=== PATIENT | male | born 1945 | race African-American/Black ===

== ENCOUNTER 2017-07-21 11:51 | Emergency (ER) | payer MEDICARE, OTHER ==
--- NOTE | 2017-07-21 12:41 | ER Document Report ---
ED General - General Chief Complaint: Dizziness Stated Complaint: DIZZINESS Time Seen by Provider: 07/21/17 12:01 Mode of Arrival: Medic Information source: Patient TRAVEL OUTSIDE OF THE [place] IN LAST 30 DAYS: No - HPI Notes: 82-year-old male with a history of nonischemic dilated cardiomyopathy, bilateral MCA and posterior CVA, history of AICD/ pacemaker implantation presents today via EMS with complaints of feeling lightheaded, states episode started approximately 2 hours ago, resolved resolved and he called EMS. Patient was with his friends yesterday on a bus, states that he had a seizure, EMS came. Did not go to the hospital. Patient was seen by his primary care provider Dr. Nunez, who follows him closely, after he had this event yesterday. Patient states that his daughter was very concerned about him and advised him to go to the emergency room. She states she has a long-standing history of facial droop from his CVA patient has not taken any yakk-pfc-[id number] medications. Denies any pain. Denies any trauma denies fevers, chills, chest pain,palpitations, shortness of breath, dyspnea, nausea, vomiting, diarrhea, abdominal pain, hematuria,blurred vision, double vision, loss of vision, speech changes, LH, dizziness, syncope, headaches, wheezing, ST, URI, neck pain, weakness, bowel or bladder dysfunction, saddle anesthesia, numbness or tingling in bilateral upper or lower extremities equally, muscle paralysis, weakness in bilateral upper or lower extremities equally or rash. - Related Data Allergies/Adverse Reactions: No Known Allergies Allergy (Verified 03/01/17 11:29) Past Medical History - General Information source: Patient - Social History Smoking Status: Unknown if Ever Smoked Family History: Reviewed & Not Pertinent Patient has suicidal ideation: No Patient has homicidal ideation: No - Past Medical History Cardiac Medical History: Reports: Hx Heart Attack, Hx Hypertension Pulmonary Medical History: Denies: Hx Asthma, Hx Tuberculosis Neurological Medical History: Reports: Hx Cerebrovascular Accident - LT ARM, Hx Seizures - LAST X5 YRS AGO Endocrine Medical History: Reports: Hx Diabetes Mellitus Type 2 Renal/ Medical History: Denies: Hx Peritoneal Dialysis GI Medical History: Denies: Hx Hepatitis, Hx Hiatal Hernia, Hx Ulcer Psychiatric Medical History: Denies: Hx Depression Infectious Medical History: Denies: Hx Hepatitis Past Surgical History: Reports: Hx Abdominal Surgery - hernia repair, Hx Cardiac Surgery - pacemaker, Hx Pacemaker. Denies: Hx Open Heart Surgery - Immunizations Hx Diphtheria, Pertussis, Tetanus Vaccination: Yes Hx Pneumococcal Vaccination: 05/02/11 Review of Systems - Review of Systems Notes: REVIEW OF SYSTEMS: CONSTITUTIONAL : Denies fever, chills, or sweats. Denies recent illness. EENT: Denies eye, ear, throat, or mouth pain or symptoms. Denies nasal or sinus congestion or discharge. Denies throat, tongue, or mouth swelling or difficulty swallowing. CARDIOVASCULAR: Denies chest pain. Denies palpitations or racing or irregular heart beat. Denies ankle edema. RESPIRATORY: Denies cough, cold, or chest congestion. Denies shortness of breath, difficulty breathing, or wheezing. GASTROINTESTINAL: Denies abdominal pain or distention. Denies nausea, vomiting , or diarrhea. Denies blood in vomitus, stools, or per rectum. Denies black, tarry stools. Denies constipation. GENITOURINARY: Denies difficulty urinating, painful urination, burning, frequency, blood in urine, or discharge. MUSCULOSKELETAL: Denies back or neck pain or stiffness. Denies joint pain or swelling. SKIN: Denies rash, lesions or sores. HEMATOLOGIC : Denies easy bruising or bleeding. LYMPHATIC: Denies swollen, enlarged glands. NEUROLOGICAL: Denies confusion or altered mental status. Denies passing out or loss of consciousness. Reports dizziness or lightheadedness. Denies headache. Denies weakness or paralysis or loss of use of either side. Denies problems with gait or speech. Denies sensory loss, numbness, or tingling. Denies seizures. PSYCHIATRIC: Denies anxiety or stress. Denies depression, suicidal ideation, or homicidal ideation. ALL OTHER SYSTEMS REVIEWED AND NEGATIVE. Dictation was performed using [employer] voice recognition software PHYSICAL EXAMINATION: GENERAL: Chronically ill, well-nourished and in no acute distress. HEAD: Atraumatic, normocephalic. EYES: Pupils equal round and reactive to light, extraocular movements intact, sclera anicteric, conjunctiva are normal. ENT: Nares patent, oropharynx clear without exudates. Moist mucous membranes. Noted left-sided facial droop NECK: Normal range of motion, supple without lymphadenopathy LUNGS: Breath sounds clear to auscultation bilaterally and equal. No wheezes rales or rhonchi. HEART: Regular rate and rhythm without murmurs ABDOMEN: Soft, nontender, nondistended abdomen. No guarding, no rebound. No masses appreciated. Musculoskeletal: Normal range of motion, no pitting or edema. No cyanosis. NEUROLOGICAL: Cranial nerves grossly intact. Normal speech, normal gait. Normal sensory, motor exams PSYCH: Normal mood, normal affect. SKIN: Warm, Dry, normal turgor, no rashes or lesions noted. Physical Exam - Vital signs Vitals: Resp BP Pulse Ox 14 161/83 H 96 07/21/17 11:59 07/21/17 11:59 07/21/17 11:59 Course - Re-evaluation Re-evalutation: 07/21/17 14:32 Pleasant chronically ill 72-year-old male presents today for lightheadedness and dizziness, patient told us after initial examination that he also does have chronic renal disease well he says he has seizures, states he is only had one seizure prior. States that lightheadedness and dizziness resolved when EMS had arrived. Patient is afebrile, in no distress. CBC negative for any leukocytosis, anemia. CMP does show his chronic renal failure, with a baseline troponin that is elevated but that has been his normal. Potassium is 2.5, advised patient to increase oral potassium intake with bananas. Remains asymptomatic without any chest pain, shortness of breath, lightheadedness, dizziness, blurred vision, double vision, abdominal pain, back pain, nausea vomiting diarrhea consulted with his primary care provider, at 1435 regarding patient's status. Per the [place] syncoperule, the result shows that he is a low risk for a negative outcome for , myocardial infarction, arrhythmia, pulmonary embolism, stroke, subarachnoid hemorrhage, significant hemorrhage, or any other condition causing her return to the ED visit with a hospitalization for related event. Dr. Avila primary states that patient was seen in the office yesterday, for the exact same symptoms. States that he is noncompliant with his Rita Fossantin. Patient is very well- known to primary care provider. States that he chronically has elevated troponin due to his chronic renal disease. Discussed that this patient does not require admission and can be discharged home. Discussed the findings with patient, all questions and concerns answered by this provider. Patient verbalized understanding of this plan of care and agree with plan of care. After performing a Medical Screening Examination, I estimate there is LOW risk for RUPTURED ESOPHAGUS, PNEUMOTHORAX, PULMONARY EMBOLISM, ACUTE CORONARY SYNDROME, OR THORACIC AORTIC DISSECTION, thus I consider the discharge disposition reasonable. I have reevaluated this patient multiple times and no significant life threatening changes are noted. The patient and I have discussed the diagnosis and risks, and we agree with discharging home with close follow-up. We also discussed returning to the Emergency Department immediately if new or worsening symptoms occur. We have discussed the symptoms which are most concerning (e.g., bloody sputum, worsening pain or shortness of breath) that necessitate immediate return. After performing a Medical Screening Examination, I estimate there is LOW risk for INTRACRANIAL HEMORRHAGE, ISCHEMIC CVA, MALIGNANT DYSRHYTHMIA, ACUTE CORONARY SYNDROME, MENINGITIS, PULMONARY EMBOLISM, or SEPSIS thus I consider the discharge disposition reasonable. I have reevaluated this patient multiple times and no significant life threatening changes are noted. The patient and I have discussed the diagnosis and risks, and we agree with discharging home with close follow-up with the understanding that symptoms and presentations can change. We also discussed returning to the Emergency Department immediately if new or worsening symptoms occur. We have discussed the symptoms which are most concerning (e.g., changing or worsening pain, weakness, vomiting, fever) that necessitate immediate return. - Vital Signs Vital signs: Temp Pulse Resp BP Pulse Ox 97.7 F 14 161/83 H 96 07/21/17 12:07 07/21/17 12:00 07/21/17 11:59 07/21/17 12:00 - Laboratory Result Diagrams: 07/21/17 12:10 07/21/17 12:10 Laboratory results interpreted by me: 07/21/17 07/21/17 07/21/17 12:10 12:10 12:10 RBC 3.99 L Hgb 12.8 L Sodium 147.0 H Potassium 3.5 L Carbon Dioxide 31 H BUN 48 H Creatinine 2.50 H Est GFR ( Amer) 31 L Est GFR (Non-Af Amer) 25 L Glucose 267 H POC Glucose Magnesium 2.4 H Direct Bilirubin 0.5 H Creatine Kinase 241 H NT-Pro-B Natriuret Pep 3500 H TSH Urine Glucose (UA) 07/21/17 07/21/17 07/21/17 12:10 12:58 13:30 RBC Hgb Sodium Potassium Carbon Dioxide BUN Creatinine Est GFR ( Amer) Est GFR (Non-Af Amer) Glucose POC Glucose 297 H Magnesium Direct Bilirubin Creatine Kinase NT-Pro-B Natriuret Pep TSH 7.59 H Urine Glucose (UA) 50 H Discharge - Discharge Clinical Impression: Dizziness, Chronic renal disease, Cardiomyopathy Condition: Good Instructions: Dizziness ([facility]) Additional Instructions: Dizziness Under normal circumstances, your sense of balance is controlled by a number of signals that your brain receives from several locations: Eyes. No matter what your position, visual signals help you determine where your body is in space and how it's moving. Sensory nerves. These are in your skin, muscles and joints. Sensory nerves send messages to your brain about body movements and positions. Inner ear. The organ of balance in your inner ear is the vestibular labyrinth. It includes loop-shaped structures (semicircular canals) that contain fluid and fine, hair-like sensors that monitor the rotation of your head. Near the semicircular canals are the utricle and saccule, which contain tiny particles called otoconia ([id number]-IIV-[id number]-uh). These particles are attached to sensors that help detect gravity and iruw-dhi-rcayj motion. Good balance depends on at least two of these three sensory systems working well. For instance, closing your eyes while washing your hair in the shower doesn't mean you'll lose your balance. Signals from your inner ear and sensory nerves help keep you upright. However, if your central nervous system can't process signals from all of these locations, if the messages are contradictory, or if the sensory systems aren't functioning properly, you may experience loss of balance. Dizziness may have a number of potential causes. These may include: Vertigo Vertigo - the false sense of motion or spinning - is the most common symptom of dizziness. Sitting up or moving around may make it worse. Sometimes vertigo is severe enough to cause nausea and vomiting. Vertigo usually results from a problem with the nerves and the structures of the balance mechanism in your inner ear (vestibular system), which sense movement and changes in your head position. Abnormal rhythmic eye movements ( nystagmus) almost always accompany vertigo. Causes of vertigo may include: Benign paroxysmal positional vertigo (BPPV). BPPV involves intense, brief episodes of vertigo associated with a change in the position of your head, often when you turn over in bed or sit up in the morning. It occurs when normal calcium carbonate crystals (otoconia) break loose and fall into the wrong part of the canals in your inner ear. When these particles shift, they stimulate sensors in your ear, producing an episode of vertigo. Doctors don't know what causes BPPV, but it may be a natural result of aging. Trauma to your head also may lead to BPPV. Inflammation in the inner ear. Signs and symptoms of inflammation of the inner ear (acute vestibular neuronitis or labyrinthitis) include sudden, intense vertigo that may persist for several days, with nausea and vomiting. It can be incapacitating, requiring bed rest to minimize the signs and symptoms. Fortunately, vestibular neuronitis generally subsides and clears up on its own. Recovery time may be shorter with vestibular rehabilitation exercises. Although the cause of this condition is unknown, it may be a viral infection. Meniere's disease. This disease involves the excessive buildup of fluid in your inner ear. It may affect adults at any age and is characterized by sudden episodes of vertigo lasting 30 minutes to an hour or longer. Other signs and symptoms include the feeling of fullness in your ear, buzzing or ringing in your ear (tinnitus), and fluctuating hearing loss. The cause of Meniere's disease is unknown. Vestibular migraine. People who experience a vestibular migraine are very sensitive to motion. Dizziness and vertigo caused by a vestibular migraine may be triggered by turning your head quickly, being in a crowded or confusing place , driving or riding in a vehicle, or even watching movement on TV. A vestibular migraine may cause feelings of imbalance or unsteadiness, hearing loss, "muffled " hearing, or ringing in your ears (tinnitus). For most people with a vestibular migraine, vertigo doesn't necessarily happen at the same time as the headache. Instead, typical migraine triggers may lead to vertigo without an actual migraine. Attacks of migrainous vertigo can last from a few minutes to several days. Acoustic neuroma. An acoustic neuroma (schwannoma) is a noncancerous (benign ) growth on the acoustic nerve, which connects the inner ear to your brain. Signs and symptoms of an acoustic neuroma may include dizziness, loss of balance , hearing loss and tinnitus. Rapid changes in motion. Riding on roller coasters or in boats, cars or even airplanes may on occasion make you dizzy. Other causes. Rarely, vertigo can be a symptom of a more serious neurological problem such as a stroke, brain hemorrhage or multiple sclerosis. Feeling of faintness (presyncope) "Presyncope" is the medical term for feeling faint and lightheaded without losing consciousness. Sometimes nausea, pale skin and a sense of dizziness accompany a feeling of faintness. Causes of presyncope include: Drop in blood pressure (orthostatic hypotension). A dramatic drop in your systolic blood pressure - the higher number in your blood pressure reading - may result in lightheadedness or a feeling of faintness. It can occur after sitting up or standing too quickly. Inadequate output of blood from the heart. Conditions such as partially blocked arteries (atherosclerosis), disease of the heart muscle (cardiomyopathy) , abnormal heart rhythm (arrhythmia) or a decrease in blood volume may cause inadequate blood flow from your heart. Loss of balance (disequilibrium) Disequilibrium is the loss of balance or the feeling of unsteadiness when you walk. Causes may include: Inner ear (vestibular) problems. Abnormalities with your inner ear can cause you to feel like you are floating, have a heavy head or are unsteady in the dark. Sensory disorders. Failing vision and nerve damage in your legs (peripheral neuropathy) are common in older adultsand may result in difficulty maintaining your balance. Joint and muscle problems. Muscle weakness and osteoarthritis - the type of arthritis that involves wear and tear of your joints - can contribute to loss of balance when it involves your weight-bearing joints. Medications. Loss of balance can be a side effect of certain medications, such as anti-seizure drugs, sedatives and tranquilizers. Lightheadedness and other kinds of 'dizziness' Feeling lightheaded is the feeling of being "spaced out" or having the sensation of spinning inside your head. It can also give you the sensation that if your lightheadedness worsens, you might lose consciousness. Causes may include: Inner ear disorders. These abnormalities of your inner ear can lead to illusions of motion and make you feel like you're floating. Anxiety disorders. Certain anxiety disorders, such as panic attacks and a fear of leaving home or being in large, open spaces (agoraphobia), may cause lightheadedness. Hyperventilation. Abnormally rapid breathing that often accompanies anxiety disorders may make you feel lightheaded. Follow-up with your primary care provider within 1 day. If any symptoms become worse return to the emergency room. Take all your medications as directed. Return immediately for any new or worsening symptoms. Follow up with primary care provider, call tomorrow to make followup appointment. Referrals: MIMI AVILA MD [Primary Care Provider] - Follow up tomorrow
--- NOTE | 2017-07-21 13:08 | RADIOLOGY REPORT (SQ) ---
EXAM DESCRIPTION: CT HEAD WITHOUT COMPLETED DATE/TIME: 07/21/2017 12:48 pm REASON FOR STUDY: syncopal event. LH COMPARISON: CT brain 07/05/2014, 10/15/2008 TECHNIQUE: Axial images acquired through the brain without intravenous contrast. Images reviewed wi th bone, brain and subdural windows. Images stored on PACS. All CT scanners at this facility use dose modulation, iterative reconstruction, and/or weight based d osing when appropriate to reduce radiation dose to as low as reasonably achievable (ALARA). [facility]: Dose Right [facility]: CareDose [facility]: Dose Right [facility]: Teradose 4D [facility]: [employer] RADIATION DOSE: CT Rad equipment meets quality standard of care and radiation dose reduction techniq ues were employed. CTDIvol: 64.6 mGy. DLP: 1163 mGy-cm. mGy. LIMITATIONS: None. FINDINGS: VENTRICLES: Normal size and contour. CEREBRUM: No CT evidence of acute large territory ischemic change, acute intracranial hemorrhage, mas s effect, or midline shift. Old infarcts are present in the right frontal MCA distribution, left fron blanco convexity, and bilateral occipital cortex. Benign bilateral basal ganglia calcifications. CEREBELLUM: No masses. No hemorrhage. No alteration of density. No evidence for acute infarction. EXTRAAXIAL SPACES: No fluid collections. No masses. ORBITS AND GLOBE: No intra- or extraconal masses. Normal contour of globe without masses. CALVARIUM: No fracture. PARANASAL SINUSES: No fluid or mucosal thickening. SOFT TISSUES: No mass or hematoma. OTHER: No other significant finding. IMPRESSION: Old bilateral middle cerebral artery and posterior cerebral artery infarcts. No acute findings EVIDENCE OF ACUTE STROKE: No COMMENT: Quality ID # [id number]: Final reports with documentation of one or more dose reduction techniques (e.g., Automated exposure control, adjustment of the mA and/or kV according to patient size, use of iterative reconstruction technique) TECHNICAL DOCUMENTATION: JOB ID: [id number] [employer]- All Rights Reserved Reading location - IP/workstation name: [email or web address]
[2017-07-21 13:10] LABS: ALANINE AMINOTRANSFERASE 34 U/L (21-72); ALBUMIN 4.3 g/dL (3.5-5.0); ALKALINE PHOSPHATASE 117 U/L (38-126); ANION GAP 13 (5-19); ASPARTATE AMINO TRANSFERASE 49 U/L (17-59); BILIRUBIN,DIRECT 0.5 mg/dL (0.0-0.4); BILIRUBIN,TOTAL 0.5 mg/dL (0.2-1.3); BLOOD UREA NITROGEN 48 mg/dL (7-20); CARBON DIOXIDE 31 mmol/L (22-30); CHLORIDE 103 mmol/L (98-107); CREATINE KINASE 241 U/L (55-170); GLUCOSE 267 mg/dL (75-110); POTASSIUM 3.5 mmol/L (3.6-5.0); TOTAL PROTEIN 7.9 g/dL (6.3-8.2)
[2017-07-21 13:11] LABS: ABSOLUTE EOSINOPHILS # (AUTO) 0.2 10^3/uL (0.0-0.6); ABSOLUTE LYMPHOCYTES (AUTO) 1.3 10^3/uL (0.5-4.7); ABSOLUTE MONOCYTES (AUTO) 0.5 10^3/uL (0.1-1.4); ABSOLUTE NEUT (AUTO) 4.3 10^3/uL (1.7-8.2); BASOPHILS % (AUTO) 0.7 % (0-2); EOSINOPHILS % (AUTO) 3.4 % (0-6); HEMATOCRIT 38.4 % (37.9-51.0); HEMOGLOBIN 12.8 g/dL (13.5-17.0); LYMPHOCYTES % (AUTO) 20.6 % (13-45); MEAN CORPUSCULAR HEMOGLOBIN 32.2 pg (27.0-33.4); MEAN CORPUSCULAR HGB CONC 33.5 g/dL (32.0-36.0); MEAN CORPUSCULAR VOLUME 96 fl (80-97); MONOCYTES % (AUTO) 7.3 % (3-13); PLATELET COUNT 240 10^3/uL (150-450); RED BLOOD COUNT 3.99 10^6/uL (4.35-5.55); RED CELL DISTRIBUTION WIDTH 13.1 % (11.5-14.0); TOTAL CELLS COUNTED % (AUTO) 100 %; WHITE BLOOD COUNT 6.3 10^3/uL (4.0-10.5)
--- NOTE | 2017-07-21 13:13 | RADIOLOGY REPORT (SQ) ---
EXAM DESCRIPTION: CHEST SINGLE VIEW COMPLETED DATE/TIME: 07/21/2017 1:02 pm REASON FOR STUDY: syncope, LH COMPARISON: Two-view chest 04/03/2013, 05/04/2009 EXAM PARAMETERS: NUMBER OF VIEWS: One view. TECHNIQUE: Single frontal radiographic view of the chest acquired. RADIATION DOSE: NA LIMITATIONS: None. FINDINGS: LUNGS AND PLEURA: No opacities, masses or pneumothorax. No pleural effusion. MEDIASTINUM AND HILAR STRUCTURES: No masses. Contour normal. HEART AND VASCULAR STRUCTURES: Stable moderate to marked cardiomegaly BONES: No acute findings. HARDWARE: Unchanged left-sided pacemaker OTHER: No other significant finding. IMPRESSION: Stable moderate to marked cardiomegaly TECHNICAL DOCUMENTATION: JOB ID: [id number] [employer] All Rights Reserved Reading location - IP/workstation name: [email or web address]
[2017-07-21 13:21] LABS: TROPONIN I 0.073 ng/mL
[2017-07-21] MEDS ORDERED: NORMAL SALINE 1000 ML 1,000 ML IV ONE (13:23)
[2017-07-21 14:02] LABS: APPEARANCE,URINE CLEAR; BILIRUBIN,URINE NEGATIVE (NEGATIVE); COLOR,URINE YELLOW; GLUCOSE, URINE 50 mg/dL (NEGATIVE); KETONES,URINE NEGATIVE (NEGATIVE); LEUKOCYTE ESTERASE,URINE NEGATIVE (NEGATIVE); NITRITE,URINE NEGATIVE (NEGATIVE); PROTEIN,URINE NEGATIVE (NEGATIVE); UROBILINOGEN,URINE NEGATIVE mg/dL (<2.0)
[2017-07-21 15:10] VITALS: BP 145/76
--- NOTE | 2017-07-21 22:09 | EKG REPORT ---
SEVERITY:- ABNORMAL ECG - SINUS RHYTHM RIGHT BUNDLE BRANCH BLOCK CONSIDER INFERIOR AR CONSIDER ANTEROSEPTAL AR : Confirmed by: Esteban Kaminski 21-Jul-2017 22:09:10
== END 2017-07-21 15:11 | disposition home or self-care (01) ==
LOC: ER 11:51
DX: R42 Dizziness and giddiness (principal); N28.89 Other specified disorders of kidney and ureter; I42.9 Cardiomyopathy, unspecified; I45.10 Unspecified right bundle-branch block; I10 Essential (primary) hypertension; E11.9 Type 2 diabetes mellitus without complications; Z86.73 Personal history of transient ischemic attack (TIA), and cerebral infarction without residual deficits; Z95.810 Presence of automatic (implantable) cardiac defibrillator; I25.2 Old myocardial infarction
CPT/HCPCS: 36415; 70450; 71045; 80053; 81001; 82550; 82962; 83735; 83880; 84443; 84484; 85025; 87086; 93005; 93010; 99285

== ENCOUNTER 2018-03-06 02:53 | Observation (INO) | payer MEDICARE, OTHER ==
[2018-03-06] MEDS ORDERED: ONDANSETRON HCL INJ/PF 4 MG/2 ML SDV IV ONE (03:17)
[2018-03-06] MEDS ORDERED: MECLIZINE HCL 25 MG TABLET PO ONE (03:32)
[2018-03-06] MEDS ORDERED: NORMAL SALINE 1000 ML 250 ML IV ONE (03:46)
[2018-03-06 03:59] LABS: ABSOLUTE BASOPHILS # (AUTO) 0.1 10^3/uL (0.0-0.2); ABSOLUTE EOSINOPHILS # (AUTO) 0.3 10^3/uL (0.0-0.6); ABSOLUTE LYMPHOCYTES (AUTO) 1.1 10^3/uL (0.5-4.7); ABSOLUTE MONOCYTES (AUTO) 0.5 10^3/uL (0.1-1.4); BASOPHILS % (AUTO) 0.7 % (0-2); EOSINOPHILS % (AUTO) 3.8 % (0-6); HEMATOCRIT 35.2 % (37.9-51.0); HEMOGLOBIN 12.5 g/dL (13.5-17.0); LYMPHOCYTES % (AUTO) 15.9 % (13-45); MEAN CORPUSCULAR HEMOGLOBIN 33.7 pg (27.0-33.4); MEAN CORPUSCULAR HGB CONC 35.4 g/dL (32.0-36.0); MEAN CORPUSCULAR VOLUME 95 fl (80-97); MONOCYTES % (AUTO) 6.8 % (3-13); PLATELET COUNT 218 10^3/uL (150-450); RED CELL DISTRIBUTION WIDTH 12.7 % (11.5-14.0); SEGMENTED NEUTROPHILS % (AUTO) 72.8 % (42-78); TOTAL CELLS COUNTED % (AUTO) 100 %; WHITE BLOOD COUNT 6.9 10^3/uL (4.0-10.5)
--- NOTE | 2018-03-06 04:03 | ER Document Report ---
ED NIH Stroke Scale - NIH Stroke Scale When completed:: Protocol *: 1. NIH scale should be completed with appropriate accompanying assessment tools. *: 2. The NIH should reflect what the patient is capable of doing and should not be coached by the clinician. 1a. Level of Consciousness: 0=Alert;keenly responsive -: 1=Drowsy -: 2=Obtunded -: 3=Coma/unresponsive or reflex to noxious stimuli. 1a. Responses: 0 1b. Orientation Questions: a. What month is it? -: b. How old are you? -: 0=Answers both questions correctly. -: 1=Answers one question correctly or patient is intubated or has orotracheal trauma. -: 2=Answers neither question correctly. 1b. Responses: 0 1c. Response to commands: a. Open and close eyes? -: b. Furnace Erector and release hand? -: Credit is given despite weakness. Demonstration of task is permitted. Substitute command if hands cannot be used. -: 0=Performs both tasks correctly -: 1=Performs one task correctly -: 2=Performs neither task correctly 1c. Responses: 0 2. Gaze: Establish eye contact and instruct patient to "Follow my finger" -: 0=Normal -: 1=Partial gaze palsy. Gaze is abnormal in one or both eyes, but where forced deviation or total gaze paresis is not present. -: 2=Forced deviation or total gaze paresis. 2. Responses: 0 3. Visual Álvarez: Sees fingers in all four quadrants. -: 0=No visual loss. -: 1=Partial hemianopsia. -: 2=Complete hemianopsia. -: 3=Bilateral hemianopsia (including Cortical blindness) 3. Responses: 0 4. Facial Movement: Instruct patient to: -: a. Show me your teeth -: b. Raise your eyebrows -: c. Close your eyes -: d. Smile -: 0=Normal symmetrical movement -: 1=Minor paralysis (flattened nasolabial fold, asymmetry on smiling). -: 2=Partial paralysis (total or near total paralysis of lower face). -: 3=Complete paralysis of upper and lower face 4. Responses: 0 5. Motor functions (left arm): Alternate sides and extend each arm with palms down (90 degrees if sitting or 45 degrees for supine). -: 0=No drift;limb holds for full 10 seconds. -: 1=Drift; limb holds but drifts down before full 10 seconds, but does not hit bed. -: 2=Some effort against gravity; limb cannot get to or maintain position. -: 3=No effort against gravity; limb falls. -: 4=No movement. -: UN=Amputation, joint fusion, explain in comments. 5. Responses (left arm): 0 5. Motor Functions (right arm): Alternate sides and extend each arm with palms down (90 degrees if sitting or 45 degrees for supine). -: 0=No drift;limb holds for full 10 seconds. -: 1=Drift; limb holds but drifts down before full 10 seconds, but does not hit bed. -: 2=Some effort against gravity; limb cannot get to or maintain position. -: 3=No effort against gravity; limb falls. -: 4=No movement. -: UN=Amputation, joint fusion, explain in comments. 5. Responses (right arm): 0 6. Motor Functions (left leg): With patient lying supine, alternate sides and extend each leg (30 degrees always while supine). -: 0=No drift, leg holds position for full 5 seconds -: 1=Drift; leg falls before full 5 seconds but does not hit bed. -: 2=Some effort against gravity, leg falls to bed but some effort against gravity. -: 3=No effort against gravity, leg falls to bed immediately. -: 4=No movement. -: UN=Amputation, joint fusion; explain in comments. 6. Responses (left leg): 0 6. Motor Functions (right leg): With patient lying supine, alternate sides and extend each leg (30 degrees always while supine). -: 0=No drift, leg holds position for full 5 seconds -: 1=Drift; leg falls before full 5 seconds but does not hit bed. -: 2=Some effort against gravity, leg falls to bed but some effort against gravity. -: 3=No effort against gravity, leg falls to bed immediately. -: 4=No movement. -: UN=Amputation, joint fusion; explain in comments. 6. Responses (right leg): 0 7. Limb Ataxia: With eyes open instruct patient to: -: a. "Touch your finger to your nose". -: b. "Touch your heel to your zamorano" -: 0=Absent -: 1=Present in one limb. -: 2=Present in two limbs. -: UN=Amputation or joint fusion; explain in comments. 7. Responses: 0 8. Sensory: Test sensation using pinprick or noxious stimuli. Test as many body parts as possible. -: 0=Normal;no sensory loss -: 1=Mile to moderate sensory loss (patient feels pin prick but is less sharp on affected side). -: 2=Severe or total sensory loss. 8. Responses: 0 9. Best Language: Instruct patient to: -: a. "Describe what you see in this picture." -: b. "Name the items in this picture." -: c. "Read these sentences." -: 0=No aphasia, normal -: 1=Mild to moderate aphasia. -: 2=Severe aphasia -: 3=Mute, global aphasia, no usable speech or auditory comprehension. 9. Responses: 0 10. Articulation, Dysarthia: Instruct patient to: -: "Read these words" or "Repeat these words" -: 0=Normal -: 1=Mild to moderate; patient may slur some words but can be understood without difficulty. -: 2=Severe; patients speech so slurred as to be unintelligible in the absence of dysphasia. -: UN=Intubated or other physical barrier, explain in comments. 10. Responses: 0 11. Extinction or inattention: 0=No abnormality -: 1= Visual, tactile, auditory, spatial, or personal inattention or extinction to bilateral simulation in one or the sensory modalities. -: 2=Profound kaycee-inattention or kaycee-inattention to more than one modality; does not recognize own hand. 11. Responses: 0 Total Score: 0 Notes: Pt initially dizzy w/ BP 203/112
[2018-03-06 04:07] LABS: ALANINE AMINOTRANSFERASE 19 U/L (21-72); ALBUMIN 4.4 g/dL (3.5-5.0); ALKALINE PHOSPHATASE 160 U/L (38-126); ANION GAP 17 (5-19); ASPARTATE AMINO TRANSFERASE 22 U/L (17-59); BILIRUBIN,DIRECT 0.2 mg/dL (0.0-0.4); BILIRUBIN,TOTAL 0.5 mg/dL (0.2-1.3); BLOOD UREA NITROGEN 56 mg/dL (7-20); CALCIUM 9.1 mg/dL (8.4-10.2); CARBON DIOXIDE 29 mmol/L (22-30); CHLORIDE 101 mmol/L (98-107); CREATINE KINASE 160 U/L (55-170); GLUCOSE 200 mg/dL (75-110); SODIUM 147.1 mmol/L (137-145); TOTAL PROTEIN 7.7 g/dL (6.3-8.2)
[2018-03-06] MEDS ORDERED: NORMAL SALINE 1000 ML 250 ML IV PRN ×2 (04:11→04:16)
--- NOTE | 2018-03-06 04:13 | RADIOLOGY REPORT (SQ) ---
EXAM DESCRIPTION: XR CHEST 1 VIEW COMPLETED DATE/TME: 03/06/2018 03:16 CLINICAL HISTORY: 72 years, Male, HTN dizziness COMPARISON: None. NUMBER OF VIEWS: 1 TECHNIQUE: Frontal view the chest LIMITATIONS: None. FINDINGS: Cardiomegaly. Left-sided pacing device. Elevation right hemidiaphragm. Lungs are clear. No pneumothorax IMPRESSION: Cardiomegaly. Lungs are clear 2010 [email or web address] [employer]- All Rights Reserved
[2018-03-06 04:19] LABS: CREATINE KINASE MB 1.7 ng/mL (<4.55)
[2018-03-06 04:21] LABS: TROPONIN I 0.104 ng/mL
--- NOTE | 2018-03-06 04:22 | ER Document Report ---
ED General <ARMIDA RODRIGUEZ - Last Filed: 03/06/18 05:08> - General TRAVEL OUTSIDE OF THE [place] IN LAST 30 DAYS: No <EZRALUCIOMICHAELMANUELITOKADIECARINE - Last Filed: 03/06/18 06:13> <RANJEET NAVA - Last Filed: 03/06/18 08:54> - General Chief Complaint: Nausea/Vomiting Stated Complaint: VOMITING Time Seen by Provider: 03/06/18 03:05 Notes: Patient is a 72-year-old male presenting to the emergency department complaining of lightheadedness and dizziness. Patient states he awoke this morning and had to use the restroom. Patient states he got up to use the restroom and felt lightheaded and dizzy and at that time vomited x1 patient's denying blood in his vomit. Patient also denying diarrhea, fever, URI symptoms. Patient's denying headache, shortness of breath, chest pain. Patient's primary care doctor is Dr. Avila who he recently saw on 2017. Patient states no recent change in any of his medications. Patient states he has been taking his medications as prescribed. Past medical history: Diabetes, hypertension, seizures, hyperlipidemia, CVA, CHF , chronic kidney failure Medications: Aspirin, clopidogrel, atorvastatin, potassium, metoprolol, Tradjenta, Levetiracetam, Metolazone, Doxazosin, Torsemide, phenytoin Allergies: None (INO BAKER) - Related Data Allergies/Adverse Reactions: No Known Allergies Allergy (Verified 03/06/18 04:28) Past Medical History - General Information source: Patient, Relative - Social History Smoking Status: Never Smoker Lives with: Family Family History: Reviewed & Not Pertinent - Past Medical History Cardiac Medical History: Reports: Hx Heart Attack, Hx Hypertension Pulmonary Medical History: Denies: Hx Asthma, Hx Tuberculosis Neurological Medical History: Reports: Hx Cerebrovascular Accident - LT ARM, Hx Seizures - LAST X5 YRS AGO Endocrine Medical History: Reports: Hx Diabetes Mellitus Type 2 Renal/ Medical History: Denies: Hx Peritoneal Dialysis GI Medical History: Denies: Hx Hepatitis, Hx Hiatal Hernia, Hx Ulcer Psychiatric Medical History: Denies: Hx Depression Infectious Medical History: Denies: Hx Hepatitis Past Surgical History: Reports: Hx Abdominal Surgery - hernia repair, Hx Cardiac Surgery - pacemaker, Hx Pacemaker. Denies: Hx Open Heart Surgery - Immunizations Hx Diphtheria, Pertussis, Tetanus Vaccination: Yes Hx Pneumococcal Vaccination: 05/02/11 <INO BAKER - Last Filed: 03/06/18 06:13> Review of Systems - Review of Systems Constitutional: See HPI EENT: See HPI Cardiovascular: See HPI Respiratory: See HPI Gastrointestinal: See HPI Genitourinary: No symptoms reported Male Genitourinary: No symptoms reported Musculoskeletal: No symptoms reported Skin: No symptoms reported Hematologic/Lymphatic: No symptoms reported Neurological/Psychological: No symptoms reported <INO BAKER - Last Filed: 03/06/18 06:13> Physical Exam <ARMIDA RODRIGUEZ - Last Filed: 03/06/18 05:08> <SHANIQUE BAKERKADIECARINE - Last Filed: 03/06/18 06:13> <RANJEET NAVA - Last Filed: 03/06/18 08:54> - Vital signs Vitals: Temp Pulse Resp BP Pulse Ox 97.8 F 97 22 H 203/112 H 95 03/06/18 03:00 03/06/18 03:00 03/06/18 03:00 03/06/18 03:00 03/06/18 03:00 - Notes Notes: GENERAL: Alert, interacts well. No acute distress. HEAD: Normocephalic, atraumatic. EYES: Pupils equal, round, and reactive to light. Extraocular movements intact. ENT: Oral mucosa moist, tongue midline. NECK: Full range of motion. Supple. Trachea midline. LUNGS: Clear to auscultation bilaterally, no wheezes, rales, or rhonchi. No respiratory distress. HEART: Regular rate and rhythm. No murmur ABDOMEN: Soft, non-tender. Non-distended. Bowel sounds present in all 4 quadrants. EXTREMITIES: Moves all 4 extremities spontaneously. No edema, normal radial and dorsalis pedis pulses bilaterally. No cyanosis. BACK: no cervical, thoracic, lumbar midline tenderness. No saddle anesthesia, normal distal neurovascular exam. NEUROLOGICAL: Alert and oriented x3. Normal speech. cranial nerves II through XII grossly intact. NIH scale 0. 5 out of 5 strength all extremities. PSYCH: Normal affect, normal mood. SKIN: Warm, dry, normal turgor. No rashes or lesions noted. (INO BAKER) Course - Laboratory Result Diagrams: 03/06/18 03:41 03/06/18 03:41 <ARMIDA RODRIGUEZ - Last Filed: 03/06/18 05:08> - Laboratory Result Diagrams: 03/06/18 03:41 03/06/18 03:41 <INO BAKER - Last Filed: 03/06/18 06:13> - Laboratory Result Diagrams: 03/06/18 03:41 03/06/18 03:41 - Diagnostic Test Radiology reviewed: Reports reviewed <RANJEET NAVA - Last Filed: 03/06/18 08:54> - Re-evaluation Re-evalutation: 03/06/18 05:08 Patient reevaluated. He is resting comfortably. He states that his dizziness has resolved. He denies any chest pain, shortness of breath. Last blood pressure reading 170/97. Patient was found to have an indeterminate troponin. Delta troponin is pending. Patient did receive aspirin, magnesium, potassium, sodium bicarb. (ARMIDA RODRIGUEZ) 03/06/18 06:13 Discussed possible transfer to [facility]. Patient states that is where his data processing consultant is but he is unsure of his data processing consultant name. Discussed repeat troponin at 645 with patient. Patient is very agreeable with treatment plan. Continues to deny chest pain, shortness of breath, dizziness, or nausea at this time. Patient states at times he still does feel lightheaded. (INO BAKER) 03/06/18 08:00 Patient continues to deny any complaints at this time, states he is feeling much better. Patient denies any chest pain symptoms. Patient continues hypertensive, patient's usual medications ordered at this time. 03/06/18 08:52 Consulted with patient's primary doctor Dr. Avila who agrees to accept patient for observation admission to [facility]. Does not suspect that patient is having a non-STEMI but rather has nonischemic cardiomyopathy with chronic elevated troponin. (RANJEET NAVA) - Vital Signs Vital signs: Temp Pulse Resp BP Pulse Ox 97.8 F 97 23 H 170/98 H 96 03/06/18 03:00 03/06/18 03:00 03/06/18 06:30 03/06/18 06:30 03/06/18 06:30 - Laboratory Laboratory results interpreted by me: 03/06/18 03/06/18 03:41 03:41 RBC 3.70 L Hgb 12.5 L Hct 35.2 L MCH 33.7 H Sodium 147.1 H Potassium 3.0 L* BUN 56 H Creatinine 2.22 H Est GFR ( Amer) 35 L Est GFR (Non-Af Amer) 29 L Glucose 200 H ALT 19 L Alkaline Phosphatase 160 H 03/06/18 08:53 Labs- Entire Visit 03/06/18 03/06/18 03/06/18 03:41 03:41 03:41 WBC 6.9 RBC 3.70 L Hgb 12.5 L Hct 35.2 L MCV 95 MCH 33.7 H MCHC 35.4 RDW 12.7 Plt Count 218 Seg Neutrophils % 72.8 Lymphocytes % 15.9 Monocytes % 6.8 Eosinophils % 3.8 Basophils % 0.7 Absolute Neutrophils 5.0 Absolute Lymphocytes 1.1 Absolute Monocytes 0.5 Absolute Eosinophils 0.3 Absolute Basophils 0.1 PT Cancelled INR Cancelled Sodium 147.1 H Potassium 3.0 L* Chloride 101 Carbon Dioxide 29 Anion Gap 17 BUN 56 H Creatinine 2.22 H Est GFR ( Amer) 35 L Est GFR (Non-Af Amer) 29 L Glucose 200 H Calcium 9.1 Magnesium Total Bilirubin 0.5 Direct Bilirubin 0.2 Neonat Total Bilirubin Not Reportable Neonat Direct Bilirubin Not Reportable Neonat Indirect Bili Not Reportable AST 22 ALT 19 L Alkaline Phosphatase 160 H Creatine Kinase 160 CK-MB (CK-2) Troponin I Total Protein 7.7 Albumin 4.4 03/06/18 03/06/18 03/06/18 03:41 03:41 04:11 WBC RBC Hgb Hct MCV MCH MCHC RDW Plt Count Seg Neutrophils % Lymphocytes % Monocytes % Eosinophils % Basophils % Absolute Neutrophils Absolute Lymphocytes Absolute Monocytes Absolute Eosinophils Absolute Basophils PT 15.1 INR 1.13 Sodium Potassium Chloride Carbon Dioxide Anion Gap BUN Creatinine Est GFR ( Amer) Est GFR (Non-Af Amer) Glucose Calcium Magnesium 2.0 Total Bilirubin Direct Bilirubin Neonat Total Bilirubin Neonat Direct Bilirubin Neonat Indirect Bili AST ALT Alkaline Phosphatase Creatine Kinase CK-MB (CK-2) 1.70 Troponin I 0.104 Total Protein Albumin 03/06/18 06:55 WBC RBC Hgb Hct MCV MCH MCHC RDW Plt Count Seg Neutrophils % Lymphocytes % Monocytes % Eosinophils % Basophils % Absolute Neutrophils Absolute Lymphocytes Absolute Monocytes Absolute Eosinophils Absolute Basophils PT INR Sodium Potassium Chloride Carbon Dioxide Anion Gap BUN Creatinine Est GFR ( Amer) Est GFR (Non-Af Amer) Glucose Calcium Magnesium Total Bilirubin Direct Bilirubin Neonat Total Bilirubin Neonat Direct Bilirubin Neonat Indirect Bili AST ALT Alkaline Phosphatase Creatine Kinase CK-MB (CK-2) Troponin I 0.094 Total Protein Albumin (RANJEET NAVA) Discharge <ARMIDA RODRIGUEZ - Last Filed: 03/06/18 05:08> <INO BAKER - Last Filed: 03/06/18 06:13> - Discharge Admitting Provider: Radha Unit Admitted: [facility] <RANJEET NAVA - Last Filed: 03/06/18 08:54> - Discharge Clinical Impression: Near syncope, Hypokalemia, Elevated troponin Cardiomyopathy Qualifiers: Cardiomyopathy type: unspecified Qualified Code(s): I42.9 - Cardiomyopathy, unspecified Condition: Stable Disposition: ADMITTED OBSERVATION Referrals: MIMI AVILA MD [Primary Care Provider] - Follow up as needed
[2018-03-06] MEDS ORDERED: ASPIRIN 325 MG TABLET PO ONE (04:23)
[2018-03-06] MEDS ORDERED: POTASSIUM CHLORIDE 10 MEQ CAPSULE.ER PO ONE (04:24)
[2018-03-06 04:26] LABS: INTERNATIONAL RATION (INR) 1.13; PROTHROMBIN TIME 15.1 SEC (11.4-15.4)
[2018-03-06] MEDS ORDERED: POTASSI CL 20 MEQ/50 ML RIDER 20 MEQ/50 ML RTUPB IV ONE (04:33)
[2018-03-06] MEDS ORDERED: SODIUM BICARBONATE 8.4% INJ 50 MEQ/50 ML DISP.SYRIN IV ONE ×2 (04:36→04:51)
[2018-03-06] MEDS: MAGNESIUM SULFATE/D5W 1 GM/100 ML RTUPB IV SCH ×2 (04:57→05:59)
--- NOTE | 2018-03-06 07:04 | EKG REPORT ---
SEVERITY:- ABNORMAL ECG - SINUS RHYTHM RIGHT BUNDLE BRANCH BLOCK OLD INFERIOR [place] : Confirmed by: Steve Brothers MD 06-Mar-2018 07:03:06
[2018-03-06] MEDS ORDERED: ISOSORB DINIT/HYDRALAZINE HCL 20-37.5 MG TABLET PO ONE (07:53)
[2018-03-06] MEDS ORDERED: TORSEMIDE 20 MG TABLET PO ONE (07:53)
[2018-03-06] MEDS ORDERED: DEXTROSE 40% GEL 15 GM TUBE PO PRN (11:53)
[2018-03-06] MEDS ORDERED: DEXTROSE 50%-WATER SYRINGE 12.5 GM/25 ML DOSE IV PRN (11:53)
[2018-03-06] MEDS ORDERED: GLUCAGON,HUMAN RECOMB 1 MG INJ IM PRN (11:53)
[2018-03-06] MEDS ORDERED: DEXTROSE 50%-WATER SYRINGE 25 GM/50 ML DOSE IV PRN (11:53)
[2018-03-06] MEDS ORDERED: DEXTROSE 40% GEL 15 GM TUBE X 2 PO PRN (11:53)
--- NOTE | 2018-03-06 13:21 | EKG REPORT ---
SEVERITY:- ABNORMAL ECG - SINUS RHYTHM ATRIAL PREMATURE COMPLEX RIGHT BUNDLE BRANCH BLOCK OLD INFERIOR [place] : Confirmed by: Steve Brothers MD 06-Mar-2018 13:20:23
--- NOTE | 2018-03-06 13:21 | EKG REPORT ---
SEVERITY:- ABNORMAL ECG - SINUS RHYTHM PROBABLE LEFT ATRIAL ABNORMALITY RIGHT BUNDLE BRANCH BLOCK OLD INFERIOR [place] : Confirmed by: Steve Brothers MD 06-Mar-2018 13:21:01
[2018-03-06 13:31] LABS: CREATINE KINASE MB 1.66 ng/mL (<4.55)
[2018-03-06 13:35] LABS: TROPONIN I 0.114 ng/mL
--- NOTE | 2018-03-06 13:41 | RADIOLOGY REPORT (SQ) ---
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 TECHNIQUE: Axial images acquired through the brain without intravenous contrast. Images reviewed wi th bone, brain and subdural windows. Additional sagittal and coronal reconstructions were generated. Images stored on PACS. All CT scanners at this facility use dose modulation, iterative reconstruction, and/or weight based d osing when appropriate to reduce radiation dose to as low as reasonably achievable (ALARA). [facility]: Dose Right [facility]: CareDose [facility]: Dose Right [facility]: Teradose 4D [facility]: enModus RADIATION DOSE: CT Rad equipment meets quality standard of care and radiation dose reduction techniq ues were employed. CTDIvol: 48.6 mGy. DLP: 1002 mGy-cm.mGy. LIMITATIONS: None. FINDINGS: VENTRICLES: Prominent. CEREBRUM: No masses. No hemorrhage. No midline shift. Areas of low density in the white matter mos t likely due to chronic micro-vascular ischemic change. Stable old bilateral infarcts with encephalo malacia, right greater than left. No evidence for acute infarction. CEREBELLUM: No masses. No hemorrhage. No alteration of density. No evidence for acute infarction. EXTRAAXIAL SPACES: Age-related involutional change. No fluid collections. No masses. ORBITS AND GLOBE: No intra- or extraconal masses. Normal contour of globe without masses. CALVARIUM: No fracture. PARANASAL SINUSES: No fluid. Chronic ethmoid sinus disease. SOFT TISSUES: No mass or hematoma. OTHER: No other significant finding. IMPRESSION: CHRONIC CHANGES OF ATROPHY AND MICROVASCULAR ISCHEMIA. STABLE OLD BILATERAL INFARCTS. NO ACUTE PROCESS. EVIDENCE OF ACUTE STROKE: NO. TECHNICAL DOCUMENTATION: JOB ID: [id number] Quality ID # [id number]: Final reports with documentation of one or more dose reduction techniques (e.g., Au tomated exposure control, adjustment of the mA and/or kV according to patient size, use of iterative reconstruction technique) 2010 [employer]- All Rights Reserved Reading location - IP/workstation name: [email or web address]
[2018-03-06] MEDS: POTASSIUM CHLORIDE 10 MEQ CAPSULE.ER PO SCH ×2 (13:59→21:13)
[2018-03-06] MEDS ORDERED: METOLAZONE 2.5 MG TABLET PO ONE (14:00)
[2018-03-06] MEDS: INSULIN LISPRO 100 UNIT/ML 3 ML VIAL SUBCUT PRN (17:30)
--- NOTE | 2018-03-06 19:40 | PDOC H&P ---
History of Present Illness Admission Date/PCP: 03/06/18 09:09 MIMI AVILA MD History of Present Illness: RICKY PETTY is a 72 year old male, Patient is well-known to me he has nonischemic dilated cardiomyopathy, type 2 diabetes mellitus, chronic kidney disease stage III.He was evaluated in the emergency room for vomiting, he said when he woke up this morning he had episode of vomiting with unsteady gait, he then told his roommate to call his daughter's, subsequently he was brought to the emergency room for evaluation. In the emergency room he was found to have hypokalemia the troponin was elevated, marginally, he has chronically elevated serum troponin due to is nonischemic dilated cardiomyopathy.I saw him on the floor, there was a concern for a stroke by the nurses CT head without contrast was obtained, it demonstrated no hemorrhage, no midline shift, areas of low density in the white matter most likely due to chronic microvascular ischemic change, stable old bilateral infarcts with encephalomalacia right more than left no evidence for acute infarction Past Medical History Cardiac Medical History: Reports: Myocardial Infarction, Hypertension, Other - Chronic nonischemic dilated cardiomyopathy Neurological Medical History: Reports: Seizures - LAST X5 YRS AGO Endocrine Medical History: Reports: Diabetes Mellitus Type 2 Hematology: Reports: Anemia - MEDICATION Past Surgical History Past Surgical History: Reports: Pacemaker Social History Lives with: Family Smoking Status: Never Smoker Frequency of Alcohol Use: None Hx Recreational Drug Use: No Drugs: None Hx Prescription Drug Abuse: No Family History Family History: Reviewed & Not Pertinent Parental Family History Reviewed: Yes Children Family History Reviewed: Yes Sibling(s) Family History Reviewed.: Yes Medication/Allergy Home Medications: Isosorb Dinit/Hydralazine HCl [Bidil 20-37.5 mg Tablet] 2 tab PO Q12 03/01/17 Phenytoin Sodium Extended [Dilantin 100 mg Capsule.er] 100 mg PO Q12 03/01/17 Torsemide [Demadex 20 mg Tablet] 60 mg PO [id number] 03/01/17 Aspirin [Aspirin EC] 81 mg PO DAILY 03/06/18 Levetiracetam [Keppra] 1,000 mg PO Q12 03/06/18 Linagliptin [Tradjenta] 5 mg PO DAILY 03/06/18 Metolazone [Zaroxolyn 2.5 Mg Tablet] 2.5 mg PO MOFR@1000 03/06/18 Potassium Chloride [Klor-Con M10] 10 meq PO TID 03/06/18 Allergies/Adverse Reactions: No Known Allergies Allergy (Verified 03/06/18 11:14) Review of Systems Constitutional: ABSENT: chills, fever(s), headache(s), weight gain, weight loss Eyes: ABSENT: visual disturbances Ears: ABSENT: hearing changes Cardiovascular: ABSENT: chest pain, dyspnea on exertion, edema, orthropnea, palpitations Respiratory: ABSENT: cough, hemoptysis Gastrointestinal: PRESENT: vomiting. ABSENT: abdominal pain, constipation, diarrhea, hematemesis, hematochezia, nausea Genitourinary: ABSENT: dysuria, hematuria Musculoskeletal: ABSENT: joint swelling Integumentary: ABSENT: rash, wounds Neurological: PRESENT: abnormal gait. ABSENT: abnormal speech, confusion, dizziness, focal weakness, syncope Psychiatric: ABSENT: anxiety, depression, homidical ideation, suicidal ideation Endocrine: ABSENT: cold intolerance, heat intolerance, menstrual abnormalities, polydipsia, polyuria Hematologic/Lymphatic: ABSENT: easy bleeding, easy bruising, lymphadenopathy Physical Exam Vital Signs: Temp Pulse Resp BP Pulse Ox 97.7 F 82 17 155/79 H 98 03/06/18 15:40 03/06/18 16:32 03/06/18 16:32 03/06/18 16:32 03/06/18 16:32 Intake & Output 03/05/18 03/06/18 03/07/18 06:59 06:59 06:59 Intake Total 474 Balance 474 Weight 79.2 kg General appearance: PRESENT: no acute distress, well-developed, well-nourished Head exam: PRESENT: atraumatic, normocephalic Eye exam: PRESENT: conjunctiva pink, EOMI, PERRLA Ear exam: PRESENT: normal external ear exam Mouth exam: PRESENT: moist, tongue midline Neck exam: PRESENT: full ROM Respiratory exam: PRESENT: clear to auscultation nicolle Cardiovascular exam: PRESENT: RRR, +S1, +S2 Pulses: PRESENT: normal dorsalis pedis pul, +2 pedal pulses bilateral Vascular exam: PRESENT: normal capillary refill GI/Abdominal exam: PRESENT: normal bowel sounds, soft Rectal exam: PRESENT: deferred Neurological exam: PRESENT: alert, awake, oriented to person, oriented to place , oriented to time, oriented to situation, CN II-XII grossly intact Psychiatric exam: PRESENT: appropriate affect, normal mood Skin exam: PRESENT: dry, intact, warm Results Laboratory Results: 03/06/18 03/06/18 12:35 12:35 Creatine Kinase 139 CK-MB (CK-2) 1.66 Troponin I 0.114 Impressions: Chest X-Ray 03/06/18 03:16 IMPRESSION: Cardiomegaly. Lungs are clear 2010 [employer] [facility] [employer] [facility]- All Rights Reserved Head CT 03/06/18 11:46 IMPRESSION: CHRONIC CHANGES OF ATROPHY AND MICROVASCULAR ISCHEMIA. STABLE OLD BILATERAL INFARCTS. NO ACUTE PROCESS. EVIDENCE OF ACUTE STROKE: NO. Assessment & Plan - Diagnosis (1) Dilated cardiomyopathy Is this a current diagnosis for this admission?: Yes (2) Vomiting Qualifiers: Vomiting type: unspecified Vomiting Intractability: unspecified Nausea presence: with nausea Qualified Code(s): R11.2 - Nausea with vomiting, unspecified Is this a current diagnosis for this admission?: Yes Plan: The etiology of the vomiting is not clear, (3) Elevated troponin Is this a current diagnosis for this admission?: Yes Plan: This does not represent acute coronary syndrome, he has chronically elevated troponin most likely is a leak from cardiomyopathy. He has no chest symptoms (4) Hypokalemia Is this a current diagnosis for this admission?: Yes Plan: Correct potassium (5) Encephalomalacia Is this a current diagnosis for this admission?: Yes
[2018-03-06 20:34] LABS: ALANINE AMINOTRANSFERASE 7 U/L (21-72); ALBUMIN 3.9 g/dL (3.5-5.0); ALKALINE PHOSPHATASE 140 U/L (38-126); ANION GAP 10 (5-19); ASPARTATE AMINO TRANSFERASE 24 U/L (17-59); BILIRUBIN,DIRECT 0.3 mg/dL (0.0-0.4); BILIRUBIN,TOTAL 0.5 mg/dL (0.2-1.3); BLOOD UREA NITROGEN 54 mg/dL (7-20); CALCIUM 9.1 mg/dL (8.4-10.2); CARBON DIOXIDE 34 mmol/L (22-30); CHLORIDE 103 mmol/L (98-107); CREATINE KINASE 141 U/L (55-170); GLUCOSE 138 mg/dL (75-110); POTASSIUM 3.3 mmol/L (3.6-5.0); SODIUM 147.2 mmol/L (137-145); TOTAL PROTEIN 7.2 g/dL (6.3-8.2)
[2018-03-06 21:04] LABS: TROPONIN I 0.123 ng/mL
[2018-03-06] MEDS: PHENYTOIN SODIUM EXTENDED 100 MG CAPSULE PO SCH (21:13)
[2018-03-06] MEDS: LEVETIRACETAM 500 MG TABLET PO SCH (21:13)
[2018-03-06] MEDS: ISOSORB DINIT/HYDRALAZINE HCL 20-37.5 MG TABLET PO SCH (21:13)
[2018-03-07] MEDS: POTASSIUM CHLORIDE 10 MEQ CAPSULE.ER PO SCH ×2 (05:13→13:39)
[2018-03-07 05:44] LABS: CREATINE KINASE MB 1.4 ng/mL (<4.55)
[2018-03-07 06:04] LABS: TROPONIN I 0.12 ng/mL
[2018-03-07] MEDS ORDERED: TORSEMIDE 20 MG TABLET PO SCH (08:00)
[2018-03-07] MEDS: INSULIN LISPRO 100 UNIT/ML 3 ML VIAL SUBCUT PRN ×2 (08:54→13:39)
--- NOTE | 2018-03-07 09:03 | Physician Advisory Note ---
Physician Advisor ProgressNote .: Pursuant to the plan for Josh Pacheco, I have reviewed the medical record for this patient. Physician Advisor Statement: Pt w/BPs 203/112, 195/102, 199/94, 184/110, & vomiting/dizziness in association with trop I's up in the 0.10-0.12 range (previous baseline 0.04s - 0.08s), given "now" ISDN/hydralazine & Demadex in ED. Subsequently noted to have slurring of speech & slight facial droop per nursing. With further consideration of case, do you believe pt may have had: 1. "hypertensive emergency, evidenced by vomiting, & dizziness, ... [+/- acute neurological deficits &/or unstable angina/chest pain equivalent]"? - vs. "hypertensive urgency" [not causing any s/s] &/or: 2. "acute cerebrovascular insufficiency, causing slurring/facial droop" [+/- the dizziness/vomiting ...] Status: appropriately Obs status to start. If new or ongoing clinical issue requires a 2nd MN of hospital level care & monitoring for this Medicare pt, please document reasons/concerns explicitly, & may become appropriate for Inpt status. Thanks! CK
[2018-03-07] MEDS ORDERED: SITAGLIPTIN PHOSPHATE 25 MG TABLET PO SCH (10:00)
[2018-03-07] MEDS ORDERED: ASPIRIN 81 MG TABLET, ENT COATED PO SCH (10:00)
[2018-03-07] MEDS ORDERED: (PENDING PHARMACY ID) (Linagliptin [Tradjenta] 5 MG) PO SCH (10:00)
[2018-03-07] MEDS: ISOSORB DINIT/HYDRALAZINE HCL 20-37.5 MG TABLET PO SCH (10:21)
[2018-03-07] MEDS: LEVETIRACETAM 500 MG TABLET PO SCH (10:21)
[2018-03-07] MEDS: PHENYTOIN SODIUM EXTENDED 100 MG CAPSULE PO SCH (10:22)
--- NOTE | 2018-03-07 17:22 | PDOC DISCHARGE SUMMARY ---
General - Admit/Disc Date/PCP Admission Date/Primary Care Provider: 03/06/18 09:09 MIMI AVILA MD Discharge Date: 03/07/18 - Discharge Diagnosis (1) Dilated cardiomyopathy Is this a current diagnosis for this admission?: Yes (2) Vomiting Is this a current diagnosis for this admission?: Yes (3) Elevated troponin Is this a current diagnosis for this admission?: Yes (4) Hypokalemia Is this a current diagnosis for this admission?: Yes (5) Encephalomalacia Is this a current diagnosis for this admission?: Yes - Additional Information Home Medications: Isosorb Dinit/Hydralazine HCl [Bidil 20-37.5 mg Tablet] 2 tab PO Q12 03/01/17 Phenytoin Sodium Extended [Dilantin 100 mg Capsule.er] 100 mg PO Q12 03/01/17 Torsemide [Demadex 20 mg Tablet] 60 mg PO [id number] 03/01/17 Aspirin [Aspirin EC] 81 mg PO DAILY 03/06/18 Levetiracetam [Keppra] 1,000 mg PO Q12 03/06/18 Linagliptin [Tradjenta] 5 mg PO DAILY 03/06/18 Metolazone [Zaroxolyn 2.5 mg Tablet] 2.5 mg PO MOFR@1000 03/06/18 Potassium Chloride [Klor-Con M10] 10 meq PO TID 03/06/18 History of Present Illness History of Present Illness: RICKY PETTY is a 72 year old male, Patient is well-known to me he has nonischemic dilated cardiomyopathy, type 2 diabetes mellitus, chronic kidney disease stage III.He was evaluated in the emergency room for vomiting, he said when he woke up this morning he had episode of vomiting with unsteady gait, he then told his roommate to call his daughter's, subsequently he was brought to the emergency room for evaluation. In the emergency room he was found to have hypokalemia the troponin was elevated, marginally, he has chronically elevated serum troponin due to is nonischemic dilated cardiomyopathy.I saw him on the floor, there was a concern for a stroke by the nurses CT head without contrast was obtained, it demonstrated no hemorrhage, no midline shift, areas of low density in the white matter most likely due to chronic microvascular ischemic change, stable old bilateral infarcts with encephalomalacia right more than left no evidence for acute infarction Hospital Course Hospital Course: Patient was admitted for observation, he was admitted for the management of vomiting, gait disturbance, there was concern for CVA, CT head was negative.He has elevated troponin, chronically elevated from the cardiomyopathy Physical Exam Vital Signs: Temp Pulse Resp BP Pulse Ox 98.2 F 98 16 123/80 96 03/07/18 12:26 03/07/18 14:00 03/07/18 12:26 03/07/18 12:26 03/07/18 12:26 Intake & Output 03/06/18 03/07/18 03/08/18 06:59 06:59 06:59 Intake Total 1074 1230 Output Total 350 Balance 724 1230 Weight 79.7 kg General appearance: PRESENT: no acute distress Eye exam: PRESENT: PERRLA Respiratory exam: PRESENT: clear to auscultation nicolle Cardiovascular exam: PRESENT: +S1, +S2 GI/Abdominal exam: PRESENT: soft Neurological exam: PRESENT: alert, CN II-XII grossly intact Results Laboratory Results: 03/06/18 20:03 03/06/18 20:03 Sodium 147.2 H Potassium 3.3 L Chloride 103 Carbon Dioxide 34 H Anion Gap 10 BUN 54 H Creatinine 2.07 H Est GFR ( Amer) 38 L Est GFR (Non-Af Amer) 32 L Glucose 138 H Calcium 9.1 Total Bilirubin 0.5 AST 24 ALT 7 L Alkaline Phosphatase 140 H Total Protein 7.2 Albumin 3.9 03/06/18 03/06/18 03/06/18 12:35 12:35 20:03 Creatine Kinase 139 141 CK-MB (CK-2) 1.66 Troponin I 0.114 03/06/18 03/07/18 03/07/18 20:03 04:05 04:05 Creatine Kinase 117 CK-MB (CK-2) 2.00 1.40 Troponin I 0.123 0.120 Impressions: Chest X-Ray 03/06/18 03:16 IMPRESSION: Cardiomegaly. Lungs are clear 2010 [employer]- All Rights Reserved Head CT 03/06/18 11:46 IMPRESSION: CHRONIC CHANGES OF ATROPHY AND MICROVASCULAR ISCHEMIA. STABLE OLD BILATERAL INFARCTS. NO ACUTE PROCESS. EVIDENCE OF ACUTE STROKE: NO. Qualifiers - * PATIENT BEING DISCHARGED WITH ANY OF THE FOLLOWING DIAGNOSIS: No
[2018-03-07 17:33] VITALS: BP 159/79
[2018-03-10] MEDS ORDERED: METOLAZONE 2.5 MG TABLET PO SCH (10:00)
== END 2018-03-07 18:00 | disposition home or self-care (01) ==
LOC: ER 02:53 → EH 09:09 → 3W 10:50
PROVIDERS: ADMIT Internal Medicine; ATTEND Internal Medicine
DX: I42.0 Dilated cardiomyopathy (principal); R11.2 Nausea with vomiting, unspecified; R79.89 Other specified abnormal findings of blood chemistry; E87.6 Hypokalemia; G93.89 Other specified disorders of brain; R26.81 Unsteadiness on feet; E11.22 Type 2 diabetes mellitus with diabetic chronic kidney disease; I13.0 Hypertensive heart and chronic kidney disease with heart failure and stage 1 through stage 4 chronic kidney disease, or unspecified chronic kidney disease; N18.3 Chronic kidney disease, stage 3 (moderate); I50.9 Heart failure, unspecified; I25.2 Old myocardial infarction; Z79.82 Long term (current) use of aspirin; Z79.899 Other long term (current) drug therapy; Z95.0 Presence of cardiac pacemaker; Z79.84 Long term (current) use of oral hypoglycemic drugs; Z86.73 Personal history of transient ischemic attack (TIA), and cerebral infarction without residual deficits; Z23 Encounter for immunization
CPT/HCPCS: 93005 ×2; 99285; 96361; 96375; 96365; 96366; 96367; 36415 ×2; 82553 ×2; 82962 ×2; 82550 ×2; 83735; 85025; 85610; 80053; 84484 ×2; 71045; 70450; 90686; 93010; G0378 ×2; A9270 ×17; J3475; J3490; J2405; J3480; J7030; J1815

== ENCOUNTER 2018-06-02 15:36 | Emergency (ER) | payer MEDICARE, OTHER ==
[2018-06-02] MEDS ORDERED: NORMAL SALINE 1000 ML 1,000 ML IV ONE (15:41)
[2018-06-02 16:15] LABS: ABSOLUTE LYMPHOCYTES (AUTO) 0.6 10^3/uL (0.5-4.7); ABSOLUTE MONOCYTES (AUTO) 0.6 10^3/uL (0.1-1.4); ABSOLUTE NEUT (AUTO) 9.7 10^3/uL (1.7-8.2); BASOPHILS % (AUTO) 0.4 % (0-2); EOSINOPHILS % (AUTO) 0.2 % (0-6); HEMATOCRIT 38.7 % (37.9-51.0); HEMOGLOBIN 12.7 g/dL (13.5-17.0); LYMPHOCYTES % (AUTO) 5.7 % (13-45); MEAN CORPUSCULAR HEMOGLOBIN 32.8 pg (27.0-33.4); MEAN CORPUSCULAR HGB CONC 32.9 g/dL (32.0-36.0); MEAN CORPUSCULAR VOLUME 100 fl (80-97); MONOCYTES % (AUTO) 5.5 % (3-13); PLATELET COUNT 208 10^3/uL (150-450); RED BLOOD COUNT 3.89 10^6/uL (4.35-5.55); RED CELL DISTRIBUTION WIDTH 12.2 % (11.5-14.0); SEGMENTED NEUTROPHILS % (AUTO) 88.2 % (42-78); TOTAL CELLS COUNTED % (AUTO) 100 %
--- NOTE | 2018-06-02 16:24 | ER Document Report ---
ED General - General Stated Complaint: HIGH BLOOD SUGAR Time Seen by Provider: 06/02/18 16:01 Primary Care Provider: MIMI AVILA MD [Primary Care Provider] - Follow up as needed Mode of Arrival: Medic Information source: Emergency Med Personnel, [facility] Records Cannot obtain history due to: Altered mental status Notes: 73-year-old male with hypertension, type 2 diabetes, coronary artery disease, dilated cardiomyopathy, previous CVA in March 2018 presents via EMS from home with altered mental status. There is no family at the bedside but EMS reported that the patient was found crawling around on the floor of his home. Roommate is outside of the room but cannot provide any history. EMS reported that the patient has been altered since Tuesday 6 days prior to arrival. TRAVEL OUTSIDE OF THE [place] IN LAST 30 DAYS: No - HPI Onset: Other - Related Data Allergies/Adverse Reactions: No Known Allergies Allergy (Verified 03/06/18 11:14) Past Medical History - General Information source: Emergency Med Personnel, [facility] Records - Social History Smoking Status: Unknown if Ever Smoked Frequency of alcohol use: None Drug Abuse: None Family History: Reviewed & Not Pertinent - Past Medical History Cardiac Medical History: Reports: Hx Heart Attack, Hx Hypertension Pulmonary Medical History: Denies: Hx Asthma, Hx Tuberculosis Neurological Medical History: Reports: Hx Cerebrovascular Accident - LT ARM, Hx Seizures - LAST X5 YRS AGO Endocrine Medical History: Reports: Hx Diabetes Mellitus Type 2 Renal/ Medical History: Denies: Hx Peritoneal Dialysis GI Medical History: Denies: Hx Hepatitis, Hx Hiatal Hernia, Hx Ulcer Psychiatric Medical History: Denies: Hx Depression Infectious Medical History: Denies: Hx Hepatitis Past Surgical History: Reports: Hx Abdominal Surgery - hernia repair, Hx Cardiac Surgery - pacemaker, Hx Pacemaker. Denies: Hx Open Heart Surgery - Immunizations Hx Diphtheria, Pertussis, Tetanus Vaccination: Yes Hx Pneumococcal Vaccination: 05/02/11 Review of Systems - Review of Systems -: Yes ROS unobtainable due to patient's medical condition Physical Exam - Vital signs Vitals: Resp 22 H 06/02/18 15:39 Interpretation: Hypertensive - Notes Notes: PHYSICAL EXAMINATION: GENERAL: Awake, does not follow commands, nonverbal HEAD: Atraumatic, normocephalic. EYES: Pupils equal round and reactive to light, extraocular movements intact, sclera anicteric, conjunctiva are normal. ENT: Nares patent, oropharynx clear without exudates. Dry mucous membranes. NECK: Normal range of motion, supple without lymphadenopathy LUNGS: Breath sounds clear to auscultation bilaterally and equal. No wheezes rales or rhonchi. HEART: Tachycardic, regular rhythm without murmurs ABDOMEN: Soft, nontender, nondistended abdomen. No guarding, no rebound. No masses appreciated. Musculoskeletal: Normal range of motion, no pitting or edema. No cyanosis. NEUROLOGICAL: Awake, alert, unable to answer questions, nonverbal. PSYCH: Mild agitation SKIN: Skin tenting Course - Re-evaluation Re-evalutation: Laboratory 06/02/18 06/02/18 06/02/18 15:58 15:58 15:58 WBC 11.0 H RBC 3.89 L Hgb 12.7 L Hct 38.7 MCV 100 H MCH 32.8 MCHC 32.9 RDW 12.2 Plt Count 208 Seg Neutrophils % 88.2 H Lymphocytes % 5.7 L Monocytes % 5.5 Eosinophils % 0.2 Basophils % 0.4 Absolute Neutrophils 9.7 H Absolute Lymphocytes 0.6 Absolute Monocytes 0.6 Absolute Eosinophils 0.0 Absolute Basophils 0.0 VBG pH VBG pCO2 VBG HCO3 VBG Base Excess Sodium 135.9 L Potassium 5.4 H Chloride 98 Carbon Dioxide 19 L Anion Gap 19 BUN 73 H Creatinine 4.05 H Est GFR ( Amer) 18 L Est GFR (Non-Af Amer) 15 L Glucose 994 H* Calcium 9.6 Total Bilirubin 1.0 Direct Bilirubin 0.6 H Neonat Total Bilirubin Not Reportable Neonat Direct Bilirubin Not Reportable Neonat Indirect Bili Not Reportable AST 26 ALT 15 L Alkaline Phosphatase 198 H Creatine Kinase 213 H CK-MB (CK-2) Troponin I Total Protein 7.5 Albumin 4.5 Salicylates < 1.0 L Acetaminophen < 10 L Serum Alcohol < 10 06/02/18 06/02/18 06/02/18 15:58 15:58 17:40 WBC RBC Hgb Hct MCV MCH MCHC RDW Plt Count Seg Neutrophils % Lymphocytes % Monocytes % Eosinophils % Basophils % Absolute Neutrophils Absolute Lymphocytes Absolute Monocytes Absolute Eosinophils Absolute Basophils VBG pH Cancelled 7.37 VBG pCO2 Cancelled 30.8 L VBG HCO3 Cancelled 17.4 L VBG Base Excess Cancelled -6.8 Sodium Potassium Chloride Carbon Dioxide Anion Gap BUN Creatinine Est GFR ( Amer) Est GFR (Non-Af Amer) Glucose Calcium Total Bilirubin Direct Bilirubin Neonat Total Bilirubin Neonat Direct Bilirubin Neonat Indirect Bili AST ALT Alkaline Phosphatase Creatine Kinase CK-MB (CK-2) 4.90 H Troponin I 0.188 Total Protein Albumin Salicylates Acetaminophen Serum Alcohol Head CT 06/02/18 16:17 IMPRESSION: Chronic microvascular ischemia. Chronic areas of infarction as described. No acute intracranial imaging findings. EVIDENCE OF ACUTE STROKE: NO. Temp Pulse Resp BP Pulse Ox 20 182/88 H 96 06/02/18 18:01 06/02/18 18:01 06/02/18 18:01 06/02/18 17:28 Spoke to the patient's daughter who reports that the patient is usually verbal. She reports that she she saw the patient last week and he was speaking but confused like someone with "dementia". Daughter states that she would prefer the patient be transferred to [facility] where his paralegal legal secretary Dr. Esqueda is. Patient has received 3L OF IV fluids, and 15 units of subcutaneous insulin. Insulin drip will be initiated. CBC is without significant leukocytosis or anemia. CMP consistent with hyperosmolar hyperglycemic state. Patient has a glucose of 900, normal anion gap. Patient has a normal pH. Urinalysis shows only trace ketones. CMP also shows worsening renal function with a creatinine of 4.05 which is an increase from 2.05 in March 2018. Patient does have an elevated troponin. Aggressive fluid rehydration and administered. Subcu and IV insulin given. Patient was reevaluated multiple times and although had an improvement of his glucose he did not have an improvement of his mental status during his ED course. 06/02/18 17:28 06/02/18 18:59 Patient's primary care physician is Dr. Avila. I did speak with Dr. Waldorp who is covering Dr. Avila and recommends transfer to a facility where dialysis can be performed if necessary. [facility] contacted per daughter's request. Patient has been accepted for transfer by Dr. Morales for Dr. Sesay. Daughter is now at the bedside and states that this is a complete change from the patient's baseline which is usually an AO x3. She reports that the patient is not an insulin-dependent diabetic. Roommate now reports that the patient was banging his head against the floor today. Patient has become agitated. Soft restraints placed. Repeat Accu-Chek pending. 06/02/18 20:21 Repeat glucose now 550. Patient has become increasingly more agitated so 1.0 mg of Ativan was administered. 06/02/18 21:04 Patient reevaluated upon transfer team arrival. He is now resting comfortably after receiving 1 mg of Ativan. Vital signs upon transfer showed improvement of the patient's tachycardia, hypertension. Daughter and roommate are at the bedside. 06/02/18 21:04 06/03/18 01:30 06/03/18 01:39 06/03/18 01:40 - Vital Signs Vital signs: Temp Pulse Resp BP Pulse Ox 98.9 F 89 20 156/105 H 97 06/02/18 20:57 06/02/18 19:39 06/02/18 20:57 06/02/18 21:01 06/02/18 20:59 - Laboratory Result Diagrams: 06/02/18 15:58 06/02/18 15:58 Laboratory results interpreted by me: 06/02/18 06/02/18 06/02/18 15:58 15:58 15:58 WBC 11.0 H RBC 3.89 L Hgb 12.7 L MCV 100 H Seg Neutrophils % 88.2 H Lymphocytes % 5.7 L Absolute Neutrophils 9.7 H VBG pCO2 VBG HCO3 Sodium 135.9 L Potassium 5.4 H Carbon Dioxide 19 L BUN 73 H Creatinine 4.05 H Est GFR ( Amer) 18 L Est GFR (Non-Af Amer) 15 L Glucose 994 H* POC Glucose Direct Bilirubin 0.6 H ALT 15 L Alkaline Phosphatase 198 H Creatine Kinase 213 H CK-MB (CK-2) Urine Glucose (UA) Urine Ketones Urine Blood Salicylates < 1.0 L Acetaminophen < 10 L 06/02/18 06/02/18 06/02/18 15:58 17:19 17:40 WBC RBC Hgb MCV Seg Neutrophils % Lymphocytes % Absolute Neutrophils VBG pCO2 30.8 L VBG HCO3 17.4 L Sodium Potassium Carbon Dioxide BUN Creatinine Est GFR ( Amer) Est GFR (Non-Af Amer) Glucose POC Glucose Direct Bilirubin ALT Alkaline Phosphatase Creatine Kinase CK-MB (CK-2) 4.90 H Urine Glucose (UA) >=500 H Urine Ketones TRACE H Urine Blood SMALL H Salicylates Acetaminophen 06/02/18 19:36 WBC RBC Hgb MCV Seg Neutrophils % Lymphocytes % Absolute Neutrophils VBG pCO2 VBG HCO3 Sodium Potassium Carbon Dioxide BUN Creatinine Est GFR ( Amer) Est GFR (Non-Af Amer) Glucose POC Glucose > 550 H* Direct Bilirubin ALT Alkaline Phosphatase Creatine Kinase CK-MB (CK-2) Urine Glucose (UA) Urine Ketones Urine Blood Salicylates Acetaminophen - Diagnostic Test Radiology reviewed: Image reviewed, Reports reviewed - EKG Interpretation by Me Rate: Tachycardia Critical Care Note - Critical Care Note Total time excluding time spent on procedures (mins): 60 - Minutes of critical care time spent in direct contact evaluating and reevaluating the patient, treating symptoms, reviewing labs and studies and speaking with family and consultants excluding any procedures Discharge - Discharge Clinical Impression: Elevated troponin, Hyperglycemia, Tachycardia, Dilated cardiomyopathy, Hyperglycemic hyperosmolar nonketotic coma Kidney failure Qualifiers: Renal failure chronicity: unspecified chronicity Qualified Code(s): N19 - Unspecified kidney failure Hypertension Qualifiers: Hypertension type: unspecified Qualified Code(s): I10 - Essential (primary) hypertension Condition: Critical Disposition: [facility] Referrals: MIMI AVILA MD [Primary Care Provider] - Follow up as needed
[2018-06-02 16:32] LABS: ALANINE AMINOTRANSFERASE 15 U/L (21-72); ALBUMIN 4.5 g/dL (3.5-5.0); ALKALINE PHOSPHATASE 198 U/L (38-126); ANION GAP 19 (5-19); ASPARTATE AMINO TRANSFERASE 26 U/L (17-59); BILIRUBIN,DIRECT 0.6 mg/dL (0.0-0.4); BLOOD UREA NITROGEN 73 mg/dL (7-20); CALCIUM 9.6 mg/dL (8.4-10.2); CARBON DIOXIDE 19 mmol/L (22-30); CHLORIDE 98 mmol/L (98-107); POTASSIUM 5.4 mmol/L (3.6-5.0); SODIUM 135.9 mmol/L (137-145); TOTAL PROTEIN 7.5 g/dL (6.3-8.2)
[2018-06-02 16:40] LABS: CREATINE KINASE 213 U/L (55-170)
[2018-06-02 16:44] LABS: ACETAMINOPHEN < 10 ug/mL (10-30); ALCOHOL < 10 mg/dL (NONE DETECTED); SALICYLATE < 1.0 mg/dL (2.0-20.0)
[2018-06-02 16:46] LABS: GLUCOSE 994 mg/dL (75-110)
--- NOTE | 2018-06-02 16:49 | RADIOLOGY REPORT (SQ) ---
EXAM DESCRIPTION: CT HEAD WITHOUT COMPLETED DATE/TIME: 06/02/2018 4:38 pm REASON FOR STUDY: ams COMPARISON: 03/06/2018 TECHNIQUE: Axial images acquired through the brain without intravenous contrast. Images reviewed wi th bone, brain and subdural windows. Additional sagittal and coronal reconstructions were generated. Images stored on PACS. All CT scanners at this facility use dose modulation, iterative reconstruction, and/or weight based d osing when appropriate to reduce radiation dose to as low as reasonably achievable (ALARA). [facility]: Dose Right [facility]: CareDose [facility]: Dose Right [facility]: Teradose 4D [facility]: [employer] RADIATION DOSE: CT Rad equipment meets quality standard of care and radiation dose reduction techniq ues were employed. CTDIvol: 55.2 mGy. DLP: 1112 mGy-cm. mGy. LIMITATIONS: None. FINDINGS: VENTRICLES: Mild ex vacuo enlargement of the right lateral ventricle. CEREBRUM: Large area of encephalomalacia in the distribution of the right middle cerebral artery. Sm all area of encephalomalacia in the left occipital lobe. Areas of low density in the white matter mos t likely chronic small vessel ischemic changes. CEREBELLUM: No masses. No hemorrhage. No alteration of density. No evidence for acute infarction. EXTRAAXIAL SPACES: No fluid collections. No masses. ORBITS AND GLOBE: No intra- or extraconal masses. Normal contour of globe without masses. CALVARIUM: No fracture. PARANASAL SINUSES: No fluid or mucosal thickening. SOFT TISSUES: No mass or hematoma. OTHER: No other significant finding. IMPRESSION: Chronic microvascular ischemia. Chronic areas of infarction as described. No acute int racranial imaging findings. EVIDENCE OF ACUTE STROKE: NO. COMMENT: Quality ID # [id number]: Final reports with documentation of one or more dose reduction techniques (e.g., Automated exposure control, adjustment of the mA and/or kV according to patient size, use of iterative reconstruction technique) TECHNICAL DOCUMENTATION: JOB ID: [id number] [employer]- All Rights Reserved Reading location - IP/workstation name: [email or web address]
[2018-06-02 16:51] LABS: CREATINE KINASE MB 4.9 ng/mL (<4.55)
[2018-06-02] MEDS ORDERED: INSULIN REG, HUMAN 100 UNIT/ML 3 ML VIAL (PYX) SUBCUT ONE (16:55)
[2018-06-02 16:58] LABS: TROPONIN I 0.188 ng/mL
[2018-06-02] MEDS: NORMAL SALINE 1000 ML 1,000 ML IV PRN ×2 (17:22→19:48)
[2018-06-02 17:50] LABS: VENOUS BLOOD BASE EXCESS -6.8 mmol/L; VENOUS BLOOD HCO3 17.4 mmol/L (20-32); VENOUS BLOOD PCO2 30.8 mmHg (35-63); VENOUS BLOOD PH 7.37 (7.30-7.42)
[2018-06-02] MEDS ORDERED: INSULIN REG, HUMAN 100 UNIT/ML 3 ML VIAL (PYX) ONE (17:51)
[2018-06-02] MEDS ORDERED: DEXTROSE 50%-WATER 25 GM/50 ML DISP.SYRIN IV PRN ×2 (17:53)
[2018-06-02] MEDS ORDERED: GLUCAGON,HUMAN RECOMB 1 MG INJ IM PRN (17:53)
[2018-06-02] MEDS ORDERED: NORMAL SALINE 100 ML with INSULIN REGULAR, HUMAN 100 UNIT IV PRN ×2 (17:53)
[2018-06-02] MEDS ORDERED: DEXTROSE 40% GEL 15 GM TUBE PO PRN ×2 (17:53)
--- NOTE | 2018-06-02 18:30 | EKG REPORT ---
SEVERITY:- ABNORMAL ECG - SINUS RHYTHM VENTRICULAR PREMATURE COMPLEX RIGHT BUNDLE BRANCH BLOCK OLD ANTERIOR [place] OLD INFERIOR [place] : Confirmed by: Steve Borthers MD 02-Jun-2018 18:29:36
[2018-06-02] MEDS ORDERED: LORAZEPAM INJ 2 MG/1 ML VIAL ONE (19:45)
[2018-06-02] MEDS ORDERED: LORAZEPAM INJ 2 MG/1 ML VIAL IV ONE (20:03)
[2018-06-02 20:06] LABS: APPEARANCE,URINE SLIGHTLY-CLOUDY; BILIRUBIN,URINE NEGATIVE (NEGATIVE); COLOR,URINE STRAW; GLUCOSE, URINE >=500 mg/dL (NEGATIVE); KETONES,URINE TRACE mg/dL (NEGATIVE); LEUKOCYTE ESTERASE,URINE NEGATIVE (NEGATIVE); NITRITE,URINE NEGATIVE (NEGATIVE); PROTEIN,URINE NEGATIVE (NEGATIVE); UROBILINOGEN,URINE NEGATIVE mg/dL (<2.0)
[2018-06-02 20:17] LABS: URINE AMPHETAMINES SCREEN NEGATIVE; URINE BARBITURATES SCREEN NEGATIVE; URINE BENZODIAZEPINES SCREEN NEGATIVE; URINE COCAINE SCREEN NEGATIVE; URINE MARIJUANA (THC) SCREEN NEGATIVE; URINE METHADONE SCREEN NEGATIVE; URINE PHENCYCLIDINE SCREEN NEGATIVE
[2018-06-02 21:05] VITALS: BP 156/105
== END 2018-06-02 21:25 | disposition short-term general hospital (02) ==
LOC: ER 15:36
DX: E11.01 Type 2 diabetes mellitus with hyperosmolarity with coma (principal); E11.65 Type 2 diabetes mellitus with hyperglycemia; R00.0 Tachycardia, unspecified; I42.8 Other cardiomyopathies; N19 Unspecified kidney failure; R41.0 Disorientation, unspecified; I10 Essential (primary) hypertension; R79.89 Other specified abnormal findings of blood chemistry; Z86.73 Personal history of transient ischemic attack (TIA), and cerebral infarction without residual deficits; I25.2 Old myocardial infarction; Z95.0 Presence of cardiac pacemaker
CPT/HCPCS: 93005; 99291; 96361; 51701; 96374; 36415; 82553; 82962; 80307 ×4; 82550; 85025; 80053; 81001; 84484; 82803; 70450; 93010; J2060; A9270; J7030; J1815

== ENCOUNTER → 2018-06-16 | Emergency (ER) | payer MEDICARE, OTHER ==
[~2018-06-16] MED LIST: DEXTROSE 40% GEL 15 GM TUBE PO PRN; DEXTROSE 50%-WATER 25 GM/50 ML DISP.SYRIN IV PRN; GLUCAGON,HUMAN RECOMB 1 MG INJ IM PRN; INSULIN REG, HUMAN 100 UNIT/ML 3 ML VIAL (PYX) ONE; NORMAL SALINE 100 ML with INSULIN REGULAR, HUMAN 100 UNIT IV PRN; NORMAL SALINE 1000 ML 1,000 ML IV ONE; NORMAL SALINE 250 ML IV PRN; POTASSIUM CHLORIDE 20 MEQ/15 ML UDCUP PO ONE
[2018-06-16 13:23] LABS: ABSOLUTE BASOPHILS # (AUTO) 0.1 10^3/uL (0.0-0.2); ABSOLUTE LYMPHOCYTES (AUTO) 1.3 10^3/uL (0.5-4.7); ABSOLUTE MONOCYTES (AUTO) 0.4 10^3/uL (0.1-1.4); ABSOLUTE NEUT (AUTO) 9.6 10^3/uL (1.7-8.2); BASOPHILS % (AUTO) 0.5 % (0-2); HEMATOCRIT 21.7 % (37.9-51.0); LYMPHOCYTES % (AUTO) 11.8 % (13-45); MEAN CORPUSCULAR HEMOGLOBIN 32.4 pg (27.0-33.4); MEAN CORPUSCULAR HGB CONC 31.7 g/dL (32.0-36.0); MEAN CORPUSCULAR VOLUME 102 fl (80-97); MONOCYTES % (AUTO) 3.3 % (3-13); PLATELET COUNT 255 10^3/uL (150-450); RED BLOOD COUNT 2.13 10^6/uL (4.35-5.55); RED CELL DISTRIBUTION WIDTH 13.7 % (11.5-14.0); SEGMENTED NEUTROPHILS % (AUTO) 84.4 % (42-78); TOTAL CELLS COUNTED % (AUTO) 100 %; WHITE BLOOD COUNT 11.4 10^3/uL (4.0-10.5)
[2018-06-16 13:25] LABS: APPEARANCE,URINE CLEAR; BILIRUBIN,URINE NEGATIVE (NEGATIVE); COLOR,URINE STRAW; GLUCOSE, URINE >=500 mg/dL (NEGATIVE); KETONES,URINE NEGATIVE (NEGATIVE); LEUKOCYTE ESTERASE,URINE NEGATIVE (NEGATIVE); NITRITE,URINE NEGATIVE (NEGATIVE); PROTEIN,URINE NEGATIVE (NEGATIVE); URINE SPECIFIC GRAVITY 1.014; UROBILINOGEN,URINE NEGATIVE mg/dL (<2.0)
[2018-06-16 13:30] LABS: HEMOGLOBIN 6.9 g/dL (13.5-17.0)
--- NOTE | 2018-06-16 13:38 | ER Document Report ---
ED General - General Chief Complaint: High Blood Sugar Stated Complaint: BLOOD SUGAR PROBLEM Time Seen by Provider: 06/16/18 12:33 Primary Care Provider: MIMI AVILA MD [Primary Care Provider] - Follow up as needed Information source: Patient Notes: 73-year-old male with hypertension, type 2 diabetes, coronary artery disease, dilated cardiomyopathy, previous CVA in March 2018, with recent admission and transfer secondary to a blood sugar of 900 on his visit here on June 02. Patient went to [facility] with a creatinine at that time of 4.05 with a hyperosmolar state with altered mental status. Patient supposedly is on insulin. Patient's daughter supposedly called EMS secondary to the patient's glucose being elevated today. No confusion or change in mental status. No vomiting or diarrhea. Patient himself denies any symptomatology such as headache, neck pain, chest pain, abdominal pain, weakness or numbness, nausea, vomiting, or fevers. TRAVEL OUTSIDE OF THE [place] IN LAST 30 DAYS: No - HPI Similar symptoms previously: Yes Recently seen / treated by doctor: Yes - Related Data Allergies/Adverse Reactions: No Known Allergies Allergy (Verified 03/06/18 11:14) Past Medical History - Social History Smoking Status: Never Smoker Chew tobacco use (# tins/day): No Frequency of alcohol use: None Drug Abuse: None Family History: Reviewed & Not Pertinent Patient has suicidal ideation: No Patient has homicidal ideation: No - Past Medical History Cardiac Medical History: Reports: Hx Heart Attack, Hx Hypertension Pulmonary Medical History: Denies: Hx Asthma, Hx Tuberculosis Neurological Medical History: Reports: Hx Cerebrovascular Accident - LT ARM, Hx Seizures - LAST X5 YRS AGO Endocrine Medical History: Reports: Hx Diabetes Mellitus Type 2 Renal/ Medical History: Denies: Hx Peritoneal Dialysis GI Medical History: Denies: Hx Hepatitis, Hx Hiatal Hernia, Hx Ulcer Psychiatric Medical History: Denies: Hx Depression Infectious Medical History: Denies: Hx Hepatitis Past Surgical History: Reports: Hx Abdominal Surgery - hernia repair, Hx Cardiac Surgery - pacemaker, Hx Pacemaker. Denies: Hx Open Heart Surgery - Immunizations Hx Diphtheria, Pertussis, Tetanus Vaccination: Yes Hx Pneumococcal Vaccination: 05/02/11 Review of Systems - Review of Systems Constitutional: denies: Fever EENT: denies: Eye discharge, Nose discharge Cardiovascular: denies: Chest pain, Palpitations Respiratory: denies: Short of breath Gastrointestinal: denies: Vomiting Genitourinary: denies: Dysuria Musculoskeletal: denies: Leg swelling Skin: Other - no hives. denies: Rash Neurological/Psychological: Other - no slurred speech -: Yes All other systems reviewed and negative Physical Exam - Vital signs Vitals: Resp Pulse Ox 20 98 06/16/18 12:50 06/16/18 12:50 Notes: Reviewed vital signs and nursing note as charted by RN. CONSTITUTIONAL: Alert and oriented and responds appropriately to questions. Well-appearing; well-nourished HEAD: Normocephalic; atraumatic EYES: PERRL; Conjunctivae is pale ENT: Normal nose; no rhinorrhea; moist mucous membranes; pharynx without lesions noted NECK: Supple without meningismus; non-tender; no cervical lymphadenopathy, no masses CARD: Regular rate and rhythm; no murmurs; symmetric distal pulses RESP: Normal chest excursion without splinting or tachypnea; breath sounds clear and equal bilaterally; no wheezes, no rhonchi, no rales ABD/GI: Normal bowel sounds; non-distended; soft, non-tender; no palpable organomegaly or masses BACK: The back appears normal and is non-tender to palpation EXT: Normal ROM in all joints; non-tender to palpation; no edema SKIN: No acute lesions noted NEURO: CN 2-12 intact; patient does have some mild dysarthria consistent with prior stroke; 5/5 bilateral upper and lower extremity strength with sensation intact to light touch PSYCH: The patient's mood and manner are appropriate. Grooming and personal hygiene are appropriate. Course - Re-evaluation Re-evalutation: Given the above history and physical examination we will order basic labs, venous blood gas, EKG, and a small bolus of fluids. Patient has a history as reported including cardiomyopathy with a baseline troponinemia. Patient was supposedly recently discharged and started on insulin from [facility]. 06/16/18 13:37 Hemoglobin has returned showing a very large drop from previous values. I have ordered 2 units of blood. I will perform a rectal examination. Accu-Chek as recorded and chemistry is still pending. 06/16/18 14:13 Chemistry as recorded. Blood sugar 770. Normal gap. Normal pH. Troponin is elevated but is actually less than it was on June 02. Hemoccult is positive with no gross blood. I will start the patient on insulin drip. We will repeat the patient's potassium in around 2 hours. Blood products have been ordered. Patient understands the risks and benefits of receiving blood and is currently oriented x4. I have called [facility] for transfer. 06/16/18 14:31 I called and spoke to Dr. Abdul and have relayed to him the laboratory results and vital signs. He would like me to provide a 40 mEq tablet of KCl in addition to the insulin drip and blood. They believe that the patient will be accepted for transfer. - Vital Signs Vital signs: Temp Pulse Resp BP Pulse Ox 13 122/63 98 06/16/18 14:01 06/16/18 14:01 06/16/18 14:01 - Laboratory Result Diagrams: 06/16/18 12:50 06/16/18 12:50 Laboratory results interpreted by me: 06/16/18 06/16/18 06/16/18 12:50 12:50 12:50 WBC 11.4 H RBC 2.13 L Hgb 6.9 L Hct 21.7 L MCV 102 H MCHC 31.7 L Seg Neutrophils % 84.4 H Lymphocytes % 11.8 L Absolute Neutrophils 9.6 H Chloride 112 H Carbon Dioxide 15 L BUN 78 H Creatinine 2.57 H Est GFR ( Amer) 30 L Est GFR (Non-Af Amer) 25 L Glucose 772 H* Calcium 7.8 L ALT 12 L Total Protein 5.0 L Albumin 2.8 L Urine Glucose (UA) >=500 H Critical Care Note - Critical Care Note Total time excluding time spent on procedures (mins): 45 Discharge - Discharge Clinical Impression: Acute blood loss anemia, Hyperglycemia Condition: Serious Disposition: [facility] Referrals: MIMI AVILA MD [Primary Care Provider] - Follow up as needed
[2018-06-16 13:43] LABS: ALANINE AMINOTRANSFERASE 12 U/L (21-72); ALBUMIN 2.8 g/dL (3.5-5.0); ALKALINE PHOSPHATASE 89 U/L (38-126); ANION GAP 14 (5-19); ASPARTATE AMINO TRANSFERASE 19 U/L (17-59); BILIRUBIN,DIRECT 0.4 mg/dL (0.0-0.4); BILIRUBIN,TOTAL 0.4 mg/dL (0.2-1.3); BLOOD UREA NITROGEN 78 mg/dL (7-20); CALCIUM 7.8 mg/dL (8.4-10.2); CARBON DIOXIDE 15 mmol/L (22-30); CHLORIDE 112 mmol/L (98-107); POTASSIUM 4.2 mmol/L (3.6-5.0); SODIUM 140.6 mmol/L (137-145)
[2018-06-16 13:54] LABS: GLUCOSE 772 mg/dL (75-110)
[2018-06-16 13:59] LABS: VENOUS BLOOD BASE EXCESS -4.3 mmol/L; VENOUS BLOOD PCO2 39.2 mmHg (35-63); VENOUS BLOOD PH 7.35 (7.30-7.42)
[2018-06-16 20:10] VITALS: BP 125/88
[2018-06-16 20:29] LABS: ANION GAP 15 (5-19); BLOOD UREA NITROGEN 88 mg/dL (7-20); CALCIUM 9.4 mg/dL (8.4-10.2); CARBON DIOXIDE 18 mmol/L (22-30); CHLORIDE 114 mmol/L (98-107); POTASSIUM 4.3 mmol/L (3.6-5.0); SODIUM 147.1 mmol/L (137-145)
[2018-06-16 20:37] LABS: GLUCOSE 510 mg/dL (75-110)
--- NOTE | 2018-06-16 21:22 | EKG REPORT ---
SEVERITY:- ABNORMAL ECG - SINUS RHYTHM RIGHT BUNDLE BRANCH BLOCK LEFT VENTRICULAR HYPERTROPHY : Confirmed by: Rossy Dooley MD 16-Jun-2018 21:21:03
== END | disposition short-term general hospital (02) ==
LOC: ER 12:19
DX: E11.65 Type 2 diabetes mellitus with hyperglycemia (principal); D62 Acute posthemorrhagic anemia; R19.5 Other fecal abnormalities; R47.1 Dysarthria and anarthria; I11.9 Hypertensive heart disease without heart failure; I45.10 Unspecified right bundle-branch block; I25.10 Atherosclerotic heart disease of native coronary artery without angina pectoris; I25.2 Old myocardial infarction; Z95.0 Presence of cardiac pacemaker
CPT/HCPCS: 93005; 99291; 96360; 96361; 86900; 86901; 36415; 36430; 86850; 82962; 85025; 80048; 80053; 81001; 84484; 86920; 82803; 93010; P9016; A9270; J7030

== ENCOUNTER 2018-06-28 09:41 | Inpatient (IN) | payer MEDICARE, OTHER ==
--- NOTE | 2018-06-28 10:35 | EKG REPORT ---
SEVERITY:- ABNORMAL ECG - SINUS RHYTHM MULTIPLE ATRIAL PREMATURE COMPLEXES RIGHT BUNDLE BRANCH BLOCK LEFT VENTRICULAR HYPERTROPHY : Confirmed by: Esteban Kaminski 28-Jun-2018 10:34:41
--- NOTE | 2018-06-28 10:44 | ER Document Report ---
ED General - General Chief Complaint: Abnormal Lab Results Stated Complaint: WEAKNESS Time Seen by Provider: 06/28/18 09:49 Primary Care Provider: MIMI AVILA MD [Primary Care Provider] - Follow up as needed Notes: Patient is a 73-year-old male presents to the emergency department due to abnormal lab values. Patient is completely complaint free. Patient is denying chest pain, shortness of breath, URI symptoms, fever, nausea, vomiting, diarrhea, dysuria, abdominal pain, headache. Patient states he was at his primary care provider yesterday and a home health nurse called and told him that his "sugar was really high." He was told he needed to go to the emergency room. Patient has a history of a previous CVA with left upper extremity weakness. Patient is conscious alert and oriented x4 in no acute distress. EMS reports a blood sugar of 204 with a lactate of 2.1. Past medical history: CVA with left-sided deficits, chronic kidney disease, diabetes, seizures, hypertension Medications: Dilantin, Keppra, aspirin, Demadex Allergies: None TRAVEL OUTSIDE OF THE [place] IN LAST 30 DAYS: No - Related Data Allergies/Adverse Reactions: No Known Allergies Allergy (Verified 03/06/18 11:14) Past Medical History - General Information source: Patient, Emergency Med Personnel - Social History Smoking Status: Unknown if Ever Smoked Family History: Reviewed & Not Pertinent Patient has suicidal ideation: No Patient has homicidal ideation: No - Past Medical History Cardiac Medical History: Reports: Hx Heart Attack, Hx Hypertension Pulmonary Medical History: Denies: Hx Asthma, Hx Tuberculosis Neurological Medical History: Reports: Hx Cerebrovascular Accident - LT ARM, Hx Seizures - LAST X5 YRS AGO Endocrine Medical History: Reports: Hx Diabetes Mellitus Type 2 Renal/ Medical History: Denies: Hx Peritoneal Dialysis GI Medical History: Denies: Hx Hepatitis, Hx Hiatal Hernia, Hx Ulcer Psychiatric Medical History: Denies: Hx Depression Infectious Medical History: Denies: Hx Hepatitis Past Surgical History: Reports: Hx Abdominal Surgery - hernia repair, Hx Cardiac Surgery - pacemaker, Hx Pacemaker. Denies: Hx Open Heart Surgery - Immunizations Hx Diphtheria, Pertussis, Tetanus Vaccination: Yes Hx Pneumococcal Vaccination: 05/02/11 Review of Systems - Review of Systems Constitutional: See HPI EENT: No symptoms reported Cardiovascular: No symptoms reported Respiratory: No symptoms reported Gastrointestinal: No symptoms reported Genitourinary: No symptoms reported Male Genitourinary: No symptoms reported Musculoskeletal: No symptoms reported Skin: No symptoms reported Hematologic/Lymphatic: No symptoms reported Neurological/Psychological: See HPI Physical Exam - Notes Notes: GENERAL: Alert, interacts well. No acute distress. HEAD: Normocephalic, atraumatic. EYES: Pupils equal, round, and reactive to light. Extraocular movements intact. ENT: Oral mucosa moist, tongue midline. NECK: Full range of motion. Supple. Trachea midline. LUNGS: Clear to auscultation bilaterally, no wheezes, rales, or rhonchi. No respiratory distress. HEART: irregular rate and rhythm. No murmur ABDOMEN: Soft, non-tender. Non-distended. Bowel sounds present in all 4 quadrants. EXTREMITIES: Moves all 4 extremities spontaneously. No edema, normal radial and dorsalis pedis pulses bilaterally. No cyanosis. 5 out of 5 strength bilateral lower extremities. 5 out of 5 strength right upper extremity, 4 out of 5 strength left upper extremity. No contracture noted left upper extremity full range of motion. BACK: no cervical, thoracic, lumbar midline tenderness. No saddle anesthesia, normal distal neurovascular exam. NEUROLOGICAL: Alert and oriented x3. slow speech although not slurred. Patient states this is normal for him., . cranial nerves II through XII grossly intact PSYCH: Normal affect, normal mood. SKIN: Warm, dry, normal turgor. No rashes or lesions noted. Course - Re-evaluation Re-evalutation: 06/28/18 13:04 Discussed patient's lab results with Dr. Avila over the phone. He would like the patient admitted to [facility] at this time. He does not want blood products to be started. He states he will manage the patient's care once the patient is in [facility]. Patient continues without any complaints, is hemodynamically stable and just requesting something to eat. - Laboratory Result Diagrams: 06/28/18 11:10 06/28/18 11:10 Laboratory results interpreted by me: 06/28/18 06/28/18 11:10 11:10 RBC 2.23 L Hgb 7.3 L Hct 21.4 L RDW 20.7 H Potassium 3.2 L BUN 31 H Creatinine 2.43 H Est GFR ( Amer) 32 L Est GFR (Non-Af Amer) 26 L Glucose 195 H Total Protein 5.7 L Albumin 3.3 L Discharge - Discharge Clinical Impression: Decreased hemoglobin Gastrointestinal bleeding Qualifiers: GI bleed type/associated pathology: unspecified gastrointestinal hemorrhage type Qualified Code(s): K92.2 - Gastrointestinal hemorrhage, unspecified Condition: Stable Disposition: ADMITTED INPATIENT Admitting Provider: Radha Unit Admitted: IMCU Referrals: MIMI AVILA MD [Primary Care Provider] - Follow up as needed
[2018-06-28 11:24] LABS: ABSOLUTE EOSINOPHILS # (AUTO) 0.1 10^3/uL (0.0-0.6); ABSOLUTE LYMPHOCYTES (AUTO) 0.8 10^3/uL (0.5-4.7); ABSOLUTE MONOCYTES (AUTO) 0.3 10^3/uL (0.1-1.4); ABSOLUTE NEUT (AUTO) 2.9 10^3/uL (1.7-8.2); EOSINOPHILS % (AUTO) 2.9 % (0-6); HEMATOCRIT 21.4 % (37.9-51.0); MEAN CORPUSCULAR HEMOGLOBIN 32.6 pg (27.0-33.4); MEAN CORPUSCULAR HGB CONC 34.1 g/dL (32.0-36.0); MONOCYTES % (AUTO) 8.2 % (3-13); PLATELET COUNT 259 10^3/uL (150-450); RED BLOOD COUNT 2.23 10^6/uL (4.35-5.55); RED CELL DISTRIBUTION WIDTH 20.7 % (11.5-14.0); SEGMENTED NEUTROPHILS % (AUTO) 67.9 % (42-78); TOTAL CELLS COUNTED % (AUTO) 100 %; WHITE BLOOD COUNT 4.2 10^3/uL (4.0-10.5)
[2018-06-28 11:37] LABS: HEMOGLOBIN 7.3 g/dL (13.5-17.0)
[2018-06-28 11:43] LABS: MEAN CORPUSCULAR VOLUME 96 fl (80-97)
[2018-06-28 11:44] LABS: ALANINE AMINOTRANSFERASE 26 U/L (21-72); ALBUMIN 3.3 g/dL (3.5-5.0); ALKALINE PHOSPHATASE 116 U/L (38-126); ANION GAP 9 (5-19); ASPARTATE AMINO TRANSFERASE 37 U/L (17-59); BILIRUBIN,DIRECT 0.4 mg/dL (0.0-0.4); BILIRUBIN,TOTAL 0.4 mg/dL (0.2-1.3); BLOOD UREA NITROGEN 31 mg/dL (7-20); CALCIUM 8.6 mg/dL (8.4-10.2); CARBON DIOXIDE 26 mmol/L (22-30); CHLORIDE 107 mmol/L (98-107); GLUCOSE 195 mg/dL (75-110); POTASSIUM 3.2 mmol/L (3.6-5.0); SODIUM 142.2 mmol/L (137-145); TOTAL PROTEIN 5.7 g/dL (6.3-8.2)
[2018-06-28] MEDS ORDERED: GLUCAGON,HUMAN RECOMB 1 MG INJ IM PRN (15:31)
[2018-06-28] MEDS ORDERED: DEXTROSE 40% GEL 15 GM TUBE PO PRN ×2 (15:31)
[2018-06-28] MEDS ORDERED: DEXTROSE 50%-WATER 25 GM/50 ML DISP.SYRIN IV PRN ×2 (15:31)
[2018-06-28 15:58] LABS: PHOSPHORUS 3.8 mg/dL (2.5-4.5)
[2018-06-28 16:12] LABS: CREATINE KINASE MB 1.32 ng/mL (<4.55); TROPONIN I 0.109 ng/mL
[2018-06-28 16:15] LABS: FREE T3 2.23 pg/mL (2.77-5.27); FREE T4 (FREE THYROXINE) 0.95 ng/dL (0.78-2.19)
[2018-06-28 16:29] LABS: THYROID STIMULATING HORMONE 3.42 uIU/mL (0.47-4.68)
[2018-06-28 16:38] LABS: APPEARANCE,URINE CLEAR; BILIRUBIN,URINE NEGATIVE (NEGATIVE); COLOR,URINE YELLOW; GLUCOSE, URINE 50 mg/dL (NEGATIVE); KETONES,URINE NEGATIVE (NEGATIVE); LEUKOCYTE ESTERASE,URINE NEGATIVE (NEGATIVE); NITRITE,URINE NEGATIVE (NEGATIVE); PROTEIN,URINE NEGATIVE (NEGATIVE); URINE SPECIFIC GRAVITY 1.012; UROBILINOGEN,URINE NEGATIVE mg/dL (<2.0)
[2018-06-28] MEDS: INSULIN LISPRO 100 UNIT/ML 3 ML VIAL SUBCUT SCH ×2 (16:38→21:37)
[2018-06-28 16:52] LABS: URINE AMPHETAMINES SCREEN NEGATIVE; URINE BARBITURATES SCREEN NEGATIVE; URINE BENZODIAZEPINES SCREEN NEGATIVE; URINE COCAINE SCREEN NEGATIVE; URINE MARIJUANA (THC) SCREEN NEGATIVE; URINE METHADONE SCREEN NEGATIVE; URINE PHENCYCLIDINE SCREEN NEGATIVE
--- NOTE | 2018-06-28 17:16 | PDOC H&P ---
History of Present Illness Admission Date/PCP: 06/28/18 13:25 MIMI AVILA MD History of Present Illness: RICKY PETTY is a 73 year old male, he has multiple comorbid conditions including dilated cardiomyopathy, ventricular tachycardia, status post implantation of implantable cardioverter-defibrillator, I saw him in the office yesterday for post hospital follow-up evaluation, he was admitted at [facility] when he was transferred for the management of hyperosmolar nonketotic diabetes mellitus, he also apparently had a GI bleed, he underwent upper endoscopy, he was found to have I assume duodenal ulcer with H. pylori infection. He was discharged on trip regimen including amoxicillin, Flagyl and pantoprazole for the eradication of H. pylori. He was transferred from home today because the Home health not stated that the blood sugar was luz maria vated , in the 600 range, but when he arrived in the emergency room it was 195. He was also found to be anemic, the hemoglobin was 7.3, he also has positive guaiac stool, the ED providers were concerned of ongoing GI bleed there wants him admitted to the hospital. Past Medical History Cardiac Medical History: Reports: Congestive Heart Failure, Hypertension, Other - Dilated nonischemic cardiomyopathy, sick sinus syndrome, ventricular tachyc Neurological Medical History: Reports: Ischemic CVA, Seizures - LAST X5 YRS AGO Endocrine Medical History: Reports: Diabetes Mellitus Type 2 Psychiatric Medical History: Denies: Depression Hematology: Reports: Anemia - MEDICATION Past Surgical History Past Surgical History: Reports: Internal Defibrillator, Pacemaker Social History Smoking Status: Never Smoker Frequency of Alcohol Use: None Hx Recreational Drug Use: No Drugs: None Hx Prescription Drug Abuse: No Family History Family History: Reviewed & Not Pertinent Parental Family History Reviewed: Yes Children Family History Reviewed: Yes Sibling(s) Family History Reviewed.: Yes Medication/Allergy Home Medications: Amoxicillin 500 mg PO Q12 06/28/18 Atorvastatin Calcium [Lipitor 20 mg Tablet] 20 mg PO DAILY 06/28/18 Clopidogrel Bisulfate [Plavix 75 mg Tablet] 75 mg PO DAILY 06/28/18 Doxazosin Mesylate [Cardura] 2 mg PO DAILY 06/28/18 Insulin Glargine,Hum.rec.anlog [Lantus Insulin Inj 300 Unit/3 ml Pen] 15 unit SUBCUT QHS 06/28/18 Insulin Lispro [Humalog Kwikpen] 0 unit SQ .SLD SCALE 06/28/18 Isosorb Dinit/Hydralazine HCl [Bidil 20-37.5 mg Tablet] 2 tab PO Q12 06/28/18 Levetiracetam [Keppra] 1,000 mg PO Q12 06/28/18 Linagliptin [Tradjenta] 5 mg PO DAILY 06/28/18 Metoprolol Succinate [Toprol XL 100 mg Tablet] 100 mg PO DAILY 06/28/18 Metronidazole [Flagyl] 500 mg PO Q8 06/28/18 Olmesartan Medoxomil [Benicar] 40 mg PO DAILY 06/28/18 Pantoprazole Sodium [Protonix] 40 mg PO BID 06/28/18 Phenytoin Sodium Extended [Dilantin 100 mg Capsule.er] 100 mg PO Q12 06/28/18 Potassium Chloride [Klor-Con M10] 10 meq PO DAILY 06/28/18 Torsemide [Demadex 20 mg Tablet] 60 mg PO DAILY 06/28/18 Allergies/Adverse Reactions: No Known Allergies Allergy (Verified 06/28/18 13:53) Review of Systems Constitutional: PRESENT: fatigue Eyes: ABSENT: visual disturbances Ears: ABSENT: hearing changes Cardiovascular: ABSENT: chest pain, dyspnea on exertion, edema, orthropnea, palpitations Respiratory: ABSENT: cough, hemoptysis Gastrointestinal: ABSENT: abdominal pain, constipation, diarrhea, hematemesis, hematochezia, nausea, vomiting Genitourinary: ABSENT: dysuria, hematuria Musculoskeletal: ABSENT: joint swelling Integumentary: ABSENT: rash, wounds Neurological: ABSENT: abnormal gait, abnormal speech, confusion, dizziness, focal weakness, syncope Psychiatric: ABSENT: anxiety, depression, homidical ideation, suicidal ideation Endocrine: ABSENT: cold intolerance, heat intolerance, menstrual abnormalities, polydipsia, polyuria Hematologic/Lymphatic: ABSENT: easy bleeding, easy bruising, lymphadenopathy Physical Exam Vital Signs: Temp Pulse Resp BP Pulse Ox 98.9 F 59 L 18 181/89 H 100 06/28/18 15:51 06/28/18 15:51 06/28/18 15:51 06/28/18 15:51 06/28/18 15:51 Intake & Output 06/27/18 06/28/18 06/29/18 06:59 06:59 06:59 Weight 79.379 kg General appearance: PRESENT: no acute distress Head exam: PRESENT: atraumatic, normocephalic Eye exam: PRESENT: PERRLA Ear exam: PRESENT: normal external ear exam Neck exam: PRESENT: full ROM Respiratory exam: PRESENT: clear to auscultation nicolle Cardiovascular exam: PRESENT: RRR, +S1, +S2 GI/Abdominal exam: PRESENT: normal bowel sounds, soft Rectal exam: PRESENT: deferred Neurological exam: PRESENT: alert, CN II-XII grossly intact Skin exam: PRESENT: dry, intact, warm Results Laboratory Results: 06/28/18 11:10 06/28/18 11:10 06/28/18 06/28/18 06/28/18 11:10 11:10 11:10 WBC 4.2 RBC 2.23 L Hgb 7.3 L Hct 21.4 L MCV 96 D MCH 32.6 MCHC 34.1 RDW 20.7 H Plt Count 259 Seg Neutrophils % 67.9 Lymphocytes % 20.0 Monocytes % 8.2 Eosinophils % 2.9 Basophils % 1.0 Absolute Neutrophils 2.9 Absolute Lymphocytes 0.8 Absolute Monocytes 0.3 Absolute Eosinophils 0.1 Absolute Basophils 0.0 Sodium 142.2 Potassium 3.2 L Chloride 107 Carbon Dioxide 26 Anion Gap 9 BUN 31 H Creatinine 2.43 H Est GFR ( Amer) 32 L Est GFR (Non-Af Amer) 26 L Glucose 195 H Lactic Acid 1.2 Calcium 8.6 Phosphorus Magnesium Total Bilirubin 0.4 AST 37 ALT 26 Alkaline Phosphatase 116 Total Protein 5.7 L Albumin 3.3 L Amylase Lipase TSH Free T4 Free T3 pg/mL Urine Color Urine Appearance Urine pH Ur Specific [place] Urine Protein Urine Glucose (UA) Urine Ketones Urine Blood Urine Nitrite Ur Leukocyte Esterase Urine WBC (Auto) 06/28/18 06/28/18 06/28/18 11:10 11:10 16:00 WBC RBC Hgb Hct MCV MCH MCHC RDW Plt Count Seg Neutrophils % Lymphocytes % Monocytes % Eosinophils % Basophils % Absolute Neutrophils Absolute Lymphocytes Absolute Monocytes Absolute Eosinophils Absolute Basophils Sodium Potassium Chloride Carbon Dioxide Anion Gap BUN Creatinine Est GFR ( Amer) Est GFR (Non-Af Amer) Glucose Lactic Acid Calcium Phosphorus 3.8 Magnesium 2.0 Total Bilirubin Cancelled AST Cancelled ALT Cancelled Alkaline Phosphatase Cancelled Total Protein Cancelled Albumin Cancelled Amylase 82 Lipase 314.0 H TSH 3.42 Free T4 0.95 Free T3 pg/mL 2.23 L Urine Color YELLOW Urine Appearance CLEAR Urine pH 5.0 Ur Specific [place] 1.012 Urine Protein NEGATIVE Urine Glucose (UA) 50 H Urine Ketones NEGATIVE Urine Blood NEGATIVE Urine Nitrite NEGATIVE Ur Leukocyte Esterase NEGATIVE Urine WBC (Auto) 1 06/28/18 06/28/18 06/28/18 11:10 11:10 11:10 Creatine Kinase 88 CK-MB (CK-2) 1.32 Troponin I 0.109 NT-Pro-B Natriuret Pep 2880 H Assessment & Plan - Diagnosis (1) Anemia Qualifiers: Anemia type: other cause Other causes of anemia: acute posthemorrhagic Qualified Code(s): D62 - Acute posthemorrhagic anemia Is this a current diagnosis for this admission?: Yes Plan: This anemia is most likely secondary to upper GI bleed, patient will be transfused if hemoglobin is less than 7, a GI consult will be obtained for EGD (2) Chronic kidney disease, stage III (moderate) Is this a current diagnosis for this admission?: Yes (3) Nonischemic dilated cardiomyopathy Is this a current diagnosis for this admission?: Yes (4) Diabetes mellitus Qualifiers: Diabetes mellitus type: type 2 Diabetes mellitus alf insulin use: with alf use Diabetes mellitus complication status: with neurologic complications Diabetes mellitus complication detail: with polyneuropathy Qualified Code(s): E11.42 - Type 2 diabetes mellitus with diabetic polyneuropathy; Z79.4 - FDC (current) use of insulin Is this a current diagnosis for this admission?: Yes
[2018-06-28] MEDS: POTASSIUM CHLORIDE 10 MEQ CAPSULE.ER PO SCH (17:17)
[2018-06-28 22:14] LABS: CREATINE KINASE MB 1.24 ng/mL (<4.55); TROPONIN I 0.111 ng/mL
[2018-06-29 03:50] LABS: ABSOLUTE EOSINOPHILS # (AUTO) 0.2 10^3/uL (0.0-0.6); ABSOLUTE LYMPHOCYTES (AUTO) 1.2 10^3/uL (0.5-4.7); ABSOLUTE MONOCYTES (AUTO) 0.4 10^3/uL (0.1-1.4); ABSOLUTE NEUT (AUTO) 2.5 10^3/uL (1.7-8.2); BASOPHILS % (AUTO) 0.8 % (0-2); LYMPHOCYTES % (AUTO) 27.3 % (13-45); MEAN CORPUSCULAR HEMOGLOBIN 32.7 pg (27.0-33.4); MEAN CORPUSCULAR HGB CONC 34.1 g/dL (32.0-36.0); MEAN CORPUSCULAR VOLUME 96 fl (80-97); MONOCYTES % (AUTO) 9.2 % (3-13); PLATELET COUNT 244 10^3/uL (150-450); RED BLOOD COUNT 2.08 10^6/uL (4.35-5.55); RED CELL DISTRIBUTION WIDTH 20.6 % (11.5-14.0); SEGMENTED NEUTROPHILS % (AUTO) 57.7 % (42-78); TOTAL CELLS COUNTED % (AUTO) 100 %; WHITE BLOOD COUNT 4.3 10^3/uL (4.0-10.5)
[2018-06-29 03:53] LABS: HEMOGLOBIN 6.8 g/dL (13.5-17.0)
[2018-06-29 04:08] LABS: ANION GAP 5 (5-19); BLOOD UREA NITROGEN 25 mg/dL (7-20); CALCIUM 8.3 mg/dL (8.4-10.2); CARBON DIOXIDE 27 mmol/L (22-30); CHLORIDE 112 mmol/L (98-107); CHOLESTEROL 117.89 mg/dL (0-200); GLUCOSE 131 mg/dL (75-110); POTASSIUM 3.3 mmol/L (3.6-5.0); SODIUM 143.7 mmol/L (137-145); TRIGLYCERIDES 165 mg/dL (<150)
[2018-06-29 04:18] LABS: DIRECT LDL 48 mg/dL (<100)
[2018-06-29 04:19] LABS: CREATINE KINASE MB 0.88 ng/mL (<4.55); TROPONIN I 0.103 ng/mL
[2018-06-29] MEDS: INSULIN LISPRO 100 UNIT/ML 3 ML VIAL SUBCUT SCH ×4 (08:36→22:52)
[2018-06-29] MEDS ORDERED: NORMAL SALINE 250 ML IV PRN ×2 (15:00)
[2018-06-29] MEDS: POTASSIUM CHLORIDE 10 MEQ CAPSULE.ER PO SCH (17:01)
[2018-06-29] MEDS ORDERED: DIPHENHYDRAMINE HCL 50 MG/ML VIAL ONE (18:30)
[2018-06-29] MEDS ORDERED: ONDANSETRON HCL INJ/PF 4 MG/2 ML SDV ONE (18:30)
[2018-06-29] MEDS ORDERED: NALOXONE HCL INJ/PF 0.4 MG/1 ML SDV ONE (18:31)
[2018-06-29] MEDS ORDERED: MIDAZOLAM 2 MG/2 ML INJ ONE (18:31)
[2018-06-29] MEDS ORDERED: FENTANYL CITRATE INJ/PF 100 MCG/2 ML AMPUL ONE (18:31)
[2018-06-29] MEDS ORDERED: FLUMAZENIL INJ 0.5 MG/5 ML VIAL ONE (18:31)
[2018-06-29] MEDS ORDERED: EPINEPHRINE INJ 1 MG/10 ML DISP.SYRIN ONE (18:32)
[2018-06-29] MEDS ORDERED: GLUCAGON,HUMAN RECOMB 1 MG INJ ONE (18:32)
--- NOTE | 2018-06-29 20:15 | PDOC CONSULTATION ---
Consultation Consult Date: 06/28/18 History of Present Illness Admission Date/PCP: 06/28/18 13:25 MIMI AVILA MD History of Present Illness: RICKY PETTY is a 73 year old male patient who was admitted on 06/28/2018 with hyperglycemia(600) noted at home but on arrival in the hospital his blood sugar was only slightly elevated at 195. He was found to be anemic with a hemoglobin of 7.3 which dropped down to 6.8 a few hours later. History was difficult to obtain from the patient. Apparently he was admitted to [facility] last week and was diagnosed with a bleeding ulcer. Duodenal ulcer and H. pylori infection. He was discharged on antibiotics and pantoprazole. He does have positive stool occult blood but no obvious melena or bright red blood per rectum have been noted. Past Medical History Cardiac Medical History: Reports: Congestive Heart Failure, Myocardial Infarction, Hypertension, Other - Dilated nonischemic cardiomyopathy, sick sinus syndrome, ventricular tachyc Pulmonary Medical History: Denies: Asthma, Tuberculosis Neurological Medical History: Reports: Ischemic CVA, Seizures - LAST X5 YRS AGO Endocrine Medical History: Reports: Diabetes Mellitus Type 2 GI Medical History: Denies: Hepatitis, Hiatal Hernia Psychiatric Medical History: Denies: Depression Hematology: Reports: Anemia - MEDICATION Past Surgical History Past Surgical History: Reports: Internal Defibrillator, Pacemaker Social History Smoking Status: Never Smoker Frequency of Alcohol Use: None Hx Recreational Drug Use: No Drugs: None Hx Prescription Drug Abuse: No Family History Family History: Reviewed & Not Pertinent Parental Family History Reviewed: No Children Family History Reviewed: NA Sibling(s) Family History Reviewed.: NA Medication/Allergy Home Medications: Amoxicillin 500 mg PO Q12 06/28/18 Atorvastatin Calcium [Lipitor 20 mg Tablet] 20 mg PO DAILY 06/28/18 Clopidogrel Bisulfate [Plavix 75 mg Tablet] 75 mg PO DAILY 06/28/18 Doxazosin Mesylate [Cardura] 2 mg PO DAILY 06/28/18 Insulin Glargine,Hum.rec.anlog [Lantus Insulin Inj 300 Unit/3 ml Pen] 15 unit SUBCUT QHS 06/28/18 Insulin Lispro [Humalog Kwikpen] 0 unit SQ .SLD SCALE 06/28/18 Isosorb Dinit/Hydralazine HCl [Bidil 20-37.5 mg Tablet] 2 tab PO Q12 06/28/18 Levetiracetam [Keppra] 1,000 mg PO Q12 06/28/18 Linagliptin [Tradjenta] 5 mg PO DAILY 06/28/18 Metoprolol Succinate [Toprol XL 100 mg Tablet] 100 mg PO DAILY 06/28/18 Metronidazole [Flagyl] 500 mg PO Q8 06/28/18 Olmesartan Medoxomil [Benicar] 40 mg PO DAILY 06/28/18 Pantoprazole Sodium [Protonix] 40 mg PO BID 06/28/18 Phenytoin Sodium Extended [Dilantin 100 mg Capsule.er] 100 mg PO Q12 06/28/18 Potassium Chloride [Klor-Con M10] 10 meq PO DAILY 06/28/18 Torsemide [Demadex 20 mg Tablet] 60 mg PO DAILY 06/28/18 Allergies/Adverse Reactions: No Known Allergies Allergy (Verified 06/28/18 13:53) Review of Systems All systems: reviewed and no additional remarkable complaints except as stated Physical Exam Vital Signs: Temp Pulse Resp BP Pulse Ox 98.9 F 79 16 171/89 H 100 06/29/18 19:20 06/29/18 20:01 06/29/18 20:01 06/29/18 20:01 06/29/18 20:01 Intake & Output 06/28/18 06/29/18 06/30/18 06:59 06:59 06:59 Intake Total 340 954 Output Total 200 550 Balance 140 404 Weight 70.1 kg Exam: General: Patient is alert . HEENT: There is pallor but no jaundice. PERRLA. Oropharynx normal Respiratory: No chest deformity. No respiratory distress. Chest wall palpitation was unremarkable. Breath sounds were normal Cardiovascular: Heart sounds 1 and 2 normal with no murmurs. Abdominal: Not distended. Soft and nontender. Liver and spleen not palpable. No ascites demonstrated. Bowel sounds active. Rectal examination was deferred. Extremities: No edema Neurological: Alert and oriented x4. Grossly nonfocal. Normal speech Results Laboratory Results: 06/29/18 03:36 06/29/18 03:36 06/29/18 06/29/18 06/29/18 03:36 03:36 15:30 WBC 4.3 RBC 2.08 L Hgb 6.8 L Hct 20.0 L MCV 96 MCH 32.7 MCHC 34.1 RDW 20.6 H Plt Count 244 Seg Neutrophils % 57.7 Lymphocytes % 27.3 Monocytes % 9.2 Eosinophils % 5.0 Basophils % 0.8 Absolute Neutrophils 2.5 Absolute Lymphocytes 1.2 Absolute Monocytes 0.4 Absolute Eosinophils 0.2 Absolute Basophils 0.0 Sodium 143.7 Potassium 3.3 L Chloride 112 H Carbon Dioxide 27 Anion Gap 5 BUN 25 H Creatinine 2.30 H Est GFR ( Amer) 34 L Est GFR (Non-Af Amer) 28 L Glucose 131 H Calcium 8.3 L Triglycerides 165 H Cholesterol 117.89 LDL Cholesterol Direct 48 VLDL Cholesterol 33.0 H HDL Cholesterol 48 Blood Type B POSITIVE Antibody Screen NEGATIVE 06/28/18 06/28/18 06/28/18 11:10 11:10 11:10 Creatine Kinase 88 CK-MB (CK-2) 1.32 Troponin I 0.109 NT-Pro-B Natriuret Pep 2880 H 06/28/18 06/28/18 06/29/18 21:30 21:30 03:36 Creatine Kinase 78 67 CK-MB (CK-2) 1.24 Troponin I 0.111 NT-Pro-B Natriuret Pep 06/29/18 03:36 Creatine Kinase CK-MB (CK-2) 0.88 Troponin I 0.103 NT-Pro-B Natriuret Pep Assessment & Plan - Diagnosis (1) Decreased hemoglobin Is this a current diagnosis for this admission?: Yes Plan: He was admitted with a hemoglobin of 7. I reviewed his admission record from [facility] at the early part of June when his hemoglobin was 11. I do not have records from his most recent admission when he was treated for duodenal ulcer. He will be receiving blood transfusion and will undergo an EGD. His anemia may be a reflection of a previous GI bleed and not an active bleed. 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
--- NOTE | 2018-06-29 20:17 | Operative Report ---
Operative Report DATE OF SURGERY: 06/29/18 Operative Report: Pre-op diagnosis: Anemia and possible GI bleed Post-op diagnosis: Duodenal ulcer with no evidence for active bleeding Surgery: Esophagogastroduodenoscopy Medications: Versed 2mg Fentanyl 50mcg IV push Tissue removed: None. He was diagnosed with H. pylori infection last week Procedure: After informed consent obtained from patient, the throat was sprayed with Hurricane and conscious sedation was achieved. The upper endoscope was inserted into the esophagus under direct vision and advanced into the stomach. The duodenum was entered and examined to the second part. Endoscope was then slowly pulled out of the patient as the mucosa was examined into details. Patient tolerated procedure well. Findings Esophagus: Normal Antrum: Normal Body: Normal Fundus: Normal Duodenum first part: A 7 mm also was noted at the duodenal bulb with a Endo Clip in place. The base of the ulcer was white with no active bleeding. Duodenum second part: Normal Plan: Continue PPI twice daily and H. pylori treatment. Follow H&H OPERATION: .
[2018-06-29] MEDS ORDERED: (PENDING PHARMACY ID) (Linagliptin [Tradjenta] 5 MG) PO SCH (20:30)
--- NOTE | 2018-06-29 20:41 | PDOC PROGRESS REPORT ---
Subjective Progress Note for:: 06/29/18 Subjective:: 4 4 patient seen by the bedside, he had upper endoscopy today there was no active bleeding found Reason For Visit: ANEMIA,UPPER GI BLEED,MULTIPLE COMORBID CONDITIONS Physical Exam Vital Signs: Temp Pulse Resp BP Pulse Ox 98.9 F 87 16 121/78 100 06/29/18 19:20 06/29/18 20:05 06/29/18 20:05 06/29/18 20:05 06/29/18 20:05 Intake & Output 06/28/18 06/29/18 06/30/18 06:59 06:59 06:59 Intake Total 340 954 Output Total 200 550 Balance 140 404 Weight 70.1 kg General appearance: PRESENT: no acute distress Eye exam: PRESENT: PERRLA Respiratory exam: PRESENT: clear to auscultation nicolle Cardiovascular exam: PRESENT: +S1, +S2 GI/Abdominal exam: PRESENT: soft Neurological exam: PRESENT: alert Results Laboratory Results: 06/29/18 03:36 06/29/18 03:36 06/29/18 06/29/18 06/29/18 03:36 03:36 15:30 WBC 4.3 RBC 2.08 L Hgb 6.8 L Hct 20.0 L MCV 96 MCH 32.7 MCHC 34.1 RDW 20.6 H Plt Count 244 Seg Neutrophils % 57.7 Lymphocytes % 27.3 Monocytes % 9.2 Eosinophils % 5.0 Basophils % 0.8 Absolute Neutrophils 2.5 Absolute Lymphocytes 1.2 Absolute Monocytes 0.4 Absolute Eosinophils 0.2 Absolute Basophils 0.0 Sodium 143.7 Potassium 3.3 L Chloride 112 H Carbon Dioxide 27 Anion Gap 5 BUN 25 H Creatinine 2.30 H Est GFR ( Amer) 34 L Est GFR (Non-Af Amer) 28 L Glucose 131 H Calcium 8.3 L Triglycerides 165 H Cholesterol 117.89 LDL Cholesterol Direct 48 VLDL Cholesterol 33.0 H HDL Cholesterol 48 Blood Type B POSITIVE Antibody Screen NEGATIVE 06/28/18 06/28/18 06/28/18 11:10 11:10 11:10 Creatine Kinase 88 CK-MB (CK-2) 1.32 Troponin I 0.109 NT-Pro-B Natriuret Pep 2880 H 06/28/18 06/28/18 06/29/18 21:30 21:30 03:36 Creatine Kinase 78 67 CK-MB (CK-2) 1.24 Troponin I 0.111 NT-Pro-B Natriuret Pep 06/29/18 03:36 Creatine Kinase CK-MB (CK-2) 0.88 Troponin I 0.103 NT-Pro-B Natriuret Pep Assessment & Plan - Diagnosis (1) Anemia Qualifiers: Anemia type: other cause Other causes of anemia: acute posthemorrhagic Qualified Code(s): D62 - Acute posthemorrhagic anemia Is this a current diagnosis for this admission?: Yes Plan: Patient was transfused with packed red blood cells, status post EGD (2) Chronic kidney disease, stage III (moderate) Is this a current diagnosis for this admission?: Yes (3) Nonischemic dilated cardiomyopathy Is this a current diagnosis for this admission?: Yes Plan: Continue anti-ischemic medication (4) Diabetes mellitus Qualifiers: Diabetes mellitus type: type 2 Diabetes mellitus care home insulin use: with care home use Diabetes mellitus complication status: with neurologic complications Diabetes mellitus complication detail: with polyneuropathy Qualified Code(s): E11.42 - Type 2 diabetes mellitus with diabetic polyneuropathy; Z79.4 - USP (current) use of insulin Is this a current diagnosis for this admission?: Yes
[2018-06-29] MEDS ORDERED: (PENDING PHARMACY ID) (Olmesartan Medoxomil [Benicar] 40 MG) PO SCH (20:45)
[2018-06-29] MEDS ORDERED: (PENDING PHARMACY ID) (Potassium Chloride [Klor-Con M10] 10 MEQ) PO SCH (20:45)
[2018-06-29] MEDS ORDERED: AMOXICILLIN 500 MG PO SCH (22:00)
[2018-06-29] MEDS ORDERED: (PENDING PHARMACY ID) (Levetiracetam [Keppra] 1,000 MG) PO SCH (22:00)
[2018-06-29] MEDS ORDERED: POTASSIUM CHLORIDE 10 MEQ CAPSULE.ER PO SCH (22:00)
[2018-06-29] MEDS: ISOSORB DINIT/HYDRALAZINE HCL 20-37.5 MG TABLET PO SCH (22:50)
[2018-06-29] MEDS: TORSEMIDE 20 MG TABLET PO SCH (22:50)
[2018-06-29] MEDS: SITAGLIPTIN PHOSPHATE 25 MG TABLET PO SCH (22:50)
[2018-06-29] MEDS: AMOXICILLIN TRIHYDRATE 500 MG CAPSULE PO SCH (22:51)
[2018-06-29] MEDS: PHENYTOIN SODIUM EXTENDED 100 MG CAPSULE PO SCH (22:51)
[2018-06-29] MEDS: LEVETIRACETAM 500 MG TABLET PO SCH (22:51)
[2018-06-29] MEDS: INSULIN GLARGINE,HUM.REC.ANLOG 300 UNIT/3 ML INSULN.PEN SUBCUT SCH (22:52)
[2018-06-29] MEDS: LANSOPRAZOLE 30 MG TAB.RAP.DR PO SCH (22:55)
[2018-06-29] MEDS: METOPROLOL SUCCINATE 50 MG TAB.SR.24H PO SCH (22:55)
[2018-06-29 22:56] LABS: HEMOGLOBIN 8.3 g/dL (13.5-17.0); MEAN CORPUSCULAR HEMOGLOBIN 32.6 pg (27.0-33.4); MEAN CORPUSCULAR HGB CONC 34.8 g/dL (32.0-36.0); MEAN CORPUSCULAR VOLUME 94 fl (80-97); PLATELET COUNT 256 10^3/uL (150-450); RED BLOOD COUNT 2.56 10^6/uL (4.35-5.55); RED CELL DISTRIBUTION WIDTH 20.8 % (11.5-14.0); WHITE BLOOD COUNT 5.2 10^3/uL (4.0-10.5)
[2018-06-29] MEDS: METRONIDAZOLE 500 MG TABLET PO SCH (23:03)
[2018-06-30] MEDS: LOSARTAN POTASSIUM 50 MG TABLET PO SCH ×2 (01:03→10:26)
[2018-06-30 05:18] LABS: ABSOLUTE EOSINOPHILS # (AUTO) 0.2 10^3/uL (0.0-0.6); ABSOLUTE MONOCYTES (AUTO) 0.6 10^3/uL (0.1-1.4); BASOPHILS % (AUTO) 0.7 % (0-2); EOSINOPHILS % (AUTO) 3.2 % (0-6); HEMATOCRIT 23.2 % (37.9-51.0); LYMPHOCYTES % (AUTO) 14.5 % (13-45); MEAN CORPUSCULAR HEMOGLOBIN 32.2 pg (27.0-33.4); MEAN CORPUSCULAR HGB CONC 34.6 g/dL (32.0-36.0); MEAN CORPUSCULAR VOLUME 93 fl (80-97); MONOCYTES % (AUTO) 8.3 % (3-13); PLATELET COUNT 261 10^3/uL (150-450); RED BLOOD COUNT 2.49 10^6/uL (4.35-5.55); RED CELL DISTRIBUTION WIDTH 20.9 % (11.5-14.0); SEGMENTED NEUTROPHILS % (AUTO) 73.3 % (42-78); TOTAL CELLS COUNTED % (AUTO) 100 %; WHITE BLOOD COUNT 6.8 10^3/uL (4.0-10.5)
[2018-06-30 05:38] LABS: ANION GAP 7 (5-19); BLOOD UREA NITROGEN 22 mg/dL (7-20); CALCIUM 8.2 mg/dL (8.4-10.2); CARBON DIOXIDE 26 mmol/L (22-30); CHLORIDE 108 mmol/L (98-107); GLUCOSE 78 mg/dL (75-110); POTASSIUM 3.3 mmol/L (3.6-5.0)
[2018-06-30] MEDS: LANSOPRAZOLE 30 MG TAB.RAP.DR PO SCH ×2 (06:22→18:08)
[2018-06-30] MEDS: METRONIDAZOLE 500 MG TABLET PO SCH ×3 (06:22→22:25)
[2018-06-30] MEDS ORDERED: LANSOPRAZOLE 30 MG TAB.RAP.DR PO SCH (08:00)
[2018-06-30] MEDS: INSULIN LISPRO 100 UNIT/ML 3 ML VIAL SUBCUT SCH ×4 (08:53→22:26)
[2018-06-30] MEDS: TORSEMIDE 20 MG TABLET PO SCH (10:25)
[2018-06-30] MEDS: METOPROLOL SUCCINATE 50 MG TAB.SR.24H PO SCH (10:25)
[2018-06-30] MEDS: LEVETIRACETAM 500 MG TABLET PO SCH ×2 (10:25→22:25)
[2018-06-30] MEDS: ATORVASTATIN CALCIUM 20 MG TABLET PO SCH (10:25)
[2018-06-30] MEDS: ISOSORB DINIT/HYDRALAZINE HCL 20-37.5 MG TABLET PO SCH ×2 (10:26→22:25)
[2018-06-30] MEDS: AMOXICILLIN TRIHYDRATE 500 MG CAPSULE PO SCH ×2 (10:26→22:25)
[2018-06-30] MEDS: PHENYTOIN SODIUM EXTENDED 100 MG CAPSULE PO SCH ×2 (10:26→22:26)
[2018-06-30] MEDS: DOXAZOSIN MESYLATE 2 MG TABLET PO SCH (10:26)
[2018-06-30] MEDS: SITAGLIPTIN PHOSPHATE 25 MG TABLET PO SCH (10:26)
[2018-06-30] MEDS: POTASSIUM CHLORIDE 10 MEQ CAPSULE.ER PO SCH (18:07)
--- NOTE | 2018-06-30 21:27 | PDOC DISCHARGE SUMMARY ---
General - Admit/Disc Date/PCP Admission Date/Primary Care Provider: 06/28/18 13:25 MIMI AVILA MD Discharge Date: 06/30/18 - Discharge Diagnosis (1) Anemia Is this a current diagnosis for this admission?: Yes (2) Chronic kidney disease, stage III (moderate) Is this a current diagnosis for this admission?: Yes (3) Nonischemic dilated cardiomyopathy Is this a current diagnosis for this admission?: Yes (4) Diabetes mellitus Is this a current diagnosis for this admission?: Yes - Additional Information Home Medications: Amoxicillin 500 mg PO Q12 06/28/18 Atorvastatin Calcium [Lipitor 20 mg Tablet] 20 mg PO DAILY 06/28/18 Doxazosin Mesylate [Cardura] 2 mg PO DAILY 06/28/18 Insulin Glargine,Hum.rec.anlog [Lantus Insulin 100 Unit/mL] 15 unit SUBCUT QHS 06/28/18 Insulin Lispro [Humalog Kwikpen U-100] 0 unit SQ .SLD SCALE 06/28/18 Isosorb Dinit/Hydralazine HCl [Bidil 20-37.5 mg Tablet] 2 tab PO Q12 06/28/18 Levetiracetam [Keppra] 1,000 mg PO Q12 06/28/18 Linagliptin [Tradjenta] 5 mg PO DAILY 06/28/18 Metoprolol Succinate [Toprol XL 100 mg Tablet] 100 mg PO DAILY 06/28/18 Metronidazole [Flagyl] 500 mg PO Q8 06/28/18 Olmesartan Medoxomil [Benicar] 40 mg PO DAILY 06/28/18 Pantoprazole Sodium [Protonix] 40 mg PO BID 06/28/18 Phenytoin Sodium Extended [Dilantin 100 mg Capsule.er] 100 mg PO Q12 06/28/18 Potassium Chloride [Klor-Con M10] 10 meq PO DAILY 06/28/18 Torsemide [Demadex 20 mg Tablet] 60 mg PO DAILY 06/28/18 History of Present Illness History of Present Illness: RICKY PETTY is a 73 year old male, he has multiple comorbid conditions including dilated cardiomyopathy, ventricular tachycardia, status post implantation of implantable cardioverter-defibrillator, I saw him in the office yesterday for post hospital follow-up evaluation, he was admitted at [facility] when he was transferred for the management of hyperosmolar nonketotic diabetes mellitus, he also apparently had a GI bleed, he underwent upper endoscopy, he was found to have I assume duodenal ulcer with H. pylori infection. He was discharged on triple regimen including amoxicillin, Flagyl and pantoprazole for the eradication of H. pylori. He was transferred from home today because the Home health nurse stated that the blood sugar was elevated , in the 600 range, but when he arrived in the emergency room it was 195. He was also found to be anemic, the hemoglobin was 7.3, he also has positive guaiac stool, the ED providers were concerned of ongoing GI bleed they wants him admitted to the hospital. Hospital Course Hospital Course: The hemoglobin was as low as 6.8, he was transfused with a unit of packed red blood cells, consultation was requested from GI doctor Noe, he underwent upper endoscopy there was no active bleeding identified he has an ulcer with an Endo Clip in place in the duodenum. Patient diabetes was well controlled through hospital stay, he will be discharged home Physical Exam Vital Signs: Temp Pulse Resp BP Pulse Ox 98.3 F 64 18 112/67 99 06/30/18 19:45 06/30/18 19:45 06/30/18 19:45 06/30/18 19:45 06/30/18 19:45 Intake & Output 06/29/18 06/30/18 07/01/18 06:59 06:59 06:59 Intake Total 340 1004 591 Output Total 200 1225 250 Balance 140 -221 341 Weight 70.1 kg 75 kg General appearance: PRESENT: no acute distress Head exam: PRESENT: atraumatic, normocephalic Eye exam: PRESENT: PERRLA Ear exam: PRESENT: normal external ear exam Neck exam: PRESENT: full ROM Respiratory exam: PRESENT: clear to auscultation nicolle Cardiovascular exam: PRESENT: RRR, +S1, +S2 Pulses: PRESENT: normal dorsalis pedis pul, +2 pedal pulses bilateral Vascular exam: PRESENT: normal capillary refill GI/Abdominal exam: PRESENT: normal bowel sounds, soft Rectal exam: PRESENT: deferred Neurological exam: PRESENT: alert, CN II-XII grossly intact Psychiatric exam: PRESENT: appropriate affect, normal mood Skin exam: PRESENT: dry, intact, warm Results Laboratory Results: 06/30/18 04:32 06/30/18 04:32 06/29/18 06/30/18 06/30/18 22:40 04:32 04:32 WBC 5.2 6.8 RBC 2.56 L 2.49 L Hgb 8.3 L 8.0 L Hct 24.0 L 23.2 L MCV 94 93 MCH 32.6 32.2 MCHC 34.8 34.6 RDW 20.8 H 20.9 H Plt Count 256 261 Seg Neutrophils % 73.3 Lymphocytes % 14.5 Monocytes % 8.3 Eosinophils % 3.2 Basophils % 0.7 Absolute Neutrophils 5.0 Absolute Lymphocytes 1.0 Absolute Monocytes 0.6 Absolute Eosinophils 0.2 Absolute Basophils 0.0 Sodium 141.0 Potassium 3.3 L Chloride 108 H Carbon Dioxide 26 Anion Gap 7 BUN 22 H Creatinine 2.10 H Est GFR ( Amer) 38 L Est GFR (Non-Af Amer) 31 L Glucose 78 Calcium 8.2 L 06/28/18 16:00 Clean Catch Midstream Urine Culture - Final NO GROWTH 2 DAYS 06/28/18 06/28/18 06/28/18 11:10 11:10 11:10 Creatine Kinase 88 CK-MB (CK-2) 1.32 Troponin I 0.109 NT-Pro-B Natriuret Pep 2880 H 06/28/18 06/28/18 06/29/18 21:30 21:30 03:36 Creatine Kinase 78 67 CK-MB (CK-2) 1.24 Troponin I 0.111 NT-Pro-B Natriuret Pep 06/29/18 03:36 Creatine Kinase CK-MB (CK-2) 0.88 Troponin I 0.103 NT-Pro-B Natriuret Pep Qualifiers - * PATIENT BEING DISCHARGED WITH ANY OF THE FOLLOWING DIAGNOSIS: No
[2018-06-30] MEDS: INSULIN GLARGINE,HUM.REC.ANLOG 300 UNIT/3 ML INSULN.PEN SUBCUT SCH (22:26)
[2018-07-01 05:06] LABS: ABSOLUTE EOSINOPHILS # (AUTO) 0.3 10^3/uL (0.0-0.6); ABSOLUTE LYMPHOCYTES (AUTO) 1.5 10^3/uL (0.5-4.7); ABSOLUTE MONOCYTES (AUTO) 0.5 10^3/uL (0.1-1.4); ABSOLUTE NEUT (AUTO) 3.2 10^3/uL (1.7-8.2); BASOPHILS % (AUTO) 0.8 % (0-2); EOSINOPHILS % (AUTO) 4.6 % (0-6); HEMATOCRIT 24.2 % (37.9-51.0); HEMOGLOBIN 8.3 g/dL (13.5-17.0); MEAN CORPUSCULAR HGB CONC 34.3 g/dL (32.0-36.0); MEAN CORPUSCULAR VOLUME 93 fl (80-97); MONOCYTES % (AUTO) 8.6 % (3-13); PLATELET COUNT 289 10^3/uL (150-450); RED BLOOD COUNT 2.59 10^6/uL (4.35-5.55); RED CELL DISTRIBUTION WIDTH 21.2 % (11.5-14.0); TOTAL CELLS COUNTED % (AUTO) 100 %; WHITE BLOOD COUNT 5.5 10^3/uL (4.0-10.5)
[2018-07-01 05:29] LABS: ANION GAP 7 (5-19); BLOOD UREA NITROGEN 24 mg/dL (7-20); CALCIUM 8.3 mg/dL (8.4-10.2); CARBON DIOXIDE 27 mmol/L (22-30); CHLORIDE 107 mmol/L (98-107); GLUCOSE 93 mg/dL (75-110); SODIUM 141.1 mmol/L (137-145)
[2018-07-01 05:37] LABS: POTASSIUM 3.8 mmol/L (3.6-5.0)
[2018-07-01] MEDS: LANSOPRAZOLE 30 MG TAB.RAP.DR PO SCH ×2 (06:16→17:41)
[2018-07-01] MEDS: METRONIDAZOLE 500 MG TABLET PO SCH ×2 (06:16→15:01)
[2018-07-01] MEDS: INSULIN LISPRO 100 UNIT/ML 3 ML VIAL SUBCUT SCH ×3 (09:57→17:41)
[2018-07-01] MEDS: LEVETIRACETAM 500 MG TABLET PO SCH (10:02)
[2018-07-01] MEDS: METOPROLOL SUCCINATE 50 MG TAB.SR.24H PO SCH (10:03)
[2018-07-01] MEDS: PHENYTOIN SODIUM EXTENDED 100 MG CAPSULE PO SCH (10:03)
[2018-07-01] MEDS: ATORVASTATIN CALCIUM 20 MG TABLET PO SCH (10:03)
[2018-07-01] MEDS: LOSARTAN POTASSIUM 50 MG TABLET PO SCH (10:03)
[2018-07-01] MEDS: AMOXICILLIN TRIHYDRATE 500 MG CAPSULE PO SCH (10:05)
[2018-07-01] MEDS: DOXAZOSIN MESYLATE 2 MG TABLET PO SCH (10:05)
[2018-07-01] MEDS: ISOSORB DINIT/HYDRALAZINE HCL 20-37.5 MG TABLET PO SCH (10:05)
[2018-07-01] MEDS: TORSEMIDE 20 MG TABLET PO SCH (10:06)
[2018-07-01] MEDS: SITAGLIPTIN PHOSPHATE 25 MG TABLET PO SCH (10:06)
[2018-07-01] MEDS: POTASSIUM CHLORIDE 10 MEQ CAPSULE.ER PO SCH (17:40)
[2018-07-01 17:58] VITALS: BP 121/78
== END 2018-07-01 21:15 | disposition home or self-care (01) | DRG 378 ==
LOC: ER 09:41 → EH 13:25 → 3N 15:42
PROVIDERS: ADMIT Internal Medicine; ATTEND Internal Medicine
PROC: 30233N1 Transfusion of Nonautologous Red Blood Cells into Peripheral Vein, Percutaneous Approach (ICD-10-PCS; 2018-06-29)
PROC: 0W3P8ZZ Control Bleeding in Gastrointestinal Tract, Via Natural or Artificial Opening Endoscopic (ICD-10-PCS; principal; 2018-06-29 18:00)
DX: K26.4 Chronic or unspecified duodenal ulcer with hemorrhage (principal); I42.0 Dilated cardiomyopathy; D62 Acute posthemorrhagic anemia; I69.354 Hemiplegia and hemiparesis following cerebral infarction affecting left non-dominant side; I12.9 Hypertensive chronic kidney disease with stage 1 through stage 4 chronic kidney disease, or unspecified chronic kidney disease; N18.3 Chronic kidney disease, stage 3 (moderate); E11.22 Type 2 diabetes mellitus with diabetic chronic kidney disease; B96.81 Helicobacter pylori [H. pylori] as the cause of diseases classified elsewhere; E11.42 Type 2 diabetes mellitus with diabetic polyneuropathy; I25.2 Old myocardial infarction; Z79.4 Long term (current) use of insulin; Z79.899 Other long term (current) drug therapy; Z95.0 Presence of cardiac pacemaker; Z79.02 Long term (current) use of antithrombotics/antiplatelets
CPT/HCPCS: 36415; 36430; 43235; 80048; 80053; 80061; 80307; 81001; 82150; 82550; 82553; 82962; 83036; 83605; 83690; 83735; 83880; 84100; 84439; 84443; 84481; 84484; 85025; 85027; 86850; 86900; 86901; 86920; 87086; 93005; 93010; 99284; J0171; J1200; J1610; J1815; J2250; J2310; J2405; J3010; J3490; P9016

== ENCOUNTER 2018-08-31 09:33 | Inpatient (IN) | payer MEDICARE, OTHER ==
[2018-08-31] MEDS ORDERED: MIDAZOLAM HCL 50 MG/100 ML RTUINJ ONE (09:39)
[2018-08-31] MEDS ORDERED: AMIODARONE HCL INJ 150 MG/3 ML VIAL IV ONE (09:42)
[2018-08-31] MEDS ORDERED: NORMAL SALINE 1000 ML 1,000 ML IV ONE (09:43)
[2018-08-31] MEDS ORDERED: DEXTROSE 5%-WATER 500 ML with AMIODARONE HCL 900 MG IV PRN ×2 (09:43)
[2018-08-31] MEDS ORDERED: AMIODARONE HCL 150 MG in DEXTROSE 5%-WATER 100 ML IV ONE (09:43)
[2018-08-31] MEDS: MIDAZOLAM HCL 50 MG/100 ML RTUINJ IV PRN ×2 (09:44→16:54)
[2018-08-31 10:04] LABS: VENOUS BLOOD BASE EXCESS 1.4 mmol/L; VENOUS BLOOD HCO3 28.2 mmol/L (20-32); VENOUS BLOOD PCO2 53.9 mmHg (35-63); VENOUS BLOOD PH 7.34 (7.30-7.42)
[2018-08-31 10:05] LABS: HEMATOCRIT 36.9 % (37.9-51.0); HEMOGLOBIN 12.1 g/dL (13.5-17.0); MEAN CORPUSCULAR HEMOGLOBIN 31.2 pg (27.0-33.4); MEAN CORPUSCULAR HGB CONC 32.7 g/dL (32.0-36.0); MEAN CORPUSCULAR VOLUME 96 fl (80-97); PLATELET COUNT 180 10^3/uL (150-450); RED BLOOD COUNT 3.87 10^6/uL (4.35-5.55); RED CELL DISTRIBUTION WIDTH 13.9 % (11.5-14.0); WHITE BLOOD COUNT 13.6 10^3/uL (4.0-10.5)
[2018-08-31 10:10] LABS: INTERNATIONAL RATION (INR) 1.06; PROTHROMBIN TIME 14.4 SEC (11.4-15.4)
[2018-08-31 10:22] LABS: ALANINE AMINOTRANSFERASE 18 U/L (21-72); ALBUMIN 3.8 g/dL (3.5-5.0); ALKALINE PHOSPHATASE 104 U/L (38-126); ANION GAP 12 (5-19); ASPARTATE AMINO TRANSFERASE 24 U/L (17-59); BILIRUBIN,DIRECT 0.3 mg/dL (0.0-0.4); BILIRUBIN,TOTAL 0.4 mg/dL (0.2-1.3); BLOOD UREA NITROGEN 38 mg/dL (7-20); CARBON DIOXIDE 28 mmol/L (22-30); CHLORIDE 108 mmol/L (98-107); CREATINE KINASE 248 U/L (55-170); GLUCOSE 93 mg/dL (75-110); POTASSIUM 3.9 mmol/L (3.6-5.0); SODIUM 148.1 mmol/L (137-145); TOTAL PROTEIN 6.9 g/dL (6.3-8.2)
[2018-08-31 10:23] LABS: ABSOLUTE LYMPHOCYTES# (MANUAL) 0.3 10^3/uL (0.5-4.7); ABSOLUTE MONOCYTES # (MANUAL) 0.5 10^3/uL (0.1-1.4); ABSOLUTE NEUTROPHILS# (MANUAL) 12.8 10^3/uL (1.7-8.2); BAND NEUTROPHILS % (MANUAL) 1 % (3-5); BASOPHILS % (MANUAL) 0 % (0-2); EOSINOPHILS % (MANUAL) 0 % (0-6); LYMPHOCYTES % (MANUAL) 2 % (13-45); MONOCYTES % (MANUAL) 4 % (3-13); SEGMENTED NEUTROPHILS % (MAN) 93 % (42-78); TOTAL CELLS COUNTED 100
--- NOTE | 2018-08-31 10:24 | RADIOLOGY REPORT (SQ) ---
EXAM DESCRIPTION: CT HEAD WITHOUT COMPLETED DATE/TIME: 08/31/2018 10:08 am REASON FOR STUDY: intubated found down, hypothermic altered level of consciousness COMPARISON: CT brain 07/05/2014, 07/21/2017, 03/06/2018, 06/02/2018 TECHNIQUE: Axial images acquired through the brain without intravenous contrast. Images reviewed wi th bone, brain and subdural windows. Additional sagittal and coronal reconstructions were generated. Images stored on PACS. All CT scanners at this facility use dose modulation, iterative reconstruction, and/or weight based d osing when appropriate to reduce radiation dose to as low as reasonably achievable (ALARA). [facility]: Dose Right [facility]: CareDose [facility]: Dose Right [facility]: Teradose 4D [facility]: Content360 RADIATION DOSE: CT Rad equipment meets quality standard of care and radiation dose reduction techniq ues were employed. CTDIvol: 53.2 mGy. DLP: 1097 mGy-cm. mGy. LIMITATIONS: None. FINDINGS: VENTRICLES: Normal size and contour. CEREBRUM: No masses. No hemorrhage. No midline shift. No evidence for acute infarction. There are multiple old infarcts, stable compared to prior studies with a large right MCA distribution frontopar ietal infarct, small left posterior frontal cortical infarcts and small bilateral occipital cortical infarct. Old right thalamic lacunar infarct. Bilateral basal ganglia calcification. CEREBELLUM: No masses. No hemorrhage. No alteration of density. No evidence for acute infarction. EXTRAAXIAL SPACES: No fluid collections. No masses. ORBITS AND GLOBE: No intra- or extraconal masses. Post bilateral cataract surgery CALVARIUM: No fracture. PARANASAL SINUSES: No fluid or mucosal thickening. SOFT TISSUES: No mass or hematoma. OTHER: No other significant finding. IMPRESSION: Multiple old infarcts EVIDENCE OF ACUTE STROKE: NO. COMMENT: Pertinent findings on the imaging study reported as a CRITICAL RESULT to GERMAIN Sims t1006 hours on 08/31/2018. Category of Critical Result: CT code stroke Quality ID # [id number]: Final reports with documentation of one or more dose reduction techniques (e.g., Au tomated exposure control, adjustment of the mA and/or kV according to patient size, use of iterative reconstruction technique) TECHNICAL DOCUMENTATION: JOB ID: [id number] [employer]- All Rights Reserved Reading location - IP/workstation name: [email or web address]
[2018-08-31 10:28] LABS: ANISOCYTOSIS SLIGHT; OVALOCYTES SLIGHT
[2018-08-31 10:30] LABS: PLATELET COMMENT ADEQUATE; POIKILOCYTOSIS SLIGHT
[2018-08-31 10:35] LABS: CREATINE KINASE MB 4.2 ng/mL (<4.55)
[2018-08-31 10:37] LABS: TROPONIN I 0.06 ng/mL
[2018-08-31 10:42] LABS: APPEARANCE,URINE CLEAR; BILIRUBIN,URINE NEGATIVE (NEGATIVE); COLOR,URINE YELLOW; GLUCOSE, URINE NEGATIVE (NEGATIVE); KETONES,URINE NEGATIVE (NEGATIVE); LEUKOCYTE ESTERASE,URINE NEGATIVE (NEGATIVE); NITRITE,URINE NEGATIVE (NEGATIVE); PROTEIN,URINE NEGATIVE (NEGATIVE); URINE SPECIFIC GRAVITY 1.013; UROBILINOGEN,URINE NEGATIVE mg/dL (<2.0)
[2018-08-31] MEDS ORDERED: FUROSEMIDE INJ/PF 40 MG/4 ML SDV IV ONE (10:52)
--- NOTE | 2018-08-31 11:09 | ER Document Report ---
Entered by VIRGILIO HODGSON SCRIBE 08/31/18 0943 Acting as scribe for:GERMAIN OSBORNE DO ED General - General Stated Complaint: UNRESPONSIVE Notes: 73-year-old male presents to the emergency department today after being found unresponsive this morning prior to arrival. According to EMS, they were called by the patient's friend who was there to pick him up for a doctor's appointment. On arrival, EMS found the patient unresponsive with a blood pressure of 202/101 and a BGL of 17 with a heart rate of 202 with a wide complex. The patient had a temperature of 94 F rectally for EMS. History is limited secondary to the patient's medical condition. TRAVEL OUTSIDE OF THE [place] IN LAST 30 DAYS: No - Related Data Allergies/Adverse Reactions: No Known Allergies Allergy (Verified 06/28/18 13:53) Past Medical History - General Information source: [facility] Records Cannot obtain history due to: Intubated - Social History Smoking Status: Unknown if Ever Smoked Family History: Reviewed & Not Pertinent - Past Medical History Cardiac Medical History: Reports: Hx Congestive Heart Failure, Hx Heart Attack, Hx Hypertension Neurological Medical History: Reports: Hx Cerebrovascular Accident - LT ARM, Hx Seizures - LAST X5 YRS AGO Endocrine Medical History: Reports: Hx Diabetes Mellitus Type 2 Past Surgical History: Reports: Hx Abdominal Surgery - hernia repair, Hx Cardiac Surgery - pacemaker, Hx Internal Defibrillator, Hx Pacemaker - Immunizations Hx Diphtheria, Pertussis, Tetanus Vaccination: Yes Hx Pneumococcal Vaccination: 05/02/11 Review of Systems - Review of Systems -: Yes ROS unobtainable due to patient's medical condition Physical Exam - Vital signs Vitals: Resp Pulse Ox 0 L 99 08/31/18 09:39 08/31/18 09:39 - Notes Notes: PHYSICAL EXAM GENERAL: Initially completely unresponsive, GCS of 3. Per medic student several minutes after being here the patient began fighting over bagged respirations. No spontaneous respirations initially. HEAD: Normocephalic, atraumatic. ENT: Oral mucosa moist, tongue midline, vomit in his left ear, no signs of trauma. NECK: Trachea midline. LUNGS: Intubated. Diffuse rhonchi with expiration, no wheezing. HEART: Regular rate and rhythm with occasional ectopy. No murmurs, gallops, or rubs. EXTREMITIES: Radial and dorsalis pedis pulses 2/4 bilaterally. No cyanosis. IO in left tibia. 1+ pitting edema to bilateral lower extremities. NEUROLOGICAL: Initially completely unresponsive, GCS of 3. Per medic student several minutes after being here the patient began fighting over bagged respirations. No spontaneous respirations initially, does not withdraw from painful stimuli. SKIN: Warm and dry. No external signs of trauma. Course - Re-evaluation Re-evalutation: 08/31/18 11:03 Patient arrived intubated via EMS, he had been hypoxic at home, 88% as measured by EMS, he also had a blood sugar of 17 and was in V. tach at a rate of approximately 200. Prehospital interventions included two defibrillations, shocking him twice, administering 150 mg of amiodarone, intubating him and administering dextrose through the IV. Blood sugar subsequently normalized. Patient was intubated via EMS using ketamine and succinylcholine, and up having to receive rocuronium afterwards to maintain paralysis. No other sedatives were given. On arrival patient was not responding, not making any initial attempts at respiration, after the first 10 minutes he did have some slight movements but did not withdraw from painful stimuli. No evidence of posturing. ET tube was found to be in the right mainstem and this was pulled back, CT scan of the head does not reveal any acute process, NG tube and [place] catheter was placed, patient was found to be mildly hypothermic so bear hugger was placed. Amiodarone drip was continued. 08/31/18 11:06 CBC shows leukocytosis at 13.6, mild anemia with hemoglobin 12.1, coags normal, venous blood gas grossly unremarkable, chemistries show slightly elevated sodium at 148.1, chronic renal failure with a BUN of 38 and a creatinine of 2.02, troponin indeterminate at 0.0.06, proBNP elevated at 5890, urinalysis unremarkable. Chest x-ray does show some evidence of failure but no evidence of pneumonia per my interpretation, I await radiology interpretation. No sign of infection so no antibiotics given at this time, no evidence of sepsis at this time. Patient is on a Versed drip to maintain sedation. I discussed the case with Dr. Garcia who is the patient's primary care physician who agrees to admit the patient here. No evidence of V. tach at this time and patient already has a defibrillator. - Vital Signs Vital signs: Temp Pulse Resp BP Pulse Ox 0 L 98/65 L 99 08/31/18 12:07 08/31/18 12:07 08/31/18 12:07 - Laboratory Result Diagrams: 08/31/18 09:43 08/31/18 09:43 Laboratory results interpreted by me: 08/31/18 08/31/18 08/31/18 09:43 09:43 09:43 WBC 13.6 H RBC 3.87 L Hgb 12.1 L Hct 36.9 L Seg Neuts % (Manual) 93 H Band Neutrophils % 1 L Lymphocytes % (Manual) 2 L Abs Neuts (Manual) 12.8 H Abs Lymphs (Manual) 0.3 L Sodium 148.1 H Chloride 108 H BUN 38 H Creatinine 2.02 H Est GFR ( Amer) 39 L Est GFR (Non-Af Amer) 32 L POC Glucose Magnesium ALT 18 L Creatine Kinase 248 H NT-Pro-B Natriuret Pep 5890 H Amylase TSH 08/31/18 08/31/18 08/31/18 09:43 09:43 11:11 WBC RBC Hgb Hct Seg Neuts % (Manual) Band Neutrophils % Lymphocytes % (Manual) Abs Neuts (Manual) Abs Lymphs (Manual) Sodium Chloride BUN Creatinine Est GFR ( Amer) Est GFR (Non-Af Amer) POC Glucose 38 L* Magnesium 2.5 H ALT Creatine Kinase NT-Pro-B Natriuret Pep Amylase 119 H TSH 4.85 H - EKG Interpretation by Me Additional EKG results interpreted by me: 08/31/18 11:07 EKG shows sinus rhythm at a rate of 75, left anterior hemiblock, right bundle branch block, occasional PVCs, no ST segment elevations, slight ST segment depression in lead I per my interpretation. Critical Care Note - Critical Care Note Total time excluding time spent on procedures (mins): 65 Discharge - Discharge Clinical Impression: Hypoglycemia associated with type 2 diabetes mellitus, Dilated cardiomyopathy, Unresponsive state, Ventricular tachycardia, Chronic kidney disease, stage III (moderate) Congestive heart failure Qualifiers: Heart failure type: unspecified Heart failure chronicity: acute on chronic Qualified Code(s): I50.9 - Heart failure, unspecified Condition: Critical Disposition: ADMITTED INPATIENT [facility] Unit Admitted: ICU I personally performed the services described in the documentation, reviewed and edited the documentation which was dictated to the scribe in my presence, and it accurately records my words and actions.
[2018-08-31] MEDS ORDERED: DEXTROSE 5%-WATER 1000 ML 1,000 ML IV ONE ×2 (11:12→12:43)
[2018-08-31] MEDS ORDERED: DEXTROSE 50%-WATER 25 GM/50 ML DISP.SYRIN IV ONE ×4 (11:13→17:21)
--- NOTE | 2018-08-31 11:49 | RADIOLOGY REPORT (SQ) ---
EXAM DESCRIPTION: CHEST SINGLE VIEW COMPLETED DATE/TIME: 08/31/2018 11:32 am REASON FOR STUDY: ET TUBE AND NG TUBE PLACEMENT COMPARISON: Chest films 03/06/2018, 07/21/2017, 04/03/2013 EXAM PARAMETERS: NUMBER OF VIEWS: One view. TECHNIQUE: Single frontal radiographic view of the chest acquired. RADIATION DOSE: NA LIMITATIONS: None. FINDINGS: LUNGS AND PLEURA: Diffuse bilateral perihilar airspace disease from pulmonary edema. Ther e is also more dense consolidation in the left retrocardiac region atelectasis versus pneumonia. No pleural effusion. No pneumothorax. MEDIASTINUM AND HILAR STRUCTURES: No masses. Contour normal. HEART AND VASCULAR STRUCTURES: Mild cardiomegaly. Perihilar pulmonary edema. BONES: No acute findings. HARDWARE: Left-sided dual lead pacemaker/ defibrillator. Endotracheal tube tip 7 cm above the mike . Nasogastric tube tip and side port in the stomach. Defibrillator pads over the chest OTHER: No other significant finding. IMPRESSION: Pulmonary edema Mild cardiomegaly with left-sided pacemaker/ defibrillator Left lower lobe partial collapse with consolidation Endotracheal tube, nasogastric tube in good positioning. TECHNICAL DOCUMENTATION: JOB ID: [id number] [employer]- All Rights Reserved Reading location - IP/workstation name: [email or web address]
[2018-08-31] MEDS ORDERED: DEXTROSE 10%-WATER 1,000 ML IV ONE (12:43)
[2018-08-31 13:31] LABS: LIPASE 171.1 U/L (23-300); PHOSPHORUS 3.8 mg/dL (2.5-4.5)
[2018-08-31 13:48] LABS: FREE T4 (FREE THYROXINE) 0.96 ng/dL (0.78-2.19)
[2018-08-31 14:02] LABS: THYROID STIMULATING HORMONE 4.85 uIU/mL (0.47-4.68)
[2018-08-31 14:06] LABS: ARTERIAL BLOOD BASE EXCESS 1.5 mmol/L; ARTERIAL BLOOD H2CO3 1.25 mmol/L (1.05-1.35); ARTERIAL BLOOD HCO3 26.2 mmol/L (20-24); ARTERIAL BLOOD O2 SATURATION 94.1 % (94-98); ARTERIAL BLOOD PCO2 41.6 mmHg (35-45); ARTERIAL BLOOD PH 7.42 (7.35-7.45); ARTERIAL BLOOD TOTAL CO2 27.5 mmol/L (23-27)
[2018-08-31 14:07] LABS: ARTERIAL BLOOD FIO2 65%
[2018-08-31 14:13] LABS: CREATINE KINASE MB 4.2 ng/mL (<4.55)
[2018-08-31 14:18] LABS: TROPONIN I 0.063 ng/mL
[2018-08-31] MEDS: HEPARIN SOD (PORCINE) 5,000 UNIT/ML 1 ML SYRINGE SUBCUT SCH ×2 (14:46→21:25)
[2018-08-31 15:12] LABS: INTERNATIONAL RATION (INR) 1.03; PARTIAL THROMBOPLASTIN TIME 30.2 SEC (23.5-35.8); PROTHROMBIN TIME 14.1 SEC (11.4-15.4)
[2018-08-31] MEDS: NORMAL SALINE 250 ML with FUROSEMIDE 250 MG IV PRN ×2 (17:23)
[2018-08-31] MEDS ORDERED: DEXTROSE 40% GEL 15 GM TUBE X 2 PO PRN (18:00)
[2018-08-31] MEDS ORDERED: DEXTROSE 40% GEL 15 GM TUBE PO PRN (18:00)
[2018-08-31 18:20] LABS: URINE AMPHETAMINES SCREEN NEGATIVE; URINE BARBITURATES SCREEN NEGATIVE; URINE BENZODIAZEPINES SCREEN NEGATIVE; URINE COCAINE SCREEN NEGATIVE; URINE MARIJUANA (THC) SCREEN NEGATIVE; URINE METHADONE SCREEN NEGATIVE; URINE PHENCYCLIDINE SCREEN NEGATIVE
[2018-08-31] MEDS: DEXTROSE 50%-WATER SYRINGE 12.5 GM/25 ML DOSE IV PRN (18:43)
--- NOTE | 2018-08-31 19:26 | PDOC CONSULTATION ---
Consultation-Blank Consultation: CARDIOLOGY CONSULTATION by Dr. Rossy Dooley on 08/31/2018. Patient seen at 5:30 PM on 08/31/2018. REASON for consultation: Patient with irregular wide complex tachycardia status post cardioversion when the patient will have his unresponsive and had cardiorespiratory arrest. CONSULT requesting physician: Dr. Garcia. HISTORY PRESENT ILLNESS: Unable to get history from patient since intubated and sedated, and there is no relatives around. History as per medical records available. Patient is a 73-year-old Afro-[place] male was found to be unresponsive in his home by his friend. When EMT arrived they the patient was tachycardic and had a blood pressure which was high. In view of the patient's irregular wide complex rhythm the patient was cardioverted. Surprisingly the patient has an AICD which did not fire.. The patient also was brought to the emergency room and since the patient was not breathing he was intubated in the field and when he came to the emergency room he was found to be hypoglycemic persistently. He was initially placed on amiodarone and subsequently the amiodarone was discontinued. The patient was found to have a chest x-ray consistent with congestive heart failure and left-sided pneumonia in the left lower lobe. The patient has been started on IV Lasix and is on the ventilator with ventilator support. Would strongly recommend starting the patient antibiotics, which is done after I discussed the case with Dr. Garcia. There is no ventricular arrhythmia seen on the monitor. We will have to interrogate the AICD to see if it is functioning properly. Past MEDICAL HISTORY as per chart he has history of nonischemic dilated cardiomyopathy, history of ventricular tachycardia history of AICD placement. He also has a past history of congestive heart failure, and hypertension. He has a history of seizures the last was episode was more than 5 years ago. He also has a history of diabetes mellitus type 2 [id number] and also has chronic kidney disease stage III. There is no history of TIA or CVA recurrence. 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 He has a history of asthma and COPD PAST SURGICAL HISTORY: Cardiac catheterization. AICD placement. SOCIAL HISTORY: The patient has never smoked. There is no history of EtOH abuse. ALLERGIES: No known allergies. Disposition: The patient is a full code. As per records his daughter is his surrogate healthcare decision maker. REVIEW SYSTEMS: Not available since the patient intubated and sedated, and there are no relatives around. PHYSICAL EXAMINATION: The patient appears to be chronically ill. He is intubated and sedated. 08/31/18 08/31/18 17:43 17:59 Temperature 97.5 F Temperature Core Source Respiratory 17 Rate Blood Pressure 128/86 H Blood Pressure 129/66 H [Upper Arm] Blood Pressure 100 Mean Blood Pressure 87 Mean [Upper Arm ] O2 Sat by Pulse 100 Oximetry Oxygen Delivery Mechanical Method ( Ventilator includes room air) Percent of 65 Oxygen Head: Is atraumatic normocephalic. EYES: Tubes are equal round regular reactive to light. EARS: Tympanic membranes are intact. External auditory canals are clear. Otherwise ENT is negative. NECK: Supple. There is no JVD. Carotids are equal there is no bruit. There is no accessory muscle respiration use. Trachea appears to be central. LUNGS: There is scattered rhonchi. There is a few bibasilar rales of CHF. There is diminished air entry and prolonged expiration. On percussion there is hyperresonance. There is dry crackles in the left lower lobe area consistent with pneumonia. HEART: S1-S2 is heard. S1 is of normal intensity. Monitor strip shows multifocal atrial tachycardia. There is systolic murmur left sternal border and the apex. There is no rub. There is murmur of MR and TR present. There is no rub. ABDOMEN: Soft. There is no hepatosplenomegaly. Bowel sounds. EXTREMITIES: Femorals are diminished. Leg pulses are diminished. There is definite pedal edema. There is no DVT or cellulitis. SHIFT COORDINATOR and psychiatric not examined as the patient is intubated and sedated Current Medications Generic Name Dose Route Start Last Admin Trade Name Freq PRN Reason Stop Dose Admin Dextrose 12.5 gm 08/31/18 18:00 08/31/18 18:43 Dextrose Inj 50% Syringe (25 Gm/50 Ml) IV 09/30/18 17:59 12.5 gm PRN PRN Administration FOR BG 50-69 IN ALERT PATIENT Protocol Dextrose 25 gm 08/31/18 18:00 Dextrose Inj 50% Syringe (25 Gm/50 Ml) IV 09/30/18 17:59 PRN PRN PER PROTOCOL Protocol Glucagon 1 mg 08/31/18 18:00 Glucagen Inj 1 Mg Vial IM 09/30/18 17:59 PRN PRN EVALUATE FOR BG < 70 Protocol Glucose 15 gm 08/31/18 18:00 Glutose 40% Gel 15 Gm Tube PO 09/30/18 17:59 PRN PRN FOR BG 50-69 IN ALERT PATIENT Protocol Glucose 30 gm 08/31/18 18:00 Glutose 40% Gel 15 Gm Tube PO 09/30/18 17:59 PRN PRN FOR BG < 50 IN ALERT PATIENT Protocol Heparin Sodium (Porcine) 5,000 unit 08/31/18 14:00 08/31/18 14:46 Heparin Inj 5,000 Units/Ml 1 Ml Syringe SUBCUT 09/30/18 13:59 5,000 unit Q8 CRUZ Administration Furosemide 250 mg/ Sodium 250 mls @ 10 mls/hr 08/31/18 12:58 08/31/18 17:23 Chloride IV 09/30/18 12:57 10 mg/hr CONTINUOUS PRN 10 mls/hr THIS MED IS NOT "PRN" Administration 10 MG/HR Pantoprazole Sodium 40 mg 08/31/18 19:45 08/31/18 20:14 Protonix Iv Inj 40 Mg Vial IV 09/03/18 19:44 40 mg DAILY CRUZ Administration Discontinued Medications Generic Name Dose Route Start Last Admin Trade Name Freq PRN Reason Stop Dose Admin Amiodarone HCl Confirm 08/31/18 09:42 08/31/18 11:34 Cordarone Inj 150 Mg/3 Ml Vial Administered 08/31/18 09:43 Not Given Dose 150 mg IV .STK-MED ONE Dextrose 25 gm 08/31/18 11:13 08/31/18 11:11 Dextrose Inj 50% Syringe (25 Gm/50 Ml) IV 08/31/18 11:14 25 gm NOW ONE Administration Dextrose 25 gm 08/31/18 12:44 08/31/18 12:47 Dextrose Inj 50% Syringe (25 Gm/50 Ml) IV 08/31/18 12:45 25 gm NOW ONE Administration Dextrose 25 gm 08/31/18 15:50 08/31/18 16:00 Dextrose Inj 50% Syringe (25 Gm/50 Ml) IV 08/31/18 15:51 25 gm NOW ONE Administration Dextrose Confirm 08/31/18 17:21 08/31/18 17:26 Dextrose Inj 50% Syringe (25 Gm/50 Ml) Administered 08/31/18 17:22 25 gm Dose Administration 25 gm IV .STK-MED ONE Furosemide 40 mg 08/31/18 10:52 08/31/18 11:40 Lasix Inj/Pf 40 Mg/4 Ml Sdv IV 08/31/18 10:53 40 mg NOW ONE Administration Glucagon 1 mg 08/31/18 20:00 08/31/18 20:15 Glucagen Inj 1 Mg Vial INJ 08/31/18 20:01 1 mg NOW ONE Administration Midazolam HCl Confirm 08/31/18 09:39 08/31/18 11:35 Versed Rtu 50 Mg/100 Ml Premix Bag Administered 08/31/18 09:40 Not Given Dose 50 mg in 100 mls @ ud .ROUTE .STK-MED ONE Amiodarone HCl 150 mg/ 100 mls @ 600 mls/hr 08/31/18 09:43 08/31/18 09:43 Dextrose IV 08/31/18 09:52 Not Given NOW ONE Amiodarone HCl 900 mg/ 500 mls @ 0 mls/hr 08/31/18 09:43 08/31/18 11:20 Dextrose IV 09/03/18 09:42 0 ml/hr CONTINUOUS PRN 0 mls/hr THIS MED IS NOT "PRN" Titration Protocol Per Protocol Midazolam HCl 50 mg in 100 mls @ 0 mls/hr 08/31/18 09:43 08/31/18 19:02 Versed Rtu 50 Mg/100 Ml Premix Bag IV 09/07/18 09:42 0 mg/hr CONTINUOUS PRN 0 mls/hr THIS MED IS NOT "PRN" Titration Protocol Titrate Sodium Chloride 1,000 mls @ 0 mls/hr 08/31/18 09:43 08/31/18 11:35 Nacl 0.9% 1000 Ml Iv Soln IV 08/31/18 09:44 Not Given BOLUS ONE Wide Open Dextrose 1,000 mls @ 100 mls/hr 08/31/18 11:12 08/31/18 16:09 D5w 1000 Ml Iv Soln IV 08/31/18 21:11 Infused NOW ONE Infusion Dextrose 1,000 mls @ 200 mls/hr 08/31/18 12:43 08/31/18 14:01 D5w 1000 Ml Iv Soln IV 08/31/18 16:11 Not Given NOW ONE Dextrose 1,000 mls @ 150 mls/hr 08/31/18 12:43 08/31/18 16:09 D10w 1000 Ml Iv Soln IV 08/31/18 19:22 50 mls/hr NOW ONE Infusion HOME MEDICATIONS: Aspirin [Aspirin 81 mg Chewable Tablet] 81 mg PO DAILY 08/31/18 Atorvastatin Calcium [Lipitor 20 mg Tablet] 20 mg PO QHS 08/31/18 Clopidogrel Bisulfate [Plavix 75 mg Tablet] 75 mg PO DAILY 08/31/18 Doxazosin Mesylate [Cardura 2 mg Tablet] 2 mg PO DAILY 08/31/18 Insulin Glargine,Hum.rec.anlog [Lantus Insulin 100 Unit/1 ml 10 ml] 30 unit SQ DAILY 08/31/18 Isosorb Dinit/Hydralazine HCl [Bidil 20-37.5 mg Tablet] 1 tab PO BID 08/31/18 Levetiracetam [Keppra] 1,000 mg PO Q12 08/31/18 Linagliptin [Tradjenta] 5 mg PO DAILY 08/31/18 Metoprolol Succinate [Toprol XL 100 mg Tablet] 100 mg PO DAILY 08/31/18 Olmesartan Medoxomil [Benicar] 40 mg PO DAILY 08/31/18 Pantoprazole Sodium [Protonix [address] Tablet] 40 mg PO BID 08/31/18 Phenytoin Sodium Extended [Dilantin 100 mg Capsule.er] 100 mg PO Q8 08/31/18 Potassium Chloride [Klor-Con 10 Meq Capsule ER] 10 meq PO DAILY 08/31/18 Torsemide [Demadex 20 mg Tablet] 20 mg PO DAILY 08/31/18 Labs- Entire Visit 08/31/18 08/31/18 08/31/18 09:43 09:43 09:43 WBC 13.6 H RBC 3.87 L Hgb 12.1 L Hct 36.9 L MCV 96 MCH 31.2 MCHC 32.7 RDW 13.9 Plt Count 180 Total Counted 100 Seg Neutrophils % Not Reportable Seg Neuts % (Manual) 93 H Band Neutrophils % 1 L Lymphocytes % Not Reportable Lymphocytes % (Manual) 2 L Monocytes % Not Reportable Monocytes % (Manual) 4 Eosinophils % Not Reportable Eosinophils % (Manual) 0 Basophils % Not Reportable Basophils % (Manual) 0 Absolute Neutrophils Not Reportable Abs Neuts (Manual) 12.8 H Absolute Lymphocytes Not Reportable Abs Lymphs (Manual) 0.3 L Absolute Monocytes Not Reportable Abs Monocytes (Manual) 0.5 Absolute Eosinophils Not Reportable Absolute Eos (Manual) 0.0 Absolute Basophils Not Reportable Abs Basophils (Manual) 0.0 Platelet Comment ADEQUATE Poikilocytosis SLIGHT Anisocytosis SLIGHT Ovalocytes SLIGHT PT 14.4 INR 1.06 APTT Carbonic Acid HCO3/H2CO3 Ratio ABG pH ABG pCO2 ABG pO2 ABG HCO3 ABG Total CO2 ABG O2 Saturation ABG Base Excess VBG pH VBG pCO2 VBG HCO3 VBG Base Excess FiO2 Sodium 148.1 H Potassium 3.9 Chloride 108 H Carbon Dioxide 28 Anion Gap 12 BUN 38 H Creatinine 2.02 H Est GFR ( Amer) 39 L Est GFR (Non-Af Amer) 32 L Glucose 93 POC Glucose Lactic Acid Calcium 9.0 Phosphorus Magnesium Total Bilirubin 0.4 Direct Bilirubin 0.3 Neonat Total Bilirubin Not Reportable Neonat Direct Bilirubin Not Reportable Neonat Indirect Bili Not Reportable AST 24 ALT 18 L Alkaline Phosphatase 104 Creatine Kinase 248 H CK-MB (CK-2) Troponin I NT-Pro-B Natriuret Pep Total Protein 6.9 Albumin 3.8 Amylase Lipase TSH Free T4 Urine Color Urine Appearance Urine pH Ur Specific [place] Urine Protein Urine Glucose (UA) Urine Ketones Urine Blood Urine Nitrite Urine Bilirubin Urine Urobilinogen Ur Leukocyte Esterase Urine WBC (Auto) Urine RBC (Auto) U Hyaline Cast (Auto) Urine Bacteria (Auto) Urine Mucus (Auto) Urine Ascorbic Acid Urine Opiates Screen Urine Methadone Screen Ur Barbiturates Screen Ur Phencyclidine Scrn Ur Amphetamines Screen U Benzodiazepines Scrn Urine Cocaine Screen U Marijuana (THC) Screen 08/31/18 08/31/18 08/31/18 09:43 09:43 09:43 WBC RBC Hgb Hct MCV MCH MCHC RDW Plt Count Total Counted Seg Neutrophils % Seg Neuts % (Manual) Band Neutrophils % Lymphocytes % Lymphocytes % (Manual) Monocytes % Monocytes % (Manual) Eosinophils % Eosinophils % (Manual) Basophils % Basophils % (Manual) Absolute Neutrophils Abs Neuts (Manual) Absolute Lymphocytes Abs Lymphs (Manual) Absolute Monocytes Abs Monocytes (Manual) Absolute Eosinophils Absolute Eos (Manual) Absolute Basophils Abs Basophils (Manual) Platelet Comment Poikilocytosis Anisocytosis Ovalocytes PT INR APTT Carbonic Acid HCO3/H2CO3 Ratio ABG pH ABG pCO2 ABG pO2 ABG HCO3 ABG Total CO2 ABG O2 Saturation ABG Base Excess VBG pH 7.34 VBG pCO2 53.9 VBG HCO3 28.2 VBG Base Excess 1.4 FiO2 Sodium Potassium Chloride Carbon Dioxide Anion Gap BUN Creatinine Est GFR ( Amer) Est GFR (Non-Af Amer) Glucose POC Glucose Lactic Acid 1.3 Calcium Phosphorus Magnesium Total Bilirubin Direct Bilirubin Neonat Total Bilirubin Neonat Direct Bilirubin Neonat Indirect Bili AST ALT Alkaline Phosphatase Creatine Kinase CK-MB (CK-2) 4.20 Troponin I 0.060 NT-Pro-B Natriuret Pep 5890 H Total Protein Albumin Amylase Lipase TSH Free T4 Urine Color Urine Appearance Urine pH Ur Specific [place] Urine Protein Urine Glucose (UA) Urine Ketones Urine Blood Urine Nitrite Urine Bilirubin Urine Urobilinogen Ur Leukocyte Esterase Urine WBC (Auto) Urine RBC (Auto) U Hyaline Cast (Auto) Urine Bacteria (Auto) Urine Mucus (Auto) Urine Ascorbic Acid Urine Opiates Screen Urine Methadone Screen Ur Barbiturates Screen Ur Phencyclidine Scrn Ur Amphetamines Screen U Benzodiazepines Scrn Urine Cocaine Screen U Marijuana (THC) Screen 08/31/18 08/31/18 08/31/18 09:43 09:43 09:43 WBC RBC Hgb Hct MCV MCH MCHC RDW Plt Count Total Counted Seg Neutrophils % Seg Neuts % (Manual) Band Neutrophils % Lymphocytes % Lymphocytes % (Manual) Monocytes % Monocytes % (Manual) Eosinophils % Eosinophils % (Manual) Basophils % Basophils % (Manual) Absolute Neutrophils Abs Neuts (Manual) Absolute Lymphocytes Abs Lymphs (Manual) Absolute Monocytes Abs Monocytes (Manual) Absolute Eosinophils Absolute Eos (Manual) Absolute Basophils Abs Basophils (Manual) Platelet Comment Poikilocytosis Anisocytosis Ovalocytes PT INR APTT Carbonic Acid HCO3/H2CO3 Ratio ABG pH ABG pCO2 ABG pO2 ABG HCO3 ABG Total CO2 ABG O2 Saturation ABG Base Excess VBG pH VBG pCO2 VBG HCO3 VBG Base Excess FiO2 Sodium Potassium Chloride Carbon Dioxide Anion Gap BUN Creatinine Est GFR ( Amer) Est GFR (Non-Af Amer) Glucose POC Glucose Lactic Acid Calcium Phosphorus 3.8 Magnesium 2.5 H Total Bilirubin Direct Bilirubin Neonat Total Bilirubin Neonat Direct Bilirubin Neonat Indirect Bili AST ALT Alkaline Phosphatase Creatine Kinase CK-MB (CK-2) Troponin I NT-Pro-B Natriuret Pep Total Protein Albumin Amylase 119 H Lipase 171.1 TSH 4.85 H Free T4 0.96 Urine Color YELLOW Urine Appearance CLEAR Urine pH 6.0 Ur Specific [place] 1.013 Urine Protein NEGATIVE Urine Glucose (UA) NEGATIVE Urine Ketones NEGATIVE Urine Blood NEGATIVE Urine Nitrite NEGATIVE Urine Bilirubin NEGATIVE Urine Urobilinogen NEGATIVE Ur Leukocyte Esterase NEGATIVE Urine WBC (Auto) 1 Urine RBC (Auto) 0 U Hyaline Cast (Auto) 2 Urine Bacteria (Auto) TRACE Urine Mucus (Auto) RARE Urine Ascorbic Acid NEGATIVE Urine Opiates Screen Urine Methadone Screen Ur Barbiturates Screen Ur Phencyclidine Scrn Ur Amphetamines Screen U Benzodiazepines Scrn Urine Cocaine Screen U Marijuana (THC) Screen 08/31/18 08/31/18 08/31/18 09:43 11:11 11:43 WBC RBC Hgb Hct MCV MCH MCHC RDW Plt Count Total Counted Seg Neutrophils % Seg Neuts % (Manual) Band Neutrophils % Lymphocytes % Lymphocytes % (Manual) Monocytes % Monocytes % (Manual) Eosinophils % Eosinophils % (Manual) Basophils % Basophils % (Manual) Absolute Neutrophils Abs Neuts (Manual) Absolute Lymphocytes Abs Lymphs (Manual) Absolute Monocytes Abs Monocytes (Manual) Absolute Eosinophils Absolute Eos (Manual) Absolute Basophils Abs Basophils (Manual) Platelet Comment Poikilocytosis Anisocytosis Ovalocytes PT INR APTT Carbonic Acid HCO3/H2CO3 Ratio ABG pH ABG pCO2 ABG pO2 ABG HCO3 ABG Total CO2 ABG O2 Saturation ABG Base Excess VBG pH VBG pCO2 VBG HCO3 VBG Base Excess FiO2 Sodium Potassium Chloride Carbon Dioxide Anion Gap BUN Creatinine Est GFR ( Amer) Est GFR (Non-Af Amer) Glucose POC Glucose 38 L* 72 Lactic Acid Calcium Phosphorus Magnesium Total Bilirubin Direct Bilirubin Neonat Total Bilirubin Neonat Direct Bilirubin Neonat Indirect Bili AST ALT Alkaline Phosphatase Creatine Kinase CK-MB (CK-2) Troponin I NT-Pro-B Natriuret Pep Total Protein Albumin Amylase Lipase TSH Free T4 Urine Color Urine Appearance Urine pH Ur Specific [place] Urine Protein Urine Glucose (UA) Urine Ketones Urine Blood Urine Nitrite Urine Bilirubin Urine Urobilinogen Ur Leukocyte Esterase Urine WBC (Auto) Urine RBC (Auto) U Hyaline Cast (Auto) Urine Bacteria (Auto) Urine Mucus (Auto) Urine Ascorbic Acid Urine Opiates Screen NEGATIVE Urine Methadone Screen NEGATIVE Ur Barbiturates Screen NEGATIVE Ur Phencyclidine Scrn NEGATIVE Ur Amphetamines Screen NEGATIVE U Benzodiazepines Scrn NEGATIVE Urine Cocaine Screen NEGATIVE U Marijuana (THC) Screen NEGATIVE 08/31/18 08/31/18 08/31/18 12:42 13:29 13:29 WBC RBC Hgb Hct MCV MCH MCHC RDW Plt Count Total Counted Seg Neutrophils % Seg Neuts % (Manual) Band Neutrophils % Lymphocytes % Lymphocytes % (Manual) Monocytes % Monocytes % (Manual) Eosinophils % Eosinophils % (Manual) Basophils % Basophils % (Manual) Absolute Neutrophils Abs Neuts (Manual) Absolute Lymphocytes Abs Lymphs (Manual) Absolute Monocytes Abs Monocytes (Manual) Absolute Eosinophils Absolute Eos (Manual) Absolute Basophils Abs Basophils (Manual) Platelet Comment Poikilocytosis Anisocytosis Ovalocytes PT INR APTT Carbonic Acid HCO3/H2CO3 Ratio ABG pH ABG pCO2 ABG pO2 ABG HCO3 ABG Total CO2 ABG O2 Saturation ABG Base Excess VBG pH VBG pCO2 VBG HCO3 VBG Base Excess FiO2 Sodium Potassium Chloride Carbon Dioxide Anion Gap BUN Creatinine Est GFR ( Amer) Est GFR (Non-Af Amer) Glucose POC Glucose 42 L Lactic Acid Calcium Phosphorus Magnesium Total Bilirubin Direct Bilirubin Neonat Total Bilirubin Neonat Direct Bilirubin Neonat Indirect Bili AST ALT Alkaline Phosphatase Creatine Kinase 270 H CK-MB (CK-2) 4.20 Troponin I 0.063 NT-Pro-B Natriuret Pep Total Protein Albumin Amylase Lipase TSH Free T4 Urine Color Urine Appearance Urine pH Ur Specific [place] Urine Protein Urine Glucose (UA) Urine Ketones Urine Blood Urine Nitrite Urine Bilirubin Urine Urobilinogen Ur Leukocyte Esterase Urine WBC (Auto) Urine RBC (Auto) U Hyaline Cast (Auto) Urine Bacteria (Auto) Urine Mucus (Auto) Urine Ascorbic Acid Urine Opiates Screen Urine Methadone Screen Ur Barbiturates Screen Ur Phencyclidine Scrn Ur Amphetamines Screen U Benzodiazepines Scrn Urine Cocaine Screen U Marijuana (THC) Screen 08/31/18 08/31/18 08/31/18 13:43 13:48 15:00 WBC RBC Hgb Hct MCV MCH MCHC RDW Plt Count Total Counted Seg Neutrophils % Seg Neuts % (Manual) Band Neutrophils % Lymphocytes % Lymphocytes % (Manual) Monocytes % Monocytes % (Manual) Eosinophils % Eosinophils % (Manual) Basophils % Basophils % (Manual) Absolute Neutrophils Abs Neuts (Manual) Absolute Lymphocytes Abs Lymphs (Manual) Absolute Monocytes Abs Monocytes (Manual) Absolute Eosinophils Absolute Eos (Manual) Absolute Basophils Abs Basophils (Manual) Platelet Comment Poikilocytosis Anisocytosis Ovalocytes PT 14.1 INR 1.03 APTT 30.2 Carbonic Acid 1.25 HCO3/H2CO3 Ratio 20:1 ABG pH 7.42 ABG pCO2 41.6 ABG pO2 69.0 L ABG HCO3 26.2 H ABG Total CO2 27.5 H ABG O2 Saturation 94.1 ABG Base Excess 1.5 VBG pH VBG pCO2 VBG HCO3 VBG Base Excess FiO2 65% Sodium Potassium Chloride Carbon Dioxide Anion Gap BUN Creatinine Est GFR ( Amer) Est GFR (Non-Af Amer) Glucose POC Glucose 64 L Lactic Acid Calcium Phosphorus Magnesium Total Bilirubin Direct Bilirubin Neonat Total Bilirubin Neonat Direct Bilirubin Neonat Indirect Bili AST ALT Alkaline Phosphatase Creatine Kinase CK-MB (CK-2) Troponin I NT-Pro-B Natriuret Pep Total Protein Albumin Amylase Lipase TSH Free T4 Urine Color Urine Appearance Urine pH Ur Specific [place] Urine Protein Urine Glucose (UA) Urine Ketones Urine Blood Urine Nitrite Urine Bilirubin Urine Urobilinogen Ur Leukocyte Esterase Urine WBC (Auto) Urine RBC (Auto) U Hyaline Cast (Auto) Urine Bacteria (Auto) Urine Mucus (Auto) Urine Ascorbic Acid Urine Opiates Screen Urine Methadone Screen Ur Barbiturates Screen Ur Phencyclidine Scrn Ur Amphetamines Screen U Benzodiazepines Scrn Urine Cocaine Screen U Marijuana (THC) Screen 08/31/18 08/31/18 08/31/18 16:25 17:15 18:20 WBC RBC Hgb Hct MCV MCH MCHC RDW Plt Count Total Counted Seg Neutrophils % Seg Neuts % (Manual) Band Neutrophils % Lymphocytes % Lymphocytes % (Manual) Monocytes % Monocytes % (Manual) Eosinophils % Eosinophils % (Manual) Basophils % Basophils % (Manual) Absolute Neutrophils Abs Neuts (Manual) Absolute Lymphocytes Abs Lymphs (Manual) Absolute Monocytes Abs Monocytes (Manual) Absolute Eosinophils Absolute Eos (Manual) Absolute Basophils Abs Basophils (Manual) Platelet Comment Poikilocytosis Anisocytosis Ovalocytes PT INR APTT Carbonic Acid HCO3/H2CO3 Ratio ABG pH ABG pCO2 ABG pO2 ABG HCO3 ABG Total CO2 ABG O2 Saturation ABG Base Excess VBG pH VBG pCO2 VBG HCO3 VBG Base Excess FiO2 Sodium Potassium Chloride Carbon Dioxide Anion Gap BUN Creatinine Est GFR ( Amer) Est GFR (Non-Af Amer) Glucose POC Glucose 74 44 L 63 L Lactic Acid Calcium Phosphorus Magnesium Total Bilirubin Direct Bilirubin Neonat Total Bilirubin Neonat Direct Bilirubin Neonat Indirect Bili AST ALT Alkaline Phosphatase Creatine Kinase CK-MB (CK-2) Troponin I NT-Pro-B Natriuret Pep Total Protein Albumin Amylase Lipase TSH Free T4 Urine Color Urine Appearance Urine pH Ur Specific [place] Urine Protein Urine Glucose (UA) Urine Ketones Urine Blood Urine Nitrite Urine Bilirubin Urine Urobilinogen Ur Leukocyte Esterase Urine WBC (Auto) Urine RBC (Auto) U Hyaline Cast (Auto) Urine Bacteria (Auto) Urine Mucus (Auto) Urine Ascorbic Acid Urine Opiates Screen Urine Methadone Screen Ur Barbiturates Screen Ur Phencyclidine Scrn Ur Amphetamines Screen U Benzodiazepines Scrn Urine Cocaine Screen U Marijuana (THC) Screen 08/31/18 08/31/18 19:35 20:55 WBC RBC Hgb Hct MCV MCH MCHC RDW Plt Count Total Counted Seg Neutrophils % Seg Neuts % (Manual) Band Neutrophils % Lymphocytes % Lymphocytes % (Manual) Monocytes % Monocytes % (Manual) Eosinophils % Eosinophils % (Manual) Basophils % Basophils % (Manual) Absolute Neutrophils Abs Neuts (Manual) Absolute Lymphocytes Abs Lymphs (Manual) Absolute Monocytes Abs Monocytes (Manual) Absolute Eosinophils Absolute Eos (Manual) Absolute Basophils Abs Basophils (Manual) Platelet Comment Poikilocytosis Anisocytosis Ovalocytes PT INR APTT Carbonic Acid HCO3/H2CO3 Ratio ABG pH ABG pCO2 ABG pO2 ABG HCO3 ABG Total CO2 ABG O2 Saturation ABG Base Excess VBG pH VBG pCO2 VBG HCO3 VBG Base Excess FiO2 Sodium Potassium Chloride Carbon Dioxide Anion Gap BUN Creatinine Est GFR ( Amer) Est GFR (Non-Af Amer) Glucose POC Glucose 45 L 47 L Lactic Acid Calcium Phosphorus Magnesium Total Bilirubin Direct Bilirubin Neonat Total Bilirubin Neonat Direct Bilirubin Neonat Indirect Bili AST ALT Alkaline Phosphatase Creatine Kinase CK-MB (CK-2) Troponin I NT-Pro-B Natriuret Pep Total Protein Albumin Amylase Lipase TSH Free T4 Urine Color Urine Appearance Urine pH Ur Specific [place] Urine Protein Urine Glucose (UA) Urine Ketones Urine Blood Urine Nitrite Urine Bilirubin Urine Urobilinogen Ur Leukocyte Esterase Urine WBC (Auto) Urine RBC (Auto) U Hyaline Cast (Auto) Urine Bacteria (Auto) Urine Mucus (Auto) Urine Ascorbic Acid Urine Opiates Screen Urine Methadone Screen Ur Barbiturates Screen Ur Phencyclidine Scrn Ur Amphetamines Screen U Benzodiazepines Scrn Urine Cocaine Screen U Marijuana (THC) Screen Head CT 08/31/18 09:43 IMPRESSION: Multiple old infarcts EVIDENCE OF ACUTE STROKE: NO. Chest X-Ray 08/31/18 09:44 IMPRESSION: Pulmonary edema Mild cardiomegaly with left-sided pacemaker/ defibrillator Left lower lobe partial collapse with consolidation Endotracheal tube, nasogastric tube in good positioning. IMPRESSION/RECOMMENDATION: 1. Acute cardio respiratory failure/arrest status post intubation? Etiology.Most likely due to a combination of heart failure and pneumonia 2. History of atrial fibrillation with right bundle branch block pattern status post cardioversion. At present patient with multifocal atrial tachycardia. Patient is on a Cardizem drip. 3. CONGESTIVE heart failure: This is acute on chronic systolic heart failure. Continue IV Lasix infusion. 4. Left lower lobe pneumonia: Continue antibiotics 5.Persistent hypoglycemia: Continue 10% dextrose infusion. 6. Dilated cardiomyopathy: Ejection fraction not known. 7. History of AICD placement::. The patient was unresponsive and had cardiorespiratory arrest when the EMS went there there was no firing of the AICD , hence need to interrogate the AICD to make sure there is functioning properly. Also will get the strips from the ENT to the chart.. 8. History of asthma/COPD. Continue ventilator support and antibiotics. 9. Diabetes mellitus type 2 [id number]. At present patient pe rsistently hypoglycemic. 10. Chronic kidney disease stage III. 11. History of seizure disorder: No seizures this admission. Medications reviewed. Management plan discussed with attending physician on the case. Medical decision making is of high complexity. Spent on this patient more than 50% of time spent in direct patient care. Will follow.
[2018-08-31] MEDS ORDERED: GLUCAGON,HUMAN RECOMB 1 MG INJ INJ ONE (20:00)
[2018-08-31] MEDS: PANTOPRAZOLE SODIUM 40 MG VIAL IV SCH (20:14)
[2018-08-31] MEDS: DEXTROSE 50%-WATER SYRINGE 25 GM/50 ML DOSE IV PRN (21:26)
[2018-08-31 21:45] LABS: CREATINE KINASE MB 3.93 ng/mL (<4.55); TROPONIN I 0.078 ng/mL
--- NOTE | 2018-08-31 22:23 | PDOC H&P ---
History of Present Illness Admission Date/PCP: 08/31/18 11:25 MIMI AVILA MD History of Present Illness: RICKY PETTY is a 73 year old male, patient is well-known to me, he has multiple comorbid conditions including nonischemic cardiomyopathy, status post AICD/pacemaker implantation, chronic kidney disease stage III, type 2 diabetes mellitus, history of CVA with epilepsy, he apparently was found unresponsive at home he was transfer to the emergency room for evaluation by EMS, the POC Accu- Chek when EMS arrived at his residence was 17 the blood pressure was also severe ly elevated. He was intubated on the field. In the emergency room a chest x- ray was done, the chest x-ray showed diffuse bilateral perihilar airspace disease from pulmonary edema also found was a dense consolidation in the left retrocardiac region, atelectasis versus pneumonia no pneumothorax. No history could be obtained from this patient he also has persistent hypoglycemia he was given multiple boluses of 50% dextrose and maintenance therapy with IV 10% dextrose.. The blood work demonstrated grossly abnormal lab, the serum creatinine is about 2 weeks about his baseline. The CT head that was done did not demonstrate any acute process, there is no intracranial bleed but I cannot completely rule out an acute stroke in this patient Past Medical History Cardiac Medical History: Reports: Congestive Heart Failure - Chronic systolic and diastolic heart failure, Hypertension, Other - Nonischemic dilated cardiomyopathy Neurological Medical History: Reports: Seizures - LAST X5 YRS AGO Endocrine Medical History: Reports: Diabetes Mellitus Type 2 Renal/ Medical History: Reports: Chronic Kidney Disease, Other - Chronic kidney disease stage III Hematology: Reports: Anemia - MEDICATION Past Surgical History Past Surgical History: Reports: Internal Defibrillator, Pacemaker Social History Smoking Status: Never Smoker Frequency of Alcohol Use: None Hx Recreational Drug Use: No Drugs: None Hx Prescription Drug Abuse: No - Advance Directive Resuscitation Status: Full Code Family History Family History: Reviewed & Not Pertinent Parental Family History Reviewed: Yes Children Family History Reviewed: Yes Sibling(s) Family History Reviewed.: Yes Medication/Allergy Home Medications: Aspirin [Aspirin 81 mg Chewable Tablet] 81 mg PO DAILY 08/31/18 Atorvastatin Calcium [Lipitor 20 mg Tablet] 20 mg PO QHS 08/31/18 Clopidogrel Bisulfate [Plavix 75 mg Tablet] 75 mg PO DAILY 08/31/18 Doxazosin Mesylate [Cardura 2 mg Tablet] 2 mg PO DAILY 08/31/18 Insulin Glargine,Hum.rec.anlog [Lantus Insulin 100 Unit/1 ml 10 ml] 30 unit SQ DAILY 08/31/18 Isosorb Dinit/Hydralazine HCl [Bidil 20-37.5 mg Tablet] 1 tab PO BID 08/31/18 Levetiracetam [Keppra] 1,000 mg PO Q12 08/31/18 Linagliptin [Tradjenta] 5 mg PO DAILY 08/31/18 Metoprolol Succinate [Toprol XL 100 mg Tablet] 100 mg PO DAILY 08/31/18 Olmesartan Medoxomil [Benicar] 40 mg PO DAILY 08/31/18 Pantoprazole Sodium [Protonix [address] Tablet] 40 mg PO BID 08/31/18 Phenytoin Sodium Extended [Dilantin 100 mg Capsule.er] 100 mg PO Q8 08/31/18 Potassium Chloride [Klor-Con 10 Meq Capsule ER] 10 meq PO DAILY 08/31/18 Torsemide [Demadex 20 mg Tablet] 20 mg PO DAILY 08/31/18 Allergies/Adverse Reactions: No Known Allergies Allergy (Verified 06/28/18 13:53) Review of Systems ROS unobtainable: Due to mental status Physical Exam Vital Signs: Temp Pulse Resp BP Pulse Ox 97.9 F 95 0 L 166/74 H 100 08/31/18 19:44 08/31/18 18:00 08/31/18 22:01 08/31/18 22:00 08/31/18 22:01 Intake & Output 08/30/18 08/31/18 09/01/18 06:59 06:59 06:59 Intake Total 1373 Output Total 665 Balance 708 Weight 86.183 kg General appearance: PRESENT: other - Patient is unresponsive to tactile stimulus, intubated on mechanical ventilation Eye exam: PRESENT: other - The pupil is small reactive left poorly Respiratory exam: PRESENT: rales Cardiovascular exam: PRESENT: +S1, +S2 GI/Abdominal exam: PRESENT: soft Neurological exam: PRESENT: other - Sedated on mechanical ventilation Results Laboratory Results: 08/31/18 09:43 08/31/18 09:43 08/31/18 08/31/18 08/31/18 09:43 09:43 09:43 WBC 13.6 H RBC 3.87 L Hgb 12.1 L Hct 36.9 L MCV 96 MCH 31.2 MCHC 32.7 RDW 13.9 Plt Count 180 Seg Neutrophils % Not Reportable Lymphocytes % Not Reportable Monocytes % Not Reportable Eosinophils % Not Reportable Basophils % Not Reportable Absolute Neutrophils Not Reportable Absolute Lymphocytes Not Reportable Absolute Monocytes Not Reportable Absolute Eosinophils Not Reportable Absolute Basophils Not Reportable Carbonic Acid HCO3/H2CO3 Ratio ABG pH ABG pCO2 ABG pO2 ABG HCO3 ABG O2 Saturation ABG Base Excess VBG pH VBG pCO2 VBG HCO3 VBG Base Excess FiO2 Sodium 148.1 H Potassium 3.9 Chloride 108 H Carbon Dioxide 28 Anion Gap 12 BUN 38 H Creatinine 2.02 H Est GFR ( Amer) 39 L Est GFR (Non-Af Amer) 32 L Glucose 93 Lactic Acid 1.3 Calcium 9.0 Phosphorus Magnesium Total Bilirubin 0.4 AST 24 ALT 18 L Alkaline Phosphatase 104 Total Protein 6.9 Albumin 3.8 Amylase Lipase TSH Free T4 Urine Color Urine Appearance Urine pH Ur Specific [place] Urine Protein Urine Glucose (UA) Urine Ketones Urine Blood Urine Nitrite Ur Leukocyte Esterase Urine WBC (Auto) Urine RBC (Auto) 08/31/18 08/31/18 08/31/18 09:43 09:43 09:43 WBC RBC Hgb Hct MCV MCH MCHC RDW Plt Count Seg Neutrophils % Lymphocytes % Monocytes % Eosinophils % Basophils % Absolute Neutrophils Absolute Lymphocytes Absolute Monocytes Absolute Eosinophils Absolute Basophils Carbonic Acid HCO3/H2CO3 Ratio ABG pH ABG pCO2 ABG pO2 ABG HCO3 ABG O2 Saturation ABG Base Excess VBG pH 7.34 VBG pCO2 53.9 VBG HCO3 28.2 VBG Base Excess 1.4 FiO2 Sodium Potassium Chloride Carbon Dioxide Anion Gap BUN Creatinine Est GFR ( Amer) Est GFR (Non-Af Amer) Glucose Lactic Acid Calcium Phosphorus 3.8 Magnesium 2.5 H Total Bilirubin AST ALT Alkaline Phosphatase Total Protein Albumin Amylase 119 H Lipase 171.1 TSH Free T4 Urine Color YELLOW Urine Appearance CLEAR Urine pH 6.0 Ur Specific [place] 1.013 Urine Protein NEGATIVE Urine Glucose (UA) NEGATIVE Urine Ketones NEGATIVE Urine Blood NEGATIVE Urine Nitrite NEGATIVE Ur Leukocyte Esterase NEGATIVE Urine WBC (Auto) 1 Urine RBC (Auto) 0 08/31/18 08/31/18 09:43 13:43 WBC RBC Hgb Hct MCV MCH MCHC RDW Plt Count Seg Neutrophils % Lymphocytes % Monocytes % Eosinophils % Basophils % Absolute Neutrophils Absolute Lymphocytes Absolute Monocytes Absolute Eosinophils Absolute Basophils Carbonic Acid 1.25 HCO3/H2CO3 Ratio 20:1 ABG pH 7.42 ABG pCO2 41.6 ABG pO2 69.0 L ABG HCO3 26.2 H ABG O2 Saturation 94.1 ABG Base Excess 1.5 VBG pH VBG pCO2 VBG HCO3 VBG Base Excess FiO2 65% Sodium Potassium Chloride Carbon Dioxide Anion Gap BUN Creatinine Est GFR ( Amer) Est GFR (Non-Af Amer) Glucose Lactic Acid Calcium Phosphorus Magnesium Total Bilirubin AST ALT Alkaline Phosphatase Total Protein Albumin Amylase Lipase TSH 4.85 H Free T4 0.96 Urine Color Urine Appearance Urine pH Ur Specific [place] Urine Protein Urine Glucose (UA) Urine Ketones Urine Blood Urine Nitrite Ur Leukocyte Esterase Urine WBC (Auto) Urine RBC (Auto) 08/31/18 08/31/18 08/31/18 09:43 09:43 13:29 Creatine Kinase 248 H 270 H CK-MB (CK-2) 4.20 Troponin I 0.060 NT-Pro-B Natriuret Pep 5890 H 08/31/18 08/31/18 08/31/18 13:29 21:00 21:00 Creatine Kinase 227 H CK-MB (CK-2) 4.20 3.93 Troponin I 0.063 0.078 NT-Pro-B Natriuret Pep Impressions: Head CT 08/31/18 09:43 IMPRESSION: Multiple old infarcts EVIDENCE OF ACUTE STROKE: NO. Chest X-Ray 08/31/18 09:44 IMPRESSION: Pulmonary edema Mild cardiomegaly with left-sided pacemaker/ defibrillator Left lower lobe partial collapse with consolidation Endotracheal tube, nasogastric tube in good positioning. Assessment & Plan - Diagnosis (1) Acute hypoxemic respiratory failure Is this a current diagnosis for this admission?: Yes Plan: He has acute hypoxemic respiratory failure on mechanical ventilation, this is mo st likely from combination of acute systolic heart failure and pneumonia (2) Acute systolic heart failure Is this a current diagnosis for this admission?: Yes Plan: He has acute systolic heart failure, start furosemide infusion, consult cardiology (3) Hypoglycemia Is this a current diagnosis for this admission?: Yes Plan: He has persistent hypoglycemia continue 10% dextrose (4) Pneumonia Qualifiers: Pneumonia type: due to unspecified organism Laterality: left Lung locatio n: unspecified part of lung Qualified Code(s): J18.9 - Pneumonia, unspecified organism Is this a current diagnosis for this admission?: Yes Plan: Start IV antibiotic cefepime and Levaquin (5) Chronic kidney disease, stage 3 Is this a current diagnosis for this admission?: Yes Plan: He has underlying chronic kidney disease stage III
[2018-08-31] MEDS ORDERED: LEVOFLOXACIN 500 MG/D5W RTU 500 MG/100 ML RTUPB IV ONE (23:00)
--- NOTE | 2018-08-31 23:24 | EKG REPORT ---
SEVERITY:- ABNORMAL ECG - SINUS RHYTHM RIGHT BUNDLE BRANCH BLOCK LEFT VENTRICULAR HYPERTROPHY : Confirmed by: Estbean Kaminski 31-Aug-2018 23:23:28
[2018-09-01] MEDS ORDERED: CEFEPIME 1 GM/D5W RTU 1 GM/50 ML RTUPB IV ONE
[2018-09-01] MEDS: DEXTROSE 50%-WATER SYRINGE 25 GM/50 ML DOSE IV PRN ×9 (00:02→19:49)
--- NOTE | 2018-09-01 02:39 | CONSULTATION REPORT E ---
Consultation Report NAME: RICKY PETTY : 1945 AGE: 73Y DATE: 08/31/2018 601 A TO: LARY LYNCH M.D. FROM: MIMI AVILA M.D. Requesting Physician HISTORY OF PRESENT ILLNESS: Patient is a 73-year-old male who was brought to the emergency room because patient was found unresponsive at home with blood pressure of 202/181, blood glucose level of 17, heart rate of 220, with wide complex tachycardia. Patient was intubated and mechanically ventilated in the field. The patient was given sugar boluses of D50 and started on D10, and his blood sugar remained about 60 mg/dL. Patient also received amiodarone IV drip and patient was admitted to ICU. I am consulted for acute respiratory failure. PAST MEDICAL HISTORY: 1. History of congestive heart failure. 2. Hypertension. 3. Dilated nonischemic cardiomyopathy. 4. Sick sinus syndrome. 6. Ischemic stroke. 7. Seizures; the last was 5 years ago. 8. Diabetes mellitus type 2. 9. Anemia. PAST SURGICAL HISTORY: Internal defibrillator/pacemaker. SOCIAL HISTORY: Never smoked. Denies any alcohol abuse or illicit drug use. FAMILY HISTORY: Reviewed but not pertinent. MEDICATIONS AT HOME: Include: 1. Lipitor. 2. Plavix. 3. Cardura. 4. Lantus insulin. 5. Lispro insulin. 6. Hydralazine dinitrate. 7. Keppra. 8. Progenta. 9. Metoprolol. 10. Metronidazole. 11. Pantoprazole. 12. Demadex. ALLERGIES: No known drug allergies. REVIEW OF SYSTEMS: CONSTITUTIONAL: Patient was found unresponsive with severe hypertension on the floor of his house. The rest of the review of systems is unknown. Patient is currently intubated and mechanically ventilated. PHYSICAL EXAMINATION: VITAL SIGNS: Patient is unresponsive or comatose with temperature of 97.5, blood pressure of 129, heart rate of 95, respirations 19, saturations 100% on 65% FiO2; titrated the FiO2 to 45%, saturation remains at 100%. EYES: No jaundice or pallor. EARS, NOSE AND THROAT: No ear drainage. No nasal discharge. CHEST AND LUNGS: No wheezing, no rhonchi, no coarse crackles. CARDIOVASCULAR: S1, S2 distinct. Regular rate. ABDOMEN: Flabby. Hypoactive bowel sounds. Soft, nondistended, nontender. EXTREMITIES: No edema. No signs of cellulitis. Currently on SIMV and pressure support with a rate of 14. Tidal volume is 417 now, ventilator rate of 14, pressure support of 10, PEEP of 5, and FiO2 titrated down to 45%, keeping saturation 100%. Total pressure is 11 and the peak airway pressure is 17. Mean ventilation is 8. Exhaled tidal volume is 611. The endotracheal tube CO2 is about 36 to 38. ASSESSMENT: 1. Acute respiratory failure requiring invasive mechanical ventilation, currently stable. 2. Status post cardiac arrest. Appears to be in Afib right now.- followed by weight trainer - Dr Macias 3. History of chronic kidney disease and severe hypertension. PLAN AND RECOMMENDATIONS: 1. Will continue to optimize ventilator support. Will change the vent settings to SIMV rate of 14, tidal volume of 417 mL based on patient's ideal body weight, pressure support of 10, PEEP of 5 and inner core temperature is 36 degrees Fahrenheit. 2. GI prophylaxis. Will start patient on IV Protonix 40 mg daily. 3. Will hold sedation until patient wakes up and resume slight sedation if he becomes agitated. 4. Decrease FiO2 to 45% and titrate to get oxygen saturation 94% to 95%. 5. Agree with D10 infusion and D50 as needed if blood sugar is hypoglycemic. DICTATING PHYSICIAN: LARY LYNCH MD,ROHAN,MPH [id number] PHY#: [id number] ID: [id number] JOB#: [id number] ACCT: [id number] cc:LARY LYNCH M.D. > [facility]ITALAmb[facility]
[2018-09-01] MEDS: GLUCAGON,HUMAN RECOMB 1 MG INJ IM PRN ×2 (03:06→06:17)
[2018-09-01 03:47] LABS: ARTERIAL BLOOD BASE EXCESS 5.5 mmol/L; ARTERIAL BLOOD H2CO3 1.24 mmol/L (1.05-1.35); ARTERIAL BLOOD HCO3 29.6 mmol/L (20-24); ARTERIAL BLOOD O2 SATURATION 98.2 % (94-98); ARTERIAL BLOOD PCO2 41.1 mmHg (35-45); ARTERIAL BLOOD PH 7.48 (7.35-7.45); ARTERIAL BLOOD PO2 106.8 mmHg (80-100); ARTERIAL BLOOD TOTAL CO2 30.8 mmol/L (23-27)
[2018-09-01 03:48] LABS: ARTERIAL BLOOD FIO2 30%
[2018-09-01 04:50] LABS: ABSOLUTE LYMPHOCYTES (AUTO) 0.6 10^3/uL (0.5-4.7); ABSOLUTE MONOCYTES (AUTO) 0.7 10^3/uL (0.1-1.4); ABSOLUTE NEUT (AUTO) 10.5 10^3/uL (1.7-8.2); BASOPHILS % (AUTO) 0.2 % (0-2); EOSINOPHILS % (AUTO) 0.1 % (0-6); HEMOGLOBIN 11.7 g/dL (13.5-17.0); LYMPHOCYTES % (AUTO) 5.3 % (13-45); MEAN CORPUSCULAR HEMOGLOBIN 31.5 pg (27.0-33.4); MEAN CORPUSCULAR HGB CONC 33.3 g/dL (32.0-36.0); MEAN CORPUSCULAR VOLUME 95 fl (80-97); MONOCYTES % (AUTO) 6.3 % (3-13); PLATELET COUNT 197 10^3/uL (150-450); RED CELL DISTRIBUTION WIDTH 13.8 % (11.5-14.0); SEGMENTED NEUTROPHILS % (AUTO) 88.1 % (42-78); TOTAL CELLS COUNTED % (AUTO) 100 %; WHITE BLOOD COUNT 11.9 10^3/uL (4.0-10.5)
[2018-09-01 05:10] LABS: ALANINE AMINOTRANSFERASE 21 U/L (21-72); ALBUMIN 3.3 g/dL (3.5-5.0); ALKALINE PHOSPHATASE 88 U/L (38-126); ANION GAP 9 (5-19); ASPARTATE AMINO TRANSFERASE 24 U/L (17-59); BILIRUBIN,DIRECT 0.3 mg/dL (0.0-0.4); BILIRUBIN,TOTAL 0.4 mg/dL (0.2-1.3); BLOOD UREA NITROGEN 39 mg/dL (7-20); CALCIUM 8.8 mg/dL (8.4-10.2); CARBON DIOXIDE 27 mmol/L (22-30); CHLORIDE 107 mmol/L (98-107); CHOLESTEROL 120.47 mg/dL (0-200); GLUCOSE 77 mg/dL (75-110); POTASSIUM 3.4 mmol/L (3.6-5.0); TOTAL PROTEIN 6.2 g/dL (6.3-8.2); TRIGLYCERIDES 30 mg/dL (<150)
[2018-09-01] MEDS: HEPARIN SOD (PORCINE) 5,000 UNIT/ML 1 ML SYRINGE SUBCUT SCH ×3 (05:12→22:33)
[2018-09-01 05:20] LABS: CREATINE KINASE MB 3.12 ng/mL (<4.55); TROPONIN I 0.096 ng/mL
[2018-09-01 05:21] LABS: DIRECT LDL 43 mg/dL (<100)
--- NOTE | 2018-09-01 08:41 | RADIOLOGY REPORT (SQ) ---
EXAM DESCRIPTION: CHEST SINGLE VIEW COMPLETED DATE/TIME: 09/01/2018 6:17 am REASON FOR STUDY: mechanically ventilated COMPARISON: 08/31/2018 NUMBER OF VIEWS: One view. TECHNIQUE: Single frontal radiographic image of the chest acquired. LIMITATIONS: None. FINDINGS: LUNGS AND PLEURA: Aeration is slightly improved in the right upper lobe and left base. MEDIASTINUM AND HILAR STRUCTURES: Stable heart size and mediastinal structures. HEART AND VASCULAR STRUCTURES: Stable appearance. SUPPORT DEVICES: Appropriate location without change. BONES: No acute findings. OTHER: No other significant finding. IMPRESSION: Improved aeration bilaterally. Support lines and tubes remain in satisfactory position. TECHNICAL DOCUMENTATION: JOB ID: [id number] [employer]- All Rights Reserved Reading location - IP/workstation name: [email or web address]
[2018-09-01] MEDS ORDERED: DILTIAZEM HCL/D5W 125 MG/125 ML RTUINJ IV ONE (09:22)
[2018-09-01] MEDS: DILTIAZEM HCL/D5W 125 MG/125 ML RTUINJ IV PRN ×2 (09:25→19:34)
[2018-09-01] MEDS: PANTOPRAZOLE SODIUM 40 MG VIAL IV SCH ×2 (11:04→22:32)
[2018-09-01] MEDS: CEFEPIME 1 GM/D5W RTU 1 GM/50 ML RTUPB IV SCH ×2 (11:05→22:33)
[2018-09-01] MEDS ORDERED: DEXTROSE 10%-WATER 1,000 ML IV PRN (12:06)
[2018-09-01] MEDS ORDERED: GLUCAGON HUMAN RECOMBINANT IV PRN (12:10)
[2018-09-01] MEDS ORDERED: NORMAL SALINE IV PRN (12:10)
--- NOTE | 2018-09-01 12:12 | Operative Report ---
Nonrecallable Operative Report DATE OF SURGERY: 09/01/18 PREOPERATIVE DIAGNOSIS: hypoglycemia POSTOPERATIVE DIAGNOSIS: hypogylcemia OPERATION: subclavian line placement SURGEON: SUSHMA GARCIA ANESTHESIA: Local COMPLICATIONS: none ESTIMATED BLOOD LOSS: 0 INTRAOPERATIVE FINDINGS: see dictated note PROCEDURE: see dictated note
--- NOTE | 2018-09-01 12:39 | OPERATIVE REPORT E ---
Operative Report NAME: RICKY PETTY : 1945 AGE: 73Y DATE OF SURGERY: 09/01/2018 ROOM: 601 PREOPERATIVE DIAGNOSIS: Hypoglycemia, status post cardiorespiratory arrest. POSTOPERATIVE DIAGNOSIS: Hypoglycemia, status post cardiorespiratory arrest. OPERATION: Right subclavian line placement. SURGEON: SUSHMA GARCIA M.D. INDICATIONS FOR PROCEDURE: This 73-year-old male in the intensive care unit after a cardiac arrest and noted to be hypoglycemic and in acute renal failure, need for venous access and hyperalimentation as necessary. PROCEDURE: The patient was placed in a Trendelenburg position. The right neck and chest were prepped and draped in the usual sterile fashion for the procedure. After appropriate time out, local anesthetic was given in the subclavian area with 1% lidocaine plain and then a subclavian stick was made with a 16-gauge needle. The needle was pulled out of the intracath and the wire was placed into the intracath into the superior vena cava. The tract was then dilated appropriately and a triple-lumen central line was then placed over the wire into the superior vena cava. It was confirmed in good placement using an x-ray and sutured to the skin with 2-0 silk. A sterile dressing was applied, which completed the procedure. Estimated blood loss was negligible. A chest x-ray showed good position. DICTATING PHYSICIAN: SUSHMA GARCIA M.D. [id number] PHY#: [id number] ID: [id number] JOB#: [id number] ACCT: [id number] cc:SUSHMA GARCIA M.D. >
--- NOTE | 2018-09-01 12:56 | RADIOLOGY REPORT (SQ) ---
EXAM DESCRIPTION: CHEST SINGLE VIEW COMPLETED DATE/TIME: 09/01/2018 12:37 pm REASON FOR STUDY: CENTRAL LINE PLACEMENT COMPARISON: 09/01/2018 EXAM PARAMETERS: NUMBER OF VIEWS: One view. TECHNIQUE: Single frontal radiographic view of the chest acquired. RADIATION DOSE: NA LIMITATIONS: None. FINDINGS: Interval placement of a right subclavian vascular catheter, tip projecting over the mid SV C. Otherwise stable AP examination with support apparatus including endotracheal tube with tip just below the thoracic inlet, esophagogastric tube, and left chest multi lead pacer defibrillator. Celso edmond. IMPRESSION: Interval placement of a right subclavian vascular catheter, tip projecting over the mid SVC. Otherwise stable AP examination with support apparatus including endotracheal tube with tip just below the thoracic inlet, esophagogastric tube, and left chest multi lead pacer defibrillator. Celso edmond. TECHNICAL DOCUMENTATION: JOB ID: [id number] [employer]- All Rights Reserved Reading location - IP/workstation name: [email or web address]
[2018-09-01] MEDS: SCOPOLAMINE HYDROBROMIDE 1.5 MG PATCH.TD72 TD SCH (14:26)
[2018-09-01] MEDS ORDERED: (PENDING PHARMACY ID) (Levetiracetam [Keppra] 1,000 MG) PO SCH (16:00)
--- NOTE | 2018-09-01 16:00 | PDOC PROGRESS REPORT ---
Subjective Progress Note for:: 09/01/18 Subjective:: Patient on mechanical ventilation, sedated Reason For Visit: ACUTE PULMONARY EDEMA,HYPOGLYCEMIC ENCEPHALOPATHY Physical Exam Vital Signs: Temp Pulse Resp BP Pulse Ox 98.8 F 111 H 19 174/67 H 98 09/01/18 12:00 09/01/18 14:00 09/01/18 14:00 09/01/18 14:00 09/01/18 14:00 Intake & Output 08/31/18 09/01/18 09/02/18 06:59 06:59 06:59 Intake Total 1373 1096 Output Total 1100 825 Balance 273 271 Weight 79.9 kg Eye exam: PRESENT: other - The pupils react to light Respiratory exam: PRESENT: rhonchi Cardiovascular exam: PRESENT: +S1, +S2 GI/Abdominal exam: PRESENT: soft Neurological exam: PRESENT: other - Sedated on mechanical ventilation Results Laboratory Results: 09/01/18 03:30 09/01/18 03:30 09/01/18 09/01/18 09/01/18 03:30 03:30 03:40 WBC 11.9 H RBC 3.70 L Hgb 11.7 L Hct 35.0 L MCV 95 MCH 31.5 MCHC 33.3 RDW 13.8 Plt Count 197 Seg Neutrophils % 88.1 H Lymphocytes % 5.3 L Monocytes % 6.3 Eosinophils % 0.1 Basophils % 0.2 Absolute Neutrophils 10.5 H Absolute Lymphocytes 0.6 Absolute Monocytes 0.7 Absolute Eosinophils 0.0 Absolute Basophils 0.0 Carbonic Acid 1.24 HCO3/H2CO3 Ratio 23:1 ABG pH 7.48 H ABG pCO2 41.1 ABG pO2 106.8 H ABG HCO3 29.6 H ABG O2 Saturation 98.2 H ABG Base Excess 5.5 FiO2 30% Sodium 143.0 Potassium 3.4 L Chloride 107 Carbon Dioxide 27 Anion Gap 9 BUN 39 H Creatinine 2.10 H Est GFR ( Amer) 38 L Est GFR (Non-Af Amer) 31 L Glucose 77 Calcium 8.8 Total Bilirubin 0.4 AST 24 ALT 21 Alkaline Phosphatase 88 Total Protein 6.2 L Albumin 3.3 L Triglycerides 30 Cholesterol 120.47 LDL Cholesterol Direct 43 VLDL Cholesterol 6.0 L HDL Cholesterol 80 08/31/18 08/31/18 08/31/18 09:43 09:43 13:29 Creatine Kinase 248 H 270 H CK-MB (CK-2) 4.20 Troponin I 0.060 NT-Pro-B Natriuret Pep 5890 H 08/31/18 08/31/18 08/31/18 13:29 21:00 21:00 Creatine Kinase 227 H CK-MB (CK-2) 4.20 3.93 Troponin I 0.063 0.078 NT-Pro-B Natriuret Pep 09/01/18 09/01/18 03:30 03:30 Creatine Kinase 187 H CK-MB (CK-2) 3.12 Troponin I 0.096 NT-Pro-B Natriuret Pep Impressions: Head CT 08/31/18 09:43 IMPRESSION: Multiple old infarcts EVIDENCE OF ACUTE STROKE: NO. Chest X-Ray 09/01/18 11:56 IMPRESSION: Interval placement of a right subclavian vascular catheter, tip projecting over the mid SVC. Otherwise stable AP examination with support apparatus including endotracheal tube with tip just below the thoracic inlet, esophagogastric tube, and left chest multi lead pacer defibrillator. Cardiomegaly. Assessment & Plan - Diagnosis (1) Acute hypoxemic respiratory failure Is this a current diagnosis for this admission?: Yes Plan: Continue mechanical ventilation, pulmonary following (2) Acute systolic heart failure Is this a current diagnosis for this admission?: Yes (3) Hypoglycemia Is this a current diagnosis for this admission?: Yes Plan: Patient with persistent hypoglycemia despite 10% dextrose, start glucagon infusion, will also increase dextrose to 50% dextrose, this portends a poor prognostic sign (4) Pneumonia Qualifiers: Pneumonia type: due to unspecified organism Laterality: left Lung location: unspecified part of lung Qualified Code(s): J18.9 - Pneumonia, unspecified organism Is this a current diagnosis for this admission?: Yes Plan: Continue IV antibiotic (5) Chronic kidney disease, stage 3 Is this a current diagnosis for this admission?: Yes (6) Hypoglycemic encephalopathy Is this a current diagnosis for this admission?: Yes Plan: Patient probably sustained encephalopathy from hypoglycemia, the hypoglycemia has not been corrected consistently (7) Atrial fibrillation Qualifiers: Atrial fibrillation type: paroxysmal Qualified Code(s): I48.0 - Paroxysmal atrial fibrillation Is this a current diagnosis for this admission?: Yes Plan: Patient developed A. fib now on Cardizem infusion
[2018-09-01] MEDS ORDERED: PHENYTOIN SODIUM EXTENDED 100 MG CAPSULE PO SCH (16:15)
[2018-09-01] MEDS: DEXTROSE 50%-WATER SYRINGE 12.5 GM/25 ML DOSE IV PRN (17:09)
[2018-09-01] MEDS: LEVOFLOXACIN 500 MG/D5W RTU 500 MG/100 ML RTUPB IV SCH (17:10)
[2018-09-01] MEDS: DEXTROSE 10%-WATER 500 ML with DEXTROSE 50%-WATER 25 GM IV PRN ×2 (17:13)
[2018-09-01] MEDS: NORMAL SALINE 250 ML with FUROSEMIDE 250 MG IV PRN ×2 (17:21)
[2018-09-01] MEDS: MIDAZOLAM HCL 50 MG/100 ML RTUINJ IV PRN (17:22)
[2018-09-01] MEDS: PHENYTOIN 50 MG TAB.CHEW NG SCH (17:30)
[2018-09-01] MEDS ORDERED: PANTOPRAZOLE SODIUM 40 MG TABLET.DR PO SCH (18:00)
[2018-09-01] MEDS: NORMAL SALINE IV PRN ×2 (18:39→23:48)
[2018-09-01] MEDS: GLUCAGON HUMAN RECOMBINANT IV PRN ×2 (18:39→23:48)
--- NOTE | 2018-09-01 18:52 | EKG REPORT ---
SEVERITY:- ABNORMAL ECG - WANDERING PACEMAKER RIGHT BUNDLE BRANCH BLOCK LEFT VENTRICULAR HYPERTROPHY : Confirmed by: Esteban Kaminski 01-Sep-2018 18:52:16
--- NOTE | 2018-09-01 21:26 | Progress Note ---
Provider Note Provider Note: CARDIOLOGY PROGRESS NOTE by Dr. Rossy Dooley on 09/01/2018. SUBJECTIVE: The patient is intubated and sedated. Earlier I was called by the nurse that the patient had episodes of tachycardia with a heart rate being 1 30- 1 60. The twelve-lead EKG shows multifocal focal atrial tachycardia with right bundle branch block pattern. Hence the patient has been started on Cardizem. Although his heart rate is in the 110s to 115 occasionally he does increase his heart rate to 130. There is no ventricular arrhythmia seen on the monitor. There is no firing of his AICD. The patient is persistently hypoglycemic. Physical EXAMINATION: The patient appears to be chronically ill. He is sedated and not fighting the ventilator. Selected Entries 09/01/18 09/01/18 18:00 18:43 Core 99.0 F 99.1 F Temperature Heart Rate ( 116 145 Monitors) Respiratory 17 19 Rate Respiratory Mechanically Effort Ventilated Blood Pressure 163/53 H Blood Pressure 89 Mean O2 Sat by Pulse 93 96 Oximetry Fraction of 21 Inspired Oxygen (FIO2) End-Tidal CO2 33 33 Concentration Head: Is atraumatic normocephalic. EYES: Tubes are equal round regular reactive to light. EARS: Tympanic membranes are intact. External auditory canals are clear. Otherwise ENT is negative. NECK: Supple. There is no JVD. Carotids are equal there is no bruit. There is no accessory muscle respiration use. Trachea appears to be central. LUNGS: There is scattered rhonchi. There is a few bibasilar rales of CHF. There is diminished air entry and prolonged expiration. On percussion there is hyperresonance. There is dry crackles in the left lower lobe area consistent with pneumonia. HEART: S1-S2 is heard. S1 is of normal intensity. Monitor strip shows multifocal atrial tachycardia. There is systolic murmur left sternal border and the apex. There is no rub. There is murmur of MR and TR present. There is no rub. ABDOMEN: Soft. There is no hepatosplenomegaly. Bowel sounds. EXTREMITIES: Femorals are diminished. Leg pulses are diminished. There is definite pedal edema. There is no DVT or cellulitis. [employer] and psychiatric not examined as the patient is intubated and sedated. Labs- All tests 24 hr 08/31/18 08/31/18 08/31/18 15:31 21:00 21:00 WBC RBC Hgb Hct MCV MCH MCHC RDW Plt Count Seg Neutrophils % Lymphocytes % Monocytes % Eosinophils % Basophils % Absolute Neutrophils Absolute Lymphocytes Absolute Monocytes Absolute Eosinophils Absolute Basophils Carbonic Acid HCO3/H2CO3 Ratio ABG pH ABG pCO2 ABG pO2 ABG HCO3 ABG Total CO2 ABG O2 Saturation ABG Base Excess FiO2 Sodium Potassium Chloride Carbon Dioxide Anion Gap BUN Creatinine Est GFR ( Amer) Est GFR (Non-Af Amer) Glucose POC Glucose 55 L Hemoglobin A1c % Insulin Level Calcium Total Bilirubin Direct Bilirubin Neonat Total Bilirubin Neonat Direct Bilirubin Neonat Indirect Bili AST ALT Alkaline Phosphatase Creatine Kinase 227 H CK-MB (CK-2) 3.93 Troponin I 0.078 Total Protein Albumin Triglycerides Cholesterol LDL Cholesterol Direct VLDL Cholesterol HDL Cholesterol 08/31/18 08/31/18 08/31/18 21:56 22:57 23:55 WBC RBC Hgb Hct MCV MCH MCHC RDW Plt Count Seg Neutrophils % Lymphocytes % Monocytes % Eosinophils % Basophils % Absolute Neutrophils Absolute Lymphocytes Absolute Monocytes Absolute Eosinophils Absolute Basophils Carbonic Acid HCO3/H2CO3 Ratio ABG pH ABG pCO2 ABG pO2 ABG HCO3 ABG Total CO2 ABG O2 Saturation ABG Base Excess FiO2 Sodium Potassium Chloride Carbon Dioxide Anion Gap BUN Creatinine Est GFR ( Amer) Est GFR (Non-Af Amer) Glucose POC Glucose 118 H 95 61 L Hemoglobin A1c % Insulin Level Calcium Total Bilirubin Direct Bilirubin Neonat Total Bilirubin Neonat Direct Bilirubin Neonat Indirect Bili AST ALT Alkaline Phosphatase Creatine Kinase CK-MB (CK-2) Troponin I Total Protein Albumin Triglycerides Cholesterol LDL Cholesterol Direct VLDL Cholesterol HDL Cholesterol 09/01/18 09/01/18 09/01/18 01:05 02:04 02:57 WBC RBC Hgb Hct MCV MCH MCHC RDW Plt Count Seg Neutrophils % Lymphocytes % Monocytes % Eosinophils % Basophils % Absolute Neutrophils Absolute Lymphocytes Absolute Monocytes Absolute Eosinophils Absolute Basophils Carbonic Acid HCO3/H2CO3 Ratio ABG pH ABG pCO2 ABG pO2 ABG HCO3 ABG Total CO2 ABG O2 Saturation ABG Base Excess FiO2 Sodium Potassium Chloride Carbon Dioxide Anion Gap BUN Creatinine Est GFR ( Amer) Est GFR (Non-Af Amer) Glucose POC Glucose 41 L 43 L 47 L Hemoglobin A1c % Insulin Level Calcium Total Bilirubin Direct Bilirubin Neonat Total Bilirubin Neonat Direct Bilirubin Neonat Indirect Bili AST ALT Alkaline Phosphatase Creatine Kinase CK-MB (CK-2) Troponin I Total Protein Albumin Triglycerides Cholesterol LDL Cholesterol Direct VLDL Cholesterol HDL Cholesterol 09/01/18 09/01/18 09/01/18 03:30 03:30 03:30 WBC 11.9 H RBC 3.70 L Hgb 11.7 L Hct 35.0 L MCV 95 MCH 31.5 MCHC 33.3 RDW 13.8 Plt Count 197 Seg Neutrophils % 88.1 H Lymphocytes % 5.3 L Monocytes % 6.3 Eosinophils % 0.1 Basophils % 0.2 Absolute Neutrophils 10.5 H Absolute Lymphocytes 0.6 Absolute Monocytes 0.7 Absolute Eosinophils 0.0 Absolute Basophils 0.0 Carbonic Acid HCO3/H2CO3 Ratio ABG pH ABG pCO2 ABG pO2 ABG HCO3 ABG Total CO2 ABG O2 Saturation ABG Base Excess FiO2 Sodium Potassium Chloride Carbon Dioxide Anion Gap BUN Creatinine Est GFR ( Amer) Est GFR (Non-Af Amer) Glucose POC Glucose Hemoglobin A1c % Insulin Level Calcium Total Bilirubin Direct Bilirubin Neonat Total Bilirubin Neonat Direct Bilirubin Neonat Indirect Bili AST ALT Alkaline Phosphatase Creatine Kinase 187 H CK-MB (CK-2) 3.12 Troponin I 0.096 Total Protein Albumin Triglycerides Cholesterol LDL Cholesterol Direct VLDL Cholesterol HDL Cholesterol 09/01/18 09/01/18 09/01/18 03:30 03:30 03:40 WBC RBC Hgb Hct MCV MCH MCHC RDW Plt Count Seg Neutrophils % Lymphocytes % Monocytes % Eosinophils % Basophils % Absolute Neutrophils Absolute Lymphocytes Absolute Monocytes Absolute Eosinophils Absolute Basophils Carbonic Acid 1.24 HCO3/H2CO3 Ratio 23:1 ABG pH 7.48 H ABG pCO2 41.1 ABG pO2 106.8 H ABG HCO3 29.6 H ABG Total CO2 30.8 H ABG O2 Saturation 98.2 H ABG Base Excess 5.5 FiO2 30% Sodium 143.0 Potassium 3.4 L Chloride 107 Carbon Dioxide 27 Anion Gap 9 BUN 39 H Creatinine 2.10 H Est GFR ( Amer) 38 L Est GFR (Non-Af Amer) 31 L Glucose 77 POC Glucose Hemoglobin A1c % 5.8 Insulin Level Calcium 8.8 Total Bilirubin 0.4 Direct Bilirubin 0.3 Neonat Total Bilirubin Not Reportable Neonat Direct Bilirubin Not Reportable Neonat Indirect Bili Not Reportable AST 24 ALT 21 Alkaline Phosphatase 88 Creatine Kinase CK-MB (CK-2) Troponin I Total Protein 6.2 L Albumin 3.3 L Triglycerides 30 Cholesterol 120.47 LDL Cholesterol Direct 43 VLDL Cholesterol 6.0 L HDL Cholesterol 80 09/01/18 09/01/18 09/01/18 03:50 05:09 06:14 WBC RBC Hgb Hct MCV MCH MCHC RDW Plt Count Seg Neutrophils % Lymphocytes % Monocytes % Eosinophils % Basophils % Absolute Neutrophils Absolute Lymphocytes Absolute Monocytes Absolute Eosinophils Absolute Basophils Carbonic Acid HCO3/H2CO3 Ratio ABG pH ABG pCO2 ABG pO2 ABG HCO3 ABG Total CO2 ABG O2 Saturation ABG Base Excess FiO2 Sodium Potassium Chloride Carbon Dioxide Anion Gap BUN Creatinine Est GFR ( Amer) Est GFR (Non-Af Amer) Glucose POC Glucose 74 51 L 49 L Hemoglobin A1c % Insulin Level Calcium Total Bilirubin Direct Bilirubin Neonat Total Bilirubin Neonat Direct Bilirubin Neonat Indirect Bili AST ALT Alkaline Phosphatase Creatine Kinase CK-MB (CK-2) Troponin I Total Protein Albumin Triglycerides Cholesterol LDL Cholesterol Direct VLDL Cholesterol HDL Cholesterol 09/01/18 09/01/18 09/01/18 08:50 09:00 09:20 WBC RBC Hgb Hct MCV MCH MCHC RDW Plt Count Seg Neutrophils % Lymphocytes % Monocytes % Eosinophils % Basophils % Absolute Neutrophils Absolute Lymphocytes Absolute Monocytes Absolute Eosinophils Absolute Basophils Carbonic Acid HCO3/H2CO3 Ratio ABG pH ABG pCO2 ABG pO2 ABG HCO3 ABG Total CO2 ABG O2 Saturation ABG Base Excess FiO2 Sodium Potassium Chloride Carbon Dioxide Anion Gap BUN Creatinine Est GFR ( Amer) Est GFR (Non-Af Amer) Glucose POC Glucose < 30 L* 157 H 85 Hemoglobin A1c % Insulin Level Calcium Total Bilirubin Direct Bilirubin Neonat Total Bilirubin Neonat Direct Bilirubin Neonat Indirect Bili AST ALT Alkaline Phosphatase Creatine Kinase CK-MB (CK-2) Troponin I Total Protein Albumin Triglycerides Cholesterol LDL Cholesterol Direct VLDL Cholesterol HDL Cholesterol 09/01/18 09/01/18 09/01/18 09:41 10:11 11:00 WBC RBC Hgb Hct MCV MCH MCHC RDW Plt Count Seg Neutrophils % Lymphocytes % Monocytes % Eosinophils % Basophils % Absolute Neutrophils Absolute Lymphocytes Absolute Monocytes Absolute Eosinophils Absolute Basophils Carbonic Acid HCO3/H2CO3 Ratio ABG pH ABG pCO2 ABG pO2 ABG HCO3 ABG Total CO2 ABG O2 Saturation ABG Base Excess FiO2 Sodium Potassium Chloride Carbon Dioxide Anion Gap BUN Creatinine Est GFR ( Amer) Est GFR (Non-Af Amer) Glucose POC Glucose 56 L 95 54 L Hemoglobin A1c % Insulin Level Calcium Total Bilirubin Direct Bilirubin Neonat Total Bilirubin Neonat Direct Bilirubin Neonat Indirect Bili AST ALT Alkaline Phosphatase Creatine Kinase CK-MB (CK-2) Troponin I Total Protein Albumin Triglycerides Cholesterol LDL Cholesterol Direct VLDL Cholesterol HDL Cholesterol 09/01/18 09/01/18 09/01/18 12:19 13:02 13:37 WBC RBC Hgb Hct MCV MCH MCHC RDW Plt Count Seg Neutrophils % Lymphocytes % Monocytes % Eosinophils % Basophils % Absolute Neutrophils Absolute Lymphocytes Absolute Monocytes Absolute Eosinophils Absolute Basophils Carbonic Acid HCO3/H2CO3 Ratio ABG pH ABG pCO2 ABG pO2 ABG HCO3 ABG Total CO2 ABG O2 Saturation ABG Base Excess FiO2 Sodium Potassium Chloride Carbon Dioxide Anion Gap BUN Creatinine Est GFR ( Amer) Est GFR (Non-Af Amer) Glucose POC Glucose 41 L 54 L 65 L Hemoglobin A1c % Insulin Level Calcium Total Bilirubin Direct Bilirubin Neonat Total Bilirubin Neonat Direct Bilirubin Neonat Indirect Bili AST ALT Alkaline Phosphatase Creatine Kinase CK-MB (CK-2) Troponin I Total Protein Albumin Triglycerides Cholesterol LDL Cholesterol Direct VLDL Cholesterol HDL Cholesterol 09/01/18 09/01/18 09/01/18 14:04 15:44 17:02 WBC RBC Hgb Hct MCV MCH MCHC RDW Plt Count Seg Neutrophils % Lymphocytes % Monocytes % Eosinophils % Basophils % Absolute Neutrophils Absolute Lymphocytes Absolute Monocytes Absolute Eosinophils Absolute Basophils Carbonic Acid HCO3/H2CO3 Ratio ABG pH ABG pCO2 ABG pO2 ABG HCO3 ABG Total CO2 ABG O2 Saturation ABG Base Excess FiO2 Sodium Potassium Chloride Carbon Dioxide Anion Gap BUN Creatinine Est GFR ( Amer) Est GFR (Non-Af Amer) Glucose POC Glucose 71 69 L 46 L Hemoglobin A1c % Insulin Level Calcium Total Bilirubin Direct Bilirubin Neonat Total Bilirubin Neonat Direct Bilirubin Neonat Indirect Bili AST ALT Alkaline Phosphatase Creatine Kinase CK-MB (CK-2) Troponin I Total Protein Albumin Triglycerides Cholesterol LDL Cholesterol Direct VLDL Cholesterol HDL Cholesterol 09/01/18 09/01/18 09/01/18 18:01 19:31 20:10 WBC RBC Hgb Hct MCV MCH MCHC RDW Plt Count Seg Neutrophils % Lymphocytes % Monocytes % Eosinophils % Basophils % Absolute Neutrophils Absolute Lymphocytes Absolute Monocytes Absolute Eosinophils Absolute Basophils Carbonic Acid HCO3/H2CO3 Ratio ABG pH ABG pCO2 ABG pO2 ABG HCO3 ABG Total CO2 ABG O2 Saturation ABG Base Excess FiO2 Sodium Potassium Chloride Carbon Dioxide Anion Gap BUN Creatinine Est GFR ( Amer) Est GFR (Non-Af Amer) Glucose POC Glucose 83 68 L Hemoglobin A1c % Insulin Level 5.72 Calcium Total Bilirubin Direct Bilirubin Neonat Total Bilirubin Neonat Direct Bilirubin Neonat Indirect Bili AST ALT Alkaline Phosphatase Creatine Kinase CK-MB (CK-2) Troponin I Total Protein Albumin Triglycerides Cholesterol LDL Cholesterol Direct VLDL Cholesterol HDL Cholesterol 09/01/18 09/01/18 20:23 20:42 WBC RBC Hgb Hct MCV MCH MCHC RDW Plt Count Seg Neutrophils % Lymphocytes % Monocytes % Eosinophils % Basophils % Absolute Neutrophils Absolute Lymphocytes Absolute Monocytes Absolute Eosinophils Absolute Basophils Carbonic Acid HCO3/H2CO3 Ratio ABG pH ABG pCO2 ABG pO2 ABG HCO3 ABG Total CO2 ABG O2 Saturation ABG Base Excess FiO2 Sodium Potassium Chloride Carbon Dioxide Anion Gap BUN Creatinine Est GFR ( Amer) Est GFR (Non-Af Amer) Glucose POC Glucose 105 104 Hemoglobin A1c % Insulin Level Calcium Total Bilirubin Direct Bilirubin Neonat Total Bilirubin Neonat Direct Bilirubin Neonat Indirect Bili AST ALT Alkaline Phosphatase Creatine Kinase CK-MB (CK-2) Troponin I Total Protein Albumin Triglycerides Cholesterol LDL Cholesterol Direct VLDL Cholesterol HDL Cholesterol Head CT 08/31/18 09:43 IMPRESSION: Multiple old infarcts EVIDENCE OF ACUTE STROKE: NO. Chest X-Ray 08/31/18 09:44 IMPRESSION: Pulmonary edema Mild cardiomegaly with left-sided pacemaker/ defibrillator Left lower lobe partial collapse with consolidation Endotracheal tube, nasogastric tube in good positioning. Chest X-Ray 09/01/18 05:00 IMPRESSION: Improved aeration bilaterally. Support lines and tubes remain in satisfactory position. Chest X-Ray 09/01/18 11:56 IMPRESSION: Interval placement of a right subclavian vascular catheter, tip projecting over the mid SVC. Otherwise stable AP examination with support apparatus including endotracheal tube with tip just below the thoracic inlet, esophagogastric tube, and left chest multi lead pacer defibrillator. Cardiomegaly. The patient's 24-hour intake is 1373 mL. Output is 1100 mL. The patient is EKG shows multifocal atrial tachycardia. Right bundle branch block pattern. Diffuse nonspecific ST-T changes minor. IMPRESSION/RECOMMENDATION: 1. Acute cardio respiratory failure/arrest status post intubation? Etiology.Most likely due to a combination of heart failure and pneumonia 2. History of atrial fibrillation with right bundle branch block pattern status post cardioversion. At present patient with multifocal atrial tachycardia. Patient is on a Cardizem drip. 3. CONGESTIVE heart failure: This is acute on chronic systolic heart failure. Continue IV Lasix infusion. 4. Left lower lobe pneumonia: Continue antibiotics 5.Persistent hypoglycemia: Continue 10% dextrose infusion. 6. Dilated cardiomyopathy: Ejection fraction not known. 7. History of AICD placement: Interrogation of the AICD states that is working properly. The patient was unresponsive and had cardiorespiratory arrest when the EMS went there there was no firing of the AICD since there was no ventricular arrhythmias detected by the AICD. The patient had some atrial arrhythmias. Most likely atrial fibrillation, which was cardioverted by the EMT. 8. History of asthma/COPD. Continue ventilator support and antibiotics. 9. Diabetes mellitus type 2 [id number]. At present patient persistently hypoglycemic. 10. Chronic kidney disease stage III. 11. History of seizure disorder: No seizures this admission. Medications reviewed. Management plan discussed with attending physician on the case. Medical decision making is of high complexity. 40 minutes spent on this patient with more than 50% time spent in direct patient care. Will follow
[2018-09-01] MEDS ORDERED: ATORVASTATIN CALCIUM 20 MG TABLET PO SCH (22:00)
[2018-09-01] MEDS: METOPROLOL TARTRATE 50 MG TABLET NG SCH (22:32)
[2018-09-01] MEDS: ATORVASTATIN CALCIUM 20 MG TABLET NG SCH (22:32)
[2018-09-01] MEDS: LEVETIRACETAM ORAL SOLN 500 MG/5 ML UDCUP NG SCH (22:36)
--- NOTE | 2018-09-02 01:14 | PROGRESS NOTE E ---
Progress Note NAME: RICKY PETTY : 1945 AGE: 73Y DATE: 09/01/2018 ROOM: 601 SUBJECTIVE: The patient is a 73-year-old -[place] male who came in with status post cardiac arrest with acute respiratory failure requiring invasive mechanical ventilation. The patient hypoglycemia remains entirely persistent, getting hourly blood sugar checks and getting hourly D50 overnight. This morning the patient was started on a glucagon drip. The patient still has perfuse amount of endotracheal tube secretions. Sputum culture was sent and result is pending. No vomiting. No diarrhea. The patient was started on NG tube feeding at 10 mL/hr. Gastric residual is slightly increased at 16 mL. OBJECTIVE: GENERAL: The patient appeared unresponsive, breathing spontaneously at 18 breathes per minute. VITAL SIGNS: Blood pressure 145/72, heart rate is 126 beats per minute, currently on Cardizem drip. Seen by carbonation tester, Dr. Dooley. Respiratory rate is 18 and saturation is 96% on FiO2 of 21% and SIMV rate of 14 and tidal volume of 470 mL with minute ventilation of 8 to 9. Peak airway pressure is 15. EYES: No jaundice or pallor. EARS, NOSE, AND THROAT: No ear drainage. No nasal discharge. CHEST AND LUNGS: No wheezing, no rhonchi, no coarse crackles noted. CARDIOVASCULAR: S1, S2 distinct. Tachycardic and regular rhythm. ABDOMEN: Flabby, hypoactive bowel sounds, soft, nondistended. EXTREMITIES: No joint swelling, no cellulitis. LABORATORY DATA: CBC done today shows a white count of 11.9, hemoglobin 11.7, hematocrit is 35, platelet count is 197. Blood gas this morning shows a pH of 7.48, CO2 of 41, pO2 is 106, and bicarb is 29, oxygen saturation is 98.2. Chemistry done this morning shows sodium 143, potassium 3.4, chloride 107, carbon dioxide 27, BUN 39, creatinine is 2.10, glucose is 77, calcium is 8.8, total bilirubin is 0.4, direct bilirubin is 0.3, SGOT is 24, SGPT 21, alkaline phosphatase 88. ASSESSMENT: 1. ACUTE RESPIRATORY FAILURE REQUIRING INVASIVE MECHANICAL INTUBATION AND OXYGEN. 2. ALTERED MENTAL STATUS, STATUS POST CARDIAC ARREST. PLAN: 1. We will continue to optimize ventilatory support. 2. We will do a spontaneous breathing trial every morning, when fully awake. 3. Agree with IV antibiotics for now. 4. Awaiting culture results. DICTATING PHYSICIAN: LARY LYNCH MD,ROHAN,MPH [id number] PHY#: [id number] ID: [id number] JOB#: [id number] ACCT: [id number] cc: > MTDD
[2018-09-02] MEDS: PHENYTOIN 50 MG TAB.CHEW NG SCH ×3 (01:31→18:34)
[2018-09-02] MEDS: DILTIAZEM HCL/D5W 125 MG/125 ML RTUINJ IV PRN (03:38)
[2018-09-02] MEDS: DEXTROSE 10%-WATER 500 ML with DEXTROSE 50%-WATER 25 GM IV PRN ×4 (03:38→18:35)
[2018-09-02] MEDS: HEPARIN SOD (PORCINE) 5,000 UNIT/ML 1 ML SYRINGE SUBCUT SCH ×3 (05:20→21:45)
[2018-09-02] MEDS: GLUCAGON HUMAN RECOMBINANT IV PRN (05:20)
[2018-09-02] MEDS: NORMAL SALINE IV PRN (05:20)
[2018-09-02 06:07] LABS: ARTERIAL BLOOD BASE EXCESS 0.2 mmol/L; ARTERIAL BLOOD H2CO3 1.03 mmol/L (1.05-1.35); ARTERIAL BLOOD HCO3 23.6 mmol/L (20-24); ARTERIAL BLOOD O2 SATURATION 96.6 % (94-98); ARTERIAL BLOOD PCO2 34.2 mmHg (35-45); ARTERIAL BLOOD PH 7.46 (7.35-7.45); ARTERIAL BLOOD PO2 81.4 mmHg (80-100); ARTERIAL BLOOD TOTAL CO2 24.7 mmol/L (23-27)
[2018-09-02 06:09] LABS: ARTERIAL BLOOD FIO2 21%
[2018-09-02 06:13] LABS: ABSOLUTE EOSINOPHILS # (AUTO) 0.1 10^3/uL (0.0-0.6); ABSOLUTE LYMPHOCYTES (AUTO) 0.8 10^3/uL (0.5-4.7); ABSOLUTE MONOCYTES (AUTO) 0.9 10^3/uL (0.1-1.4); ABSOLUTE NEUT (AUTO) 7.5 10^3/uL (1.7-8.2); BASOPHILS % (AUTO) 0.1 % (0-2); HEMATOCRIT 32.8 % (37.9-51.0); MEAN CORPUSCULAR HEMOGLOBIN 31.7 pg (27.0-33.4); MEAN CORPUSCULAR HGB CONC 33.5 g/dL (32.0-36.0); MEAN CORPUSCULAR VOLUME 95 fl (80-97); MONOCYTES % (AUTO) 9.8 % (3-13); PLATELET COUNT 186 10^3/uL (150-450); RED BLOOD COUNT 3.47 10^6/uL (4.35-5.55); RED CELL DISTRIBUTION WIDTH 13.9 % (11.5-14.0); SEGMENTED NEUTROPHILS % (AUTO) 80.1 % (42-78); TOTAL CELLS COUNTED % (AUTO) 100 %; WHITE BLOOD COUNT 9.3 10^3/uL (4.0-10.5)
[2018-09-02 06:25] LABS: ALANINE AMINOTRANSFERASE 25 U/L (21-72); ALBUMIN 2.6 g/dL (3.5-5.0); ALKALINE PHOSPHATASE 80 U/L (38-126); ANION GAP 10 (5-19); ASPARTATE AMINO TRANSFERASE 25 U/L (17-59); BILIRUBIN,DIRECT 0.3 mg/dL (0.0-0.4); BILIRUBIN,TOTAL 0.4 mg/dL (0.2-1.3); BLOOD UREA NITROGEN 47 mg/dL (7-20); CALCIUM 7.8 mg/dL (8.4-10.2); CARBON DIOXIDE 27 mmol/L (22-30); CHLORIDE 104 mmol/L (98-107); GLUCOSE 116 mg/dL (75-110); SODIUM 140.5 mmol/L (137-145); TOTAL PROTEIN 5.2 g/dL (6.3-8.2)
--- NOTE | 2018-09-02 08:43 | RADIOLOGY REPORT (SQ) ---
EXAM DESCRIPTION: CHEST SINGLE VIEW COMPLETED DATE/TIME: 09/02/2018 6:16 am REASON FOR STUDY: ETT/NG TUBE COMPARISON: 09/01/2018 EXAM PARAMETERS: NUMBER OF VIEWS: One view TECHNIQUE: Single frontal radiograph of the chest. RADIATION DOSE: N/A LIMITATIONS: None. FINDINGS: TEMPORARY SUPPORT DEVICES:ETT in expected location. NG tube courses below the kaycee-diaphr agm in to the stomach. PICC catheter from right peripheral approach is in expected location. LUNGS AND PLEURA: No opacities. No effusions. No masses. No pneumothorax. MEDIASTINUM AND HILAR STRUCTURES: No masses. Contour normal. HEART AND VASCULAR STRUCTURES: Heart enlarged. Normal vascularity. Aorta normal for age. BONES: No acute findings. OTHER: Cardiac hardware unchanged. IMPRESSION: NO ACUTE RADIOGRAPHIC FINDING IN THE CHEST. SUPPORT DEVICE(S) IN EXPECTED LOCATIONS. TECHNICAL DOCUMENTATION: JOB ID: [id number] [employer]- All Rights Reserved Reading location - IP/workstation name: AIDE
[2018-09-02] MEDS: MAGNESIUM SULFATE 1 GM/D5W 100 ML IV SCH ×2 (09:22→10:10)
[2018-09-02] MEDS: POTASSIUM CHLORIDE 20 MEQ/50 ML RTU IV SCH ×3 (09:22→13:26)
[2018-09-02] MEDS: MIDAZOLAM HCL 50 MG/100 ML RTUINJ IV PRN (09:23)
[2018-09-02] MEDS: CEFEPIME 1 GM/D5W RTU 1 GM/50 ML RTUPB IV SCH ×2 (09:24→21:46)
[2018-09-02] MEDS: PANTOPRAZOLE SODIUM 40 MG VIAL IV SCH ×2 (09:24→21:45)
[2018-09-02] MEDS: METOPROLOL TARTRATE 50 MG TABLET NG SCH ×2 (09:25→21:44)
[2018-09-02] MEDS: LEVETIRACETAM ORAL SOLN 500 MG/5 ML UDCUP NG SCH ×2 (09:26→21:45)
--- NOTE | 2018-09-02 12:28 | PDOC PROGRESS REPORT ---
Subjective Progress Note for:: 09/02/18 Subjective:: Patient was admitted because of acute respiratory failure unresponsive and also cardiac failure Patient also running hypoglycemic Patient is currently blood sugar is running 100 range after glucagon drips Patient's family on the bedside Still intubated Follow-up with the cardiology and pulmonary Patient's potassium is low Reason For Visit: ACUTE PULMONARY EDEMA,HYPOGLYCEMIC ENCEPHALOPATHY Physical Exam Vital Signs: Temp Pulse Resp BP Pulse Ox 98.6 F 90 14 119/71 99 09/02/18 08:08 09/02/18 08:08 09/02/18 12:15 09/02/18 11:24 09/02/18 12:15 Intake & Output 09/01/18 09/02/18 09/03/18 06:59 06:59 06:59 Intake Total 1373 2869 482 Output Total 1100 1545 95 Balance 273 1324 387 Weight 79.9 kg 79 kg Physical Exam: Currently intubated under sedation Eye exam: PRESENT: PERRLA Mouth exam: PRESENT: neck supple Respiratory exam: PRESENT: decreased breath sounds Cardiovascular exam: PRESENT: +S1, +S2 GI/Abdominal exam: PRESENT: soft. ABSENT: tenderness Additional comments: Currently under sedation's and intubated Results Laboratory Results: 09/02/18 05:45 09/02/18 05:45 09/02/18 09/02/18 09/02/18 05:45 05:45 05:45 WBC 9.3 RBC 3.47 L Hgb 11.0 L Hct 32.8 L MCV 95 MCH 31.7 MCHC 33.5 RDW 13.9 Plt Count 186 Seg Neutrophils % 80.1 H Lymphocytes % 9.0 L Monocytes % 9.8 Eosinophils % 1.0 Basophils % 0.1 Absolute Neutrophils 7.5 Absolute Lymphocytes 0.8 Absolute Monocytes 0.9 Absolute Eosinophils 0.1 Absolute Basophils 0.0 Carbonic Acid 1.03 L HCO3/H2CO3 Ratio 22:1 ABG pH 7.46 H ABG pCO2 34.2 L ABG pO2 81.4 ABG HCO3 23.6 ABG O2 Saturation 96.6 ABG Base Excess 0.2 FiO2 21% Sodium 140.5 Potassium 3.0 L* Chloride 104 Carbon Dioxide 27 Anion Gap 10 BUN 47 H Creatinine 2.61 H Est GFR ( Amer) 29 L Est GFR (Non-Af Amer) 24 L Glucose 116 H Calcium 7.8 L Magnesium Total Bilirubin 0.4 AST 25 ALT 25 Alkaline Phosphatase 80 Total Protein 5.2 L Albumin 2.6 L 09/02/18 05:45 WBC RBC Hgb Hct MCV MCH MCHC RDW Plt Count Seg Neutrophils % Lymphocytes % Monocytes % Eosinophils % Basophils % Absolute Neutrophils Absolute Lymphocytes Absolute Monocytes Absolute Eosinophils Absolute Basophils Carbonic Acid HCO3/H2CO3 Ratio ABG pH ABG pCO2 ABG pO2 ABG HCO3 ABG O2 Saturation ABG Base Excess FiO2 Sodium Potassium Chloride Carbon Dioxide Anion Gap BUN Creatinine Est GFR ( Amer) Est GFR (Non-Af Amer) Glucose Calcium Magnesium 1.3 L Total Bilirubin AST ALT Alkaline Phosphatase Total Protein Albumin 08/31/18 08/31/18 08/31/18 09:43 09:43 13:29 Creatine Kinase 248 H 270 H CK-MB (CK-2) 4.20 Troponin I 0.060 NT-Pro-B Natriuret Pep 5890 H 08/31/18 08/31/18 08/31/18 13:29 21:00 21:00 Creatine Kinase 227 H CK-MB (CK-2) 4.20 3.93 Troponin I 0.063 0.078 NT-Pro-B Natriuret Pep 09/01/18 09/01/18 03:30 03:30 Creatine Kinase 187 H CK-MB (CK-2) 3.12 Troponin I 0.096 NT-Pro-B Natriuret Pep Impressions: Head CT 08/31/18 09:43 IMPRESSION: Multiple old infarcts EVIDENCE OF ACUTE STROKE: NO. Chest X-Ray 09/02/18 06:00 IMPRESSION: NO ACUTE RADIOGRAPHIC FINDING IN THE CHEST. SUPPORT DEVICE(S) IN EXPECTED LOCATIONS. Assessment & Plan - Diagnosis (1) Acute hypoxemic respiratory failure Is this a current diagnosis for this admission?: Yes Plan: Currently on a ventilations continues to pulmonary management (2) Acute systolic heart failure Is this a current diagnosis for this admission?: Yes Plan: Continues to follow with the cardiology (3) Atrial fibrillation Qualifiers: Atrial fibrillation type: paroxysmal Qualified Code(s): I48.0 - Paroxysmal atrial fibrillation Is this a current diagnosis for this admission?: Yes Plan: Currently under control (4) Chronic kidney disease, stage 3 Is this a current diagnosis for this admission?: Yes Plan: Consult the nephrology (6) Hypoglycemia Is this a current diagnosis for this admission?: Yes (7) Hypoglycemic encephalopathy Is this a current diagnosis for this admission?: Yes (9) Diabetes mellitus Qualifiers: Diabetes mellitus type: type 2 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
[2018-09-02] MEDS: DEXTROSE 50%-WATER SYRINGE 25 GM/50 ML DOSE IV PRN ×2 (14:51→20:29)
[2018-09-02] MEDS ORDERED: PROPOFOL INJ 200 MG/20 ML VIAL IV SCH (16:15)
[2018-09-02] MEDS ORDERED: MIDAZOLAM HCL 50 MG/100 ML RTUINJ IV PRN (16:22)
--- NOTE | 2018-09-02 17:32 | RADIOLOGY REPORT (SQ) ---
EXAM DESCRIPTION: CHEST SINGLE VIEW COMPLETED DATE/TIME: 09/02/2018 5:17 pm REASON FOR STUDY: Advancement of ET Tube/ Check Placement COMPARISON: Earlier exam at 0600 hours NUMBER OF VIEWS: One view. TECHNIQUE: Single frontal radiographic image of the chest acquired. LIMITATIONS: None. FINDINGS: ENDOTRACHEAL TUBE: Stable, tip overlying the mid trachea. OTHER SUPPORT DEVICES: Nasogastric catheters present with side port overlying the body of the stomach . Right subclavian central venous catheter tip overlies the SVC near the level of the aortic arch, s table. CHANGES IN RADIOGRAPHIC FINDINGS: None. Stable appearance. HARDWARE: Cardiac defibrillator. OTHER: No other significant finding. IMPRESSION: Tubes and lines appear in expected position. STABLE APPEARANCE OF THE CHEST. TECHNICAL DOCUMENTATION: JOB ID: [id number] [employer]- All Rights Reserved Reading location - IP/workstation name: [facility]
--- NOTE | 2018-09-02 17:39 | Progress Note ---
Provider Note Provider Note: CARDIOLOGY PROGRESS NOTE by Dr. Rossy Carty on 09/02/2018. SUBJECTIVE: The patient continues to be intubated and sedated. He appears to be in no acute distress. There is no atrial or ventricular arrhythmias seen. PHYSICAL EXAMINATION: The patient appears to be chronically ill. He is well- groomed. He is not fighting the ventilator. Selected Entries 09/02/18 09/02/18 09/02/18 07:30 08:00 08:08 Temperature 98.6 F Core 98.6 F Temperature Pulse Rate 90 Heart Rate ( 70 Monitors) Respiratory 16 18 Rate Blood Pressure 93/54 L [Upper Arm] Blood Pressure 67 Mean [Upper Arm ] Blood Pressure Supine Position [Upper Arm] O2 Sat by Pulse 100 99 Oximetry Oxygen Delivery Mechanical Method ( Ventilator includes room air) Fraction of 21 Inspired Oxygen (FIO2) End-Tidal CO2 31 Concentration Head: Is atraumatic normocephalic. EYES: Tubes are equal round regular reactive to light. EARS: Tympanic membranes are intact. External auditory canals are clear. Otherwise ENT is negative. NECK: Supple. There is no JVD. Carotids are equal there is no bruit. There is no accessory muscle respiration use. Trachea appears to be central. LUNGS: There is scattered rhonchi. There is a few bibasilar rales of CHF. There is diminished air entry and prolonged expiration. On percussion there is hyperresonance. There is dry crackles in the left lower lobe area consistent with pneumonia. HEART: S1-S2 is heard. S1 is of normal intensity. Monitor strip shows multifocal atrial tachycardia. There is systolic murmur left sternal border and the apex. There is no rub. There is murmur of MR and TR present. There is no rub. ABDOMEN: Soft. There is no hepatosplenomegaly. Bowel sounds. EXTREMITIES: Femorals are diminished. Leg pulses are diminished. There is definite pedal edema. There is no DVT or cellulitis. MASTER AT ARMS and psychiatric not examined as the patient is intubated and sedated. Labs- All tests 24 hr 09/01/18 09/01/18 09/01/18 18:01 19:31 20:10 WBC RBC Hgb Hct MCV MCH MCHC RDW Plt Count Seg Neutrophils % Lymphocytes % Monocytes % Eosinophils % Basophils % Absolute Neutrophils Absolute Lymphocytes Absolute Monocytes Absolute Eosinophils Absolute Basophils Carbonic Acid HCO3/H2CO3 Ratio ABG pH ABG pCO2 ABG pO2 ABG HCO3 ABG Total CO2 ABG O2 Saturation ABG Base Excess FiO2 Sodium Potassium Chloride Carbon Dioxide Anion Gap BUN Creatinine Est GFR ( Amer) Est GFR (Non-Af Amer) Glucose POC Glucose 83 68 L Insulin Level 5.72 Calcium Magnesium Total Bilirubin Direct Bilirubin Neonat Total Bilirubin Neonat Direct Bilirubin Neonat Indirect Bili AST ALT Alkaline Phosphatase Total Protein Albumin 09/01/18 09/01/18 09/01/18 20:23 20:42 21:21 WBC RBC Hgb Hct MCV MCH MCHC RDW Plt Count Seg Neutrophils % Lymphocytes % Monocytes % Eosinophils % Basophils % Absolute Neutrophils Absolute Lymphocytes Absolute Monocytes Absolute Eosinophils Absolute Basophils Carbonic Acid HCO3/H2CO3 Ratio ABG pH ABG pCO2 ABG pO2 ABG HCO3 ABG Total CO2 ABG O2 Saturation ABG Base Excess FiO2 Sodium Potassium Chloride Carbon Dioxide Anion Gap BUN Creatinine Est GFR ( Amer) Est GFR (Non-Af Amer) Glucose POC Glucose 105 104 102 Insulin Level Calcium Magnesium Total Bilirubin Direct Bilirubin Neonat Total Bilirubin Neonat Direct Bilirubin Neonat Indirect Bili AST ALT Alkaline Phosphatase Total Protein Albumin 09/01/18 09/01/18 09/02/18 22:27 23:28 00:29 WBC RBC Hgb Hct MCV MCH MCHC RDW Plt Count Seg Neutrophils % Lymphocytes % Monocytes % Eosinophils % Basophils % Absolute Neutrophils Absolute Lymphocytes Absolute Monocytes Absolute Eosinophils Absolute Basophils Carbonic Acid HCO3/H2CO3 Ratio ABG pH ABG pCO2 ABG pO2 ABG HCO3 ABG Total CO2 ABG O2 Saturation ABG Base Excess FiO2 Sodium Potassium Chloride Carbon Dioxide Anion Gap BUN Creatinine Est GFR ( Amer) Est GFR (Non-Af Amer) Glucose POC Glucose 76 81 72 Insulin Level Calcium Magnesium Total Bilirubin Direct Bilirubin Neonat Total Bilirubin Neonat Direct Bilirubin Neonat Indirect Bili AST ALT Alkaline Phosphatase Total Protein Albumin 09/02/18 09/02/18 09/02/18 01:14 02:57 03:42 WBC RBC Hgb Hct MCV MCH MCHC RDW Plt Count Seg Neutrophils % Lymphocytes % Monocytes % Eosinophils % Basophils % Absolute Neutrophils Absolute Lymphocytes Absolute Monocytes Absolute Eosinophils Absolute Basophils Carbonic Acid HCO3/H2CO3 Ratio ABG pH ABG pCO2 ABG pO2 ABG HCO3 ABG Total CO2 ABG O2 Saturation ABG Base Excess FiO2 Sodium Potassium Chloride Carbon Dioxide Anion Gap BUN Creatinine Est GFR ( Amer) Est GFR (Non-Af Amer) Glucose POC Glucose 76 115 H 128 H Insulin Level Calcium Magnesium Total Bilirubin Direct Bilirubin Neonat Total Bilirubin Neonat Direct Bilirubin Neonat Indirect Bili AST ALT Alkaline Phosphatase Total Protein Albumin 09/02/18 09/02/18 09/02/18 04:46 05:45 05:45 WBC RBC Hgb Hct MCV MCH MCHC RDW Plt Count Seg Neutrophils % Lymphocytes % Monocytes % Eosinophils % Basophils % Absolute Neutrophils Absolute Lymphocytes Absolute Monocytes Absolute Eosinophils Absolute Basophils Carbonic Acid 1.03 L HCO3/H2CO3 Ratio 22:1 ABG pH 7.46 H ABG pCO2 34.2 L ABG pO2 81.4 ABG HCO3 23.6 ABG Total CO2 24.7 ABG O2 Saturation 96.6 ABG Base Excess 0.2 FiO2 21% Sodium 140.5 Potassium 3.0 L* Chloride 104 Carbon Dioxide 27 Anion Gap 10 BUN 47 H Creatinine 2.61 H Est GFR ( Amer) 29 L Est GFR (Non-Af Amer) 24 L Glucose 116 H POC Glucose 125 H Insulin Level Calcium 7.8 L Magnesium Total Bilirubin 0.4 Direct Bilirubin 0.3 Neonat Total Bilirubin Not Reportable Neonat Direct Bilirubin Not Reportable Neonat Indirect Bili Not Reportable AST 25 ALT 25 Alkaline Phosphatase 80 Total Protein 5.2 L Albumin 2.6 L 09/02/18 09/02/18 09/02/18 05:45 05:45 05:46 WBC 9.3 RBC 3.47 L Hgb 11.0 L Hct 32.8 L MCV 95 MCH 31.7 MCHC 33.5 RDW 13.9 Plt Count 186 Seg Neutrophils % 80.1 H Lymphocytes % 9.0 L Monocytes % 9.8 Eosinophils % 1.0 Basophils % 0.1 Absolute Neutrophils 7.5 Absolute Lymphocytes 0.8 Absolute Monocytes 0.9 Absolute Eosinophils 0.1 Absolute Basophils 0.0 Carbonic Acid HCO3/H2CO3 Ratio ABG pH ABG pCO2 ABG pO2 ABG HCO3 ABG Total CO2 ABG O2 Saturation ABG Base Excess FiO2 Sodium Potassium Chloride Carbon Dioxide Anion Gap BUN Creatinine Est GFR ( Amer) Est GFR (Non-Af Amer) Glucose POC Glucose 132 H Insulin Level Calcium Magnesium 1.3 L Total Bilirubin Direct Bilirubin Neonat Total Bilirubin Neonat Direct Bilirubin Neonat Indirect Bili AST ALT Alkaline Phosphatase Total Protein Albumin 09/02/18 09/02/18 09/02/18 07:58 09:05 09:54 WBC RBC Hgb Hct MCV MCH MCHC RDW Plt Count Seg Neutrophils % Lymphocytes % Monocytes % Eosinophils % Basophils % Absolute Neutrophils Absolute Lymphocytes Absolute Monocytes Absolute Eosinophils Absolute Basophils Carbonic Acid HCO3/H2CO3 Ratio ABG pH ABG pCO2 ABG pO2 ABG HCO3 ABG Total CO2 ABG O2 Saturation ABG Base Excess FiO2 Sodium Potassium Chloride Carbon Dioxide Anion Gap BUN Creatinine Est GFR ( Amer) Est GFR (Non-Af Amer) Glucose POC Glucose 101 93 85 Insulin Level Calcium Magnesium Total Bilirubin Direct Bilirubin Neonat Total Bilirubin Neonat Direct Bilirubin Neonat Indirect Bili AST ALT Alkaline Phosphatase Total Protein Albumin 09/02/18 09/02/18 09/02/18 11:12 12:04 13:05 WBC RBC Hgb Hct MCV MCH MCHC RDW Plt Count Seg Neutrophils % Lymphocytes % Monocytes % Eosinophils % Basophils % Absolute Neutrophils Absolute Lymphocytes Absolute Monocytes Absolute Eosinophils Absolute Basophils Carbonic Acid HCO3/H2CO3 Ratio ABG pH ABG pCO2 ABG pO2 ABG HCO3 ABG Total CO2 ABG O2 Saturation ABG Base Excess FiO2 Sodium Potassium Chloride Carbon Dioxide Anion Gap BUN Creatinine Est GFR ( Amer) Est GFR (Non-Af Amer) Glucose POC Glucose 128 H 113 H 93 Insulin Level Calcium Magnesium Total Bilirubin Direct Bilirubin Neonat Total Bilirubin Neonat Direct Bilirubin Neonat Indirect Bili AST ALT Alkaline Phosphatase Total Protein Albumin 09/02/18 09/02/18 09/02/18 14:34 15:38 16:54 WBC RBC Hgb Hct MCV MCH MCHC RDW Plt Count Seg Neutrophils % Lymphocytes % Monocytes % Eosinophils % Basophils % Absolute Neutrophils Absolute Lymphocytes Absolute Monocytes Absolute Eosinophils Absolute Basophils Carbonic Acid HCO3/H2CO3 Ratio ABG pH ABG pCO2 ABG pO2 ABG HCO3 ABG Total CO2 ABG O2 Saturation ABG Base Excess FiO2 Sodium Potassium Chloride Carbon Dioxide Anion Gap BUN Creatinine Est GFR ( Amer) Est GFR (Non-Af Amer) Glucose POC Glucose 59 L 139 H 96 Insulin Level Calcium Magnesium Total Bilirubin Direct Bilirubin Neonat Total Bilirubin Neonat Direct Bilirubin Neonat Indirect Bili AST ALT Alkaline Phosphatase Total Protein Albumin Head CT 08/31/18 09:43 IMPRESSION: Multiple old infarcts EVIDENCE OF ACUTE STROKE: NO. Chest X-Ray 08/31/18 09:44 IMPRESSION: Pulmonary edema Mild cardiomegaly with left-sided pacemaker/ defibrillator Left lower lobe partial collapse with consolidation Endotracheal tube, nasogastric tube in good positioning. Chest X-Ray 09/01/18 05:00 IMPRESSION: Improved aeration bilaterally. Support lines and tubes remain in satisfactory position. Chest X-Ray 09/01/18 11:56 IMPRESSION: Interval placement of a right subclavian vascular catheter, tip projecting over the mid SVC. Otherwise stable AP examination with support apparatus including endotracheal tube with tip just below the thoracic inlet, esophagogastric tube, and left chest multi lead pacer defibrillator. Cardiomegaly. Chest X-Ray 09/02/18 06:00 IMPRESSION: NO ACUTE RADIOGRAPHIC FINDING IN THE CHEST. SUPPORT DEVICE(S) IN EXPECTED LOCATIONS. Chest X-Ray 09/02/18 16:24 IMPRESSION: Tubes and lines appear in expected position. STABLE APPEARANCE OF THE CHEST. IMPRESSION/RECOMMENDATION: 1. Acute cardio respiratory failure/arrest status post intubation? Etiology.Most likely due to a combination of heart failure and pneumonia 2. History of atrial fibrillation with right bundle branch block pattern status post cardioversion. At present patient with multifocal atrial tachycardia. Patient is on a Cardizem drip. 3. CONGESTIVE heart failure: This is acute on chronic systolic heart failure. Continue IV Lasix infusion. 4. Left lower lobe pneumonia: Continue antibiotics 5.Persistent hypoglycemia: Continue 10% dextrose infusion. 6. Dilated cardiomyopathy: Ejection fraction not known. 7. History of AICD placement: Interrogation of the AICD states that is working properly. The patient was unresponsive and had cardiorespiratory arrest when the EMS went there there was no firing of the AICD since there was no ventricular arrhythmias detected by the AICD. The patient had some atrial arrhythmias. Most likely atrial fibrillation, which was cardioverted by the EMT. 8. History of asthma/COPD. Continue ventilator support and antibiotics. 9. Diabetes mellitus type 2 [id number]. At present patient persistently hypoglycemic. 10. Chronic kidney disease stage III. 11. History of seizure disorder: No seizures this admission. Medications reviewed. Management plan discussed with attending physician on the case. Medical decision making is of high complexity. 40 minutes spent on this patient with more than 50% time spent in direct patient care. Will follow
[2018-09-02] MEDS: LEVOFLOXACIN 500 MG/D5W RTU 500 MG/100 ML RTUPB IV SCH (18:34)
[2018-09-02] MEDS: PROPOFOL 1,000 MG/100 ML INFUS..BTL IV PRN (18:35)
[2018-09-02] MEDS: 1/2 NORMAL SALINE 1,000 ML IV PRN (18:46)
[2018-09-02] MEDS: ATORVASTATIN CALCIUM 20 MG TABLET NG SCH (21:45)
--- NOTE | 2018-09-02 23:49 | PROGRESS NOTE E ---
Progress Note NAME: RICKY PETTY : 1945 AGE: 73Y DATE: 09/02/2018 ROOM: 601 SUBJECTIVE: Patient is a 73-year-old male who came in acute respiratory failure requiring invasive mechanical ventilation following cardiac arrest at home. Overnight, patient's temperature has been stable and blood pressure has been stable. Patient is still requiring Accu-Chek every hour, and last Accu-Chek showed blood sugar to be in the 50's Patient was given 1 dose of D50. The patient is currently tolerating the NG tube feeding of Nepro at 15 mL/hr. No vomiting, no diarrhea noted. The Glucagon infusion was stopped today and patient has continued to get IV glucose around 30%. Patient is currently receiving Versed at 2 mg/hr. Saturating about 100% on 20% FiO2 on the ventilator. OBJECTIVE: VITAL SIGNS: Patient appears sedated, afebrile, not in apparent respiratory distress, with a temperature of 99 degrees Fahrenheit, with a heart rate of 21, blood pressure 92/67 to 110/70, respirations 14. The patient is breathing over the vent on a Versed drip of 2 mg/hr. The patient is saturating 97% to 100% on 20% FiO2, tidal volume of 470, rate of 14, pressure support of 10, PEEP of 5. The FiO2 is 45%. EYES: No jaundice or pallor. EARS, NOSE AND THROAT: No ear drainage. No nasal discharge. CHEST AND LUNGS: No wheezing, no rhonchi, no coarse crackles. CARDIOVASCULAR: S1, S2 distinct. Normal rate, regular rhythm. ABDOMEN: Flabby. Positive bowel sounds. Soft, nondistended, nontender. EXTREMITIES: No joint swelling. No cellulitis. ASSESSMENT: ACUTE RESPIRATORY FAILURE REQUIRING INVASIVE MECHANICAL VENTILATION. Currently, the patient is not ready to be extubated. Has a moderate amount of endotracheal tube secretions. PLAN/RECOMMENDATIONS: 1. Will continue to optimize ventilator support. Will perform spontaneous breathing trial tomorrow, once the patient is fully awake. We will change the IV Versed to IV propofol so we can wean off sedation quickly tomorrow and evaluate if patient is ready to be extubated or not. 2. Continue GI prophylaxis and DVT prophylaxis. 3. Will do a spontaneous breathing trial every morning by gradually decreasing the IV propofol drip so patient can quickly wake up, and will do a spontaneous breathing trial every morning when patient is fully awake using SIMV rate of 2. If patient becomes tachypneic or tachycardic during the spontaneous breathing trial, will resume the ventilator settings at the same level and will resume NG tube feeding and will resume the IV sedation. 4. Will continue the IV antibiotics and instruct the nurse to increase the NG tube feeding to 15 mL, if tolerated. DICTATING PHYSICIAN: LARY LYNCH MD,ROHAN,[id number] [id number] PHY#: [id number] ID: [id number] JOB#: [id number] ACCT: [id number] cc: > MTDD
[2018-09-03] MEDS: PROPOFOL 1,000 MG/100 ML INFUS..BTL IV PRN ×3 (01:08→21:33)
[2018-09-03] MEDS: PHENYTOIN 50 MG TAB.CHEW NG SCH ×3 (01:10→17:24)
[2018-09-03] MEDS: DEXTROSE 10%-WATER 500 ML with DEXTROSE 50%-WATER 25 GM IV PRN ×6 (01:10→16:40)
[2018-09-03 04:32] LABS: ABSOLUTE EOSINOPHILS # (AUTO) 0.5 10^3/uL (0.0-0.6); ABSOLUTE LYMPHOCYTES (AUTO) 1.1 10^3/uL (0.5-4.7); ABSOLUTE MONOCYTES (AUTO) 0.9 10^3/uL (0.1-1.4); ABSOLUTE NEUT (AUTO) 5.9 10^3/uL (1.7-8.2); BASOPHILS % (AUTO) 0.5 % (0-2); EOSINOPHILS % (AUTO) 5.7 % (0-6); HEMATOCRIT 32.1 % (37.9-51.0); HEMOGLOBIN 10.8 g/dL (13.5-17.0); LYMPHOCYTES % (AUTO) 13.1 % (13-45); MEAN CORPUSCULAR HEMOGLOBIN 31.9 pg (27.0-33.4); MEAN CORPUSCULAR HGB CONC 33.8 g/dL (32.0-36.0); MEAN CORPUSCULAR VOLUME 94 fl (80-97); MONOCYTES % (AUTO) 10.3 % (3-13); PLATELET COUNT 183 10^3/uL (150-450); RED CELL DISTRIBUTION WIDTH 13.6 % (11.5-14.0); SEGMENTED NEUTROPHILS % (AUTO) 70.4 % (42-78); TOTAL CELLS COUNTED % (AUTO) 100 %; WHITE BLOOD COUNT 8.3 10^3/uL (4.0-10.5)
[2018-09-03 04:39] LABS: ARTERIAL BLOOD BASE EXCESS -1.4 mmol/L; ARTERIAL BLOOD H2CO3 1.08 mmol/L (1.05-1.35); ARTERIAL BLOOD HCO3 22.7 mmol/L (20-24); ARTERIAL BLOOD O2 SATURATION 96.3 % (94-98); ARTERIAL BLOOD PH 7.42 (7.35-7.45); ARTERIAL BLOOD PO2 82.3 mmHg (80-100); ARTERIAL BLOOD TOTAL CO2 23.8 mmol/L (23-27)
[2018-09-03 04:45] LABS: ARTERIAL BLOOD FIO2 21%
[2018-09-03 05:02] LABS: ALANINE AMINOTRANSFERASE 31 U/L (21-72); ALBUMIN 2.5 g/dL (3.5-5.0); ALKALINE PHOSPHATASE 80 U/L (38-126); ANION GAP 12 (5-19); ASPARTATE AMINO TRANSFERASE 26 U/L (17-59); BILIRUBIN,DIRECT 0.3 mg/dL (0.0-0.4); BILIRUBIN,TOTAL 0.4 mg/dL (0.2-1.3); BLOOD UREA NITROGEN 55 mg/dL (7-20); CALCIUM 7.7 mg/dL (8.4-10.2); CARBON DIOXIDE 24 mmol/L (22-30); CHLORIDE 102 mmol/L (98-107); GLUCOSE 71 mg/dL (75-110); PHOSPHORUS 5.4 mg/dL (2.5-4.5); SODIUM 137.6 mmol/L (137-145); TOTAL PROTEIN 5.1 g/dL (6.3-8.2)
[2018-09-03] MEDS: POTASSIUM CHLORIDE 20 MEQ/50 ML RTU IV SCH ×3 (05:26→14:49)
[2018-09-03] MEDS: DEXTROSE 50%-WATER SYRINGE 25 GM/50 ML DOSE IV PRN (05:26)
[2018-09-03] MEDS: HEPARIN SOD (PORCINE) 5,000 UNIT/ML 1 ML SYRINGE SUBCUT SCH ×3 (05:26→21:34)
[2018-09-03] MEDS: NORMAL SALINE 250 ML with FUROSEMIDE 250 MG IV PRN ×2 (07:00)
--- NOTE | 2018-09-03 08:24 | RADIOLOGY REPORT (SQ) ---
EXAM DESCRIPTION: CHEST SINGLE VIEW COMPLETED DATE/TIME: 09/03/2018 6:43 am REASON FOR STUDY: ETT/NG TUBE COMPARISON: 09/02/2018 EXAM PARAMETERS: NUMBER OF VIEWS: One view TECHNIQUE: Single frontal radiograph of the chest. RADIATION DOSE: N/A LIMITATIONS: None. FINDINGS: TEMPORARY SUPPORT DEVICES:ETT in expected location. NG tube courses below the kaycee-diaphr agm in to the stomach. Central venous access catheter tip is in expected location. LUNGS AND PLEURA: No opacities. No masses. No effusions. No pneumothorax. MEDIASTINUM AND HILAR STRUCTURES: No masses. Contour normal. HEART AND VASCULAR STRUCTURES: Heart enlarged. No evidence for failure. BONES: No acute findings. OTHER: Stable cardiac hardware. IMPRESSION: NO ACUTE RADIOGRAPHIC FINDING IN THE CHEST. SUPPORT DEVICE(S) IN EXPECTED LOCATIONS. TECHNICAL DOCUMENTATION: JOB ID: [id number] [employer]- All Rights Reserved Reading location - IP/workstation name: [email or web address]
[2018-09-03] MEDS: CEFEPIME 1 GM/D5W RTU 1 GM/50 ML RTUPB IV SCH ×2 (09:18→21:32)
[2018-09-03] MEDS: PANTOPRAZOLE SODIUM 40 MG VIAL IV SCH ×2 (09:19→21:58)
[2018-09-03] MEDS: LEVETIRACETAM ORAL SOLN 500 MG/5 ML UDCUP NG SCH ×2 (09:19→21:31)
[2018-09-03] MEDS: METOPROLOL TARTRATE 50 MG TABLET NG SCH ×2 (09:19→21:32)
[2018-09-03] MEDS: 1/2 NORMAL SALINE 1,000 ML IV PRN (09:24)
--- NOTE | 2018-09-03 10:50 | PDOC PROGRESS REPORT ---
Subjective Progress Note for:: 09/03/18 Subjective:: Patient is still currently doing same Patient still making good urine output Currently NG tube at 20 also D50 ampules and also one half normal saline total around 150 to 160 cc/h Patient also on the Lasix drips Patient's temperatures running lower required a bear hugger Patient otherwise still running low blood sugar Discussed with the pulmonary in ICU Reason For Visit: ACUTE PULMONARY EDEMA,HYPOGLYCEMIC ENCEPHALOPATHY Physical Exam Vital Signs: Temp Pulse Resp BP Pulse Ox 98.1 F 102 H 20 146/76 H 98 09/03/18 08:00 09/03/18 10:00 09/03/18 10:00 09/03/18 10:00 09/03/18 10:00 Intake & Output 09/02/18 09/03/18 09/04/18 06:59 06:59 06:59 Intake Total 2869 2724 1478 Output Total 1545 1340 590 Balance 1324 1384 888 Weight 79 kg 82.1 kg Physical Exam: Currently intubated Eye exam: PRESENT: PERRLA Mouth exam: PRESENT: neck supple Respiratory exam: PRESENT: decreased breath sounds Cardiovascular exam: PRESENT: +S1, +S2 GI/Abdominal exam: PRESENT: normal bowel sounds, soft Extremities exam: ABSENT: pedal edema Skin exam: PRESENT: dry Results Laboratory Results: 09/03/18 04:13 09/03/18 04:13 09/02/18 09/02/18 09/03/18 18:48 18:48 04:13 WBC RBC Hgb Hct MCV MCH MCHC RDW Plt Count Seg Neutrophils % Lymphocytes % Monocytes % Eosinophils % Basophils % Absolute Neutrophils Absolute Lymphocytes Absolute Monocytes Absolute Eosinophils Absolute Basophils Carbonic Acid 1.08 HCO3/H2CO3 Ratio 21:1 ABG pH 7.42 ABG pCO2 36.0 ABG pO2 82.3 ABG HCO3 22.7 ABG O2 Saturation 96.3 ABG Base Excess -1.4 FiO2 21% Sodium Potassium 4.2 D Chloride Carbon Dioxide Anion Gap BUN Creatinine Est GFR ( Amer) Est GFR (Non-Af Amer) Glucose Calcium Phosphorus 5.0 H Magnesium 2.6 H D Total Bilirubin AST ALT Alkaline Phosphatase Total Protein Albumin 09/03/18 09/03/18 09/03/18 04:13 04:13 10:23 WBC 8.3 RBC 3.40 L Hgb 10.8 L Hct 32.1 L MCV 94 MCH 31.9 MCHC 33.8 RDW 13.6 Plt Count 183 Seg Neutrophils % 70.4 Lymphocytes % 13.1 Monocytes % 10.3 Eosinophils % 5.7 Basophils % 0.5 Absolute Neutrophils 5.9 Absolute Lymphocytes 1.1 Absolute Monocytes 0.9 Absolute Eosinophils 0.5 Absolute Basophils 0.0 Carbonic Acid Cancelled HCO3/H2CO3 Ratio Cancelled ABG pH Cancelled ABG pCO2 Cancelled ABG pO2 Cancelled ABG HCO3 Cancelled ABG O2 Saturation Cancelled ABG Base Excess Cancelled FiO2 Cancelled Sodium 137.6 Potassium 3.0 L* D Chloride 102 Carbon Dioxide 24 Anion Gap 12 BUN 55 H Creatinine 2.96 H Est GFR ( Amer) 25 L Est GFR (Non-Af Amer) 21 L Glucose 71 L Calcium 7.7 L Phosphorus 5.4 H Magnesium 2.5 H Total Bilirubin 0.4 AST 26 ALT 31 Alkaline Phosphatase 80 Total Protein 5.1 L Albumin 2.5 L 08/31/18 09:43 Catheterized Urine Urine Culture - Final NO GROWTH 2 DAYS 08/31/18 08/31/18 08/31/18 09:43 09:43 13:29 Creatine Kinase 248 H 270 H CK-MB (CK-2) 4.20 Troponin I 0.060 NT-Pro-B Natriuret Pep 5890 H 08/31/18 08/31/18 08/31/18 13:29 21:00 21:00 Creatine Kinase 227 H CK-MB (CK-2) 4.20 3.93 Troponin I 0.063 0.078 NT-Pro-B Natriuret Pep 09/01/18 09/01/18 03:30 03:30 Creatine Kinase 187 H CK-MB (CK-2) 3.12 Troponin I 0.096 NT-Pro-B Natriuret Pep Impressions: Head CT 08/31/18 09:43 IMPRESSION: Multiple old infarcts EVIDENCE OF ACUTE STROKE: NO. Chest X-Ray 09/03/18 06:00 IMPRESSION: NO ACUTE RADIOGRAPHIC FINDING IN THE CHEST. SUPPORT DEVICE(S) IN EXPECTED LOCATIONS. Assessment & Plan - Diagnosis (1) Acute hypoxemic respiratory failure Is this a current diagnosis for this admission?: Yes Plan: Currently on a ventilations continues to pulmonary management (2) Acute systolic heart failure Is this a current diagnosis for this admission?: Yes Plan: Continues to follow with the cardiology (3) Atrial fibrillation Qualifiers: Atrial fibrillation type: paroxysmal Qualified Code(s): I48.0 - Paroxysmal atrial fibrillation Is this a current diagnosis for this admission?: Yes Plan: Currently under control (4) Chronic kidney disease, stage 3 Is this a current diagnosis for this admission?: Yes Plan: Consult the nephrology (6) Hypoglycemia Is this a current diagnosis for this admission?: Yes (7) Hypoglycemic encephalopathy Is this a current diagnosis for this admission?: Yes (9) Diabetes mellitus Qualifiers: Diabetes mellitus type: type 2 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
[2018-09-03 11:31] LABS: ARTERIAL BLOOD BASE EXCESS -2.3 mmol/L; ARTERIAL BLOOD H2CO3 0.98 mmol/L (1.05-1.35); ARTERIAL BLOOD HCO3 21.2 mmol/L (20-24); ARTERIAL BLOOD O2 SATURATION 94.8 % (94-98); ARTERIAL BLOOD PCO2 32.6 mmHg (35-45); ARTERIAL BLOOD PH 7.43 (7.35-7.45); ARTERIAL BLOOD PO2 70.4 mmHg (80-100); ARTERIAL BLOOD TOTAL CO2 22.2 mmol/L (23-27)
[2018-09-03 11:34] LABS: ARTERIAL BLOOD FIO2 21%
[2018-09-03] MEDS ORDERED: POTASSI CL 20 MEQ/50 ML RIDER 20 MEQ/50 ML RTUPB IV ONE (14:42)
--- NOTE | 2018-09-03 15:33 | Progress Note ---
Provider Note Provider Note: Cardiology PROGRESS NOTE by Dr. Rossy Carty on 09/03/2018. SUBJECTIVE: The patient is intubated and sedated. Attempts are being made to try to get the patient off the ventilator. There is no arrhythmia seen on the monitor. The patient's chest x-ray shows no evidence of heart failure present. Hence will discontinue the Lasix drip. There is no firing of his AICD. PHYSICAL EXAMINATION: The patient is a frail build. Appears to be chronically ill. He is in no acute distress although he is intubated and sedated. Selected Entries 09/03/18 12:00 Temperature 99.3 F Temperature Core Source Pulse Rate 87 Respiratory 16 Rate Blood Pressure 105/65 [Upper Arm] Blood Pressure 78 Mean [Upper Arm ] O2 Sat by Pulse 98 Oximetry Fraction of 21 Inspired Oxygen (FIO2) Head: Is atraumatic normocephalic. EYES: Tubes are equal round regular reactive to light. EARS: Tympanic membranes are intact. External auditory canals are clear. Otherwise ENT is negative. NECK: Supple. There is no JVD. Carotids are equal there is no bruit. There is no accessory muscle respiration use. Trachea appears to be central. LUNGS: There is scattered rhonchi. There is a few bibasilar rales of CHF. There is diminished air entry and prolonged expiration. On percussion there is hyperresonance. There is dry crackles in the left lower lobe area consistent with pneumonia. HEART: S1-S2 is heard. S1 is of normal intensity. Monitor strip shows multifocal atrial tachycardia. There is systolic murmur left sternal border and the apex. There is no rub. There is murmur of MR and TR present. There is no rub. ABDOMEN: Soft. There is no hepatosplenomegaly. Bowel sounds. EXTREMITIES: Femorals are diminished. Leg pulses are diminished. There is definite pedal edema. There is no DVT or cellulitis. 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 Labs- All tests 24 hr 09/02/18 09/02/18 09/02/18 15:38 16:54 17:50 WBC RBC Hgb Hct MCV MCH MCHC RDW Plt Count Seg Neutrophils % Lymphocytes % Monocytes % Eosinophils % Basophils % Absolute Neutrophils Absolute Lymphocytes Absolute Monocytes Absolute Eosinophils Absolute Basophils Carbonic Acid HCO3/H2CO3 Ratio ABG pH ABG pCO2 ABG pO2 ABG HCO3 ABG Total CO2 ABG O2 Saturation ABG Base Excess FiO2 Sodium Potassium Chloride Carbon Dioxide Anion Gap BUN Creatinine Est GFR ( Amer) Est GFR (Non-Af Amer) Glucose POC Glucose 139 H 96 71 Calcium Phosphorus Magnesium Total Bilirubin Direct Bilirubin Neonat Total Bilirubin Neonat Direct Bilirubin Neonat Indirect Bili AST ALT Alkaline Phosphatase Total Protein Albumin 09/02/18 09/02/18 09/02/18 18:43 18:48 18:48 WBC RBC Hgb Hct MCV MCH MCHC RDW Plt Count Seg Neutrophils % Lymphocytes % Monocytes % Eosinophils % Basophils % Absolute Neutrophils Absolute Lymphocytes Absolute Monocytes Absolute Eosinophils Absolute Basophils Carbonic Acid HCO3/H2CO3 Ratio ABG pH ABG pCO2 ABG pO2 ABG HCO3 ABG Total CO2 ABG O2 Saturation ABG Base Excess FiO2 Sodium Potassium 4.2 D Chloride Carbon Dioxide Anion Gap BUN Creatinine Est GFR ( Amer) Est GFR (Non-Af Amer) Glucose POC Glucose 65 L Calcium Phosphorus 5.0 H Magnesium 2.6 H D Total Bilirubin Direct Bilirubin Neonat Total Bilirubin Neonat Direct Bilirubin Neonat Indirect Bili AST ALT Alkaline Phosphatase Total Protein Albumin 09/02/18 09/02/18 09/02/18 20:10 20:41 21:43 WBC RBC Hgb Hct MCV MCH MCHC RDW Plt Count Seg Neutrophils % Lymphocytes % Monocytes % Eosinophils % Basophils % Absolute Neutrophils Absolute Lymphocytes Absolute Monocytes Absolute Eosinophils Absolute Basophils Carbonic Acid HCO3/H2CO3 Ratio ABG pH ABG pCO2 ABG pO2 ABG HCO3 ABG Total CO2 ABG O2 Saturation ABG Base Excess FiO2 Sodium Potassium Chloride Carbon Dioxide Anion Gap BUN Creatinine Est GFR ( Amer) Est GFR (Non-Af Amer) Glucose POC Glucose 66 L 127 H 109 Calcium Phosphorus Magnesium Total Bilirubin Direct Bilirubin Neonat Total Bilirubin Neonat Direct Bilirubin Neonat Indirect Bili AST ALT Alkaline Phosphatase Total Protein Albumin 09/02/18 09/02/18 09/03/18 22:46 23:43 01:12 WBC RBC Hgb Hct MCV MCH MCHC RDW Plt Count Seg Neutrophils % Lymphocytes % Monocytes % Eosinophils % Basophils % Absolute Neutrophils Absolute Lymphocytes Absolute Monocytes Absolute Eosinophils Absolute Basophils Carbonic Acid HCO3/H2CO3 Ratio ABG pH ABG pCO2 ABG pO2 ABG HCO3 ABG Total CO2 ABG O2 Saturation ABG Base Excess FiO2 Sodium Potassium Chloride Carbon Dioxide Anion Gap BUN Creatinine Est GFR ( Amer) Est GFR (Non-Af Amer) Glucose POC Glucose 112 H 83 80 Calcium Phosphorus Magnesium Total Bilirubin Direct Bilirubin Neonat Total Bilirubin Neonat Direct Bilirubin Neonat Indirect Bili AST ALT Alkaline Phosphatase Total Protein Albumin 09/03/18 09/03/18 09/03/18 02:10 02:59 03:57 WBC RBC Hgb Hct MCV MCH MCHC RDW Plt Count Seg Neutrophils % Lymphocytes % Monocytes % Eosinophils % Basophils % Absolute Neutrophils Absolute Lymphocytes Absolute Monocytes Absolute Eosinophils Absolute Basophils Carbonic Acid HCO3/H2CO3 Ratio ABG pH ABG pCO2 ABG pO2 ABG HCO3 ABG Total CO2 ABG O2 Saturation ABG Base Excess FiO2 Sodium Potassium Chloride Carbon Dioxide Anion Gap BUN Creatinine Est GFR ( Amer) Est GFR (Non-Af Amer) Glucose POC Glucose 89 80 83 Calcium Phosphorus Magnesium Total Bilirubin Direct Bilirubin Neonat Total Bilirubin Neonat Direct Bilirubin Neonat Indirect Bili AST ALT Alkaline Phosphatase Total Protein Albumin 09/03/18 09/03/18 09/03/18 04:13 04:13 04:13 WBC 8.3 RBC 3.40 L Hgb 10.8 L Hct 32.1 L MCV 94 MCH 31.9 MCHC 33.8 RDW 13.6 Plt Count 183 Seg Neutrophils % 70.4 Lymphocytes % 13.1 Monocytes % 10.3 Eosinophils % 5.7 Basophils % 0.5 Absolute Neutrophils 5.9 Absolute Lymphocytes 1.1 Absolute Monocytes 0.9 Absolute Eosinophils 0.5 Absolute Basophils 0.0 Carbonic Acid 1.08 HCO3/H2CO3 Ratio 21:1 ABG pH 7.42 ABG pCO2 36.0 ABG pO2 82.3 ABG HCO3 22.7 ABG Total CO2 23.8 ABG O2 Saturation 96.3 ABG Base Excess -1.4 FiO2 21% Sodium 137.6 Potassium 3.0 L* D Chloride 102 Carbon Dioxide 24 Anion Gap 12 BUN 55 H Creatinine 2.96 H Est GFR ( Amer) 25 L Est GFR (Non-Af Amer) 21 L Glucose 71 L POC Glucose Calcium 7.7 L Phosphorus 5.4 H Magnesium 2.5 H Total Bilirubin 0.4 Direct Bilirubin 0.3 Neonat Total Bilirubin Not Reportable Neonat Direct Bilirubin Not Reportable Neonat Indirect Bili Not Reportable AST 26 ALT 31 Alkaline Phosphatase 80 Total Protein 5.1 L Albumin 2.5 L 09/03/18 09/03/18 09/03/18 05:22 05:52 06:47 WBC RBC Hgb Hct MCV MCH MCHC RDW Plt Count Seg Neutrophils % Lymphocytes % Monocytes % Eosinophils % Basophils % Absolute Neutrophils Absolute Lymphocytes Absolute Monocytes Absolute Eosinophils Absolute Basophils Carbonic Acid HCO3/H2CO3 Ratio ABG pH ABG pCO2 ABG pO2 ABG HCO3 ABG Total CO2 ABG O2 Saturation ABG Base Excess FiO2 Sodium Potassium Chloride Carbon Dioxide Anion Gap BUN Creatinine Est GFR ( Amer) Est GFR (Non-Af Amer) Glucose POC Glucose 69 L 105 132 H Calcium Phosphorus Magnesium Total Bilirubin Direct Bilirubin Neonat Total Bilirubin Neonat Direct Bilirubin Neonat Indirect Bili AST ALT Alkaline Phosphatase Total Protein Albumin 09/03/18 09/03/18 09/03/18 08:14 09:15 10:23 WBC RBC Hgb Hct MCV MCH MCHC RDW Plt Count Seg Neutrophils % Lymphocytes % Monocytes % Eosinophils % Basophils % Absolute Neutrophils Absolute Lymphocytes Absolute Monocytes Absolute Eosinophils Absolute Basophils Carbonic Acid Cancelled HCO3/H2CO3 Ratio Cancelled ABG pH Cancelled ABG pCO2 Cancelled ABG pO2 Cancelled ABG HCO3 Cancelled ABG Total CO2 Cancelled ABG O2 Saturation Cancelled ABG Base Excess Cancelled FiO2 Cancelled Sodium Potassium Chloride Carbon Dioxide Anion Gap BUN Creatinine Est GFR ( Amer) Est GFR (Non-Af Amer) Glucose POC Glucose 103 81 Calcium Phosphorus Magnesium Total Bilirubin Direct Bilirubin Neonat Total Bilirubin Neonat Direct Bilirubin Neonat Indirect Bili AST ALT Alkaline Phosphatase Total Protein Albumin 09/03/18 09/03/18 09/03/18 11:06 11:13 12:20 WBC RBC Hgb Hct MCV MCH MCHC RDW Plt Count Seg Neutrophils % Lymphocytes % Monocytes % Eosinophils % Basophils % Absolute Neutrophils Absolute Lymphocytes Absolute Monocytes Absolute Eosinophils Absolute Basophils Carbonic Acid 0.98 L HCO3/H2CO3 Ratio 21:1 ABG pH 7.43 ABG pCO2 32.6 L ABG pO2 70.4 L ABG HCO3 21.2 ABG Total CO2 22.2 L ABG O2 Saturation 94.8 ABG Base Excess -2.3 FiO2 21% Sodium Potassium Chloride Carbon Dioxide Anion Gap BUN Creatinine Est GFR ( Amer) Est GFR (Non-Af Amer) Glucose POC Glucose 121 H 106 Calcium Phosphorus Magnesium Total Bilirubin Direct Bilirubin Neonat Total Bilirubin Neonat Direct Bilirubin Neonat Indirect Bili AST ALT Alkaline Phosphatase Total Protein Albumin 09/03/18 14:35 WBC RBC Hgb Hct MCV MCH MCHC RDW Plt Count Seg Neutrophils % Lymphocytes % Monocytes % Eosinophils % Basophils % Absolute Neutrophils Absolute Lymphocytes Absolute Monocytes Absolute Eosinophils Absolute Basophils Carbonic Acid HCO3/H2CO3 Ratio ABG pH ABG pCO2 ABG pO2 ABG HCO3 ABG Total CO2 ABG O2 Saturation ABG Base Excess FiO2 Sodium Potassium Chloride Carbon Dioxide Anion Gap BUN Creatinine Est GFR ( Amer) Est GFR (Non-Af Amer) Glucose POC Glucose 134 H Calcium Phosphorus Magnesium Total Bilirubin Direct Bilirubin Neonat Total Bilirubin Neonat Direct Bilirubin Neonat Indirect Bili AST ALT Alkaline Phosphatase Total Protein Albumin Head CT 08/31/18 09:43 IMPRESSION: Multiple old infarcts EVIDENCE OF ACUTE STROKE: NO. Chest X-Ray 08/31/18 09:44 IMPRESSION: Pulmonary edema Mild cardiomegaly with left-sided pacemaker/ defibrillator Left lower lobe partial collapse with consolidation Endotracheal tube, nasogastric tube in good positioning. Chest X-Ray 09/01/18 05:00 IMPRESSION: Improved aeration bilaterally. Support lines and tubes remain in satisfactory position. Chest X-Ray 09/01/18 11:56 IMPRESSION: Interval placement of a right subclavian vascular catheter, tip projecting over the mid SVC. Otherwise stable AP examination with support apparatus including endotracheal tube with tip just below the thoracic inlet, esophagogastric tube, and left chest multi lead pacer defibrillator. Cardiomegaly. Chest X-Ray 09/02/18 06:00 IMPRESSION: NO ACUTE RADIOGRAPHIC FINDING IN THE CHEST. SUPPORT DEVICE(S) IN EXPECTED LOCATIONS. Chest X-Ray 09/02/18 16:24 IMPRESSION: Tubes and lines appear in expected position. STABLE APPEARANCE OF THE CHEST. Chest X-Ray 09/03/18 06:00 IMPRESSION: NO ACUTE RADIOGRAPHIC FINDING IN THE CHEST. SUPPORT DEVICE(S) IN EXPECTED LOCATIONS. Patient is 24-hour intake is 2724 mL per minute the patient's 24-hour output is 1340 mL. MPRESSION/RECOMMENDATION: 1. Acute cardio respiratory failure/arrest status post intubation? Etiology.Most likely due to a combination of heart failure and pneumonia 2. History of atrial fibrillation with right bundle branch block pattern status post cardioversion. At present patient with multifocal atrial tachycardia has resolved and the patient now in sinus rhythm. Patient is on a Cardizem drip. 3. CONGESTIVE heart failure: This is acute on chronic systolic heart failure. Chest x-ray shows no evidence of failure. In view of this would stop the patient's Lasix especially in light of the worsening renal function. 4. Left lower lobe pneumonia: Continue antibiotics 5.Persistent hypoglycemia: Continue 10% dextrose infusion. 6. Dilated cardiomyopathy: Ejection fraction not known. Continue patient on beta-francesca. Would try to stop the patient's Cardizem. We will start the patient on small dose of hydralazine 10 mg p.o. every 8 hours. 7. History of AICD placement: Interrogation of the AICD states that is working properly. The patient was unresponsive and had cardiorespiratory arrest when the EMS went there there was no firing of the AICD since there was no ventricular arrhythmias detected by the AICD. The patient had some atrial a rrhythmias. Most likely atrial fibrillation, which was cardioverted by the EMT. 8. History of asthma/COPD. Continue ventilator support and antibiotics. 9. Diabetes mellitus type 2 [id number]. At present patient persistently hypoglycemic. 10. Chronic kidney disease stage III. 11. History of seizure disorder: No seizures this admission. 12. Hypokalemia: Replace patient's potassium. Medications reviewed. Medications added management plan discussed with attending physician Dr. Esqueda covering Dr. Garcia this weekend, on the case. Medical decision making is of high complexity. 40 minutes spent on this patient with more than 50% . We will follow with you
[2018-09-03] MEDS: LEVOFLOXACIN 500 MG/D5W RTU 500 MG/100 ML RTUPB IV SCH (17:24)
--- NOTE | 2018-09-03 19:54 | PROGRESS NOTE E ---
Progress Note NAME: RICKY PETTY : 1945 AGE: 73Y DATE: 09/03/2018 ROOM: 601 SUBJECTIVE: Patient is a 73-year-old male who came in acute respiratory failure requiring invasive mechanical ventilation due to unresponsiveness, post cardiac arrest and severe hypoglycemia. Patient has been stable all night. Currently still receiving Cardizem. Blood pressures have been stable. He is also getting Lasix drip. Scanty endotracheal tube secretions. No fever spikes over the last 24 hours. No vomiting and no diarrhea. Tolerating NG tube feedings at 20 mL/hr. Patient was taken off IV propofol at 6:00 this morning. Two and a half hours later, patient is not agitated, but remains unresponsive, but breathing comfortably at 17, 18 or 19 breaths per minute. Saturation has been stable at 96% while on spontaneous breathing trial using SIMV rate of 2. OBJECTIVE: GENERAL: Patient appeared unresponsive, afebrile, not in acute respiratory distress, breathing comfortably. VITAL SIGNS: Temperature of 98.1, heart rate of 89, blood pressure 112/74, respirations 17, saturations 95% on 21% FiO2, tidal volume of 470, pressure support of 10 and PEEP of 5. EYES: No jaundice or pallor. EARS, NOSE AND THROAT: No ear drainage. No nasal discharge. CHEST AND LUNGS: No wheezing, no rhonchi, no coarse crackles. CARDIOVASCULAR: S1, S2 distinct. Normal rate, regular rhythm. ABDOMEN: Flabby, nondistended. Hypoactive bowel sounds. EXTREMITIES: No joint swelling. No signs of cellulitis. Swollen hands from the IV fluid. LABORATORY DATA: Chest x-ray done today showed the endotracheal tube is in the right position. No pneumothorax. No new infiltrates. Cardiomegaly. CBC done today showed white count of 8.3, hemoglobin is 10.8, hematocrit is 32.1, platelet count is 183,000. ABGs done today showed pH of 7.42, pCO2 of 56, pO2 of 82. ABG saturation of 6.3. Chemistry showed sodium of 137, potassium is 3. Currently receiving potassium chloride rider. Chloride is 102 and CO2 is 24. BUN is 35, creatinine is 4.96. Glucose 21 and at 8:14 a.m., the glucose was 103. Calcium is 7.7. Phosphorus is 5.4. Magnesium is 2.5. Total protein is 5.1 and albumin is 2.5. ASSESSMENT: 1. ACUTE RESPIRATORY FAILURE REQUIRING INVASIVE MECHANICAL VENTILATION, CURRENTLY DOING WELL ON FIO2 OF 21%. Seemed to be doing well with a few minutes of spontaneous breathing trial today. Patient is still unresponsive and appeared comatose, not responsive to verbal or tactile stimuli. 2. CARDIAC ARRHYTHMIAS. 3. HISTORY OF CHRONIC KIDNEY DISEASE. PLAN/RECOMMENDATIONS: 1. Will do spontaneous breathing trial today. If patient is doing well, I will do an ABG. Patient is not ready to be extubated yet because of altered mental status. Patient will not be able to protect his airway. 2. Continue GI and DVT prophylaxis. Continue antibiotics. Increase the NG tube feeding to 30 mL/hr. DICTATING PHYSICIAN: LARY LYNCH MD,ROHAN,MPH [id number] PHY#: [id number] ID: [id number] JOB#: [id number] ACCT: [id number] cc: > MTDD
[2018-09-03] MEDS: HYDRALAZINE HCL 10 MG TABLET NG SCH (21:32)
[2018-09-03] MEDS: ATORVASTATIN CALCIUM 20 MG TABLET NG SCH (21:32)
[2018-09-04] MEDS: PHENYTOIN 50 MG TAB.CHEW NG SCH ×3 (02:04→18:24)
[2018-09-04] MEDS: DEXTROSE 10%-WATER 500 ML with DEXTROSE 50%-WATER 25 GM IV PRN ×6 (04:24→22:17)
[2018-09-04 05:02] LABS: ARTERIAL BLOOD H2CO3 1.01 mmol/L (1.05-1.35); ARTERIAL BLOOD HCO3 21.7 mmol/L (20-24); ARTERIAL BLOOD O2 SATURATION 97.4 % (94-98); ARTERIAL BLOOD PCO2 33.4 mmHg (35-45); ARTERIAL BLOOD PH 7.43 (7.35-7.45); ARTERIAL BLOOD PO2 93.8 mmHg (80-100); ARTERIAL BLOOD TOTAL CO2 22.7 mmol/L (23-27)
[2018-09-04 05:04] LABS: ARTERIAL BLOOD FIO2 21%
[2018-09-04] MEDS: HYDRALAZINE HCL 10 MG TABLET NG SCH ×3 (05:17→21:40)
[2018-09-04] MEDS: HEPARIN SOD (PORCINE) 5,000 UNIT/ML 1 ML SYRINGE SUBCUT SCH ×3 (05:18→21:41)
[2018-09-04] MEDS: 1/2 NORMAL SALINE 1,000 ML IV PRN (05:19)
[2018-09-04] MEDS: PROPOFOL 1,000 MG/100 ML INFUS..BTL IV PRN ×2 (05:19→20:02)
[2018-09-04 05:23] LABS: ANION GAP 12 (5-19); BLOOD UREA NITROGEN 58 mg/dL (7-20); CARBON DIOXIDE 23 mmol/L (22-30); CHLORIDE 105 mmol/L (98-107); GLUCOSE 131 mg/dL (75-110); PHOSPHORUS 4.7 mg/dL (2.5-4.5); POTASSIUM 3.6 mmol/L (3.6-5.0); SODIUM 140.4 mmol/L (137-145)
--- NOTE | 2018-09-04 08:28 | RADIOLOGY REPORT (SQ) ---
EXAM DESCRIPTION: CHEST SINGLE VIEW COMPLETED DATE/TIME: 09/04/2018 7:01 am REASON FOR STUDY: ETT/NG TUBE COMPARISON: Chest films 09/01/2018, 09/02/2018, 09/03/2018 EXAM PARAMETERS: NUMBER OF VIEWS: One view. TECHNIQUE: Single frontal radiographic view of the chest acquired. RADIATION DOSE: NA LIMITATIONS: None. FINDINGS: LUNGS AND PLEURA: Minimal left basilar atelectasis. Lungs are otherwise well inflated and clear. No pleural effusion. No pneumothorax. MEDIASTINUM AND HILAR STRUCTURES: No masses. Contour normal. HEART AND VASCULAR STRUCTURES: Heart normal in size. Normal vasculature. BONES: No acute findings. HARDWARE: Endotracheal tube tip 5 cm above the mike. Right-sided central line tip no superior vena cava. Nasogastric tube tip and side port in the stomach. Left-sided dual lead pacemaker unchanged. OTHER: No other significant finding. IMPRESSION: Minimal left basilar atelectasis. Tubes and lines in good positioning. TECHNICAL DOCUMENTATION: JOB ID: [id number] [employer]- All Rights Reserved Reading location - IP/workstation name: [email or web address]
[2018-09-04] MEDS: SCOPOLAMINE HYDROBROMIDE 1.5 MG PATCH.TD72 TD SCH (12:11)
[2018-09-04] MEDS: METOPROLOL TARTRATE 50 MG TABLET NG SCH ×2 (12:11→21:41)
[2018-09-04] MEDS: CEFEPIME 1 GM/D5W RTU 1 GM/50 ML RTUPB IV SCH ×2 (12:11→21:35)
[2018-09-04] MEDS: PANTOPRAZOLE SODIUM 40 MG VIAL IV SCH ×2 (12:12→21:37)
[2018-09-04] MEDS: LEVETIRACETAM ORAL SOLN 500 MG/5 ML UDCUP NG SCH ×2 (12:15→21:42)
[2018-09-04] MEDS: LEVOFLOXACIN 500 MG/D5W RTU 500 MG/100 ML RTUPB IV SCH (18:24)
--- NOTE | 2018-09-04 19:44 | PDOC PROGRESS REPORT ---
Subjective Progress Note for:: 09/04/18 Subjective:: Patient still on mechanical ventilation Reason For Visit: ACUTE PULMONARY EDEMA,HYPOGLYCEMIC ENCEPHALOPATHY Physical Exam Vital Signs: Temp Pulse Resp BP Pulse Ox 98.1 F 81 17 133/103 H 98 09/04/18 08:00 09/04/18 08:00 09/04/18 18:15 09/04/18 17:40 09/04/18 18:15 Intake & Output 09/03/18 09/04/18 09/05/18 06:59 06:59 06:59 Intake Total 2724 3905 544 Output Total 1340 3740 1850 Balance 1384 165 -1306 Weight 82.1 kg 82.1 kg Eye exam: PRESENT: PERRLA Respiratory exam: PRESENT: rhonchi Cardiovascular exam: PRESENT: +S1, +S2 GI/Abdominal exam: PRESENT: soft Neurological exam: PRESENT: alert Results Laboratory Results: 09/03/18 04:13 09/04/18 04:43 09/03/18 09/04/18 09/04/18 20:08 00:01 04:43 Carbonic Acid 1.01 L HCO3/H2CO3 Ratio 21:1 ABG pH 7.43 ABG pCO2 33.4 L ABG pO2 93.8 ABG HCO3 21.7 ABG O2 Saturation 97.4 ABG Base Excess -2.0 FiO2 21% Sodium Potassium 3.5 L 3.5 L Chloride Carbon Dioxide Anion Gap BUN Creatinine Est GFR ( Amer) Est GFR (Non-Af Amer) Glucose Calcium Phosphorus Magnesium 09/04/18 04:43 Carbonic Acid HCO3/H2CO3 Ratio ABG pH ABG pCO2 ABG pO2 ABG HCO3 ABG O2 Saturation ABG Base Excess FiO2 Sodium 140.4 Potassium 3.6 Chloride 105 Carbon Dioxide 23 Anion Gap 12 BUN 58 H Creatinine 2.82 H Est GFR ( Amer) 27 L Est GFR (Non-Af Amer) 22 L Glucose 131 H Calcium 8.0 L Phosphorus 4.7 H Magnesium 2.3 08/31/18 20:02 Sputum Gram Stain - Final 08/31/18 20:02 Sputum Sputum Culture - Final Group F Beta Streptococcus Normal Yessy 08/31/18 09:43 Blood Blood Culture - Final Staphylococcus Hominis 08/31/18 08/31/18 08/31/18 09:43 09:43 13:29 Creatine Kinase 248 H 270 H CK-MB (CK-2) 4.20 Troponin I 0.060 NT-Pro-B Natriuret Pep 5890 H 08/31/18 08/31/18 08/31/18 13:29 21:00 21:00 Creatine Kinase 227 H CK-MB (CK-2) 4.20 3.93 Troponin I 0.063 0.078 NT-Pro-B Natriuret Pep 09/01/18 09/01/18 03:30 03:30 Creatine Kinase 187 H CK-MB (CK-2) 3.12 Troponin I 0.096 NT-Pro-B Natriuret Pep Impressions: Head CT 08/31/18 09:43 IMPRESSION: Multiple old infarcts EVIDENCE OF ACUTE STROKE: NO. Chest X-Ray 09/04/18 06:00 IMPRESSION: Minimal left basilar atelectasis. Tubes and lines in good positioning. Assessment & Plan - Diagnosis (1) Acute hypoxemic respiratory failure Is this a current diagnosis for this admission?: Yes Plan: Continue mechanical ventilation, pulmonary following (2) Acute systolic heart failure Is this a current diagnosis for this admission?: Yes Plan: Stable (3) Hypoglycemia Is this a current diagnosis for this admission?: Yes Plan: He has hypoglycemic encephalopathy (4) Pneumonia Qualifiers: Pneumonia type: due to unspecified organism Laterality: left Lung location: unspecified part of lung Qualified Code(s): J18.9 - Pneumonia, unspecified organism Is this a current diagnosis for this admission?: Yes (5) Chronic kidney disease, stage 3 Is this a current diagnosis for this admission?: Yes (6) Hypoglycemic encephalopathy Is this a current diagnosis for this admission?: Yes (7) Atrial fibrillation Qualifiers: Atrial fibrillation type: paroxysmal Qualified Code(s): I48.0 - Paroxysmal atrial fibrillation Is this a current diagnosis for this admission?: Yes
--- NOTE | 2018-09-04 20:49 | PROGRESS NOTE E ---
Progress Note NAME: RICKY PETTY : 1945 AGE: 73Y DATE: 09/04/2018 ROOM: 601 SUBJECTIVE: Patient is a 73-year-old male who came in with acute respiratory failure requiring invasive mechanical ventilation post cardiac arrest. There were scanty to moderate endotracheal tube secretions. Patient appeared to be a little more agitated, waking up when off the sedation. Patient was not tolerating the NG tube feeding overnight and the NG tube feeding has stopped because of the increased gastric residual. There was 1 episode of vomiting. No diarrhea noted. OBJECTIVE: GENERAL: Patient appeared sedated, afebrile, not in apparent respiratory distress. VITAL SIGNS: Temperature of 99.7, with a T-max of 99.9. Heart rate is 102, respiratory rate is 17, blood pressure 133/93, saturation is 98% on 30% FiO2, with tidal volume of 417, pressure support of 10, PEEP of 5. The peak airway pressure is 17. EARS, NOSE AND THROAT: No ear drainage. No nasal discharge. CHEST AND LUNGS: No wheezing, no rhonchi, no coarse crackles. CARDIOVASCULAR: S1, S2 distinct. Normal rate, regular rhythm. ABDOMEN: Flabby. Positive bowel sounds. Soft, nondistended, nontender. EXTREMITIES: No joint swelling and no cellulitis. LABORATORY DATA: Blood gas done today shows pH of 7.43, pCO2 is 33.4, pO2 is 93.9, saturation 97.4. No chemistry done today. The chest x-ray done today shows endotracheal tube in place. No new infiltrate. Cardiomegaly. No pneumothorax. ASSESSMENT: 1. ACUTE RESPIRATORY FAILURE REQUIRING INVASIVE MECHANICAL VENTILATION. Patient not ready to be extubated yet. Patient is requiring a lower FiO2; however, patient is not adequately mentating and may not be able to protect his airway once he is extubated. 2. HISTORY OF POST CARDIAC ARREST. 3. HISTORY OF HYPOGLYCEMIA. PLAN/RECOMMENDATIONS: Will continue on ventilator support. Will do spontaneous breathing trial in the morning. Will wake up the patient also in the morning. Will hold the sedation every morning, with spontaneous breathing trial thereafter. DICTATING PHYSICIAN: LARY LYNCH MD,ROHAN,MPH [id number] PHY#: [id number] ID: [id number] JOB#: [id number] ACCT: [id number] cc: > MTDD
[2018-09-04] MEDS: ATORVASTATIN CALCIUM 20 MG TABLET NG SCH (21:41)
--- NOTE | 2018-09-04 23:42 | Progress Note ---
Provider Note Provider Note: CARDIOLOGY PROGRESS NOTE by Dr. Rossy Dooley on 09/04/2018. SUBJECTIVE: The patient is intubated and sedated. There is no arrhythmia seen on the monitor. He does not obey any verbal commands. His eyes are awake and he makes nonpurposeful movements of the neck. PHYSICAL EXAMINATION: The patient is a frail build and appears appears to be chronically ill and malnourished. Selected Entries 09/04/18 09/04/18 10:00 10:40 Core 98.4 F Temperature Heart Rate ( 92 Monitors) Respiratory 13 Rate Blood Pressure 153/69 H Blood Pressure 97 Mean O2 Sat by Pulse 100 Oximetry Oxygen Delivery Mechanical Method ( Ventilator includes room air) Percent of 21 Oxygen End-Tidal CO2 33 Concentration Head: Is atraumatic normocephalic. EYES: Tubes are equal round regular reactive to light. EARS: Tympanic membranes are intact. External auditory canals are clear. Otherwise ENT is negative. NECK: Supple. There is no JVD. Carotids are equal there is no bruit. There is no accessory muscle respiration use. Trachea appears to be central. LUNGS: There is scattered rhonchi. There is a few bibasilar rales of CHF. There is diminished air entry and prolonged expiration. On percussion there is hyperresonance. There is dry crackles in the left lower lobe area consistent with pneumonia. HEART: S1-S2 is heard. S1 is of normal intensity. Monitor strip shows multifocal atrial tachycardia. There is systolic murmur left sternal border and the apex. There is no rub. There is murmur of MR and TR present. There is no rub. ABDOMEN: Soft. There is no hepatosplenomegaly. Bowel sounds. EXTREMITIES: Femorals are diminished. Leg pulses are diminished. There is definite pedal edema. There is no DVT or cellulitis. 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 Labs- All tests 24 hr 09/04/18 09/04/18 09/04/18 00:01 02:07 04:12 Carbonic Acid HCO3/H2CO3 Ratio ABG pH ABG pCO2 ABG pO2 ABG HCO3 ABG Total CO2 ABG O2 Saturation ABG Base Excess FiO2 Sodium Potassium 3.5 L Chloride Carbon Dioxide Anion Gap BUN Creatinine Est GFR ( Amer) Est GFR (Non-Af Amer) Glucose POC Glucose 169 H 126 H Calcium Phosphorus Magnesium 09/04/18 09/04/18 09/04/18 04:43 04:43 06:50 Carbonic Acid 1.01 L HCO3/H2CO3 Ratio 21:1 ABG pH 7.43 ABG pCO2 33.4 L ABG pO2 93.8 ABG HCO3 21.7 ABG Total CO2 22.7 L ABG O2 Saturation 97.4 ABG Base Excess -2.0 FiO2 21% Sodium 140.4 Potassium 3.6 Chloride 105 Carbon Dioxide 23 Anion Gap 12 BUN 58 H Creatinine 2.82 H Est GFR ( Amer) 27 L Est GFR (Non-Af Amer) 22 L Glucose 131 H POC Glucose 168 H Calcium 8.0 L Phosphorus 4.7 H Magnesium 2.3 09/04/18 09/04/18 09/04/18 08:11 09:05 12:01 Carbonic Acid HCO3/H2CO3 Ratio ABG pH ABG pCO2 ABG pO2 ABG HCO3 ABG Total CO2 ABG O2 Saturation ABG Base Excess FiO2 Sodium Potassium Chloride Carbon Dioxide Anion Gap BUN Creatinine Est GFR ( Amer) Est GFR (Non-Af Amer) Glucose POC Glucose 157 H 137 H 158 H Calcium Phosphorus Magnesium 09/04/18 09/04/18 09/04/18 15:17 16:30 19:56 Carbonic Acid HCO3/H2CO3 Ratio ABG pH ABG pCO2 ABG pO2 ABG HCO3 ABG Total CO2 ABG O2 Saturation ABG Base Excess FiO2 Sodium Potassium Chloride Carbon Dioxide Anion Gap BUN Creatinine Est GFR ( Amer) Est GFR (Non-Af Amer) Glucose POC Glucose 170 H 151 H 173 H Calcium Phosphorus Magnesium 09/04/18 09/04/18 21:56 23:50 Carbonic Acid HCO3/H2CO3 Ratio ABG pH ABG pCO2 ABG pO2 ABG HCO3 ABG Total CO2 ABG O2 Saturation ABG Base Excess FiO2 Sodium Potassium Chloride Carbon Dioxide Anion Gap BUN Creatinine Est GFR ( Amer) Est GFR (Non-Af Amer) Glucose POC Glucose 168 H 190 H Calcium Phosphorus Magnesium Head CT 08/31/18 09:43 IMPRESSION: Multiple old infarcts EVIDENCE OF ACUTE STROKE: NO. Chest X-Ray 08/31/18 09:44 IMPRESSION: Pulmonary edema Mild cardiomegaly with left-sided pacemaker/ defibrillator Left lower lobe partial collapse with consolidation Endotracheal tube, nasogastric tube in good positioning. Chest X-Ray 09/01/18 05:00 IMPRESSION: Improved aeration bilaterally. Support lines and tubes remain in satisfactory position. Chest X-Ray 09/01/18 11:56 IMPRESSION: Interval placement of a right subclavian vascular catheter, tip projecting over the mid SVC. Otherwise stable AP examination with support apparatus including endotracheal tube with tip just below the thoracic inlet, esophagogastric tube, and left chest multi lead pacer defibrillator. Cardiomegaly. Chest X-Ray 09/02/18 06:00 IMPRESSION: NO ACUTE RADIOGRAPHIC FINDING IN THE CHEST. SUPPORT DEVICE(S) IN EXPECTED LOCATIONS. Chest X-Ray 09/02/18 16:24 IMPRESSION: Tubes and lines appear in expected position. STABLE APPEARANCE OF THE CHEST. Chest X-Ray 09/03/18 06:00 IMPRESSION: NO ACUTE RADIOGRAPHIC FINDING IN THE CHEST. SUPPORT DEVICE(S) IN EXPECTED LOCATIONS. Chest X-Ray 09/04/18 06:00 IMPRESSION: Minimal left basilar atelectasis. Tubes and lines in good positioning. 24-hour intake is 3905 mL. Total 24-hour output is 3740 mL MPRESSION/RECOMMENDATION: 1. Acute cardio respiratory failure/arrest status post intubation? Etiology.Most likely due to a combination of heart failure and pneumonia 2. History of atrial fibrillation with right bundle branch block pattern status post cardioversion. At present patient with multifocal atrial tachycardia has resolved and the patient now in sinus rhythm. Patient is on a Cardizem drip. 3. CONGESTIVE heart failure: This is acute on chronic systolic heart failure. Chest x-ray shows no evidence of failure. In view of this would stop the patient's Lasix especially in light of the worsening renal function. 4. Left lower lobe pneumonia: Continue antibiotics 5.Persistent hypoglycemia: Continue 10% dextrose infusion. 6. Dilated cardiomyopathy: Ejection fraction not known. Continue patient on beta-francesca. The patient is off Cardizem. Will increase t the patient's dose of hydralazine to 25 mg p.o. every 8 hours. 7. History of AICD placement: Interrogation of the AICD states that is working properly. The patient was unresponsive and had cardiorespiratory arrest when the EMS went there there was no firing of the AICD since there was no ventricular arrhythmias detected by the AICD. The patient had some atrial arrhythmias. Most likely atrial fibrillation, which was cardioverted by the EMT. 8. History of asthma/COPD. Continue ventilator support and antibiotics. 9. Diabetes mellitus type 2 [id number]. At present patient persistently hypoglycemic. 10. Chronic kidney disease stage III. 11. History of seizure disorder: No seizures this admission. 12. Hypokalemia: Replace patient's potassium. Medications reviewed. Medications added management plan discussed with attending physician Dr. Esqueda covering Dr. Garcia this weekend, on the case. Medical decision making is of high complexity. 40 minutes spent on this patient with more than 50% . We will follow with you
[2018-09-05] MEDS: PHENYTOIN 50 MG TAB.CHEW NG SCH ×3 (01:11→17:42)
[2018-09-05] MEDS: PROPOFOL 1,000 MG/100 ML INFUS..BTL IV PRN ×3 (03:30→19:40)
[2018-09-05 04:45] LABS: ANION GAP 10 (5-19); BLOOD UREA NITROGEN 49 mg/dL (7-20); CALCIUM 8.4 mg/dL (8.4-10.2); CARBON DIOXIDE 25 mmol/L (22-30); CHLORIDE 109 mmol/L (98-107); GLUCOSE 174 mg/dL (75-110); PHOSPHORUS 4.1 mg/dL (2.5-4.5); POTASSIUM 3.7 mmol/L (3.6-5.0); SODIUM 144.1 mmol/L (137-145)
[2018-09-05] MEDS: HYDRALAZINE HCL 10 MG TABLET NG SCH ×3 (05:13→21:31)
[2018-09-05] MEDS: HEPARIN SOD (PORCINE) 5,000 UNIT/ML 1 ML SYRINGE SUBCUT SCH ×3 (05:15→21:33)
[2018-09-05] MEDS: 1/2 NORMAL SALINE 1,000 ML IV PRN ×2 (07:00→09:45)
[2018-09-05] MEDS: LEVETIRACETAM ORAL SOLN 500 MG/5 ML UDCUP NG SCH ×2 (09:40→21:26)
[2018-09-05] MEDS: DEXTROSE 10%-WATER 500 ML with DEXTROSE 50%-WATER 25 GM IV PRN ×4 (09:40→21:40)
[2018-09-05] MEDS: PANTOPRAZOLE SODIUM 40 MG VIAL IV SCH ×2 (09:44→21:32)
[2018-09-05] MEDS: METOPROLOL TARTRATE 50 MG TABLET NG SCH ×2 (09:44→21:28)
[2018-09-05] MEDS: CEFEPIME 1 GM/D5W RTU 1 GM/50 ML RTUPB IV SCH ×2 (09:45→21:32)
[2018-09-05] MEDS: LEVOFLOXACIN 500 MG/D5W RTU 500 MG/100 ML RTUPB IV SCH (17:40)
--- NOTE | 2018-09-05 21:18 | PDOC PROGRESS REPORT ---
Subjective Progress Note for:: 09/05/18 Subjective:: Patient still on mechanical ventilation, he has unpurposeful movement Reason For Visit: ACUTE PULMONARY EDEMA,HYPOGLYCEMIC ENCEPHALOPATHY Physical Exam Vital Signs: Temp Pulse Resp BP Pulse Ox 99.1 F 79 14 119/80 99 09/05/18 20:00 09/05/18 20:00 09/05/18 18:05 09/05/18 18:05 09/05/18 20:38 Intake & Output 09/04/18 09/05/18 09/06/18 06:59 06:59 06:59 Intake Total 3905 2372 1105 Output Total 3740 4205 1580 Balance 881 -6831 -045 Weight 82.1 kg 81.1 kg General appearance: PRESENT: no acute distress Eye exam: PRESENT: PERRLA Respiratory exam: PRESENT: clear to auscultation nicolle Cardiovascular exam: PRESENT: +S1, +S2 GI/Abdominal exam: PRESENT: soft Results Laboratory Results: 09/03/18 04:13 09/05/18 04:17 09/05/18 04:17 Sodium 144.1 Potassium 3.7 Chloride 109 H Carbon Dioxide 25 Anion Gap 10 BUN 49 H Creatinine 2.40 H Est GFR ( Amer) 32 L Est GFR (Non-Af Amer) 27 L Glucose 174 H Calcium 8.4 Phosphorus 4.1 Magnesium 2.4 H 08/31/18 11:05 Blood Blood Culture - Final NO GROWTH IN 5 DAYS 08/31/18 08/31/18 08/31/18 09:43 09:43 13:29 Creatine Kinase 248 H 270 H CK-MB (CK-2) 4.20 Troponin I 0.060 NT-Pro-B Natriuret Pep 5890 H 08/31/18 08/31/18 08/31/18 13:29 21:00 21:00 Creatine Kinase 227 H CK-MB (CK-2) 4.20 3.93 Troponin I 0.063 0.078 NT-Pro-B Natriuret Pep 09/01/18 09/01/18 03:30 03:30 Creatine Kinase 187 H CK-MB (CK-2) 3.12 Troponin I 0.096 NT-Pro-B Natriuret Pep Impressions: Head CT 08/31/18 09:43 IMPRESSION: Multiple old infarcts EVIDENCE OF ACUTE STROKE: NO. Chest X-Ray 09/04/18 06:00 IMPRESSION: Minimal left basilar atelectasis. Tubes and lines in good positioning. Assessment & Plan - Diagnosis (1) Acute hypoxemic respiratory failure Is this a current diagnosis for this admission?: Yes Plan: Continue mechanical ventilation, pulmonary following (2) Acute systolic heart failure Is this a current diagnosis for this admission?: Yes Plan: Stable (3) Hypoglycemia Is this a current diagnosis for this admission?: Yes (4) Pneumonia Qualifiers: Pneumonia type: due to unspecified organism Laterality: left Lung location: unspecified part of lung Qualified Code(s): J18.9 - Pneumonia, unspecified organism Is this a current diagnosis for this admission?: Yes Plan: Continue IV antibiotic (5) Chronic kidney disease, stage 3 Is this a current diagnosis for this admission?: Yes (6) Hypoglycemic encephalopathy Is this a current diagnosis for this admission?: Yes (7) Atrial fibrillation Qualifiers: Atrial fibrillation type: paroxysmal Qualified Code(s): I48.0 - Paroxysmal atrial fibrillation Is this a current diagnosis for this admission?: Yes
[2018-09-05] MEDS: DOCUSATE SODIUM 100 MG CAPSULE PO SCH (21:26)
[2018-09-05] MEDS: ATORVASTATIN CALCIUM 20 MG TABLET NG SCH (21:28)
--- NOTE | 2018-09-05 22:19 | PROGRESS NOTE E ---
Progress Note NAME: RICKY PETTY : 1945 AGE: 73Y DATE: 09/05/2018 ROOM: 601 SUBJECTIVE: Patient is a 73-year-old male who came in acute respiratory failure requiring invasive mechanical ventilation due to post cardiac arrest and severe hypoglycemia. The patient was taken off this morning. Patient appeared to be opening his eyes and was nonverbal. He became agitated while off sedation after about 30 minutes. Patient was placed back on IV propofol. No fever over the last 24 hours. No episodes of vomiting overnight. No diarrhea noted. No vomiting. Did not tolerate the NG tube feeding. Last night, the NG tube feeding was held for a few hours. NG tube feeding was restarted this morning at 10 mL/hr. OBJECTIVE: GENERAL: Patient appears sedated, afebrile, not in apparent respiratory distress. VITAL SIGNS: Temperature is 99.1, with a T-max of 99.3. Heart rate is 78, blood pressure is 119/80, the respiratory rate is 14, the saturation 99% on 21% FiO2. EYES: No jaundice or pallor. EARS, NOSE AND THROAT: No ear drainage. No nasal discharge. CHEST AND LUNGS: No wheezing, no rhonchi, no coarse crackles. CARDIOVASCULAR: S1, S2 distinct. Normal rate, regular rhythm. ABDOMEN: Flabby. Positive bowel sounds. Soft, nondistended, nontender. EXTREMITIES: No joint swelling or cellulitis. LABORATORY DATA: No CBC done today. Chemistry done today showed sodium is 154, potassium is 3.7, chloride is 109, CO2 is 35, anion gap is 10, BUN is 49, creatinine is 2.4 and glucose 174. Calcium is 3.4, phosphorus is 4.1. No x-rays were done today. ASSESSMENT: 1. ACUTE RESPIRATORY FAILURE REQUIRING INVASIVE MECHANICAL VENTILATION. Patient is not ready to be extubated yet. Patient becomes agitated when he is off the IV sedation. 2. STATUS POST CARDIAC ARREST. 3. SEVERE HYPOGLYCEMIA.- appeared improving and more stable. PLAN: 1. Continue to perform spontaneous breathing trial every morning following spontaneous awakening trial. 2. Will continue the IV antibiotics. 3. Change the NG tube feeding to 20 mL/hr. DICTATING PHYSICIAN: LARY LYNCH MD,ROHAN,MPH [id number] PHY#: [id number] 2024 ID: [id number] JOB#: [id number] ACCT: [id number] cc: > JUHI
--- NOTE | 2018-09-05 22:43 | Progress Note ---
Provider Note Provider Note: CARDIOLOGY PROGRESS NOTE by Dr. Rossy Dooley on 09/05/2018. SUBJECTIVE: The patient is intubated and sedated. Earlier is light sedation made him very restless, hence patient back on sedation. There is no arrhythmia seen on the monitor. PHYSICAL EXAMINATION: The patient appears to be chronically ill and frail build and malnourished. Selected Entries 09/05/18 09/05/18 16:00 16:05 Temperature 99.0 F Temperature Core Source Core 99.0 F Temperature Pulse Rate 75 Heart Rate ( 77 Monitors) Respiratory 14 13 Rate Blood Pressure 122/60 Blood Pressure 122/60 [Upper Arm] Blood Pressure 80 Mean Blood Pressure 80 Mean [Upper Arm ] Blood Pressure Supine Position [Upper Arm] Blood Pressure 122 Systolic [Upper Arm] O2 Sat by Pulse 98 Oximetry Oxygen Delivery Mechanical Method ( Ventilator includes room air) Percent of 21 Oxygen End-Tidal CO2 35 Concentration Premature 4 Ventricular Counted Beats Head: Is atraumatic normocephalic. EYES: Tubes are equal round regular reactive to light. EARS: Tympanic membranes are intact. External auditory canals are clear. Otherwise ENT is negative. NECK: Supple. There is no JVD. Carotids are equal there is no bruit. There is no accessory muscle respiration use. Trachea appears to be central. LUNGS: There is scattered rhonchi. There is a few bibasilar rales of CHF. There is diminished air entry and prolonged expiration. On percussion there is hyperresonance. There is dry crackles in the left lower lobe area consistent with pneumonia. HEART: S1-S2 is heard. S1 is of normal intensity. Monitor strip shows multifocal atrial tachycardia. There is systolic murmur left sternal border and the apex. There is no rub. There is murmur of MR and TR present. There is no rub. ABDOMEN: Soft. There is no hepatosplenomegaly. Bowel sounds. EXTREMITIES: Femorals are diminished. Leg pulses are diminished. There is definite pedal edema. There is no DVT or cellulitis. 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 Labs- All tests 24 hr 09/01/18 09/04/18 09/05/18 20:10 23:50 01:58 Sodium Potassium Chloride Carbon Dioxide Anion Gap BUN Creatinine Est GFR ( Amer) Est GFR (Non-Af Amer) Glucose POC Glucose 190 H 150 H Proinsulin 2.7 Calcium Phosphorus Magnesium 09/05/18 09/05/18 09/05/18 04:03 04:17 06:01 Sodium 144.1 Potassium 3.7 Chloride 109 H Carbon Dioxide 25 Anion Gap 10 BUN 49 H Creatinine 2.40 H Est GFR ( Amer) 32 L Est GFR (Non-Af Amer) 27 L Glucose 174 H POC Glucose 182 H 167 H Proinsulin Calcium 8.4 Phosphorus 4.1 Magnesium 2.4 H 09/05/18 09/05/18 09/05/18 08:06 10:05 12:31 Sodium Potassium Chloride Carbon Dioxide Anion Gap BUN Creatinine Est GFR ( Amer) Est GFR (Non-Af Amer) Glucose POC Glucose 157 H 184 H 213 H Proinsulin Calcium Phosphorus Magnesium 09/05/18 09/05/18 09/05/18 15:35 17:49 19:36 Sodium Potassium Chloride Carbon Dioxide Anion Gap BUN Creatinine Est GFR ( Amer) Est GFR (Non-Af Amer) Glucose POC Glucose 161 H 152 H 180 H Proinsulin Calcium Phosphorus Magnesium 09/05/18 21:44 Sodium Potassium Chloride Carbon Dioxide Anion Gap BUN Creatinine Est GFR ( Amer) Est GFR (Non-Af Amer) Glucose POC Glucose 170 H Proinsulin Calcium Phosphorus Magnesium Head CT 08/31/18 09:43 IMPRESSION: Multiple old infarcts EVIDENCE OF ACUTE STROKE: NO. Chest X-Ray 08/31/18 09:44 IMPRESSION: Pulmonary edema Mild cardiomegaly with left-sided pacemaker/ defibrillator Left lower lobe partial collapse with consolidation Endotracheal tube, nasogastric tube in good positioning. Chest X-Ray 09/01/18 05:00 IMPRESSION: Improved aeration bilaterally. Support lines and tubes remain in satisfactory position. Chest X-Ray 09/01/18 11:56 IMPRESSION: Interval placement of a right subclavian vascular catheter, tip projecting over the mid SVC. Otherwise stable AP examination with support apparatus including endotracheal tube with tip just below the thoracic inlet, esophagogastric tube, and left chest multi lead pacer defibrillator. Cardiomegaly. Chest X-Ray 09/02/18 06:00 IMPRESSION: NO ACUTE RADIOGRAPHIC FINDING IN THE CHEST. SUPPORT DEVICE(S) IN EXPECTED LOCATIONS. Chest X-Ray 09/02/18 16:24 IMPRESSION: Tubes and lines appear in expected position. STABLE APPEARANCE OF THE CHEST. Chest X-Ray 09/03/18 06:00 IMPRESSION: NO ACUTE RADIOGRAPHIC FINDING IN THE CHEST. SUPPORT DEVICE(S) IN EXPECTED LOCATIONS. Chest X-Ray 09/04/18 06:00 IMPRESSION: Minimal left basilar atelectasis. Tubes and lines in good positioning. IMPRESSION/RECOMMENDATION: 1. Acute cardio respiratory failure/arrest status post intubation? Etiology.Most likely due to a combination of heart failure and pneumonia 2. History of atrial fibrillation with right bundle branch block pattern status post cardioversion. At present patient with multifocal atrial tachycardia has resolved and the patient now in sinus rhythm. Patient is on a Cardizem drip. 3. CONGESTIVE heart failure: This is acute on chronic systolic heart failure. Chest x-ray shows no evidence of failure. In view of this would stop the patient's Lasix especially in light of the worsening renal function. 4. Left lower lobe pneumonia: Continue antibiotics 5.Persistent hypoglycemia: Continue 10% dextrose infusion. 6. Dilated cardiomyopathy: Ejection fraction not known. Continue patient on beta-francesca. The patient is off Cardizem. Will increase t the patient's dose of hydralazine to 25 mg p.o. every 8 hours. 7. History of AICD placement: Interrogation of the AICD states that is working properly. The patient was unresponsive and had cardiorespiratory arrest when the EMS went there there was no firing of the AICD since there was no ventricular arrhythmias detected by the AICD. The patient had some atrial arrhythmias. Most likely atrial fibrillation, which was cardioverted by the EMT AICD interrogation shows normal function of the AICD., With no ventricular events or shocks.. 8. History of asthma/COPD. Continue ventilator support and antibiotics. 9. Diabetes mellitus type 2 [id number]. At present patient persistently hypoglycemic. 10. Chronic kidney disease stage III. 11. History of seizure disorder: No seizures this admission. 12. Hypokalemia: Replace patient's potassium. Medications reviewed. Medications added management plan discussed with attending physician Dr. Garcia on the case. Medical decision making is of high complexity. 40 minutes spent on this patient with more than 50% . We will follow with you
[2018-09-06] MEDS: PHENYTOIN 50 MG TAB.CHEW NG SCH ×3 (01:29→18:43)
[2018-09-06 04:31] LABS: ARTERIAL BLOOD BASE EXCESS 0.3 mmol/L; ARTERIAL BLOOD H2CO3 1.14 mmol/L (1.05-1.35); ARTERIAL BLOOD HCO3 24.4 mmol/L (20-24); ARTERIAL BLOOD O2 SATURATION 96.6 % (94-98); ARTERIAL BLOOD PCO2 37.8 mmHg (35-45); ARTERIAL BLOOD PH 7.43 (7.35-7.45); ARTERIAL BLOOD PO2 83.9 mmHg (80-100); ARTERIAL BLOOD TOTAL CO2 25.6 mmol/L (23-27)
[2018-09-06 04:33] LABS: ABSOLUTE EOSINOPHILS # (AUTO) 0.5 10^3/uL (0.0-0.6); ABSOLUTE LYMPHOCYTES (AUTO) 0.9 10^3/uL (0.5-4.7); BASOPHILS % (AUTO) 0.1 % (0-2); EOSINOPHILS % (AUTO) 5.6 % (0-6); HEMATOCRIT 30.6 % (37.9-51.0); HEMOGLOBIN 10.3 g/dL (13.5-17.0); LYMPHOCYTES % (AUTO) 11.2 % (13-45); MEAN CORPUSCULAR HEMOGLOBIN 31.7 pg (27.0-33.4); MEAN CORPUSCULAR HGB CONC 33.6 g/dL (32.0-36.0); MEAN CORPUSCULAR VOLUME 94 fl (80-97); MONOCYTES % (AUTO) 11.8 % (3-13); PLATELET COUNT 178 10^3/uL (150-450); RED BLOOD COUNT 3.25 10^6/uL (4.35-5.55); RED CELL DISTRIBUTION WIDTH 13.5 % (11.5-14.0); SEGMENTED NEUTROPHILS % (AUTO) 71.3 % (42-78); TOTAL CELLS COUNTED % (AUTO) 100 %; WHITE BLOOD COUNT 8.4 10^3/uL (4.0-10.5)
[2018-09-06 04:46] LABS: ANION GAP 6 (5-19); BLOOD UREA NITROGEN 44 mg/dL (7-20); CALCIUM 8.4 mg/dL (8.4-10.2); CARBON DIOXIDE 26 mmol/L (22-30); CHLORIDE 108 mmol/L (98-107); GLUCOSE 181 mg/dL (75-110); PHOSPHORUS 3.5 mg/dL (2.5-4.5); POTASSIUM 3.5 mmol/L (3.6-5.0); SODIUM 140.4 mmol/L (137-145)
[2018-09-06] MEDS: HYDRALAZINE HCL 10 MG TABLET NG SCH ×3 (05:06→21:11)
[2018-09-06] MEDS: HEPARIN SOD (PORCINE) 5,000 UNIT/ML 1 ML SYRINGE SUBCUT SCH ×3 (05:13→21:09)
[2018-09-06] MEDS: PROPOFOL 1,000 MG/100 ML INFUS..BTL IV PRN (05:18)
[2018-09-06 06:07] LABS: ARTERIAL BLOOD FIO2 21%
--- NOTE | 2018-09-06 06:56 | RADIOLOGY REPORT (SQ) ---
EXAM DESCRIPTION: XR CHEST 1 VIEW COMPLETED DATE/TME: 09/06/2018 06:00 CLINICAL HISTORY: 73 years Male, ON VENTILATOR COMPARISON: 2 days prior. NUMBER OF VIEWS/TECHNIQUE: 1/AP FINDINGS: Clear parenchyma. Adequate appearing endotracheal tube. Adequate appearing enteric tube partially obscured. Right PICC appears adequate. Left cardiac stimulator with leads. Atherosclerotic vascular disease. Mildly enlarged cardiac silhouette. No pneumothorax. Stable bony thorax. IMPRESSION: No significant change.
[2018-09-06] MEDS: DOCUSATE SODIUM 100 MG CAPSULE PO SCH ×2 (09:27→18:39)
[2018-09-06] MEDS: LEVETIRACETAM ORAL SOLN 500 MG/5 ML UDCUP NG SCH ×2 (09:29→21:11)
[2018-09-06] MEDS: METOPROLOL TARTRATE 50 MG TABLET NG SCH ×2 (09:31→21:11)
[2018-09-06] MEDS: PANTOPRAZOLE SODIUM 40 MG VIAL IV SCH (09:31)
[2018-09-06] MEDS: CEFEPIME 1 GM/D5W RTU 1 GM/50 ML RTUPB IV SCH ×2 (09:32→21:10)
[2018-09-06] MEDS: DEXTROSE 10%-WATER 500 ML with DEXTROSE 50%-WATER 25 GM IV PRN ×2 (09:37)
[2018-09-06 10:18] LABS: ARTERIAL BLOOD BASE EXCESS 0.8 mmol/L; ARTERIAL BLOOD H2CO3 1.05 mmol/L (1.05-1.35); ARTERIAL BLOOD HCO3 24.3 mmol/L (20-24); ARTERIAL BLOOD O2 SATURATION 96.6 % (94-98); ARTERIAL BLOOD PH 7.46 (7.35-7.45); ARTERIAL BLOOD PO2 81.7 mmHg (80-100); ARTERIAL BLOOD TOTAL CO2 25.4 mmol/L (23-27)
[2018-09-06 10:19] LABS: ARTERIAL BLOOD FIO2 21%
--- NOTE | 2018-09-06 16:41 | RADIOLOGY REPORT (SQ) ---
EXAM DESCRIPTION: KUB/ABDOMEN (SINGLE VIEW) COMPLETED DATE/TIME: 09/06/2018 4:19 pm REASON FOR STUDY: NG tube verification COMPARISON: None. NUMBER OF VIEWS: One view. TECHNIQUE: Supine radiographic image of the abdomen acquired. LIMITATIONS: Right abdomen excluded by collimation. FINDINGS: BOWEL GAS PATTERN: Normal bowel gas pattern. No dilated loops. CALCIFICATIONS: No suspicious calcifications. SOFT TISSUES: No gross mass or suggestion of organomegaly. HARDWARE: Partially visualized cardiac defibrillator. Nasoenteric tube tip at GE junction. BONES: Lower lumbar spondylosis. No acute findings. OTHER: No other significant finding. IMPRESSION: Nasoenteric tube tip at GE junction. Recommend advancing 10 cm. TECHNICAL DOCUMENTATION: JOB ID: [id number] [employer]- All Rights Reserved Reading location - IP/workstation name: [email or web address]
[2018-09-06] MEDS: LEVOFLOXACIN 500 MG/D5W RTU 500 MG/100 ML RTUPB IV SCH (17:06)
--- NOTE | 2018-09-06 19:00 | NEURO WORKBENCH EEG REPORT ---
EEG Report Patient: Gabion Leslie ID: [id number] Referring Doctor: Marce Garcia Date: 09/06/2018 Reason for study: Evaluate for Cerebral Activity Medications: Lipitor, Cefepime, Diltiazem, Colace, Keppra, Levaquin, Ativan, Lopressor, Protonix, Dilantin History: This is a 73 year old male with a history of prior stroke, seizures (starting 5 years ago), OR, chronic systolic heart failure s/p pacemaker insertion, HTN, DMII, and anemia. The patient is hospitalized and reportedly extubated and off of all sedating medications since 9:30 AM this morning (approximately 5 hours prior to the EEG recording). This EEG was requested for evaluation of cerebral activity. EEG Interpretation Upon reviewing the EEG data and associated video, the patient appears most likely clinically in a state of agitated delirium with frequent non-purposeful body movements (patient is in soft arm restraints). There were frequent spontaneous eye openings or closings seen both on video and associated with the typical EEG correlate. This EEG is essentially not interpretable due to excessive noise (including prominent and continuous myogenic artifact, prominent 60Hz electrical artifact affecting various electrodes, and periods of single electrode artifact in F4, F3, and T6). The background EEG activity is therefore not apparent on the current study, although it seems that any underlying cerebral activity would be very low amplitude based upon this recording. There were exceedingly rare portions of the study where low amplitude beta activity was likely present. There is no occipital dominant rhythm present with spontaneous eye closure. Photic stimulation was done and no photic driving was not noted. There were no typical EEG characteristics stage I or stage II sleep, there was no epileptiform activity (meaning no sharp waves or spikes), and there were no seizures noted. However, it should again be noted that the multiple sources of artifact made the recording essentially non-interpretable. The EKG showed a very irregular rhythm which cannot be further quantified reliably on a single trace EKG recording. It is noted that the patient has a pacemaker implanted, but there was not apparent pacemaker artifact noted in the single EKG trace. EEG Impression This EEG is not interpretable for any meaningful assessment of cerebral activity due to the presence of multiple excessive and continuous artifacts as noted above. Upon review of the recorded video, the patient clinically has obviously some preserved cerebral activity, and there are spontaneous eye blinks noted on EEG as well. Any cerebral activity present on this recording would be suspected to be low amplitude and overwhelmed by the superimposed artifacts (note that there were exceedingly rare portions of the study where low amplitude beta activity was likely present). Further interpretation of this EEG would be difficult and potentially misleading due to the associated artifact. There were no definitive epileptiform abnormalities or seizures noted, but this assessment should be taken into context with the difficulties of interpretation noted above. It should also be noted that this EEG was recorded approximately 5 hours after all sedating medications were reportedly discontinued. It is unlikely that this was sufficient time to allow for appropriate elimination of these sedating medications especially if there is any hepatic or renal dysfunction. In addition, it should be noted that the patient is on Keppra, Dilantin, and Ativan, all of which may potentially suppress inter-ictal epileptiform abnormalities on EEG. If there is strong concern for clinical or sub-clinical seizure activity then long-term EEG monitoring would be advised or additional repeat routine EEGs if long-term monitoring is not available. Also, additional time for the clearance of previously administered sedating medications is suggested if a repeat EEG is desired for further assessment of cerebral function. INTERPRETING NEUROLOGIST: Mata Boucher MD Board Certified in Neurology, Clinical Neurophysiology, and Sleep Medicine by the [place] [employer] and [employer] MTDD
[2018-09-06] MEDS: LORAZEPAM INJ 2 MG/1 ML VIAL IV PRN (19:34)
--- NOTE | 2018-09-06 20:15 | PDOC PROGRESS REPORT ---
Subjective Progress Note for:: 09/06/18 Subjective:: Patient seen by the bedside, is extubated Reason For Visit: ACUTE PULMONARY EDEMA,HYPOGLYCEMIC ENCEPHALOPATHY Physical Exam Vital Signs: Temp Pulse Resp BP Pulse Ox 99.0 F 101 H 23 H 140/81 H 99 09/06/18 16:00 09/06/18 18:00 09/06/18 18:15 09/06/18 18:05 09/06/18 18:15 Intake & Output 09/05/18 09/06/18 09/07/18 06:59 06:59 06:59 Intake Total 2372 2066 965 Output Total 7819 1233 1875 Balance -1153 -739 -910 Weight 81.1 kg 80.6 kg Eye exam: PRESENT: PERRLA Respiratory exam: PRESENT: rhonchi Cardiovascular exam: PRESENT: +S1, +S2 GI/Abdominal exam: PRESENT: soft Neurological exam: PRESENT: alert Results Laboratory Results: 09/06/18 04:14 09/06/18 04:14 09/06/18 09/06/18 09/06/18 04:14 04:14 04:14 WBC 8.4 RBC 3.25 L Hgb 10.3 L Hct 30.6 L MCV 94 MCH 31.7 MCHC 33.6 RDW 13.5 Plt Count 178 Seg Neutrophils % 71.3 Lymphocytes % 11.2 L Monocytes % 11.8 Eosinophils % 5.6 Basophils % 0.1 Absolute Neutrophils 6.0 Absolute Lymphocytes 0.9 Absolute Monocytes 1.0 Absolute Eosinophils 0.5 Absolute Basophils 0.0 Carbonic Acid 1.14 HCO3/H2CO3 Ratio 21:1 ABG pH 7.43 ABG pCO2 37.8 ABG pO2 83.9 ABG HCO3 24.4 H ABG O2 Saturation 96.6 ABG Base Excess 0.3 FiO2 21% Sodium 140.4 Potassium 3.5 L Chloride 108 H Carbon Dioxide 26 Anion Gap 6 BUN 44 H Creatinine 2.03 H Est GFR ( Amer) 39 L Est GFR (Non-Af Amer) 32 L Glucose 181 H Calcium 8.4 Phosphorus 3.5 Magnesium 2.4 H 09/06/18 09:55 WBC RBC Hgb Hct MCV MCH MCHC RDW Plt Count Seg Neutrophils % Lymphocytes % Monocytes % Eosinophils % Basophils % Absolute Neutrophils Absolute Lymphocytes Absolute Monocytes Absolute Eosinophils Absolute Basophils Carbonic Acid 1.05 HCO3/H2CO3 Ratio 23:1 ABG pH 7.46 H ABG pCO2 35.0 ABG pO2 81.7 ABG HCO3 24.3 H ABG O2 Saturation 96.6 ABG Base Excess 0.8 FiO2 21% Sodium Potassium Chloride Carbon Dioxide Anion Gap BUN Creatinine Est GFR ( Amer) Est GFR (Non-Af Amer) Glucose Calcium Phosphorus Magnesium 08/31/18 08/31/18 08/31/18 09:43 09:43 13:29 Creatine Kinase 248 H 270 H CK-MB (CK-2) 4.20 Troponin I 0.060 NT-Pro-B Natriuret Pep 5890 H 08/31/18 08/31/18 08/31/18 13:29 21:00 21:00 Creatine Kinase 227 H CK-MB (CK-2) 4.20 3.93 Troponin I 0.063 0.078 NT-Pro-B Natriuret Pep 09/01/18 09/01/18 03:30 03:30 Creatine Kinase 187 H CK-MB (CK-2) 3.12 Troponin I 0.096 NT-Pro-B Natriuret Pep Impressions: Head CT 08/31/18 09:43 IMPRESSION: Multiple old infarcts EVIDENCE OF ACUTE STROKE: NO. Chest X-Ray 09/06/18 06:00 IMPRESSION: No significant change. KUB X-Ray 09/06/18 16:03 IMPRESSION: Nasoenteric tube tip at GE junction. Recommend advancing 10 cm. Assessment & Plan - Diagnosis (1) Acute hypoxemic respiratory failure Is this a current diagnosis for this admission?: Yes Plan: Patient is off mechanical ventilation (2) Acute systolic heart failure Is this a current diagnosis for this admission?: Yes (3) Hypoglycemia Is this a current diagnosis for this admission?: Yes Plan: Resolved (4) Pneumonia Qualifiers: Pneumonia type: due to unspecified organism Laterality: left Lung location: unspecified part of lung Qualified Code(s): J18.9 - Pneumonia, unspecified organism Is this a current diagnosis for this admission?: Yes (5) Chronic kidney disease, stage 3 Is this a current diagnosis for this admission?: Yes (6) Hypoglycemic encephalopathy Is this a current diagnosis for this admission?: Yes (7) Atrial fibrillation Qualifiers: Atrial fibrillation type: paroxysmal Qualified Code(s): I48.0 - Paroxysmal atrial fibrillation Is this a current diagnosis for this admission?: Yes
[2018-09-06] MEDS: ATORVASTATIN CALCIUM 20 MG TABLET NG SCH (21:11)
[2018-09-07] MEDS: PHENYTOIN 50 MG TAB.CHEW NG SCH ×3 (01:44→18:47)
[2018-09-07] MEDS: LORAZEPAM INJ 2 MG/1 ML VIAL IV PRN ×2 (01:45→18:46)
[2018-09-07 04:31] LABS: ANION GAP 7 (5-19); BLOOD UREA NITROGEN 33 mg/dL (7-20); CALCIUM 8.5 mg/dL (8.4-10.2); CARBON DIOXIDE 26 mmol/L (22-30); CHLORIDE 110 mmol/L (98-107); GLUCOSE 153 mg/dL (75-110); PHOSPHORUS 2.7 mg/dL (2.5-4.5); POTASSIUM 3.6 mmol/L (3.6-5.0); SODIUM 142.8 mmol/L (137-145)
[2018-09-07] MEDS: HYDRALAZINE HCL 10 MG TABLET NG SCH ×3 (05:57→21:18)
[2018-09-07] MEDS: HEPARIN SOD (PORCINE) 5,000 UNIT/ML 1 ML SYRINGE SUBCUT SCH ×3 (05:59→21:22)
--- NOTE | 2018-09-07 08:29 | PROGRESS NOTE E ---
Progress Note NAME: RICKY PETTY : 1945 AGE: 73Y DATE: 09/06/2018 ROOM: 601 SUBJECTIVE: The patient is a 73-year-old -[place] male who came in acute respiratory failure requiring invasive mechanical ventilation, status post cardiac arrest. He was doing well overnight. No fever. Scanty endotracheal tube secretions. The patient also had saturations of about 94% to 95% on FiO2 of 21%. The patient tolerated the NG tube feeding at 20 mL/hr. The patient passed the spontaneous breathing trial this morning and got extubated, tolerated spontaneous breathing trial with close monitoring. PHYSICAL EXAMINATION: GENERAL: The patient is awake, alert, oriented x3. VITAL SIGNS: Temperature 99.5, heart rate 101, blood pressure 140/81, respiratory rate 23, saturation 99% on 2 L nasal cannula. HEENT: Eyes- No jaundice or pallor. Ears, nose, and throat - No ear drainage. No nasal discharge. CHEST AND LUNGS: No wheezing, no rhonchi, no coarse crackles. CARDIOVASCULAR: S1, S2 distinct. Normal rate and regular rhythm. ABDOMEN: Flabby. Positive bowel sounds. Soft, nondistended, nontender. EXTREMITIES: No joint swelling or cellulitis. LABORATORY: CBC done today showed white count of 8.4, hemoglobin 10.3, hematocrit 30.6, platelet count 128, no bands noted. The patient had ABG done today at 9:35 p.m. following spontaneous breathing trial showing pH of 7.46, PCO2 25, PO2 81, bicarb 24, and ABG oxygen saturation 96% on 21% FiO2. ASSESSMENT: ACUTE RESPIRATORY FAILURE REQUIRING INVASIVE MECHANICAL VENTILATION. Currently improving, passed the spontaneous breathing trial, extubated this morning, appears to be still doing okay. PLAN/RECOMMENDATIONS: We will continue to watch him. May consider BiPAP therapy if the patient becomes more dyspneic. Ordered Ativan 1 mg IV every 6 hours p.r.n. for severe agitation. DICTATING PHYSICIAN: LARY LYNCH MD,ROHAN,MPH [id number] PHY#: [id number] 1959 ID: [id number] JOB#: [id number] ACCT: [id number] cc: > MTDD
[2018-09-07] MEDS: DOCUSATE SODIUM 100 MG CAPSULE PO SCH (09:42)
[2018-09-07] MEDS: METOPROLOL TARTRATE 50 MG TABLET NG SCH ×2 (09:44→21:21)
[2018-09-07] MEDS: CEFEPIME 1 GM/D5W RTU 1 GM/50 ML RTUPB IV SCH ×2 (09:44→21:16)
[2018-09-07] MEDS: LEVETIRACETAM ORAL SOLN 500 MG/5 ML UDCUP NG SCH ×2 (09:44→21:16)
[2018-09-07] MEDS: 1/2 NORMAL SALINE 1,000 ML IV PRN (12:52)
[2018-09-07] MEDS: SCOPOLAMINE HYDROBROMIDE 1.5 MG PATCH.TD72 TD SCH (13:01)
[2018-09-07] MEDS: DOCUSATE SODIUM 100 MG/10 ML UDC NG SCH (18:16)
[2018-09-07] MEDS: LEVOFLOXACIN 500 MG/D5W RTU 500 MG/100 ML RTUPB IV SCH (18:46)
[2018-09-07] MEDS: ATORVASTATIN CALCIUM 20 MG TABLET NG SCH (21:21)
--- NOTE | 2018-09-07 22:23 | PDOC PROGRESS REPORT ---
Subjective Progress Note for:: 09/07/18 Subjective:: Patient is alert ,but confused Reason For Visit: ACUTE PULMONARY EDEMA,HYPOGLYCEMIC ENCEPHALOPATHY Physical Exam Vital Signs: Temp Pulse Resp BP Pulse Ox 99.0 F 97 21 H 176/95 H 98 09/07/18 20:00 09/07/18 20:00 09/07/18 18:00 09/07/18 18:00 09/07/18 18:00 Intake & Output 09/06/18 09/07/18 09/08/18 06:59 06:59 06:59 Intake Total 2066 1275 50 Output Total 2805 3075 1040 Balance -599 1800 -990 Weight 80.6 kg 78.7 kg General appearance: PRESENT: no acute distress Eye exam: PRESENT: PERRLA Respiratory exam: PRESENT: clear to auscultation nicolle Cardiovascular exam: PRESENT: +S1, +S2 Results Laboratory Results: 09/06/18 04:14 09/07/18 04:03 09/07/18 04:03 Sodium 142.8 Potassium 3.6 Chloride 110 H Carbon Dioxide 26 Anion Gap 7 BUN 33 H Creatinine 1.63 H Est GFR ( Amer) 50 L Est GFR (Non-Af Amer) 42 L Glucose 153 H Calcium 8.5 Phosphorus 2.7 Magnesium 2.2 08/31/18 08/31/18 08/31/18 09:43 09:43 13:29 Creatine Kinase 248 H 270 H CK-MB (CK-2) 4.20 Troponin I 0.060 NT-Pro-B Natriuret Pep 5890 H 08/31/18 08/31/18 08/31/18 13:29 21:00 21:00 Creatine Kinase 227 H CK-MB (CK-2) 4.20 3.93 Troponin I 0.063 0.078 NT-Pro-B Natriuret Pep 09/01/18 09/01/18 03:30 03:30 Creatine Kinase 187 H CK-MB (CK-2) 3.12 Troponin I 0.096 NT-Pro-B Natriuret Pep Impressions: Head CT 08/31/18 09:43 IMPRESSION: Multiple old infarcts EVIDENCE OF ACUTE STROKE: NO. Chest X-Ray 09/06/18 06:00 IMPRESSION: No significant change. KUB X-Ray 09/06/18 16:03 IMPRESSION: Nasoenteric tube tip at GE junction. Recommend advancing 10 cm. Assessment & Plan - Diagnosis (1) Acute hypoxemic respiratory failure Is this a current diagnosis for this admission?: Yes (2) Acute systolic heart failure Is this a current diagnosis for this admission?: Yes (3) Hypoglycemia Is this a current diagnosis for this admission?: Yes (4) Pneumonia Qualifiers: Pneumonia type: due to unspecified organism Laterality: left Lung lo cation: unspecified part of lung Qualified Code(s): J18.9 - Pneumonia, unspecified organism Is this a current diagnosis for this admission?: Yes (5) Chronic kidney disease, stage 3 Is this a current diagnosis for this admission?: Yes (6) Hypoglycemic encephalopathy Is this a current diagnosis for this admission?: Yes (7) Atrial fibrillation Qualifiers: Atrial fibrillation type: paroxysmal Qualified Code(s): I48.0 - Paroxysmal atrial fibrillation Is this a current diagnosis for this admission?: Yes
--- NOTE | 2018-09-07 22:26 | Progress Note ---
Provider Note Provider Note: CARDIOLOGY PROGRESS NOTE by Dr. Rossy Dooley on 09/07/2018.
[2018-09-08] MEDS: PHENYTOIN 50 MG TAB.CHEW NG SCH ×3 (01:52→17:51)
[2018-09-08] MEDS: LORAZEPAM INJ 2 MG/1 ML VIAL IV PRN ×2 (01:52→14:53)
[2018-09-08 05:04] LABS: ANION GAP 7 (5-19); BLOOD UREA NITROGEN 30 mg/dL (7-20); CALCIUM 9.1 mg/dL (8.4-10.2); CARBON DIOXIDE 27 mmol/L (22-30); CHLORIDE 111 mmol/L (98-107); GLUCOSE 165 mg/dL (75-110); PHOSPHORUS 2.9 mg/dL (2.5-4.5); POTASSIUM 3.6 mmol/L (3.6-5.0); SODIUM 145.1 mmol/L (137-145)
[2018-09-08] MEDS: HYDRALAZINE HCL 10 MG TABLET NG SCH ×2 (05:23→14:40)
[2018-09-08] MEDS: HEPARIN SOD (PORCINE) 5,000 UNIT/ML 1 ML SYRINGE SUBCUT SCH ×2 (05:24→14:41)
[2018-09-08] MEDS: METOPROLOL TARTRATE 50 MG TABLET NG SCH (10:36)
[2018-09-08] MEDS: DOCUSATE SODIUM 100 MG/10 ML UDC NG SCH ×2 (10:36→17:51)
[2018-09-08] MEDS: LEVETIRACETAM ORAL SOLN 500 MG/5 ML UDCUP NG SCH (10:36)
[2018-09-08] MEDS: 1/2 NORMAL SALINE 1,000 ML IV PRN (10:42)
[2018-09-08 13:26] LABS: ARTERIAL BLOOD BASE EXCESS 0.3 mmol/L; ARTERIAL BLOOD H2CO3 1.07 mmol/L (1.05-1.35); ARTERIAL BLOOD HCO3 23.8 mmol/L (20-24); ARTERIAL BLOOD O2 SATURATION 98.1 % (94-98); ARTERIAL BLOOD PCO2 35.5 mmHg (35-45); ARTERIAL BLOOD PH 7.45 (7.35-7.45); ARTERIAL BLOOD PO2 106.7 mmHg (80-100); ARTERIAL BLOOD TOTAL CO2 24.9 mmol/L (23-27)
[2018-09-08 13:27] LABS: ARTERIAL BLOOD FIO2 2L
--- NOTE | 2018-09-08 14:38 | RADIOLOGY REPORT (SQ) ---
EXAM DESCRIPTION: CT HEAD WITHOUT COMPLETED DATE/TIME: 09/08/2018 2:14 pm REASON FOR STUDY: lethargy, decrease level of consiousness COMPARISON: CT brain 08/31/2018, 06/02/2018, 03/06/2018 TECHNIQUE: Axial images acquired through the brain without intravenous contrast. Images reviewed wi th bone, brain and subdural windows. Additional sagittal and coronal reconstructions were generated. Images stored on PACS. All CT scanners at this facility use dose modulation, iterative reconstruction, and/or weight based d osing when appropriate to reduce radiation dose to as low as reasonably achievable (ALARA). [facility]: Dose Right [facility]: CareDose [facility]: Dose Right [facility]: Teradose 4D [facility]: [place] RADIATION DOSE: CT Rad equipment meets quality standard of care and radiation dose reduction techniq ues were employed. CTDIvol: 48.7 - 50.0 mGy. DLP: 1985 mGy-cm. mGy. LIMITATIONS: Motion artifact, patient scanned twice FINDINGS: VENTRICLES: Normal size and contour. 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 Old small left posterior frontal/ parietal corti yosef and subcortical white matter infarcts. Old basal ganglia calcifications bilaterally. No CT evide nce of acute large territory ischemic change, acute intracranial hemorrhage, mass effect, or midline shift. CEREBELLUM: No masses. No hemorrhage. No alteration of density. No evidence for acute infarction. EXTRAAXIAL SPACES: No fluid collections. No masses. ORBITS AND GLOBE: No intra- or extraconal masses. Post bilateral cataract surgery. CALVARIUM: No fracture. PARANASAL SINUSES: No fluid or mucosal thickening. SOFT TISSUES: No mass or hematoma. OTHER: No other significant finding. IMPRESSION: Multiple chronic appearing infarcts. No acute findings EVIDENCE OF ACUTE STROKE: NO. COMMENT: Quality ID # [id number]: Final reports with documentation of one or more dose reduction techniques (e.g., Automated exposure control, adjustment of the mA and/or kV according to patient size, use of iterative reconstruction technique) TECHNICAL DOCUMENTATION: JOB ID: [id number] [employer]- All Rights Reserved Reading location - IP/workstation name: [email or web address]
--- NOTE | 2018-09-08 19:29 | PDOC PROGRESS REPORT ---
Subjective Progress Note for:: 09/08/18 Subjective:: Patient is poorly responsive no verbal communication today, very lethargic CT head without contrast was obtained, it demonstrated old large right MCA distribution infarct. Old small left posterior frontal/parietal cortical and subcortical infarcts. Old basal ganglia calcifications bilaterally no CT evidence of acute large territory ischemic change, patient was admitted with severe hypoglycemic encephalopathy the ABG that was drawn is normal, is still have NG tube in place patient condition is very guarded Reason For Visit: ACUTE PULMONARY EDEMA,HYPOGLYCEMIC ENCEPHALOPATHY Physical Exam Vital Signs: Temp Pulse Resp BP Pulse Ox 97.8 F 101 H 26 H 144/99 H 100 09/08/18 16:00 09/08/18 18:00 09/08/18 18:00 09/08/18 18:00 09/08/18 18:00 Intake & Output 09/07/18 09/08/18 09/09/18 06:59 06:59 06:59 Intake Total 5797 167 5123 Output Total 3075 1665 700 Balance -1800 -1165 300 Weight 78.7 kg 78.5 kg General appearance: PRESENT: other - Poorly responsive to verbal commands Eye exam: PRESENT: PERRLA Respiratory exam: PRESENT: clear to auscultation nicolle Cardiovascular exam: PRESENT: irregular rhythm, +S1, +S2 GI/Abdominal exam: PRESENT: soft Neurological exam: PRESENT: alert Results Laboratory Results: 09/06/18 04:14 09/08/18 04:25 09/08/18 09/08/18 09/08/18 04:25 12:00 12:55 Carbonic Acid Cancelled Cancelled HCO3/H2CO3 Ratio Cancelled Cancelled ABG pH Cancelled Cancelled ABG pCO2 Cancelled Cancelled ABG pO2 Cancelled Cancelled ABG HCO3 Cancelled Cancelled ABG O2 Saturation Cancelled Cancelled ABG Base Excess Cancelled Cancelled FiO2 Cancelled Cancelled Sodium 145.1 H Potassium 3.6 Chloride 111 H Carbon Dioxide 27 Anion Gap 7 BUN 30 H Creatinine 1.63 H Est GFR ( Amer) 50 L Est GFR (Non-Af Amer) 42 L Glucose 165 H Calcium 9.1 Phosphorus 2.9 Magnesium 2.3 09/08/18 13:20 Carbonic Acid 1.07 HCO3/H2CO3 Ratio 22:1 ABG pH 7.45 ABG pCO2 35.5 ABG pO2 106.7 H ABG HCO3 23.8 ABG O2 Saturation 98.1 H ABG Base Excess 0.3 FiO2 2L Sodium Potassium Chloride Carbon Dioxide Anion Gap BUN Creatinine Est GFR ( Amer) Est GFR (Non-Af Amer) Glucose Calcium Phosphorus Magnesium 08/31/18 08/31/18 08/31/18 09:43 09:43 13:29 Creatine Kinase 248 H 270 H CK-MB (CK-2) 4.20 Troponin I 0.060 NT-Pro-B Natriuret Pep 5890 H 08/31/18 08/31/18 08/31/18 13:29 21:00 21:00 Creatine Kinase 227 H CK-MB (CK-2) 4.20 3.93 Troponin I 0.063 0.078 NT-Pro-B Natriuret Pep 09/01/18 09/01/18 03:30 03:30 Creatine Kinase 187 H CK-MB (CK-2) 3.12 Troponin I 0.096 NT-Pro-B Natriuret Pep Impressions: Chest X-Ray 09/06/18 06:00 IMPRESSION: No significant change. KUB X-Ray 09/06/18 16:03 IMPRESSION: Nasoenteric tube tip at GE junction. Recommend advancing [address] 09/08/18 00:00 IMPRESSION: Multiple chronic appearing infarcts. No acute findings EVIDENCE OF ACUTE STROKE: NO. Assessment & Plan - Diagnosis (1) Acute hypoxemic respiratory failure Is this a current diagnosis for this admission?: Yes Plan: Patient is stable (2) Acute systolic heart failure Is this a current diagnosis for this admission?: Yes (3) Hypoglycemia Is this a current diagnosis for this admission?: Yes (4) Pneumonia Qualifiers: Pneumonia type: due to unspecified organism Laterality: left Lung location: unspecified part of lung Qualified Code(s): J18.9 - Pneumonia, unspecified organism Is this a current diagnosis for this admission?: Yes (5) Chronic kidney disease, stage 3 Is this a current diagnosis for this admission?: Yes (6) Hypoglycemic encephalopathy Is this a current diagnosis for this admission?: Yes Plan: Patient probably sustained encephalopathy from hypoglycemia, patient condition is very poor (7) Atrial fibrillation Qualifiers: Atrial fibrillation type: paroxysmal Qualified Code(s): I48.0 - Paroxysmal atrial fibrillation Is this a current diagnosis for this admission?: Yes
[2018-09-09] MEDS: HYDRALAZINE HCL 10 MG TABLET NG SCH ×2 (00:31→05:14)
[2018-09-09] MEDS: ATORVASTATIN CALCIUM 20 MG TABLET NG SCH ×2 (00:32→21:00)
[2018-09-09] MEDS: LEVETIRACETAM ORAL SOLN 500 MG/5 ML UDCUP NG SCH ×3 (00:32→21:00)
[2018-09-09] MEDS: METOPROLOL TARTRATE 50 MG TABLET NG SCH ×3 (00:32→21:00)
[2018-09-09] MEDS: HEPARIN SOD (PORCINE) 5,000 UNIT/ML 1 ML SYRINGE SUBCUT SCH ×4 (00:33→21:01)
[2018-09-09] MEDS: PHENYTOIN 50 MG TAB.CHEW NG SCH ×3 (02:58→17:26)
[2018-09-09] MEDS: LORAZEPAM INJ 2 MG/1 ML VIAL IV PRN ×2 (05:13→15:44)
[2018-09-09 05:59] LABS: ANION GAP 8 (5-19); BLOOD UREA NITROGEN 29 mg/dL (7-20); CALCIUM 8.9 mg/dL (8.4-10.2); CARBON DIOXIDE 26 mmol/L (22-30); CHLORIDE 112 mmol/L (98-107); GLUCOSE 196 mg/dL (75-110); POTASSIUM 3.7 mmol/L (3.6-5.0); SODIUM 145.7 mmol/L (137-145)
[2018-09-09] MEDS: 1/2 NORMAL SALINE 1,000 ML IV PRN (06:51)
[2018-09-09] MEDS: DOCUSATE SODIUM 100 MG/10 ML UDC NG SCH ×2 (09:12→17:26)
--- NOTE | 2018-09-09 09:30 | RADIOLOGY REPORT (SQ) ---
EXAM DESCRIPTION: KUB/ABDOMEN (SINGLE VIEW) COMPLETED DATE/TIME: 09/09/2018 9:12 am REASON FOR STUDY: ng tube placement COMPARISON: 09/06/2018. FINDINGS: Single-view portably obtained AP supine image of the lower chest and abdomen. Nasogastric tube down, tip appropriately within the stomach. Nonobstructive bowel gas pattern. IMPRESSION: Appropriate nasogastric tube. TECHNICAL DOCUMENTATION: JOB ID: [id number] Reading location - IP/workstation name: [email or web address]
--- NOTE | 2018-09-09 12:20 | PDOC PROGRESS REPORT ---
Subjective Progress Note for:: 09/09/18 Subjective:: No new issues reported by nursing staff. He remain on tube feeding via nasogastric tube. Hyperglycemia persist. Blood pressure remain elevated. He is currently on IV Hydralazine and oral Metoprolol. Patient remain incoherent in verbal communication. Reason For Visit: ACUTE PULMONARY EDEMA,HYPOGLYCEMIC ENCEPHALOPATHY Physical Exam Vital Signs: Temp Pulse Resp BP Pulse Ox 97.5 F 82 15 155/93 H 97 09/09/18 08:00 09/09/18 10:00 09/09/18 10:00 09/09/18 10:00 09/09/18 10:00 Intake & Output 09/08/18 09/09/18 09/10/18 06:59 06:59 06:59 Intake Total 500 2590 Output Total 1665 1500 300 Balance -1165 1090 -300 Weight 78.5 kg 80 kg General appearance: PRESENT: no acute distress Head exam: PRESENT: atraumatic, normocephalic Eye exam: PRESENT: conjunctiva pink. ABSENT: scleral icterus Ear exam: PRESENT: normal external ear exam Mouth exam: PRESENT: moist, other - NG tube in situ Respiratory exam: PRESENT: clear to auscultation nicolle, decreased breath sounds - at lung bases Cardiovascular exam: PRESENT: RRR. ABSENT: diastolic murmur, rubs, systolic murmur Vascular exam: PRESENT: normal capillary refill. ABSENT: pallor GI/Abdominal exam: PRESENT: normal bowel sounds, soft. ABSENT: distended, guarding, mass, organolmegaly, rebound, tenderness Extremities exam: ABSENT: pedal edema Neurological exam: PRESENT: alert, awake Psychiatric exam: ABSENT: agitated Skin exam: PRESENT: dry, warm Results Laboratory Results: 09/06/18 04:14 09/09/18 05:30 09/08/18 09/08/18 09/08/18 12:00 12:55 13:20 Carbonic Acid Cancelled Cancelled 1.07 HCO3/H2CO3 Ratio Cancelled Cancelled 22:1 ABG pH Cancelled Cancelled 7.45 ABG pCO2 Cancelled Cancelled 35.5 ABG pO2 Cancelled Cancelled 106.7 H ABG HCO3 Cancelled Cancelled 23.8 ABG O2 Saturation Cancelled Cancelled 98.1 H ABG Base Excess Cancelled Cancelled 0.3 FiO2 Cancelled Cancelled 2L Sodium Potassium Chloride Carbon Dioxide Anion Gap BUN Creatinine Est GFR ( Amer) Est GFR (Non-Af Amer) Glucose Calcium Phosphorus Magnesium 09/09/18 05:30 Carbonic Acid HCO3/H2CO3 Ratio ABG pH ABG pCO2 ABG pO2 ABG HCO3 ABG O2 Saturation ABG Base Excess FiO2 Sodium 145.7 H Potassium 3.7 Chloride 112 H Carbon Dioxide 26 Anion Gap 8 BUN 29 H Creatinine 1.52 H Est GFR ( Amer) 55 L Est GFR (Non-Af Amer) 45 L Glucose 196 H Calcium 8.9 Phosphorus 3.0 Magnesium 2.2 08/31/18 08/31/18 08/31/18 09:43 09:43 13:29 Creatine Kinase 248 H 270 H CK-MB (CK-2) 4.20 Troponin I 0.060 NT-Pro-B Natriuret Pep 5890 H 08/31/18 08/31/18 08/31/18 13:29 21:00 21:00 Creatine Kinase 227 H CK-MB (CK-2) 4.20 3.93 Troponin I 0.063 0.078 NT-Pro-B Natriuret Pep 09/01/18 09/01/18 03:30 03:30 Creatine Kinase 187 H CK-MB (CK-2) 3.12 Troponin I 0.096 NT-Pro-B Natriuret Pep Impressions: Chest X-Ray 09/06/18 06:00 IMPRESSION: No significant change. Head CT 09/08/18 00:00 IMPRESSION: Multiple chronic appearing infarcts. No acute findings EVIDENCE OF ACUTE STROKE: NO. KUB X-Ray 09/09/18 08:48 IMPRESSION: Appropriate nasogastric tube. Assessment & Plan - Diagnosis (1) Hypoglycemic encephalopathy Is this a current diagnosis for this admission?: Yes Plan: Continue current accuchek monitoring and management with Humalog sliding scale insulin coverage. (2) Hypoglycemia associated with type 2 diabetes mellitus Is this a current diagnosis for this admission?: Yes Plan: Continue current accuchek monitoring and management with Humalog sliding scale insulin coverage. (3) Diabetes mellitus type 2 in nonobese Is this a current diagnosis for this admission?: Yes Plan: Continue current accuchek monitoring and management with Humalog sliding scale insulin coverage. (4) HTN (hypertension) Qualifiers: Hypertension type: essential hypertension Qualified Code(s): I10 - Essential (primary) hypertension Is this a current diagnosis for this admission?: Yes Plan: Increase Hydralazine to 25 mg /NG q 6 hours. - Time Time Spent with patient: 25-34 minutes Medications reviewed and adjusted accordingly: Yes Anticipated discharge: SNF Within: Other - Inpatient Certification Based on my medical assessment, after consideration of the patient's comorbidities, presenting symptoms, or acuity I expect that the services needed warrant INPATIENT care.: Yes I certify that my determination is in accordance with my understanding of Medicare's requirements for reasonable and necessary INPATIENT services [42 CFR 412.3e].: Yes Medical Necessity: Significant Comorbidiites Make Outpatient Treatment Too Risky, Need Close Monitoring Due to Risk of Patient Decompensation, Need For IV Fluids, Need For Continuous Telemetry Monitoring, Risk of Complication if Not Cared For in Hospital, Risk of Diagnosis Which Will Require Inpatient Eval/Care/Monitoring 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
[2018-09-09] MEDS: HYDRALAZINE HCL 25 MG TABLET NG SCH ×2 (12:51→17:27)
[2018-09-09] MEDS ORDERED: HYDRALAZINE HCL 10 MG TABLET NG SCH (18:00)
[2018-09-09] MEDS ORDERED: HYDRALAZINE HCL INJ/PF 20 MG/1 ML SDV ONE (18:25)
[2018-09-09] MEDS ORDERED: HYDRALAZINE HCL INJ/PF 20 MG/1 ML SDV IV ONE (18:30)
[2018-09-10] MEDS: HYDRALAZINE HCL 25 MG TABLET NG SCH ×4 (00:41→17:00)
[2018-09-10] MEDS: LORAZEPAM INJ 2 MG/1 ML VIAL IV PRN ×2 (00:43→20:20)
[2018-09-10] MEDS: PHENYTOIN 50 MG TAB.CHEW NG SCH ×3 (02:12→17:00)
[2018-09-10] MEDS: 1/2 NORMAL SALINE 1,000 ML IV PRN ×2 (03:32→23:17)
[2018-09-10 04:46] LABS: ABSOLUTE BASOPHILS # (AUTO) 0.1 10^3/uL (0.0-0.2); ABSOLUTE EOSINOPHILS # (AUTO) 0.4 10^3/uL (0.0-0.6); ABSOLUTE MONOCYTES (AUTO) 0.9 10^3/uL (0.1-1.4); ABSOLUTE NEUT (AUTO) 8.3 10^3/uL (1.7-8.2); BASOPHILS % (AUTO) 0.6 % (0-2); EOSINOPHILS % (AUTO) 3.6 % (0-6); HEMATOCRIT 28.6 % (37.9-51.0); HEMOGLOBIN 9.6 g/dL (13.5-17.0); LYMPHOCYTES % (AUTO) 9.3 % (13-45); MEAN CORPUSCULAR HEMOGLOBIN 31.7 pg (27.0-33.4); MEAN CORPUSCULAR HGB CONC 33.7 g/dL (32.0-36.0); MEAN CORPUSCULAR VOLUME 94 fl (80-97); MONOCYTES % (AUTO) 8.1 % (3-13); PLATELET COUNT 208 10^3/uL (150-450); RED BLOOD COUNT 3.04 10^6/uL (4.35-5.55); RED CELL DISTRIBUTION WIDTH 13.1 % (11.5-14.0); SEGMENTED NEUTROPHILS % (AUTO) 78.4 % (42-78); TOTAL CELLS COUNTED % (AUTO) 100 %; WHITE BLOOD COUNT 10.5 10^3/uL (4.0-10.5)
[2018-09-10 05:05] LABS: ANION GAP 8 (5-19); BLOOD UREA NITROGEN 24 mg/dL (7-20); CARBON DIOXIDE 26 mmol/L (22-30); CHLORIDE 112 mmol/L (98-107); GLUCOSE 208 mg/dL (75-110); PHOSPHORUS 2.9 mg/dL (2.5-4.5); POTASSIUM 3.5 mmol/L (3.6-5.0); SODIUM 145.9 mmol/L (137-145)
[2018-09-10] MEDS: HEPARIN SOD (PORCINE) 5,000 UNIT/ML 1 ML SYRINGE SUBCUT SCH ×3 (05:20→21:05)
[2018-09-10] MEDS: METOPROLOL TARTRATE 50 MG TABLET NG SCH ×2 (09:01→21:11)
[2018-09-10] MEDS: LEVETIRACETAM ORAL SOLN 500 MG/5 ML UDCUP NG SCH ×2 (09:01→21:11)
[2018-09-10] MEDS: DOCUSATE SODIUM 100 MG/10 ML UDC NG SCH ×2 (09:01→17:00)
[2018-09-10] MEDS: SCOPOLAMINE HYDROBROMIDE 1.5 MG PATCH.TD72 TD SCH (09:02)
[2018-09-10 09:25] LABS: ARTERIAL BLOOD BASE EXCESS 1.3 mmol/L; ARTERIAL BLOOD H2CO3 1.39 mmol/L (1.05-1.35); ARTERIAL BLOOD HCO3 26.8 mmol/L (20-24); ARTERIAL BLOOD O2 SATURATION 97.9 % (94-98); ARTERIAL BLOOD PCO2 46.2 mmHg (35-45); ARTERIAL BLOOD PH 7.38 (7.35-7.45); ARTERIAL BLOOD PO2 109.3 mmHg (80-100); ARTERIAL BLOOD TOTAL CO2 28.3 mmol/L (23-27)
[2018-09-10 09:26] LABS: ARTERIAL BLOOD FIO2 3L
--- NOTE | 2018-09-10 10:11 | RADIOLOGY REPORT (SQ) ---
EXAM DESCRIPTION: CHEST SINGLE VIEW COMPLETED DATE/TIME: 09/10/2018 9:57 am REASON FOR STUDY: possible aspiration/labored resp/sonorus exp wheez COMPARISON: Chest films 09/06/2018, 09/03/2018, 09/01/2018 EXAM PARAMETERS: NUMBER OF VIEWS: One view. TECHNIQUE: Single frontal radiographic view of the chest acquired. RADIATION DOSE: NA LIMITATIONS: None. FINDINGS: LUNGS AND PLEURA: No opacities, masses or pneumothorax. No pleural effusion. MEDIASTINUM AND HILAR STRUCTURES: No masses. Contour normal. HEART AND VASCULAR STRUCTURES: Stable marked cardiomegaly BONES: No acute findings. HARDWARE: Right subclavian triple lumen catheter tip superior vena cava. Nasogastric tube tip and si de port in the stomach. Left-sided pacemaker unchanged OTHER: No other significant finding. IMPRESSION: No focal infiltrates. Triple-lumen catheter, nasogastric tube in good positioning. Stable cardiomegaly TECHNICAL DOCUMENTATION: JOB ID: [id number] [employer]- All Rights Reserved Reading location - IP/workstation name: [email or web address]
[2018-09-10] MEDS ORDERED: INSULIN LISPRO 100 UNIT/ML 3 ML VIAL SUBCUT SCH (11:00)
[2018-09-10] MEDS: INSULIN LISPRO 100 UNIT/ML 3 ML VIAL SUBCUT SCH ×3 (12:04→23:20)
--- NOTE | 2018-09-10 15:57 | PDOC PROGRESS REPORT ---
Subjective Progress Note for:: 09/10/18 Subjective:: Patient is less verbally engaging today. His Ativan administration is currently on hold. He remain on tube feeding via nasogastric tube with hyperglycemia and Humalog sliding scale insulin coverage. His blood pressure remain elevated. Reason For Visit: ACUTE PULMONARY EDEMA,HYPOGLYCEMIC ENCEPHALOPATHY Physical Exam Vital Signs: Temp Pulse Resp BP Pulse Ox 98.4 F 99 16 163/99 H 99 09/10/18 14:00 09/10/18 14:00 09/10/18 14:45 09/10/18 14:39 09/10/18 14:45 Intake & Output 09/09/18 09/10/18 09/11/18 06:59 06:59 06:59 Intake Total 2590 1940 Output Total 1500 1450 455 Balance 1090 490 -455 Weight 80 kg 78.6 kg Physical Exam: General appearance: PRESENT: no acute distress Head exam: PRESENT: atraumatic, normocephalic Eye exam: PRESENT: conjunctiva pink. ABSENT: pallor, scleral icterus Ear exam: PRESENT: normal external ear exam Mouth exam: PRESENT: moist, other - NG tube in situ Respiratory exam: PRESENT: clear to auscultation nicolle, decreased breath sounds - at lung bases Cardiovascular exam: PRESENT: RRR. ABSENT: diastolic murmur, rubs, systolic murmur GI/Abdominal exam: PRESENT: normal bowel sounds, soft. ABSENT: distended, guarding, mass, organomegaly, rebound, tenderness Extremities exam: ABSENT: pedal edema Neurological exam: PRESENT: alert, awake Psychiatric exam: ABSENT: agitated Skin exam: PRESENT: dry, warm Results Laboratory Results: 09/10/18 04:32 09/10/18 04:32 09/10/18 09/10/18 09/10/18 04:32 04:32 09:13 WBC 10.5 RBC 3.04 L Hgb 9.6 L Hct 28.6 L MCV 94 MCH 31.7 MCHC 33.7 RDW 13.1 Plt Count 208 Seg Neutrophils % 78.4 H Lymphocytes % 9.3 L Monocytes % 8.1 Eosinophils % 3.6 Basophils % 0.6 Absolute Neutrophils 8.3 H Absolute Lymphocytes 1.0 Absolute Monocytes 0.9 Absolute Eosinophils 0.4 Absolute Basophils 0.1 Carbonic Acid 1.39 H HCO3/H2CO3 Ratio 19:1 ABG pH 7.38 ABG pCO2 46.2 H ABG pO2 109.3 H ABG HCO3 26.8 H ABG O2 Saturation 97.9 ABG Base Excess 1.3 FiO2 3L Sodium 145.9 H Potassium 3.5 L Chloride 112 H Carbon Dioxide 26 Anion Gap 8 BUN 24 H Creatinine 1.45 H Est GFR ( Amer) 58 L Est GFR (Non-Af Amer) 48 L Glucose 208 H Calcium 9.0 Phosphorus 2.9 Magnesium 2.2 08/31/18 08/31/18 08/31/18 09:43 09:43 13:29 Creatine Kinase 248 H 270 H CK-MB (CK-2) 4.20 Troponin I 0.060 NT-Pro-B Natriuret Pep 5890 H 08/31/18 08/31/18 08/31/18 13:29 21:00 21:00 Creatine Kinase 227 H CK-MB (CK-2) 4.20 3.93 Troponin I 0.063 0.078 NT-Pro-B Natriuret Pep 09/01/18 09/01/18 03:30 03:30 Creatine Kinase 187 H CK-MB (CK-2) 3.12 Troponin I 0.096 NT-Pro-B Natriuret Pep Impressions: Head CT 09/08/18 00:00 IMPRESSION: Multiple chronic appearing infarcts. No acute findings EVIDENCE OF ACUTE STROKE: NO. KUB X-Ray 09/09/18 08:48 IMPRESSION: Appropriate nasogastric tube. Chest X-Ray 09/10/18 09:28 IMPRESSION: No focal infiltrates. Triple-lumen catheter, nasogastric tube in good positioning. Stable cardiomegaly Assessment & Plan - Diagnosis (1) Hypoglycemic encephalopathy Is this a current diagnosis for this admission?: Yes (2) Hypoglycemia associated with type 2 diabetes mellitus Is this a current diagnosis for this admission?: Yes (3) Diabetes mellitus type 2 in nonobese Is this a current diagnosis for this admission?: Yes (4) HTN (hypertension) Qualifiers: Hypertension type: essential hypertension Qualified Code(s): I10 - Essential (primary) hypertension Is this a current diagnosis for this admission?: Yes - Time Time Spent with patient: 25-34 minutes Medications reviewed and adjusted accordingly: Yes Anticipated discharge: SNF Within: Other - Inpatient Certification Based on my medical assessment, after consideration of the patient's comorbidities, presenting symptoms, or acuity I expect that the services needed warrant INPATIENT care.: Yes I certify that my determination is in accordance with my understanding of Medicare's requirements for reasonable and necessary INPATIENT services [42 CFR 412.3e].: Yes Medical Necessity: Significant Comorbidiites Make Outpatient Treatment Too Risky, Need Close Monitoring Due to Risk of Patient Decompensation, Need For IV Fluids, Need For Continuous Telemetry Monitoring, Risk of Complication if Not Cared For in Hospital, Risk of Diagnosis Which Will Require Inpatient Eval/Care/Monitoring Post Hospital Care: D/C or Transfer Summary - Plan Summary Plan Summary: Start on Amlodipine 5 mg / NG daily 1st dose now. Continue to hold his Ativan administration and monitor his alertness and responsiveness. Continue all other current medication management.
[2018-09-10] MEDS: AMLODIPINE BESYLATE 5 MG TABLET NG SCH (17:00)
[2018-09-10] MEDS ORDERED: DILTIAZEM HCL 30 MG TABLET NG ONE (18:45)
[2018-09-10] MEDS: ATORVASTATIN CALCIUM 20 MG TABLET NG SCH (21:11)
[2018-09-10] MEDS: DILTIAZEM HCL 30 MG TABLET NG SCH (23:21)
[2018-09-11] MEDS: HYDRALAZINE HCL 25 MG TABLET NG SCH ×4 (00:36→17:10)
[2018-09-11] MEDS: PHENYTOIN 50 MG TAB.CHEW NG SCH ×3 (02:21→17:10)
[2018-09-11] MEDS: DILTIAZEM HCL 30 MG TABLET NG SCH ×2 (05:08→11:09)
[2018-09-11] MEDS: HEPARIN SOD (PORCINE) 5,000 UNIT/ML 1 ML SYRINGE SUBCUT SCH ×3 (05:09→22:08)
[2018-09-11] MEDS: INSULIN LISPRO 100 UNIT/ML 3 ML VIAL SUBCUT SCH ×3 (05:20→17:10)
[2018-09-11 06:33] LABS: BLOOD UREA NITROGEN 24 mg/dL (7-20); CALCIUM 9.2 mg/dL (8.4-10.2); CARBON DIOXIDE 27 mmol/L (22-30); CHLORIDE 112 mmol/L (98-107); GLUCOSE 208 mg/dL (75-110); PHOSPHORUS 3.2 mg/dL (2.5-4.5); POTASSIUM 3.5 mmol/L (3.6-5.0); SODIUM 143.4 mmol/L (137-145)
[2018-09-11 06:38] LABS: ANION GAP 5 (5-19)
[2018-09-11] MEDS: DOCUSATE SODIUM 100 MG/10 ML UDC NG SCH ×2 (09:04→17:11)
[2018-09-11] MEDS: AMLODIPINE BESYLATE 5 MG TABLET NG SCH (09:12)
[2018-09-11] MEDS: LEVETIRACETAM ORAL SOLN 500 MG/5 ML UDCUP NG SCH ×2 (09:12→22:07)
[2018-09-11] MEDS: METOPROLOL TARTRATE 50 MG TABLET NG SCH ×2 (09:12→22:07)
[2018-09-11] MEDS: LORAZEPAM INJ 2 MG/1 ML VIAL IV PRN ×2 (13:00→18:48)
--- NOTE | 2018-09-11 14:58 | PDOC PROGRESS REPORT ---
Subjective Progress Note for:: 09/11/18 Subjective:: Patient was seen by the bedside, he is alert but is non-communicative, he was seen by speech, PEG tube recommended, patient will need to go to [facility] for physical [facility] and rehabilitation Reason For Visit: ACUTE PULMONARY EDEMA,HYPOGLYCEMIC ENCEPHALOPATHY Physical Exam Vital Signs: Temp Pulse Resp BP Pulse Ox 98.4 F 91 25 H 149/80 H 94 09/11/18 12:00 09/11/18 14:00 09/11/18 14:15 09/11/18 14:09 09/11/18 14:15 Intake & Output 09/10/18 09/11/18 09/12/18 06:59 06:59 06:59 Intake Total 1940 1723 Output Total 1450 1380 370 Balance 490 343 -370 Weight 78.6 kg 78.4 kg General appearance: PRESENT: no acute distress Eye exam: PRESENT: PERRLA Respiratory exam: PRESENT: clear to auscultation nicolle Cardiovascular exam: PRESENT: +S1, +S2 GI/Abdominal exam: PRESENT: soft Neurological exam: PRESENT: alert Results Laboratory Results: 09/10/18 04:32 09/11/18 05:57 09/11/18 05:57 Sodium 143.4 Potassium 3.5 L Chloride 112 H Carbon Dioxide 27 Anion Gap 5 BUN 24 H Creatinine 1.32 H Est GFR ( Amer) > 60 Est GFR (Non-Af Amer) 53 L Glucose 208 H Calcium 9.2 Phosphorus 3.2 Magnesium 2.1 08/31/18 08/31/18 08/31/18 09:43 09:43 13:29 Creatine Kinase 248 H 270 H CK-MB (CK-2) 4.20 Troponin I 0.060 NT-Pro-B Natriuret Pep 5890 H 08/31/18 08/31/18 08/31/18 13:29 21:00 21:00 Creatine Kinase 227 H CK-MB (CK-2) 4.20 3.93 Troponin I 0.063 0.078 NT-Pro-B Natriuret Pep 09/01/18 09/01/18 03:30 03:30 Creatine Kinase 187 H CK-MB (CK-2) 3.12 Troponin I 0.096 NT-Pro-B Natriuret Pep Impressions: Head CT 09/08/18 00:00 IMPRESSION: Multiple chronic appearing infarcts. No acute findings EVIDENCE OF ACUTE STROKE: NO. KUB X-Ray 09/09/18 08:48 IMPRESSION: Appropriate nasogastric tube. Chest X-Ray 09/10/18 09:28 IMPRESSION: No focal infiltrates. Triple-lumen catheter, nasogastric tube in good positioning. Stable cardiomegaly Assessment & Plan - Diagnosis (1) Acute hypoxemic respiratory failure Is this a current diagnosis for this admission?: Yes (2) Acute systolic heart failure Is this a current diagnosis for this admission?: Yes (3) Hypoglycemia Is this a current diagnosis for this admission?: Yes (4) Pneumonia Qualifiers: Pneumonia type: due to unspecified organism Laterality: left Lung location: unspecified part of lung Qualified Code(s): J18.9 - Pneumonia, unspecified organism Is this a current diagnosis for this admission?: Yes (5) Chronic kidney disease, stage 3 Is this a current diagnosis for this admission?: Yes (6) Hypoglycemic encephalopathy Is this a current diagnosis for this admission?: Yes (7) Atrial fibrillation Qualifiers: Atrial fibrillation type: paroxysmal Qualified Code(s): I48.0 - Paroxysmal atrial fibrillation Is this a current diagnosis for this admission?: Yes - Plan Summary Plan Summary: Downgrade to medical floor, consult from surgery for PEG tube, consult from discharge planning for prison placement
[2018-09-11] MEDS ORDERED: DILTIAZEM HCL/D5W 125 MG/125 ML RTUINJ IV ONE (18:04)
[2018-09-11] MEDS ORDERED: DILTIAZEM HCL/D5W 125 MG/125 ML RTUINJ IV PRN (18:07)
[2018-09-11] MEDS ORDERED: POTASSI CL 20 MEQ/50 ML RIDER 20 MEQ/50 ML RTUPB IV ONE (21:29)
[2018-09-11] MEDS: ATORVASTATIN CALCIUM 20 MG TABLET NG SCH (22:07)
[2018-09-12] MEDS: HYDRALAZINE HCL 25 MG TABLET NG SCH ×4 (00:45→17:10)
[2018-09-12] MEDS: DILTIAZEM HCL 30 MG TABLET NG SCH ×4 (00:45→17:10)
[2018-09-12] MEDS: LORAZEPAM INJ 2 MG/1 ML VIAL IV PRN ×3 (00:57→20:53)
[2018-09-12] MEDS: INSULIN LISPRO 100 UNIT/ML 3 ML VIAL SUBCUT SCH ×3 (00:57→12:42)
[2018-09-12] MEDS: PHENYTOIN 50 MG TAB.CHEW NG SCH ×3 (05:09→17:10)
[2018-09-12] MEDS: HEPARIN SOD (PORCINE) 5,000 UNIT/ML 1 ML SYRINGE SUBCUT SCH ×2 (05:10→13:54)
--- NOTE | 2018-09-12 06:37 | PDOC CONSULTATION ---
Consultation Consult Date: 09/12/18 Provider Consulted: SURGICAL SURGICALIST History of Present Illness Admission Date/PCP: 08/31/18 11:25 MIMI AVILA MD Patient complains of: Dysphagia, inanition History of Present Illness: RICKY PETTY is a 73 year old male seen in consultation at the request of Dr. Avila. The patient was admitted to the hospital with altered mental status. Currently, I am unclear the exact etiology of his mental status changes. At present, the patient is nonverbal and does not respond appropriately to questions. I have made an attempt to contact the patient's next of kin (Monika Del Castillo) but was unsuccessful. I am unable to obtain a review of systems on this patient due to his mental status. All history is obtained from the chart and nursing staff. Per report, the patient failed a swallowing study today and gastrostomy was recommended. Past Medical History Cardiac Medical History: Reports: Congestive Heart Failure - Chronic systolic and diastolic heart failure, Myocardial Infarction, Hypertension, Other - Nonischemic dilated cardiomyopathy Pulmonary Medical History: Denies: Asthma, Tuberculosis Neurological Medical History: Reports: Seizures - LAST X5 YRS AGO Endocrine Medical History: Reports: Diabetes Mellitus Type 2 Renal/ Medical History: Reports: Chronic Kidney Disease, Other - Chronic kidney disease stage III GI Medical History: Denies: Hepatitis, Hiatal Hernia Psychiatric Medical History: Denies: Depression Hematology: Reports: Anemia - MEDICATION Past Surgical History Past Surgical History: Reports: Internal Defibrillator, Pacemaker Social History Smoking Status: Never Smoker Frequency of Alcohol Use: None Hx Recreational Drug Use: No Drugs: None Hx Prescription Drug Abuse: No - Advance Directive Resuscitation Status: Full Code Family History Family History: Reviewed & Not Pertinent Parental Family History Reviewed: Yes Children Family History Reviewed: Yes Sibling(s) Family History Reviewed.: Yes Medication/Allergy Home Medications: Aspirin [Aspirin 81 mg Chewable Tablet] 81 mg PO DAILY 08/31/18 Atorvastatin Calcium [Lipitor 20 mg Tablet] 20 mg PO QHS 08/31/18 Clopidogrel Bisulfate [Plavix 75 mg Tablet] 75 mg PO DAILY 08/31/18 Doxazosin Mesylate [Cardura 2 mg Tablet] 2 mg PO DAILY 08/31/18 Insulin Glargine,Hum.rec.anlog [Lantus Insulin 100 Unit/1 ml 10 ml] 30 unit SQ DAILY 08/31/18 Isosorb Dinit/Hydralazine HCl [Bidil 20-37.5 mg Tablet] 1 tab PO BID 08/31/18 Levetiracetam [Keppra] 1,000 mg PO Q12 08/31/18 Linagliptin [Tradjenta] 5 mg PO DAILY 08/31/18 Metoprolol Succinate [Toprol XL 100 mg Tablet] 100 mg PO DAILY 08/31/18 Olmesartan Medoxomil [Benicar] 40 mg PO DAILY 08/31/18 Pantoprazole Sodium [Protonix [address] Tablet] 40 mg PO BID 08/31/18 Phenytoin Sodium Extended [Dilantin 100 mg Capsule.er] 100 mg PO Q8 08/31/18 Potassium Chloride [Klor-Con 10 Meq Capsule ER] 10 meq PO DAILY 08/31/18 Torsemide [Demadex 20 mg Tablet] 20 mg PO DAILY 08/31/18 Allergies/Adverse Reactions: No Known Allergies Allergy (Verified 06/28/18 13:53) Review of Systems ROS unobtainable: Due to mental status Physical Exam Vital Signs: Temp Pulse Resp BP Pulse Ox 98.8 F 94 29 H 183/88 H 88 L 09/11/18 16:00 09/11/18 16:00 09/11/18 18:09 09/11/18 18:09 09/11/18 18:09 Intake & Output 09/10/18 09/11/18 09/12/18 06:59 06:59 06:59 Intake Total 1940 1723 1474 Output Total 1450 1380 470 Balance 168 893 0256 Weight 78.6 kg 78.4 kg General appearance: PRESENT: no acute distress. ABSENT: cooperative Head exam: PRESENT: atraumatic, normocephalic Eye exam: ABSENT: scleral icterus Mouth exam: PRESENT: moist, neck supple Neck exam: ABSENT: meningismus, tenderness, thyromegaly, tracheal deviation Respiratory exam: PRESENT: tachypnea, unlabored. ABSENT: accessory muscle use, chest wall tenderness Cardiovascular exam: PRESENT: RRR Pulses: PRESENT: normal radial pulses Vascular exam: PRESENT: normal capillary refill. ABSENT: pallor GI/Abdominal exam: PRESENT: soft. ABSENT: distended, firm, guarding, tenderness Rectal exam: PRESENT: deferred Extremities exam: ABSENT: clubbing Musculoskeletal exam: ABSENT: deformity Neurological exam: ABSENT: alert, oriented to person, oriented to place, oriented to time, oriented to situation, motor sensory deficit Psychiatric exam: PRESENT: agitated. ABSENT: anxious Focused psych exam: PRESENT: restlessness Skin exam: ABSENT: cyanosis, erythema, jaundice Results Laboratory Results: 09/10/18 04:32 09/11/18 05:57 09/11/18 05:57 Sodium 143.4 Potassium 3.5 L Chloride 112 H Carbon Dioxide 27 Anion Gap 5 BUN 24 H Creatinine 1.32 H Est GFR ( Amer) > 60 Est GFR (Non-Af Amer) 53 L Glucose 208 H Calcium 9.2 Phosphorus 3.2 Magnesium 2.1 08/31/18 08/31/18 08/31/18 09:43 09:43 13:29 Creatine Kinase 248 H 270 H CK-MB (CK-2) 4.20 Troponin I 0.060 NT-Pro-B Natriuret Pep 5890 H 08/31/18 08/31/18 08/31/18 13:29 21:00 21:00 Creatine Kinase 227 H CK-MB (CK-2) 4.20 3.93 Troponin I 0.063 0.078 NT-Pro-B Natriuret Pep 09/01/18 09/01/18 03:30 03:30 Creatine Kinase 187 H CK-MB (CK-2) 3.12 Troponin I 0.096 NT-Pro-B Natriuret Pep Impressions: Head CT 09/08/18 00:00 IMPRESSION: Multiple chronic appearing infarcts. No acute findings EVIDENCE OF ACUTE STROKE: NO. KUB X-Ray 09/09/18 08:48 IMPRESSION: Appropriate nasogastric tube. Chest X-Ray 09/10/18 09:28 IMPRESSION: No focal infiltrates. Triple-lumen catheter, nasogastric tube in good positioning. Stable cardiomegaly Assessment & Plan - Diagnosis (1) Inanition Is this a current diagnosis for this admission?: Yes (2) Dysphagia Qualifiers: Dysphagia type: unspecified Qualified Code(s): R13.10 - Dysphagia, unspecified Is this a current diagnosis for this admission?: Yes - Plan Summary Plan Summary: This is a 73-year-old male with altered mental status, status post swallowing eval. He has failed his swallowing evaluation, and gastrostomy was recommended. I have made an attempt to contact the next of kin for discussion regarding risks and benefits of the procedure. I could not reach her. A message was left on her voicemail to return my phone call. Without gastrostomy, the patient will not be able to eat. Gastrostomy is a reasonable approach, if the family is will ing to accept the risks of the procedure. I will attempt contact with them again. Will follow.
--- NOTE | 2018-09-12 06:55 | PDOC PROGRESS REPORT ---
Subjective Progress Note for:: 09/12/18 Subjective:: 73-year-old male with altered mental status. He is still confused. He does not respond appropriately to questions. Review of systems is unobtainable due to his mental status. Reason For Visit: ACUTE PULMONARY EDEMA,HYPOGLYCEMIC ENCEPHALOPATHY Physical Exam Vital Signs: Temp Pulse Resp BP Pulse Ox 98.6 F 108 H 17 154/92 H 90 L 09/11/18 22:00 09/11/18 22:00 09/11/18 22:00 09/11/18 22:00 09/11/18 22:00 Intake & Output 09/10/18 09/11/18 09/12/18 06:59 06:59 06:59 Intake Total 1940 1723 1525 Output Total 1450 1380 470 Balance 423 395 9427 Weight 78.6 kg 78.4 kg 78.4 kg General appearance: PRESENT: no acute distress. ABSENT: cooperative Head exam: PRESENT: atraumatic, normocephalic Eye exam: ABSENT: scleral icterus Mouth exam: PRESENT: moist, neck supple Neck exam: ABSENT: meningismus, tenderness, thyromegaly, tracheal deviation Respiratory exam: PRESENT: unlabored. ABSENT: chest wall tenderness Cardiovascular exam: PRESENT: tachycardia Pulses: PRESENT: normal radial pulses Vascular exam: PRESENT: normal capillary refill GI/Abdominal exam: PRESENT: soft. ABSENT: distended, tenderness Rectal exam: PRESENT: deferred Extremities exam: ABSENT: clubbing Musculoskeletal exam: ABSENT: deformity Neurological exam: PRESENT: altered. ABSENT: oriented to person, oriented to place, oriented to time, oriented to situation Psychiatric exam: PRESENT: agitated Focused psych exam: PRESENT: restlessness Skin exam: ABSENT: cyanosis, erythema, jaundice Results Laboratory Results: 09/10/18 04:32 09/11/18 05:57 08/31/18 08/31/18 08/31/18 09:43 09:43 13:29 Creatine Kinase 248 H 270 H CK-MB (CK-2) 4.20 Troponin I 0.060 NT-Pro-B Natriuret Pep 5890 H 08/31/18 08/31/18 08/31/18 13:29 21:00 21:00 Creatine Kinase 227 H CK-MB (CK-2) 4.20 3.93 Troponin I 0.063 0.078 NT-Pro-B Natriuret Pep 09/01/18 09/01/18 03:30 03:30 Creatine Kinase 187 H CK-MB (CK-2) 3.12 Troponin I 0.096 NT-Pro-B Natriuret Pep Impressions: Head CT 09/08/18 00:00 IMPRESSION: Multiple chronic appearing infarcts. No acute findings EVIDENCE OF ACUTE STROKE: NO. KUB X-Ray 09/09/18 08:48 IMPRESSION: Appropriate nasogastric tube. Chest X-Ray 09/10/18 09:28 IMPRESSION: No focal infiltrates. Triple-lumen catheter, nasogastric tube in good positioning. Stable cardiomegaly Assessment & Plan - Diagnosis (1) Inanition Is this a current diagnosis for this admission?: Yes (2) Dysphagia Qualifiers: Dysphagia type: unspecified Qualified Code(s): R13.10 - Dysphagia, unspeci fied Is this a current diagnosis for this admission?: Yes - Plan Summary Plan Summary: 73-year-old male in need of a feeding tube due to dysphagia and altered mental status. An attempt was made yesterday to contact the family to discuss his care. I will reattempt to contact family today. Plan for gastrostomy if/when the family provides consent.
[2018-09-12] MEDS: METOPROLOL TARTRATE 50 MG TABLET NG SCH (10:10)
[2018-09-12] MEDS: LEVETIRACETAM ORAL SOLN 500 MG/5 ML UDCUP NG SCH (10:10)
[2018-09-12] MEDS: AMLODIPINE BESYLATE 5 MG TABLET NG SCH (10:10)
[2018-09-12] MEDS: DOCUSATE SODIUM 100 MG/10 ML UDC NG SCH ×2 (10:11→17:10)
[2018-09-12 11:00] LABS: ANION GAP 5 (5-19); BLOOD UREA NITROGEN 26 mg/dL (7-20); CALCIUM 9.1 mg/dL (8.4-10.2); CARBON DIOXIDE 27 mmol/L (22-30); CHLORIDE 113 mmol/L (98-107); GLUCOSE 148 mg/dL (75-110); PHOSPHORUS 3.5 mg/dL (2.5-4.5); POTASSIUM 3.4 mmol/L (3.6-5.0); SODIUM 145.3 mmol/L (137-145)
--- NOTE | 2018-09-12 14:16 | PDOC PROGRESS REPORT ---
Subjective Progress Note for:: 09/12/18 Reason For Visit: ACUTE PULMONARY EDEMA,HYPOGLYCEMIC ENCEPHALOPATHY request for PEG placement Physical Exam Vital Signs: Temp Pulse Resp BP Pulse Ox 98.7 F 78 24 H 147/87 H 100 09/12/18 11:42 09/12/18 11:42 09/12/18 11:42 09/12/18 11:42 09/12/18 11:42 Intake & Output 09/11/18 09/12/18 09/13/18 06:59 06:59 06:59 Intake Total 1723 2335 412 Output Total 1380 470 350 Balance 343 1865 62 Weight 78.4 kg 78.4 kg General appearance: PRESENT: no acute distress, other - patient is hard to arouse, opens his eyes when stimulated by sternal rubbing, not responsive to commands, turns head spontaneusly but without purpose, does not follow command GI/Abdominal exam: PRESENT: soft Results Laboratory Results: 09/10/18 04:32 09/12/18 05:30 09/12/18 05:30 Sodium 145.3 H Potassium 3.4 L Chloride 113 H Carbon Dioxide 27 Anion Gap 5 BUN 26 H Creatinine 1.43 H Est GFR ( Amer) 58 L Est GFR (Non-Af Amer) 48 L Glucose 148 H Calcium 9.1 Phosphorus 3.5 Magnesium 2.2 08/31/18 08/31/18 08/31/18 09:43 09:43 13:29 Creatine Kinase 248 H 270 H CK-MB (CK-2) 4.20 Troponin I 0.060 NT-Pro-B Natriuret Pep 5890 H 08/31/18 08/31/18 08/31/18 13:29 21:00 21:00 Creatine Kinase 227 H CK-MB (CK-2) 4.20 3.93 Troponin I 0.063 0.078 NT-Pro-B Natriuret Pep 09/01/18 09/01/18 03:30 03:30 Creatine Kinase 187 H CK-MB (CK-2) 3.12 Troponin I 0.096 NT-Pro-B Natriuret Pep Impressions: Head CT 09/08/18 00:00 IMPRESSION: Multiple chronic appearing infarcts. No acute findings EVIDENCE OF ACUTE STROKE: NO. KUB X-Ray 09/09/18 08:48 IMPRESSION: Appropriate nasogastric tube. Chest X-Ray 09/10/18 09:28 IMPRESSION: No focal infiltrates. Triple-lumen catheter, nasogastric tube in good positioning. Stable cardiomegaly Assessment & Plan - Diagnosis (1) Acute metabolic encephalopathy due to hypoglycemia Is this a current diagnosis for this admission?: Yes - Plan Summary Plan Summary: A/ 73 y/o male wh has suffered from prolonged hypoglycemic encephalopathy while at home Patient is neurologically depressed, no responsive to verbal stimuli Patient opens eyes only with sternal rubbing Patient does not follows commands Currently he has been fed via NGT with no improvement of his neuro status. P/ Due to the above physical findings, I do not believe the patient is appropriate candidate for any intervention such as PEG insertion which will not improve the patient mental status as this has not improved during the past days of hospitalization In addition, by my conversation with the Community Health Consultant Dr. Macias he has expressed my same opinion and concern about this patient poor outcome even if fed via PEG. In addition, this procedure (PEG placement) could be frown by complications (bowel perforatn, bleeding, stroke, respiratory arrest, and ) due to this patient poor general conditions which might require an intervention which should be performed in such a patient. In light of the above findings and considerations, the patient's daughter expresses the wishes to stop current care and to make the patient comfort care only. This will be communicated to Dr. Garcia. I will sign off.
--- NOTE | 2018-09-12 17:40 | ADVANCED CARE ---
- Diagnosis (1) Acute hypoxemic respiratory failure Diagnosis Current: Yes (2) Acute systolic heart failure Diagnosis Current: Yes (3) Hypoglycemia Diagnosis Current: Yes (4) Pneumonia Diagnosis Current: Yes (6) Hypoglycemic encephalopathy Diagnosis Current: Yes (7) Atrial fibrillation Diagnosis Current: Yes Resuscitation Status: Comfort Measures Only Document(s) Completed: I had a discussion with patient's POA, they express desire for patient to be comfort care. He has hypoglycemic encephalopathy, cardiomyopathy, patient does not communicate. Overall prognosis is very poor in this patient, I agree with the decision to make him comfort care and DNR status
--- NOTE | 2018-09-12 20:23 | PDOC PROGRESS REPORT ---
Subjective Progress Note for:: 09/12/18 Subjective:: Patient was seen by the bedside, the care was transition to comfort measures today per patient's POA wishes,Patient's condition is poor,He was supposed to have a PEG tube placement today, family decided otherwise Reason For Visit: ACUTE PULMONARY EDEMA,HYPOGLYCEMIC ENCEPHALOPATHY Physical Exam Vital Signs: Temp Pulse Resp BP Pulse Ox 99.1 F 83 16 138/76 H 97 09/12/18 15:36 09/12/18 15:36 09/12/18 15:36 09/12/18 15:36 09/12/18 15:36 Intake & Output 09/11/18 09/12/18 09/13/18 06:59 06:59 06:59 Intake Total 1723 2335 412 Output Total 1380 470 350 Balance 343 1865 62 Weight 78.4 kg 78.4 kg General appearance: PRESENT: no acute distress Cardiovascular exam: PRESENT: +S1, +S2 GI/Abdominal exam: PRESENT: soft Neurological exam: PRESENT: alert Results Laboratory Results: 09/10/18 04:32 09/12/18 05:30 09/12/18 05:30 Sodium 145.3 H Potassium 3.4 L Chloride 113 H Carbon Dioxide 27 Anion Gap 5 BUN 26 H Creatinine 1.43 H Est GFR ( Amer) 58 L Est GFR (Non-Af Amer) 48 L Glucose 148 H Calcium 9.1 Phosphorus 3.5 Magnesium 2.2 08/31/18 08/31/18 08/31/18 09:43 09:43 13:29 Creatine Kinase 248 H 270 H CK-MB (CK-2) 4.20 Troponin I 0.060 NT-Pro-B Natriuret Pep 5890 H 08/31/18 08/31/18 08/31/18 13:29 21:00 21:00 Creatine Kinase 227 H CK-MB (CK-2) 4.20 3.93 Troponin I 0.063 0.078 NT-Pro-B Natriuret Pep 09/01/18 09/01/18 03:30 03:30 Creatine Kinase 187 H CK-MB (CK-2) 3.12 Troponin I 0.096 NT-Pro-B Natriuret Pep Impressions: Head CT 09/08/18 00:00 IMPRESSION: Multiple chronic appearing infarcts. No acute findings EVIDENCE OF ACUTE STROKE: NO. KUB X-Ray 09/09/18 08:48 IMPRESSION: Appropriate nasogastric tube. Chest X-Ray 09/10/18 09:28 IMPRESSION: No focal infiltrates. Triple-lumen catheter, nasogastric tube in good positioning. Stable cardiomegaly Assessment & Plan - Diagnosis (1) Acute hypoxemic respiratory failure Is this a current diagnosis for this admission?: Yes Plan: The concept of comfort measure was explained to the family (2) Acute systolic heart failure Is this a current diagnosis for this admission?: Yes (3) Hypoglycemia Is this a current diagnosis for this admission?: Yes (4) Pneumonia Qualifiers: Pneumonia type: due to unspecified organism Laterality: left Lung location: unspecified part of lung Qualified Code(s): J18.9 - Pneumonia, unspecified organism Is this a current diagnosis for this admission?: Yes (5) Chronic kidney disease, stage 3 Is this a current diagnosis for this admission?: Yes (6) Hypoglycemic encephalopathy Is this a current diagnosis for this admission?: Yes (7) Atrial fibrillation Qualifiers: Atrial fibrillation type: paroxysmal Qualified Code(s): I48.0 - Paroxysmal atrial fibrillation Is this a current diagnosis for this admission?: Yes
[2018-09-12] MEDS: MORPHINE SULFATE 10 MG/ML INJ IV PRN (22:57)
[2018-09-13] MEDS: MORPHINE SULFATE 10 MG/ML INJ IV PRN ×3 (05:42→18:32)
[2018-09-13] MEDS: LORAZEPAM INJ 2 MG/1 ML VIAL IV PRN ×3 (10:21→19:28)
--- NOTE | 2018-09-13 17:01 | PDOC PROGRESS REPORT ---
Subjective Progress Note for:: 09/13/18 Subjective:: Patient seen by the bedside presently comfort care Reason For Visit: ACUTE PULMONARY EDEMA,HYPOGLYCEMIC ENCEPHALOPATHY Physical Exam Vital Signs: Temp Pulse Resp BP Pulse Ox 96.8 F L 80 18 150/80 H 100 09/13/18 10:00 09/13/18 10:00 09/13/18 10:00 09/13/18 10:00 09/13/18 10:00 Intake & Output 09/12/18 09/13/18 09/14/18 06:59 06:59 06:59 Intake Total 2335 412 Output Total 470 350 Balance 1865 62 Weight 78.4 kg 81.8 kg Results Laboratory Results: 09/10/18 04:32 09/12/18 05:30 08/31/18 08/31/18 08/31/18 09:43 09:43 13:29 Creatine Kinase 248 H 270 H CK-MB (CK-2) 4.20 Troponin I 0.060 NT-Pro-B Natriuret Pep 5890 H 08/31/18 08/31/18 08/31/18 13:29 21:00 21:00 Creatine Kinase 227 H CK-MB (CK-2) 4.20 3.93 Troponin I 0.063 0.078 NT-Pro-B Natriuret Pep 09/01/18 09/01/18 03:30 03:30 Creatine Kinase 187 H CK-MB (CK-2) 3.12 Troponin I 0.096 NT-Pro-B Natriuret Pep Impressions: Head CT 09/08/18 00:00 IMPRESSION: Multiple chronic appearing infarcts. No acute findings EVIDENCE OF ACUTE STROKE: NO. KUB X-Ray 09/09/18 08:48 IMPRESSION: Appropriate nasogastric tube. Chest X-Ray 09/10/18 09:28 IMPRESSION: No focal infiltrates. Triple-lumen catheter, nasogastric tube in good positioning. Stable cardiomegaly Assessment & Plan - Diagnosis (1) Acute hypoxemic respiratory failure Is this a current diagnosis for this admission?: Yes (2) Acute systolic heart failure Is this a current diagnosis for this admission?: Yes (3) Hypoglycemia Is this a current diagnosis for this admission?: Yes (4) Pneumonia Qualifiers: Pneumonia type: due to unspecified organism Laterality: left Lung location: unspecified part of lung Qualified Code(s): J18.9 - Pneumonia, unspecified organism Is this a current diagnosis for this admission?: Yes (5) Chronic kidney disease, stage 3 Is this a current diagnosis for this admission?: Yes (6) Hypoglycemic encephalopathy Is this a current diagnosis for this admission?: Yes (7) Atrial fibrillation Qualifiers: Atrial fibrillation type: paroxysmal Qualified Code(s): I48.0 - Paroxysmal atrial fibrillation Is this a current diagnosis for this admission?: Yes
[2018-09-14] MEDS: MORPHINE SULFATE 10 MG/ML INJ IV PRN ×3 (00:01→18:50)
[2018-09-14] MEDS: LORAZEPAM INJ 2 MG/1 ML VIAL IV PRN ×4 (04:48→20:32)
--- NOTE | 2018-09-14 21:35 | PDOC PROGRESS REPORT ---
Subjective Progress Note for:: 09/14/18 Subjective:: Patient seen by the bedside presently comfort care Reason For Visit: ACUTE PULMONARY EDEMA,HYPOGLYCEMIC ENCEPHALOPATHY Physical Exam Vital Signs: Temp Pulse Resp BP Pulse Ox 96.8 F L 80 18 150/80 H 100 09/13/18 10:00 09/13/18 10:00 09/13/18 10:00 09/13/18 10:00 09/13/18 10:00 Intake & Output 09/13/18 09/14/18 09/15/18 06:59 06:59 06:59 Intake Total 412 0 Output Total 350 700 700 Balance 62 -700 -700 Weight 81.8 kg 82 kg Results Laboratory Results: 09/10/18 04:32 09/12/18 05:30 08/31/18 08/31/18 08/31/18 09:43 09:43 13:29 Creatine Kinase 248 H 270 H CK-MB (CK-2) 4.20 Troponin I 0.060 NT-Pro-B Natriuret Pep 5890 H 08/31/18 08/31/18 08/31/18 13:29 21:00 21:00 Creatine Kinase 227 H CK-MB (CK-2) 4.20 3.93 Troponin I 0.063 0.078 NT-Pro-B Natriuret Pep 09/01/18 09/01/18 03:30 03:30 Creatine Kinase 187 H CK-MB (CK-2) 3.12 Troponin I 0.096 NT-Pro-B Natriuret Pep Impressions: Head CT 09/08/18 00:00 IMPRESSION: Multiple chronic appearing infarcts. No acute findings EVIDENCE OF ACUTE STROKE: NO. KUB X-Ray 09/09/18 08:48 IMPRESSION: Appropriate nasogastric tube. Chest X-Ray 09/10/18 09:28 IMPRESSION: No focal infiltrates. Triple-lumen catheter, nasogastric tube in good positioning. Stable cardiomegaly Assessment & Plan - Diagnosis (1) Acute hypoxemic respiratory failure Is this a current diagnosis for this admission?: Yes (2) Acute systolic heart failure Is this a current diagnosis for this admission?: Yes (3) Hypoglycemia Is this a current diagnosis for this admission?: Yes (4) Pneumonia Qualifiers: Pneumonia type: due to unspecified organism Laterality: left Lung location: unspecified part of lung Qualified Code(s): J18.9 - Pneumonia, unspecified organism Is this a current diagnosis for this admission?: Yes (5) Chronic kidney disease, stage 3 Is this a current diagnosis for this admission?: Yes (6) Hypoglycemic encephalopathy Is this a current diagnosis for this admission?: Yes (7) Atrial fibrillation Qualifiers: Atrial fibrillation type: paroxysmal Qualified Code(s): I48.0 - Paroxysmal atrial fibrillation Is this a current diagnosis for this admission?: Yes
[2018-09-15] MEDS: LORAZEPAM INJ 2 MG/1 ML VIAL IV PRN ×3 (05:26→15:45)
--- NOTE | 2018-09-15 21:46 | PDOC PROGRESS REPORT ---
Subjective Progress Note for:: 09/15/18 Subjective:: Patient seen by the bedside presently comfort care Reason For Visit: ACUTE PULMONARY EDEMA,HYPOGLYCEMIC ENCEPHALOPATHY Physical Exam Vital Signs: Temp Pulse Resp BP Pulse Ox 98.9 F 113 H 22 H 174/84 H 97 09/15/18 11:55 09/15/18 11:55 09/15/18 11:55 09/15/18 11:55 09/15/18 11:55 Intake & Output 09/14/18 09/15/18 09/16/18 06:59 06:59 06:59 Intake Total 0 0 Output Total 700 950 400 Balance -700 -950 -400 Weight 82 kg 82.1 kg Results Laboratory Results: 09/10/18 04:32 09/12/18 05:30 08/31/18 08/31/18 08/31/18 09:43 09:43 13:29 Creatine Kinase 248 H 270 H CK-MB (CK-2) 4.20 Troponin I 0.060 NT-Pro-B Natriuret Pep 5890 H 08/31/18 08/31/18 08/31/18 13:29 21:00 21:00 Creatine Kinase 227 H CK-MB (CK-2) 4.20 3.93 Troponin I 0.063 0.078 NT-Pro-B Natriuret Pep 09/01/18 09/01/18 03:30 03:30 Creatine Kinase 187 H CK-MB (CK-2) 3.12 Troponin I 0.096 NT-Pro-B Natriuret Pep Impressions: Head CT 09/08/18 00:00 IMPRESSION: Multiple chronic appearing infarcts. No acute findings EVIDENCE OF ACUTE STROKE: NO. KUB X-Ray 09/09/18 08:48 IMPRESSION: Appropriate nasogastric tube. Chest X-Ray 09/10/18 09:28 IMPRESSION: No focal infiltrates. Triple-lumen catheter, nasogastric tube in good positioning. Stable cardiomegaly Assessment & Plan - Diagnosis (1) Acute hypoxemic respiratory failure Is this a current diagnosis for this admission?: Yes (2) Acute systolic heart failure Is this a current diagnosis for this admission?: Yes (3) Hypoglycemia Is this a current diagnosis for this admission?: Yes (4) Pneumonia Qualifiers: Pneumonia type: due to unspecified organism Laterality: left Lung location: unspecified part of lung Qualified Code(s): J18.9 - Pneumonia, unspecified organism Is this a current diagnosis for this admission?: Yes (5) Chronic kidney disease, stage 3 Is this a current diagnosis for this admission?: Yes (6) Hypoglycemic encephalopathy Is this a current diagnosis for this admission?: Yes (7) Atrial fibrillation Qualifiers: Atrial fibrillation type: paroxysmal Qualified Code(s): I48.0 - Paroxysmal atrial fibrillation Is this a current diagnosis for this admission?: Yes
[2018-09-16] MEDS: LORAZEPAM INJ 2 MG/1 ML VIAL IV PRN ×2 (00:03→02:56)
--- NOTE | 2018-09-16 13:51 | PDOC PROGRESS REPORT ---
Subjective Progress Note for:: 09/16/18 Subjective:: Patient seen by the bedside, DNR status, presently comfort care Reason For Visit: ACUTE PULMONARY EDEMA,HYPOGLYCEMIC ENCEPHALOPATHY Physical Exam Vital Signs: Temp Pulse Resp BP Pulse Ox 98.9 F 113 H 22 H 174/84 H 97 09/15/18 11:55 09/15/18 11:55 09/15/18 11:55 09/15/18 11:55 09/15/18 11:55 Intake & Output 09/15/18 09/16/18 09/17/18 06:59 06:59 06:59 Intake Total 0 0 Output Total 950 650 Balance -950 -650 Weight 82.1 kg Eye exam: PRESENT: PERRLA Cardiovascular exam: PRESENT: +S1, +S2 GI/Abdominal exam: PRESENT: soft Neurological exam: PRESENT: alert Results Laboratory Results: 09/10/18 04:32 09/12/18 05:30 08/31/18 08/31/18 08/31/18 09:43 09:43 13:29 Creatine Kinase 248 H 270 H CK-MB (CK-2) 4.20 Troponin I 0.060 NT-Pro-B Natriuret Pep 5890 H 08/31/18 08/31/18 08/31/18 13:29 21:00 21:00 Creatine Kinase 227 H CK-MB (CK-2) 4.20 3.93 Troponin I 0.063 0.078 NT-Pro-B Natriuret Pep 09/01/18 09/01/18 03:30 03:30 Creatine Kinase 187 H CK-MB (CK-2) 3.12 Troponin I 0.096 NT-Pro-B Natriuret Pep Impressions: Head CT 09/08/18 00:00 IMPRESSION: Multiple chronic appearing infarcts. No acute findings EVIDENCE OF ACUTE STROKE: NO. KUB X-Ray 09/09/18 08:48 IMPRESSION: Appropriate nasogastric tube. Chest X-Ray 09/10/18 09:28 IMPRESSION: No focal infiltrates. Triple-lumen catheter, nasogastric tube in good positioning. Stable cardiomegaly Assessment & Plan - Diagnosis (1) Acute hypoxemic respiratory failure Is this a current diagnosis for this admission?: Yes (2) Acute systolic heart failure Is this a current diagnosis for this admission?: Yes (3) Hypoglycemia Is this a current diagnosis for this admission?: Yes (4) Pneumonia Qualifiers: Pneumonia type: due to unspecified organism Laterality: left Lung location: unspecified part of lung Qualified Code(s): J18.9 - Pneumonia, unspecified organism Is this a current diagnosis for this admission?: Yes (5) Chronic kidney disease, stage 3 Is this a current diagnosis for this admission?: Yes (6) Hypoglycemic encephalopathy Is this a current diagnosis for this admission?: Yes (7) Atrial fibrillation Qualifiers: Atrial fibrillation type: paroxysmal Qualified Code(s): I48.0 - Paroxysmal atrial fibrillation Is this a current diagnosis for this admission?: Yes
[2018-09-17] MEDS ORDERED: (PENDING PHARMACY ID) (Linagliptin [Tradjenta] 5 MG) PO SCH (12:15)
[2018-09-17] MEDS ORDERED: LEVETIRACETAM 500 MG TABLET PO SCH (12:15)
--- NOTE | 2018-09-17 12:30 | PDOC PROGRESS REPORT ---
Subjective Progress Note for:: 09/17/18 Subjective:: Patient seen by the bedside, family members were not present status change to full code, patient was comfort care for the last few days because of family wishes, family wants PEG tube placed and also to continue other treatments. He was seen by the bedside patient is alert he responds to verbal commands appropriately but his words are not clear yet Reason For Visit: ACUTE PULMONARY EDEMA,HYPOGLYCEMIC ENCEPHALOPATHY Physical Exam Vital Signs: Temp Pulse Resp BP Pulse Ox 98.9 F 113 H 22 H 174/84 H 97 09/15/18 11:55 09/15/18 11:55 09/15/18 11:55 09/15/18 11:55 09/15/18 11:55 Intake & Output 09/16/18 09/17/18 09/18/18 06:59 06:59 06:59 Intake Total 0 25 Output Total 650 350 Balance -650 -325 General appearance: PRESENT: no acute distress Eye exam: PRESENT: PERRLA Respiratory exam: PRESENT: clear to auscultation nicolle Cardiovascular exam: PRESENT: +S1, +S2 GI/Abdominal exam: PRESENT: soft Neurological exam: PRESENT: alert Results Laboratory Results: 09/10/18 04:32 09/12/18 05:30 08/31/18 08/31/18 08/31/18 09:43 09:43 13:29 Creatine Kinase 248 H 270 H CK-MB (CK-2) 4.20 Troponin I 0.060 NT-Pro-B Natriuret Pep 5890 H 08/31/18 08/31/18 08/31/18 13:29 21:00 21:00 Creatine Kinase 227 H CK-MB (CK-2) 4.20 3.93 Troponin I 0.063 0.078 NT-Pro-B Natriuret Pep 09/01/18 09/01/18 03:30 03:30 Creatine Kinase 187 H CK-MB (CK-2) 3.12 Troponin I 0.096 NT-Pro-B Natriuret Pep Impressions: Head CT 09/08/18 00:00 IMPRESSION: Multiple chronic appearing infarcts. No acute findings EVIDENCE OF ACUTE STROKE: NO. KUB X-Ray 09/09/18 08:48 IMPRESSION: Appropriate nasogastric tube. Chest X-Ray 09/10/18 09:28 IMPRESSION: No focal infiltrates. Triple-lumen catheter, nasogastric tube in good positioning. Stable cardiomegaly Assessment & Plan - Diagnosis (1) Acute hypoxemic respiratory failure Is this a current diagnosis for this admission?: Yes (2) Acute systolic heart failure Is this a current diagnosis for this admission?: Yes (3) Hypoglycemia Is this a current diagnosis for this admission?: Yes (4) Pneumonia Qualifiers: Pneumonia type: due to unspecified organism Laterality: left Lung location: unspecified part of lung Qualified Code(s): J18.9 - Pneumonia, unspecified organism Is this a current diagnosis for this admission?: Yes (5) Chronic kidney disease, stage 3 Is this a current diagnosis for this admission?: Yes (6) Hypoglycemic encephalopathy Is this a current diagnosis for this admission?: Yes (7) Atrial fibrillation Qualifiers: Atrial fibrillation type: paroxysmal Qualified Code(s): I48.0 - Paroxysmal atrial fibrillation Is this a current diagnosis for this admission?: Yes - Plan Summary Plan Summary: Consultation from surgery for PEG placement, restart back patient antiepileptic drug, AED, continue other medications, change status to full code from DNR
[2018-09-17] MEDS: CLOPIDOGREL BISULFATE 75 MG TABLET PO SCH (12:43)
[2018-09-17] MEDS: ASPIRIN 81 MG TABLET, CHEWABLE PO SCH (12:43)
[2018-09-17 14:55] LABS: ALANINE AMINOTRANSFERASE 21 U/L (21-72); ALBUMIN 3.3 g/dL (3.5-5.0); ALKALINE PHOSPHATASE 140 U/L (38-126); ANION GAP 8 (5-19); ASPARTATE AMINO TRANSFERASE 22 U/L (17-59); BILIRUBIN,DIRECT 0.4 mg/dL (0.0-0.4); BILIRUBIN,TOTAL 0.6 mg/dL (0.2-1.3); BLOOD UREA NITROGEN 28 mg/dL (7-20); CALCIUM 9.4 mg/dL (8.4-10.2); CARBON DIOXIDE 24 mmol/L (22-30); CHLORIDE 125 mmol/L (98-107); GLUCOSE 165 mg/dL (75-110); SODIUM 157.2 mmol/L (137-145); TOTAL PROTEIN 6.6 g/dL (6.3-8.2)
[2018-09-17 15:51] LABS: ABSOLUTE BASOPHILS # (AUTO) 0.1 10^3/uL (0.0-0.2); ABSOLUTE EOSINOPHILS # (AUTO) 0.2 10^3/uL (0.0-0.6); ABSOLUTE LYMPHOCYTES (AUTO) 1.3 10^3/uL (0.5-4.7); ABSOLUTE MONOCYTES (AUTO) 0.7 10^3/uL (0.1-1.4); ABSOLUTE NEUT (AUTO) 8.4 10^3/uL (1.7-8.2); BASOPHILS % (AUTO) 0.7 % (0-2); EOSINOPHILS % (AUTO) 1.5 % (0-6); HEMATOCRIT 33.8 % (37.9-51.0); HEMOGLOBIN 11.4 g/dL (13.5-17.0); LYMPHOCYTES % (AUTO) 12.2 % (13-45); MEAN CORPUSCULAR HEMOGLOBIN 31.7 pg (27.0-33.4); MEAN CORPUSCULAR HGB CONC 33.7 g/dL (32.0-36.0); MEAN CORPUSCULAR VOLUME 94 fl (80-97); MONOCYTES % (AUTO) 6.5 % (3-13); PLATELET COUNT 402 10^3/uL (150-450); RED BLOOD COUNT 3.59 10^6/uL (4.35-5.55); RED CELL DISTRIBUTION WIDTH 13.6 % (11.5-14.0); SEGMENTED NEUTROPHILS % (AUTO) 79.1 % (42-78); TOTAL CELLS COUNTED % (AUTO) 100 %; WHITE BLOOD COUNT 10.6 10^3/uL (4.0-10.5)
[2018-09-17] MEDS: LEVETIRACETAM ORAL SOLN 500 MG/5 ML UDCUP PO SCH ×3 (16:14→22:57)
[2018-09-17] MEDS: PHENYTOIN 100 MG/4 ML SUSP PO SCH ×3 (16:14→22:57)
[2018-09-17] MEDS: ISOSORB DINIT/HYDRALAZINE HCL 20-37.5 MG TABLET PO SCH ×2 (18:31→18:46)
[2018-09-17] MEDS ORDERED: METOPROLOL TARTRATE 50 MG TABLET ONE (18:43)
[2018-09-17] MEDS ORDERED: HYDRALAZINE HCL INJ/PF 20 MG/1 ML SDV IV PRN (18:47)
[2018-09-17] MEDS: DEXTROSE 5%-WATER 1000 ML 1,000 ML IV PRN (20:08)
--- NOTE | 2018-09-17 20:42 | PDOC PROGRESS REPORT ---
Subjective Progress Note for:: 09/17/18 Subjective:: This is a 73-year-old male with encephalopathy. I have been asked to reevaluate the patient regarding a feeding tube. The patient is more awake than on my previous examination. He will respond to verbal commands, however he still appears to be significantly confused and does not appropriately follow given commands. Nursing staff reports that he remains agitated and pulling at his gowned, oxygen, and central line. A significant review of systems is unable to be obtained, due to his mental status. Reason For Visit: ACUTE PULMONARY EDEMA,HYPOGLYCEMIC ENCEPHALOPATHY Physical Exam Vital Signs: Temp Pulse Resp BP Pulse Ox 98.9 F 92 16 160/72 H 99 09/17/18 10:00 09/17/18 10:00 09/17/18 10:00 09/17/18 18:30 09/17/18 10:00 Intake & Output 09/16/18 09/17/18 09/18/18 06:59 06:59 06:59 Intake Total 0 25 120 Output Total 650 350 350 Balance -650 -325 -230 General appearance: PRESENT: no acute distress Head exam: PRESENT: atraumatic, normocephalic Eye exam: ABSENT: scleral icterus Mouth exam: PRESENT: moist, neck supple Neck exam: ABSENT: meningismus, tenderness, thyromegaly Respiratory exam: PRESENT: unlabored. ABSENT: tachypnea Cardiovascular exam: PRESENT: RRR Pulses: PRESENT: normal radial pulses Vascular exam: PRESENT: normal capillary refill. ABSENT: pallor GI/Abdominal exam: PRESENT: soft. ABSENT: distended, tenderness Rectal exam: PRESENT: deferred Neurological exam: PRESENT: awake Psychiatric exam: PRESENT: agitated Focused psych exam: PRESENT: restlessness Skin exam: ABSENT: cyanosis, erythema, jaundice Results Laboratory Results: 09/17/18 15:44 09/17/18 14:14 09/17/18 09/17/18 09/17/18 14:14 14:14 15:44 WBC Cancelled 10.6 H RBC Cancelled 3.59 L Hgb Cancelled 11.4 L Hct Cancelled 33.8 L MCV Cancelled 94 MCH Cancelled 31.7 MCHC Cancelled 33.7 RDW Cancelled 13.6 Plt Count Cancelled 402 Seg Neutrophils % Cancelled 79.1 H Lymphocytes % Cancelled 12.2 L Monocytes % Cancelled 6.5 Eosinophils % Cancelled 1.5 Basophils % Cancelled 0.7 Absolute Neutrophils Cancelled 8.4 H Absolute Lymphocytes Cancelled 1.3 Absolute Monocytes Cancelled 0.7 Absolute Eosinophils Cancelled 0.2 Absolute Basophils Cancelled 0.1 Sodium 157.2 H Potassium 4.0 Chloride 125 H Carbon Dioxide 24 Anion Gap 8 BUN 28 H Creatinine 1.87 H Est GFR ( Amer) 43 L Est GFR (Non-Af Amer) 35 L Glucose 165 H Calcium 9.4 Total Bilirubin 0.6 AST 22 ALT 21 Alkaline Phosphatase 140 H Total Protein 6.6 Albumin 3.3 L 08/31/18 08/31/18 08/31/18 09:43 09:43 13:29 Creatine Kinase 248 H 270 H CK-MB (CK-2) 4.20 Troponin I 0.060 NT-Pro-B Natriuret Pep 5890 H 08/31/18 08/31/18 08/31/18 13:29 21:00 21:00 Creatine Kinase 227 H CK-MB (CK-2) 4.20 3.93 Troponin I 0.063 0.078 NT-Pro-B Natriuret Pep 09/01/18 09/01/18 03:30 03:30 Creatine Kinase 187 H CK-MB (CK-2) 3.12 Troponin I 0.096 NT-Pro-B Natriuret Pep Impressions: Head CT 09/08/18 00:00 IMPRESSION: Multiple chronic appearing infarcts. No acute findings EVIDENCE OF ACUTE STROKE: NO. KUB X-Ray 09/09/18 08:48 IMPRESSION: Appropriate nasogastric tube. Chest X-Ray 09/10/18 09:28 IMPRESSION: No focal infiltrates. Triple-lumen catheter, nasogastric tube in good positioning. Stable cardiomegaly Assessment & Plan - Diagnosis (1) Inanition Is this a current diagnosis for this admission?: Yes (2) Dysphagia Qualifiers: Dysphagia type: unspecified Qualified Code(s): R13.10 - Dysphagia, unspecified Is this a current diagnosis for this admission?: Yes - Plan Summary Plan Summary: This is a 73-year-old male with encephalopathy. I have been reconsulted to a gain discuss gastrostomy with the patient's family. I have discussed the situation with 3 separate daughters. I have reviewed the risks of gastrostomy placement, including dislodgment of the tube, with subsequent sepsis and possible . This risk is heightened in confused patients who are constantly pulling and tugging at lines and other medical devices. In light of these risks, the family has requested a formal swallowing evaluation be performed, in hopes of adequately assessing his swallowing capabilities. If the patient can take thickened liquids, he may be able to consume enough nutrition that a gastrostomy would be unnecessary. At this time, the family members are somewhat conflicted regarding gastrostomy. They were not able to give informed consent today. When a consensus has been reached by the family in-favor of gastrostomy, please renotify surgery.
[2018-09-17] MEDS: METOPROLOL TARTRATE 50 MG TABLET PO SCH (22:51)
[2018-09-17] MEDS: ATORVASTATIN CALCIUM 20 MG TABLET PO SCH (22:57)
[2018-09-18] MEDS: PHENYTOIN 100 MG/4 ML SUSP PO SCH ×3 (06:35→23:16)
[2018-09-18] MEDS: METOPROLOL TARTRATE 50 MG TABLET PO SCH ×2 (09:36→23:17)
[2018-09-18] MEDS: CLOPIDOGREL BISULFATE 75 MG TABLET PO SCH (09:36)
[2018-09-18] MEDS: LOSARTAN POTASSIUM 50 MG TABLET PO SCH (09:37)
[2018-09-18] MEDS: ASPIRIN 81 MG TABLET, CHEWABLE PO SCH (09:37)
[2018-09-18] MEDS: ISOSORB DINIT/HYDRALAZINE HCL 20-37.5 MG TABLET PO SCH ×2 (09:37→17:19)
[2018-09-18] MEDS: SITAGLIPTIN PHOSPHATE 50 MG TABLET PO SCH (09:38)
[2018-09-18] MEDS: LEVETIRACETAM ORAL SOLN 500 MG/5 ML UDCUP PO SCH ×2 (09:38→23:17)
[2018-09-18] MEDS: DOXAZOSIN MESYLATE 2 MG TABLET PO SCH (09:48)
[2018-09-18] MEDS ORDERED: (PENDING PHARMACY ID) (Olmesartan Medoxomil [Benicar] 40 MG) PO SCH (10:00)
[2018-09-18] MEDS: DEXTROSE 5%-WATER 1000 ML 1,000 ML IV PRN (17:23)
--- NOTE | 2018-09-18 20:29 | PDOC PROGRESS REPORT ---
Subjective Progress Note for:: 09/18/18 Subjective:: Patient was seen by the bedside, is tolerating by mouth, the plan is to continue present management,, transfer to [facility] Reason For Visit: ACUTE PULMONARY EDEMA,HYPOGLYCEMIC ENCEPHALOPATHY Physical Exam Vital Signs: Temp Pulse Resp BP Pulse Ox 98.4 F 90 22 H 156/97 H 94 09/18/18 08:19 09/18/18 08:19 09/18/18 08:19 09/18/18 08:19 09/18/18 08:19 Intake & Output 09/17/18 09/18/18 09/19/18 06:59 06:59 06:59 Intake Total 25 240 1534 Output Total 350 525 Balance -325 -285 1534 Weight 79.1 kg General appearance: PRESENT: no acute distress Eye exam: PRESENT: PERRLA Respiratory exam: PRESENT: clear to auscultation nicolle Cardiovascular exam: PRESENT: +S1, +S2 GI/Abdominal exam: PRESENT: soft Neurological exam: PRESENT: alert Results Laboratory Results: 09/17/18 15:44 09/17/18 14:14 08/31/18 08/31/18 08/31/18 09:43 09:43 13:29 Creatine Kinase 248 H 270 H CK-MB (CK-2) 4.20 Troponin I 0.060 NT-Pro-B Natriuret Pep 5890 H 08/31/18 08/31/18 08/31/18 13:29 21:00 21:00 Creatine Kinase 227 H CK-MB (CK-2) 4.20 3.93 Troponin I 0.063 0.078 NT-Pro-B Natriuret Pep 09/01/18 09/01/18 03:30 03:30 Creatine Kinase 187 H CK-MB (CK-2) 3.12 Troponin I 0.096 NT-Pro-B Natriuret Pep Impressions: Head CT 09/08/18 00:00 IMPRESSION: Multiple chronic appearing infarcts. No acute findings EVIDENCE OF ACUTE STROKE: NO. KUB X-Ray 09/09/18 08:48 IMPRESSION: Appropriate nasogastric tube. Chest X-Ray 09/10/18 09:28 IMPRESSION: No focal infiltrates. Triple-lumen catheter, nasogastric tube in good positioning. Stable cardiomegaly Assessment & Plan - Diagnosis (1) Acute hypoxemic respiratory failure Is this a current diagnosis for this admission?: Yes (2) Acute systolic heart failure Is this a current diagnosis for this admission?: Yes (3) Hypoglycemia Is this a current diagnosis for this admission?: Yes (4) Pneumonia Qualifiers: Pneumonia type: due to unspecified organism Laterality: left Lung location: unspecified part of lung Qualified Code(s): J18.9 - Pneumonia, unspecified organism Is this a current diagnosis for this admission?: Yes (5) Chronic kidney disease, stage 3 Is this a current diagnosis for this admission?: Yes (6) Hypoglycemic encephalopathy Is this a current diagnosis for this admission?: Yes (7) Atrial fibrillation Qualifiers: Atrial fibrillation type: paroxysmal Qualified Code(s): I48.0 - Paroxysmal atrial fibrillation Is this a current diagnosis for this admission?: Yes
[2018-09-18] MEDS: ATORVASTATIN CALCIUM 20 MG TABLET PO SCH (23:17)
[2018-09-19] MEDS: PHENYTOIN 100 MG/4 ML SUSP PO SCH ×3 (05:12→22:14)
[2018-09-19] MEDS: DEXTROSE 5%-WATER 1000 ML 1,000 ML IV PRN (09:08)
[2018-09-19] MEDS: LEVETIRACETAM ORAL SOLN 500 MG/5 ML UDCUP PO SCH ×2 (09:09→22:14)
[2018-09-19] MEDS: SITAGLIPTIN PHOSPHATE 50 MG TABLET PO SCH (09:09)
[2018-09-19] MEDS: ISOSORB DINIT/HYDRALAZINE HCL 20-37.5 MG TABLET PO SCH ×2 (09:09→17:36)
[2018-09-19] MEDS: LOSARTAN POTASSIUM 50 MG TABLET PO SCH (09:11)
[2018-09-19] MEDS: ASPIRIN 81 MG TABLET, CHEWABLE PO SCH (09:12)
[2018-09-19] MEDS: CLOPIDOGREL BISULFATE 75 MG TABLET PO SCH (09:12)
[2018-09-19] MEDS: METOPROLOL TARTRATE 50 MG TABLET PO SCH ×2 (09:12→22:14)
[2018-09-19] MEDS: DOXAZOSIN MESYLATE 2 MG TABLET PO SCH (09:14)
--- NOTE | 2018-09-19 11:06 | ST Inp Modified Barium Swallow ---
Medical Diagnosis - Medical Diagnoses Medical Diagnosis Description & ICD-10 Code(s): hypoglycemic encephalopathy - ICD-10 Tx Diagnosis Coding (1) Dysphagia ICD-10 Code(s): R13.10 - DYSPHAGIA, UNSPECIFIED ST [place] [facility] [place] Date: 09/19/18 Date of Onset: 09/06/18 - following extubation - History History Obtained From: Other - EMR -: Medical - patient admitted 08/31/18 after being found unresponsive, was intubated on that date. Prior medical history includes nonischemic cardiomyopathy, chronic kidney disease stage 3, diabetes, history of CVA with epilepsy. Patient was extubated on 09/06, had NG tube in place at that time. Was previously evaluated by speech to determine safe PO diet, no safe diet eric mmendations could be made at that time. 09/17/18, patient referred for dysphagia evaluation by surgeon. Speech was previously following patient for dysphagia treatment, this was discontinued after discussion with physician due to the patient being made comfort measure. Comfort measures have now been removed, and the patient is being fed PO. Was on honey thick liquids and puree solids. After bedside evaluation, therapist recommended nectar liquids and puree solids. Medications: Medications Reviewed Allergies: No known allergies - Subjective Current Nutritional Means: PO Current PO Diet: Pureed, Thickened liquids - nectar Current Symptoms: Coughing, other - high risk of aspiration due to comorbidities. Pain: unable to communicate, no signs/symptoms of pain - Objective Assessment: Upright, Left Lateral - Food Trials Food Trials Used: Thin liquids - with pinched straw and spoon presentation, Marmet thick liquids - spoon and straw presentations, Pureed The Patient: fed by ST, via spoon, via straw - patient unable to coordinate cup drinking - Assessment Labial Function: Impaired - groping behavior Lingual Function: Within Functional Limits Mandibular Function: Impaired - groping Dentition: Partial Velo-Pharyngeal Function: Unremarkable Laryngeal Function: weak voicing - Pharyngeal Stage Initiation of Pharyngeal Stage: Delayed - triggered at level of pyriform, up to 5 seconds Decreased Laryngeal Elevation: No Reduced Velo-Pharyngeal Closure: no Reduced Pressure Generation: Yes Reduced Tongue Base Retraction: Yes Pre-Swallowing Pooling in Valleculae: Significant Pre-Swallowing Pooling in Pyriforms: Moderate Reduced Thyro-Hyiod Approximation: No Reduced Epiglottic Excursion: No Multiple Swallows With: Cleared w/ Dry Swallow Post Swallow Residuals in Valleculae: Moderate Post Swallow Residuals in Pyriforms: Mild - Impression/Summary Laryngeal Penetration: No - with thin liquid only Tracheal Aspiration: yes - with thin liquid only Productive Cough: Yes Patient Presents With: Pharyngeal stage dysph., Mild-Moderate Risk of Aspiration: Moderate Risk of Nutritional Compromise: Moderate Risk Due To: Aspiration risk due to pharyngeal residuals. These could clear with a second swallow, however, patient could not be cued to complete a second swa llow. Spontaneous swallows did clear residue. Nutritional risk due to amount of time/effort required to complete PO feeds. - Recommendations Solid Diet Recommendations: Pureed Liquid Diet Recommendations: Marmet-Thick Strict Aspitarion Precautions: Yes Dysphagia Therapy with INSPECTOR EYEGLASS FRAMES: Yes Recommended Techniques: Fully Upright During Meal - remain upright after meals for 15-30 minutes, Alternate Bites/Sips - Time Total Time: 30 Total Timed Minutes: 30
--- NOTE | 2018-09-19 11:45 | RADIOLOGY REPORT (SQ) ---
EXAM DESCRIPTION: MARÍA ELENA SWALLOW COMPLETED DATE/TIME: 09/19/2018 11:12 am REASON FOR STUDY: Risk for aspiration history of CVA COMPARISON: None. TECHNIQUE: Videofluoroscopic swallowing examination was performed in conjunction with speech patholo gy. Videofluoroscopic imaging was obtained and reviewed and these are the findings: RADIATION DOSE: Fluoro time 3.42 minutes 1 images saved to PACS. LIMITATIONS: None FINDINGS: The patient was brought into the fluoro room and placed upright on a modified barium swall ow chair. The patient was then given multiple consistencies mixed with barium to swallow under live fluoroscopic video guidance. According to the Speech Pathologist there was laryngeal penetration as well as aspiration seen with thin barium. All other consistencies were swallowed without incident. P lease refer to the speech pathology report for further details. IMPRESSION: ASPIRATION WITH THIN BARIUM. PLEASE SEE SPEECH PATHOLOGIST REPORT FOR OTHER FINDINGS AND RECOMMENDATIONS. COMMENT: None Quality ID [id number]: Final reports for procedures using fluoroscopy that document radiation exposure raul devora, or exposure time and number of fluorographic images (if radiation exposure indices are not avail able) TECHNICAL DOCUMENTATION: JOB ID: [id number] [employer]- All Rights Reserved Reading location - IP/workstation name: [email or web address]
[2018-09-19] MEDS ORDERED: ACETAMINOPHEN 325 MG TABLET PO PRN (20:23)
--- NOTE | 2018-09-19 20:51 | PDOC PROGRESS REPORT ---
Subjective Progress Note for:: 09/19/18 Subjective:: Patient seen by the bedside, he has hyperglycemia, DC 5% dextrose Reason For Visit: ACUTE PULMONARY EDEMA,HYPOGLYCEMIC ENCEPHALOPATHY Physical Exam Vital Signs: Temp Pulse Resp BP Pulse Ox 99.1 F 72 22 H 154/72 H 100 09/19/18 20:29 09/19/18 20:29 09/19/18 20:29 09/19/18 20:29 09/19/18 20:29 Intake & Output 09/18/18 09/19/18 09/20/18 06:59 06:59 06:59 Intake Total 240 1534 2996 Output Total 776 035 7462 Balance -285 1434 1871 Weight 79.1 kg 80.2 kg General appearance: PRESENT: no acute distress Eye exam: PRESENT: PERRLA Respiratory exam: PRESENT: clear to auscultation nicolle Cardiovascular exam: PRESENT: +S1, +S2 GI/Abdominal exam: PRESENT: soft Neurological exam: PRESENT: alert Results Laboratory Results: 09/17/18 15:44 09/17/18 14:14 08/31/18 08/31/18 08/31/18 09:43 09:43 13:29 Creatine Kinase 248 H 270 H CK-MB (CK-2) 4.20 Troponin I 0.060 NT-Pro-B Natriuret Pep 5890 H 08/31/18 08/31/18 08/31/18 13:29 21:00 21:00 Creatine Kinase 227 H CK-MB (CK-2) 4.20 3.93 Troponin I 0.063 0.078 NT-Pro-B Natriuret Pep 09/01/18 09/01/18 03:30 03:30 Creatine Kinase 187 H CK-MB (CK-2) 3.12 Troponin I 0.096 NT-Pro-B Natriuret Pep Impressions: Head CT 09/08/18 00:00 IMPRESSION: Multiple chronic appearing infarcts. No acute findings EVIDENCE OF ACUTE STROKE: NO. KUB X-Ray 09/09/18 08:48 IMPRESSION: Appropriate nasogastric tube. Chest X-Ray 09/10/18 09:28 IMPRESSION: No focal infiltrates. Triple-lumen catheter, nasogastric tube in good positioning. Stable cardiomegaly Modified Barium Swallow 09/19/18 00:00 IMPRESSION: ASPIRATION WITH THIN BARIUM. PLEASE SEE SPEECH PATHOLOGIST REPORT FOR OTHER FINDINGS AND RECOMMENDATIONS. Assessment & Plan - Diagnosis (1) Acute hypoxemic respiratory failure Is this a current diagnosis for this admission?: Yes (2) Acute systolic heart failure Is this a current diagnosis for this admission?: Yes (3) Hypoglycemia Is this a current diagnosis for this admission?: Yes (4) Pneumonia Qualifiers: Pneumonia type: due to unspecified organism Laterality: left Lung location: unspecified part of lung Qualified Code(s): J18.9 - Pneumonia, unspecified organism Is this a current diagnosis for this admission?: Yes (5) Chronic kidney disease, stage 3 Is this a current diagnosis for this admission?: Yes (6) Hypoglycemic encephalopathy Is this a current diagnosis for this admission?: Yes (7) Atrial fibrillation Qualifiers: Atrial fibrillation type: paroxysmal Qualified Code(s): I48.0 - Paroxysmal atrial fibrillation Is this a current diagnosis for this admission?: Yes
[2018-09-19] MEDS: ATORVASTATIN CALCIUM 20 MG TABLET PO SCH (22:14)
[2018-09-20] MEDS: PHENYTOIN 100 MG/4 ML SUSP PO SCH ×3 (05:42→21:57)
[2018-09-20] MEDS: ISOSORB DINIT/HYDRALAZINE HCL 20-37.5 MG TABLET PO SCH ×2 (10:42→17:48)
[2018-09-20] MEDS: SITAGLIPTIN PHOSPHATE 50 MG TABLET PO SCH (10:42)
[2018-09-20] MEDS: ASPIRIN 81 MG TABLET, CHEWABLE PO SCH (10:42)
[2018-09-20] MEDS: LOSARTAN POTASSIUM 50 MG TABLET PO SCH (10:42)
[2018-09-20] MEDS: CLOPIDOGREL BISULFATE 75 MG TABLET PO SCH (10:43)
[2018-09-20] MEDS: DOXAZOSIN MESYLATE 2 MG TABLET PO SCH (10:43)
[2018-09-20] MEDS: METOPROLOL TARTRATE 50 MG TABLET PO SCH ×2 (10:43→21:57)
[2018-09-20] MEDS: LEVETIRACETAM ORAL SOLN 500 MG/5 ML UDCUP PO SCH ×2 (10:45→21:58)
[2018-09-20] MEDS ORDERED: DEXTROSE 40% GEL 15 GM TUBE X 2 PO PRN (17:30)
[2018-09-20] MEDS ORDERED: DEXTROSE 50%-WATER SYRINGE 25 GM/50 ML DOSE IV PRN (17:30)
[2018-09-20] MEDS ORDERED: DEXTROSE 40% GEL 15 GM TUBE PO PRN ×3 (17:30→19:22)
[2018-09-20] MEDS ORDERED: DEXTROSE 50%-WATER SYRINGE 12.5 GM/25 ML DOSE IV PRN (17:30)
[2018-09-20] MEDS ORDERED: GLUCAGON,HUMAN RECOMB 1 MG INJ IM PRN ×2 (17:30→19:22)
[2018-09-20] MEDS: INSULIN LISPRO 100 UNIT/ML 3 ML VIAL SUBCUT SCH ×2 (19:07→21:57)
[2018-09-20] MEDS ORDERED: DEXTROSE 50%-WATER 25 GM/50 ML DISP.SYRIN IV PRN ×2 (19:22)
--- NOTE | 2018-09-20 19:28 | PDOC PROGRESS REPORT ---
Subjective Progress Note for:: 09/20/18 Subjective:: Patient was seen by the bedside still not fully engaging Reason For Visit: ACUTE PULMONARY EDEMA,HYPOGLYCEMIC ENCEPHALOPATHY Physical Exam Vital Signs: Temp Pulse Resp BP Pulse Ox 99.1 F 81 21 H 138/92 H 100 09/19/18 23:37 09/20/18 11:23 09/20/18 11:23 09/20/18 11:23 09/20/18 11:23 Intake & Output 09/19/18 09/20/18 09/21/18 06:59 06:59 06:59 Intake Total 1534 3236 Output Total 100 1475 Balance 1434 1761 Weight 80.2 kg General appearance: PRESENT: no acute distress Eye exam: PRESENT: PERRLA Respiratory exam: PRESENT: clear to auscultation nicolle Cardiovascular exam: PRESENT: +S1, +S2 GI/Abdominal exam: PRESENT: soft Neurological exam: PRESENT: alert Results Laboratory Results: 09/17/18 15:44 09/17/18 14:14 08/31/18 08/31/18 08/31/18 09:43 09:43 13:29 Creatine Kinase 248 H 270 H CK-MB (CK-2) 4.20 Troponin I 0.060 NT-Pro-B Natriuret Pep 5890 H 08/31/18 08/31/18 08/31/18 13:29 21:00 21:00 Creatine Kinase 227 H CK-MB (CK-2) 4.20 3.93 Troponin I 0.063 0.078 NT-Pro-B Natriuret Pep 09/01/18 09/01/18 03:30 03:30 Creatine Kinase 187 H CK-MB (CK-2) 3.12 Troponin I 0.096 NT-Pro-B Natriuret Pep Impressions: Head CT 09/08/18 00:00 IMPRESSION: Multiple chronic appearing infarcts. No acute findings EVIDENCE OF ACUTE STROKE: NO. KUB X-Ray 09/09/18 08:48 IMPRESSION: Appropriate nasogastric tube. Chest X-Ray 09/10/18 09:28 IMPRESSION: No focal infiltrates. Triple-lumen catheter, nasogastric tube in good positioning. Stable cardiomegaly Modified Barium Swallow 09/19/18 00:00 IMPRESSION: ASPIRATION WITH THIN BARIUM. PLEASE SEE SPEECH PATHOLOGIST REPORT FOR OTHER FINDINGS AND RECOMMENDATIONS. Assessment & Plan - Diagnosis (1) Acute hypoxemic respiratory failure Is this a current diagnosis for this admission?: Yes (2) Acute systolic heart failure Is this a current diagnosis for this admission?: Yes (3) Hypoglycemia Is this a current diagnosis for this admission?: Yes (4) Pneumonia Qualifiers: Pneumonia type: due to unspecified organism Laterality: left Lung location: unspecified part of lung Qualified Code(s): J18.9 - Pneumonia, unspecified organism Is this a current diagnosis for this admission?: Yes (5) Chronic kidney disease, stage 3 Is this a current diagnosis for this admission?: Yes (6) Hypoglycemic encephalopathy Is this a current diagnosis for this admission?: Yes (7) Atrial fibrillation Qualifiers: Atrial fibrillation type: paroxysmal Qualified Code(s): I48.0 - Paroxysmal atrial fibrillation Is this a current diagnosis for this admission?: Yes
[2018-09-20] MEDS: ATORVASTATIN CALCIUM 20 MG TABLET PO SCH (21:57)
[2018-09-20] MEDS ORDERED: INSULIN LISPRO 100 UNIT/ML 3 ML VIAL SUBCUT SCH (22:00)
[2018-09-21] MEDS: PHENYTOIN 100 MG/4 ML SUSP PO SCH ×3 (05:30→22:09)
[2018-09-21] MEDS: INSULIN LISPRO 100 UNIT/ML 3 ML VIAL SUBCUT SCH ×4 (08:24→22:00)
[2018-09-21] MEDS: LEVETIRACETAM ORAL SOLN 500 MG/5 ML UDCUP PO SCH ×2 (10:13→22:09)
[2018-09-21] MEDS: METOPROLOL TARTRATE 50 MG TABLET PO SCH ×2 (10:13→22:09)
[2018-09-21] MEDS: SITAGLIPTIN PHOSPHATE 50 MG TABLET PO SCH (10:14)
[2018-09-21] MEDS: CLOPIDOGREL BISULFATE 75 MG TABLET PO SCH (10:14)
[2018-09-21] MEDS: LOSARTAN POTASSIUM 50 MG TABLET PO SCH (10:14)
[2018-09-21] MEDS: ISOSORB DINIT/HYDRALAZINE HCL 20-37.5 MG TABLET PO SCH ×2 (10:14→17:38)
[2018-09-21] MEDS: ASPIRIN 81 MG TABLET, CHEWABLE PO SCH (10:14)
[2018-09-21] MEDS: DOXAZOSIN MESYLATE 2 MG TABLET PO SCH (10:16)
--- NOTE | 2018-09-21 20:03 | PDOC TRANSFER SUMMARY ---
General - Admit/Disc Date/PCP Admission Date/Primary Care Provider: 08/31/18 11:25 MIMI AVILA MD Discharge Date: 09/22/18 - Discharge Diagnosis (1) Acute hypoxemic respiratory failure Is this a current diagnosis for this admission?: Yes (2) Acute systolic heart failure Is this a current diagnosis for this admission?: Yes (3) Hypoglycemia Is this a current diagnosis for this admission?: Yes (4) Pneumonia Is this a current diagnosis for this admission?: Yes (5) Chronic kidney disease, stage 3 Is this a current diagnosis for this admission?: Yes (6) Hypoglycemic encephalopathy Is this a current diagnosis for this admission?: Yes (7) Atrial fibrillation Is this a current diagnosis for this admission?: Yes - Additional Information Resuscitation Status: Do Not Resuscitate Home Medications: Atorvastatin Calcium [Lipitor 20 mg Tablet] 20 mg PO QHS 08/31/18 Clopidogrel Bisulfate [Plavix 75 mg Tablet] 75 mg PO DAILY 08/31/18 Doxazosin Mesylate [Cardura 2 mg Tablet] 2 mg PO DAILY 08/31/18 Insulin Glargine,Hum.rec.anlog [Lantus Insulin 100 Unit/1 ml 10 ml] 30 unit SQ DAILY 08/31/18 Isosorb Dinit/Hydralazine HCl [Bidil 20-37.5 mg Tablet] 1 tab PO BID 08/31/18 Levetiracetam [Keppra] 1,000 mg PO Q12 08/31/18 Linagliptin [Tradjenta] 5 mg PO DAILY 08/31/18 Olmesartan Medoxomil [Benicar] 40 mg PO DAILY 08/31/18 Phenytoin Sodium Extended [Dilantin 100 mg Capsule.er] 100 mg PO Q8 08/31/18 Potassium Chloride [Klor-Con 10 Meq Capsule ER] 10 meq PO DAILY 08/31/18 Torsemide [Demadex 20 mg Tablet] 20 mg PO DAILY 08/31/18 Acetaminophen [Tylenol 325 mg Tablet] 650 mg PO Q6HP PRN tablet 09/21/18 Clopidogrel Bisulfate [Plavix 75 mg Tablet] 75 mg PO DAILY tablet 09/21/18 Metoprolol Tartrate [Lopressor 50 mg Tablet] 50 mg PO Q12 tablet 09/21/18 Pantoprazole Sodium [Protonix [address] Tablet] 40 mg PO DAILY #0 05/23/19 Phenytoin [Dilantin 100 mg/4 ml Susp] 100 mg PO Q8 [facility] [place] History of Present Illness Admission Date/PCP: 08/31/18 11:25 MIMI AVILA MD History of Present Illness: RICKY PETTY is a 73 year old male, patient is well-known to [place], he has multiple comorbid conditions including nonischemic cardiomyopathy, status post AICD/pacemaker implantation, chronic kidney disease stage III, type 2 diabetes mellitus, history of CVA with epilepsy, he apparently was found unresponsive at home he was transfer to the emergency room for evaluation by EMS, the POC Accu- Chek when EMS arrived at his residence was 17 the blood pressure was also severely elevated. He was intubated on the field. In the emergency room a chest x-ray was done, the chest x-ray showed diffuse bilateral perihilar airspace disease from pulmonary edema also found was a dense consolidation in the left retrocardiac region, atelectasis versus pneumonia no pneumothorax. No history could be obtained from this patient he also has persistent hypoglycemia he was given multiple boluses of 50% dextrose and maintenance therapy with IV 10% dextrose.. The blood work demonstrated grossly abnormal lab, the serum creatinine is about 2 weeks about his baseline. The CT head that was done did not demonstrate any acute process, there is no intracranial bleed but I cannot completely rule out an acute stroke in this patient Hospital Course Hospital Course: Patient was admitted when he presented with unresponsiveness, he was admitted with severe hypoglycemia, acute respiratory failure requiring mechanical ventilation. He had persistent hypoglycemia he was treated with 10% dextrose, despite 10% dextrose patient remained hypoglycemic he required glucagon infusion ultimately the hypoglycemia was corrected, he has type 2 diabetes mellitus, insulin required, he apparently took excessive dose of insulin accidentally I supposed. Patient sensorium was impaired for prolonged period of time EEG was done that demonstrated impaired cerebral activity. He also had atrial fibrillation with RVR he was seen by cardiology Dr. Dooley he was also seen in consultation by pulmonary. Initially patient was made DNR on this admission per family wishes and at one point during the hospital course he was made comfort care because of his overall poor prognosis but other family members decided otherwise and the DNR status was rescinded.Patient prognosis remain poor, he has not achieved full mentation is still confused, PEG tube was recommended initially, he was seen by speech and was felt that patient could have pured diet, he was also fed by the nursing staff.He had pneumonia requiring IV antibiotic Physical Exam Vital Signs: Temp Pulse Resp BP Pulse Ox 98.7 F 83 19 157/98 H 95 09/21/18 17:38 09/21/18 17:38 09/21/18 17:38 09/21/18 17:38 09/21/18 17:38 Intake & Output 09/20/18 09/21/18 09/22/18 06:59 06:59 06:59 Intake Total 3236 1064 Output Total 1475 Balance 1761 1064 Weight 80.6 kg General appearance: PRESENT: no acute distress Eye exam: PRESENT: PERRLA Respiratory exam: PRESENT: clear to auscultation nicolle Cardiovascular exam: PRESENT: +S1, +S2 GI/Abdominal exam: PRESENT: soft Neurological exam: PRESENT: alert Results Laboratory Results: 09/17/18 15:44 09/17/18 14:14 08/31/18 08/31/18 08/31/18 09:43 09:43 13:29 Creatine Kinase 248 H 270 H CK-MB (CK-2) 4.20 Troponin I 0.060 NT-Pro-B Natriuret Pep 5890 H 08/31/18 08/31/18 08/31/18 13:29 21:00 21:00 Creatine Kinase 227 H CK-MB (CK-2) 4.20 3.93 Troponin I 0.063 0.078 NT-Pro-B Natriuret Pep 09/01/18 09/01/18 03:30 03:30 Creatine Kinase 187 H CK-MB (CK-2) 3.12 Troponin I 0.096 NT-Pro-B Natriuret Pep Impressions: Head CT 09/08/18 00:00 IMPRESSION: Multiple chronic appearing infarcts. No acute findings EVIDENCE OF ACUTE STROKE: NO. KUB X-Ray 09/09/18 08:48 IMPRESSION: Appropriate nasogastric tube. Chest X-Ray 09/10/18 09:28 IMPRESSION: No focal infiltrates. Triple-lumen catheter, nasogastric tube in good positioning. Stable cardiomegaly Modified Barium Swallow 09/19/18 00:00 IMPRESSION: ASPIRATION WITH THIN BARIUM. PLEASE SEE SPEECH PATHOLOGIST REPORT FOR OTHER FINDINGS AND RECOMMENDATIONS. Transfer Plan - Time Spent with Patient Time spent with patient: Greater than 30 Minutes Qualifiers - * PATIENT BEING DISCHARGED WITH ANY OF THE FOLLOWING DIAGNOSIS: No Acute Heart Failure Is this a Heart Failure Patient?: No
[2018-09-21] MEDS: ATORVASTATIN CALCIUM 20 MG TABLET PO SCH (22:09)
[2018-09-22] MEDS: PHENYTOIN 100 MG/4 ML SUSP PO SCH ×2 (05:12→14:36)
[2018-09-22] MEDS: SITAGLIPTIN PHOSPHATE 50 MG TABLET PO SCH (09:29)
[2018-09-22] MEDS: ISOSORB DINIT/HYDRALAZINE HCL 20-37.5 MG TABLET PO SCH (09:29)
[2018-09-22] MEDS: LOSARTAN POTASSIUM 50 MG TABLET PO SCH (09:29)
[2018-09-22] MEDS: LEVETIRACETAM ORAL SOLN 500 MG/5 ML UDCUP PO SCH (09:29)
[2018-09-22] MEDS: CLOPIDOGREL BISULFATE 75 MG TABLET PO SCH (09:30)
[2018-09-22] MEDS: ASPIRIN 81 MG TABLET, CHEWABLE PO SCH (09:30)
[2018-09-22] MEDS: METOPROLOL TARTRATE 50 MG TABLET PO SCH (09:30)
[2018-09-22] MEDS: DOXAZOSIN MESYLATE 2 MG TABLET PO SCH (09:30)
[2018-09-22] MEDS: INSULIN LISPRO 100 UNIT/ML 3 ML VIAL SUBCUT SCH ×2 (09:31→11:57)
[2018-09-22 12:45] VITALS: BP 116/75
== END 2018-09-22 14:35 | DRG 207 ==
LOC: ER 09:33 → EH 11:25 → ICU 16:49 → 4S 09-11 20:38
PROVIDERS: ADMIT Internal Medicine; ATTEND Internal Medicine
PROC: 5A1955Z Respiratory Ventilation, Greater than 96 Consecutive Hours (ICD-10-PCS; principal; 2018-08-31)
PROC: 02HV33Z Insertion of Infusion Device into Superior Vena Cava, Percutaneous Approach (ICD-10-PCS; 2018-09-01)
DX: J96.01 Acute respiratory failure with hypoxia (principal); I50.23 Acute on chronic systolic (congestive) heart failure; J18.9 Pneumonia, unspecified organism; I13.0 Hypertensive heart and chronic kidney disease with heart failure and stage 1 through stage 4 chronic kidney disease, or unspecified chronic kidney disease; J44.0 Chronic obstructive pulmonary disease with (acute) lower respiratory infection; R64 Cachexia; N18.3 Chronic kidney disease, stage 3 (moderate); E11.22 Type 2 diabetes mellitus with diabetic chronic kidney disease; E11.649 Type 2 diabetes mellitus with hypoglycemia without coma; I25.5 Ischemic cardiomyopathy; G40.909 Epilepsy, unspecified, not intractable, without status epilepticus; R68.0 Hypothermia, not associated with low environmental temperature; D64.9 Anemia, unspecified; I48.0 Paroxysmal atrial fibrillation; I45.10 Unspecified right bundle-branch block; T38.3X1A Poisoning by insulin and oral hypoglycemic [antidiabetic] drugs, accidental (unintentional), initial encounter; J44.9 Chronic obstructive pulmonary disease, unspecified; E87.6 Hypokalemia; R13.10 Dysphagia, unspecified; Z79.4 Long term (current) use of insulin; Z95.810 Presence of automatic (implantable) cardiac defibrillator; Z78.1 Physical restraint status; Z86.73 Personal history of transient ischemic attack (TIA), and cerebral infarction without residual deficits; Z79.02 Long term (current) use of antithrombotics/antiplatelets
CPT/HCPCS: 36415; 51702; 70450; 71045; 74018; 74230; 80048; 80053; 80061; 80076; 80307; 81001; 82150; 82550; 82553; 82803; 82962; 83036; 83525; 83605; 83690; 83735; 83880; 84100; 84132; 84206; 84439; 84443; 84484; 85025; 85610; 85730; 87040; 87070; 87077; 87086; 87186; 87205; 93005; 93010; 94002; 94003; 95819; 96374; 99291; C1751; J0282; J0360; J0692; J1610; J1644; J1815; J1940; J1956; J2060; J2250; J2270; J2704; J3475; J3480; J3490; J7050; J7060; S0164